=== PATIENT | female | born 1985 | race Caucasian/White ===

== ENCOUNTER 2020-08-21 06:43 | Emergency (ER) | payer OTHER, SELFPAY ==
--- NOTE | 2020-08-21 07:02 | ED_ITS ---
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 Mode of arrival: ambulatory Limitations: no limitations History of Present Illness MD elicited complaint: sore throat and other (ear pain, nausea) Onset (ago): day(s) (2) Consistency: constant Description of mucous: clear Able to tolerate fluids by mouth: Yes Exacerbating factors: swallowing Relieving factors: nothing Associated symptoms: chills, headache, sore throat, nausea and ear pain Treatments prior to arrival: none Related Data Previous Rx's Medication Instructions Recorded ondansetron 4 mg PO Q8H PRN #20 tab 08/21/20 Allergies Allergy/AdvReac Type Severity Reaction Status Date / Time shellfish derived Allergy Severe HIVES Unverified 07/25/20 18:33 [SHELLFISH DERIVED] morphine [MORPHINE] Allergy Intermediate RASH, Unverified 07/25/20 18:33 rash, itching sodium ferric gluconate Allergy Mild itching Unverified 07/25/20 18:33 complex [From FERRLECIT] sucrose [From FERRLECIT] Allergy Mild itching Unverified 07/25/20 18:33 SEAFOOD Allergy Severe SWELLING,RA Uncoded 07/25/20 18:33 SH seafood Allergy Unknown rash, Uncoded 09/19/19 00:00 itching Review of Systems Review of Systems: Constitutional : no Fever, positive Chills, positive fatigue, positive Malaise ENT/Mouth : positive sore throat, positive runny nose Eyes: No Discharge Cardiovascular : No Chest Pain, No SOB Respiratory : No Cough, No Sputum Gastrointestinal : pos Nausea, No Vomiting, No Diarrhea Genitourinary : No Dysuria, No Urinary Frequency Musculoskeletal : positive Myalgia Skin : No rash Neuro : No Headache PMFSH Past Medical History Medical History Migraines Social History Social History Alcohol intake: unknown Smoking Status: Unknown if ever smoked Advance Directives: No Advance Directives Information Provided: Yes Physical Exam Vital Signs: Vital Signs: Vital Signs Temp Pulse Resp BP Pulse Ox 08/21/20 07:09 99.1 F 74 18 120/66 100 Body Mass Index 32.0 Appearance: Alert. Oriented X3. No acute distress. Eyes: Pupils equal, round and reactive to light. ENT: Pharynx normal. Ears normal Neck: Normal inspection. Neck supple. CVS: Normal heart rate and rhythm. Pulses normal. Respiratory: No respiratory distress. Breath sounds normal. Abdomen: Soft and nontender. Skin: Skin warm and dry. Normal skin color. Normal skin turgor. Extremities: No lower extremity edema. No calf ttp Neuro: Oriented X 3. No motor deficit. No sensory deficit. MDM - URI/Sore Throat MDM Narrative Medical decision making narrative: 35 yo female with viral symptoms not toxic, no hypoxia, will need COVID swab, lungs are CTAB, ENT exam normal Discharge Plan Discharge Clinical Impression: Viral infection Patient Disposition: Home, Self-Care Instructions: Viral Syndrome (ED), COVID-19 (Coronavirus Disease 2019) (ED) Additional Instructions: you were tested for COVID we will call you with results in 2 to 4 days, wear a mask, socially distance Prescriptions: New ondansetron 4 mg tablet,disintegrating 4 mg PO Q8H PRN (Reason: nausea and vomiting) Qty: 20 RF: 0 Referrals: Physician,Unknown [Primary Care Provider] - 2 days (PCP if not known) Stand Alone Forms: Work/School Release Print Language: Uzbek
[2020-08-21 07:09] VITALS: BP 120/66; PULSE 74; RESP 18; TEMP 37.3; O2SAT 100; BMI 32.0
== END 2020-08-21 07:51 | disposition home or self-care (01) ==
PROVIDERS: Emergency Provider Emergency Medicine
DX: B34.9 Viral infection, unspecified (principal); H92.03 Otalgia, bilateral; Z20.828 Contact with and (suspected) exposure to other viral communicable diseases
CPT/HCPCS: 87635; 99283

== ENCOUNTER 2020-08-28 16:44 | Emergency (ER) | payer OTHER, SELFPAY ==
[2020-08-28 17:36] VITALS: BP 99/66; PULSE 67; RESP 16; TEMP 36.3; O2SAT 99; BMI 30.7
[2020-08-28 18:12] VITALS: BP 99/77; PULSE 73; RESP 16; TEMP 37.1; O2SAT 99; BMI 32.5
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
--- NOTE | 2020-08-28 18:25 | CT_ITS ---
EXAMINATION: CT HEAD WITHOUT CONTRAST CT CERVICAL SPINE WITHOUT CONTRAST CLINICAL INFORMATION: Fall. COMPARISON: CT cervical spine from 02/08/2018. TECHNIQUE: Contiguous axial imaging was performed from the skull base to vertex without intravenous administration of contrast. Contiguous axial imaging was performed from the upper chest through the skull base without intravenous administration of contrast. Coronal and sagittal reformats were obtained at the acquisition workstation. This CT examination was performed using dose optimization techniques as appropriate, variously including the following: *Automated exposure control. *Adjustment of mA and/or kV according to patient size (this includes techniques or standardized protocols for targeted exams where dose is matched to indication/reason for exam; i.e. extremities or head). *Use of iterative reconstruction technique. DLP: 876 mGy-cm FINDINGS: Head: There is no evidence of acute intracranial hemorrhage or edematous territorial infarction. There is no abnormal attenuation within the brain parenchyma. Desai-white matter differentiation is preserved. The ventricles are normal in size and configuration. No evidence for obstructive hydrocephalus. No abnormal mass effect or midline shift. The cerebellar tonsils are normally positioned. No extra-axial fluid collections. No acute soft tissue or osseous abnormalities. The mastoid air cells and paranasal sinuses are clear. Cervical Spine: The atlantooccipital and atlantoaxial articulations remain well aligned. Straightening reversal the normal cervical lordosis centered on C5. Minimal degenerative anterolisthesis of C4 on C5. Otherwise, there is anatomic alignment of the vertebral bodies and posterior elements. No evidence of acute fracture or subluxation. The vertebral body heights and disc spaces are maintained. Mild right-sided facet joint arthropathy from C3 to C6. There is no prevertebral soft tissue swelling. The thyroid gland and remaining cervical soft tissues are normal in appearance. The lung apices demonstrate no abnormalities. Incidental azygos fissure. IMPRESSION: 1. No evidence of acute intracranial hemorrhage or edematous territorial infarction. 2. No evidence of acute fracture or traumatic subluxation of the cervical spine. 3. 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
--- NOTE | 2020-08-28 18:25 | XR_ITS ---
EXAMINATION: X-RAY HAND, LEFT CLINICAL INFORMATION: Fall COMPARISON: Radiographs of the left hand 12/13/2018 TECHNIQUE: PA, lateral, and oblique views of the left hand FINDINGS: There is normal alignment without acute fracture or dislocation. Joint spaces are preserved. Soft tissues are normal. IMPRESSION: No fracture or dislocation of the left hand.
--- NOTE | 2020-08-28 18:52 | ED_ITS ---
HPI - Fall General Chief Complaint: Fall Stated Complaint: fall Time Seen by Provider: 08/28/20 18:25 Source: patient Mode of arrival: ambulatory Limitations: no limitations History of Present Illness HPI Narrative: patient presents to the ED for fall and complaining of pain. Patient states she fell at work. Patient complains of neck pain, back pain, left hand pain, bilateral knee pain, and left ankle /foot pain. Patient denies any loss of consciousness. Patient states she out fell around 12:30pm today. Patient states since then no nausea, vomiting, dizziness, blood in stool, vomiting blood, or bloody urine. Patient denies any chest pain or shortness of breath. Related Data Previous Rx's Medication Instructions Recorded ondansetron 4 mg PO Q8H PRN #20 tab 08/21/20 naproxen 500 mg PO BID PRN #20 tab 08/28/20 Allergies Allergy/AdvReac Type Severity Reaction Status Date / Time shellfish derived Allergy Severe HIVES Unverified 07/25/20 18:33 [SHELLFISH DERIVED] morphine [MORPHINE] Allergy Intermediate RASH, Unverified 07/25/20 18:33 rash, itching sodium ferric gluconate Allergy Mild itching Unverified 07/25/20 18:33 complex [From FERRLECIT] sucrose [From FERRLECIT] Allergy Mild itching Unverified 07/25/20 18:33 SEAFOOD Allergy Severe SWELLING,RA Uncoded 07/25/20 18:33 SH seafood Allergy Unknown rash, Uncoded 09/19/19 00:00 itching Review of Systems Review of Systems: Patient denies any headache, nausea, vomiting, blood in stool, vomiting blood, blood in urine, chest pain, shortness of breath, or abdominal pain. Yes all other systems are reviewed and are negative [facility] Past Medical History Medical History Migraines Social History Social History Alcohol intake: never Smoking Status: Unknown if ever smoked Smoked in Last 30 Days: No Use of substances other than those prescribed or required for medical reasons: No Advance Directives: No Advance Directives Information Provided: Yes Physical Exam Vital Signs: Vital Signs: Vital Signs Temp Pulse Resp BP Pulse Ox 08/28/20 18:12 98.7 F 73 16 99/77 99 08/28/20 17:36 97.4 F 67 16 99/66 99 Body Mass Index 32.5 Const: General: cooperative, healthy appearing, comfortable, no acute distress, well developed, alert and awake Orientation/consciousness: oriented to person, oriented to place, oriented to time and patient oriented x3 HENMT: Head: Yes normal to inspection, No No palpable skull fracture present, No Fields's sign, No hematoma, No laceration, No palpable skull fracture, No raccoon eyes and No Temporal artery tenderness present Eyes: General: appearance normal, both eyes and all related structures Neck: Neck: Yes normal visual inspection, Yes full ROM, Yes no lymphadenopathy, Yes no meningeal signs, No lymphadenopathy and Yes tender ( Left lateral neck pain) Chest: Chest palpation & inspection: normal inspection of the chest, normal palpation of entire chest wall and no localized rib tenderness Resp: Effort & Inspection: normal respiratory effort, able to speak in complete sentences, no audible wheezes and no cough Auscultation: clear to auscultation bilaterally, no crackles, no rales, no rhonchi and no wheezes Cardio: Jugular venous distension: no JVD Heart sounds: S1 normal heart sound present and S2 normal heart sound present GI: Inspection: Yes normal to inspection and No abdominal wall ecchymosis Palpation (GI): Soft to palpation, not firm, nontender, no guarding and not rigid : General: No CVA tenderness and Yes no CVA tenderness Back/Spine/Pelvis: Back: no CVA tenderness, No CVA tenderness and back tenderness ( positive thoracic lumbar tenderness) Skin: General skin exam: no rashes or lesions noted Trauma: no lacerations or abrasions Neuro: General: oriented to person, oriented to place, oriented to time, patient oriented x3, gait normal, no meningeal signs and CN's II-XI intact bilaterally Cranial nerves: Yes CN's II-XII intact bilaterally Extrem: Other: positive for ecchymosis and tenderness of left hand, bilateral knees, and left foot. Vascular exam of all extremities intact Course Course Course Narrative: patient will be sent for imaging to rule out fracture or brain bleeds. For now patient given Tylenol Reevaluation(s) Reevaluation #1: patient head CT, C-spine, and x-rays came back negative for fractures or brain bleed. Patient is safe for discharge. Diagnosis contusion. Time: 20:07 MDM - Fall MDM Narrative Medical decision making narrative: contusion diagnosis. Discharge Plan Discharge Clinical Impression: Contusion Patient Disposition: Home, Self-Care Instructions: Contusion in Adults (ED) Additional Instructions: return to the ED for any headache, dizziness, nausea, vomiting, chest pain, shortness of breath, blood in stool, blood in vomit, blood in urine, or any other concerning symptoms. Please follow-up with your PCP. Prescriptions: New naproxen 500 mg tablet 500 mg PO BID PRN (Reason: pain) Qty: 20 RF: 0 No Action ondansetron 4 mg tablet,disintegrating 4 mg PO Q8H PRN (Reason: nausea and vomiting) Qty: 20 RF: 0 Referrals: [facility] [Provider Group] - 2 days ( fell at work) Stand Alone Forms: Work/School Release Interventions: ED Discharge Assessment Last Done: 08/28/20 20:19 Discharge Date/Time: 08/28/20 20:29 Print Language: Belizean
[2020-08-28] MEDS: Acetaminophen 325 MG TABLET 650 MG PO (19:22)
== END 2020-08-28 20:29 | disposition home or self-care (01) ==
PROVIDERS: Emergency Provider Emergency Medicine
DX: S60.222A Contusion of left hand, initial encounter (principal); S80.02XA Contusion of left knee, initial encounter; S80.01XA Contusion of right knee, initial encounter; S90.32XA Contusion of left foot, initial encounter; W01.0XXA Fall on same level from slipping, tripping and stumbling without subsequent striking against object, initial encounter; Y93.9 Activity, unspecified; Y92.239 Unspecified place in hospital as the place of occurrence of the external cause; Y99.0 Civilian activity done for income or pay
CPT/HCPCS: 70450; 72100; 72125; 73110; 73130; 73564; 73610; 73630; 99284

== ENCOUNTER 2020-09-10 11:10 | Emergency (ER) | payer OTHER, SELFPAY ==
[2020-09-10 11:32] VITALS: BP 132/83; PULSE 84; RESP 16; TEMP 36.9; O2SAT 100; BMI 31.4
--- NOTE | 2020-09-10 11:40 | ECG_ITS ---
Test Reason : DIZZINESS Blood Pressure : / mmHG Vent. Rate : 080 BPM Atrial Rate : 080 BPM P-R Int : 142 ms QRS Dur : 088 ms QT Int : 402 ms P-R-T Axes : 062 053 058 degrees QTc Int : 463 ms Normal sinus rhythm Normal ECG When compared with ECG of 04-JUL-2019 15:42, No significant change was found Heart rate has increased Referred By: Juliana Gerardo Electronically Signed By:VIVIENNE EDWARDS MD
--- NOTE | 2020-09-10 11:40 | ED.DIZZY ---
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 Mode of arrival: ambulatory Limitations: no limitations History of Present Illness MD elicited complaint: dizziness and vertigo Onset (ago): day(s) (yesterday ) Timing: gradual onset Severity: moderate Description: room spinning and lightheadedness Context: change in body position History of similar symptoms: No Exacerbating factors: movement/ambulation and change in body position Relieving factors: remaining still Associated symptoms: nausea and vomiting Associated neuro symptoms: other (DENIES) Related Data Previous Rx's Medication Instructions Recorded ondansetron 4 mg PO Q8H PRN #20 tab 08/21/20 naproxen 500 mg PO BID PRN #20 tab 08/28/20 meclizine 25 mg PO TID PRN #30 tab 09/10/20 ondansetron 4 mg PO Q8H PRN #20 tab 09/10/20 Allergies Allergy/AdvReac Type Severity Reaction Status Date / Time shellfish derived Allergy Severe HIVES Unverified 07/25/20 18:33 [SHELLFISH DERIVED] morphine [MORPHINE] Allergy Intermediate RASH, Unverified 07/25/20 18:33 rash, itching sodium ferric gluconate Allergy Mild itching Unverified 07/25/20 18:33 complex [From FERRLECIT] sucrose [From FERRLECIT] Allergy Mild itching Unverified 07/25/20 18:33 SEAFOOD Allergy Severe SWELLING,RA Uncoded 07/25/20 18:33 SH seafood Allergy Unknown rash, Uncoded 09/19/19 00:00 itching Review of Systems Review of Systems: Constitutional : No Fever, No Chills, No Fatigue ENT/Mouth : No sore throat, No Rhinorrhea Eyes: No Eye Pain, No Swelling, No Redness Cardiovascular : No Chest Pain, No SOB, No Dyspnea on Exertion Respiratory : No Cough, No Sputum Gastrointestinal :pos Nausea, pos Vomiting, No Diarrhea, No abdominal Pain Genitourinary : No Dysuria, No Urinary Frequency, No Hematuria, Musculoskeletal : No joint pain, No Myalgias, No Joint Swelling Skin : No Skin Lesions, No rash Neuro : No Weakness, No Numbness, pos Dizziness, positive Headache Psych : No Anxiety/Panic, No Depression Heme/Lymph: No Bruising, No Bleeding,No Lymphadenopathy Endocrine : No Polyuria, No Polydipsia All other systems reviewed and are negative [facility] Past Medical History Attestation statement: The following information was validated with the patient. Medical History Migraines Social History Social History Alcohol intake: never Smoking Status: Unknown if ever smoked Smoked in Last 30 Days: No Use of substances other than those prescribed or required for medical reasons: No Advance Directives: No Advance Directives Information Provided: No Physical Exam Vital Signs: Vital Signs: Vital Signs Temp Pulse Resp BP Pulse Ox 09/10/20 13:39 79 16 114/77 98 09/10/20 11:32 98.4 F 84 16 132/83 100 Body Mass Index 31.4 Appearance: Alert. Oriented X3. No acute distress. Eyes: Pupils equal, round and reactive to light. some brief horizontal nystagmus when turning head to left ENT: Pharynx normal. Neck: Normal inspection. Neck supple. CVS: Normal heart rate and rhythm. Pulses normal. Respiratory: No respiratory distress. Breath sounds normal. Abdomen: Soft and nontender. Skin: Skin warm and dry. Normal skin color. Normal skin turgor. Extremities: No lower extremity edema. No calf ttp Neuro: Oriented X 3. No motor deficit. No sensory deficit. no drift, rapid alternating movements intact, can do heel to arnett without issue Course Course Course Narrative: feels better, up and walking steady gait, anticipate DC home MDM - Dizziness MDM Narrative Medical decision making narrative: 35 yo female with hx of headaches comes with 24 hours of room spinning, n/v and has no focal deficits to suggest posterior stroke, her symptoms worsen when turning to the left, no injury, no AC therapy - exam and history concerning for vertigo - labs, IVF, EKG, supportive medications, denies recent sinus issue, dispo per results and findings ECG Data Attestation: I personally reviewed and interpreted this ECG as follows: ECG interpretation date: 09/10/20 ECG interpretation time: 14:11 Interpretation: Rate:80 Rhythm: NSR [place]: normal Normal P waves. Normal MIGUEL. Normal QRS complex. ST T wave : normal qTC: normal prior studies: no acute ischemia The study has been interpreted contemporaneously by me. . Discharge Plan Discharge Clinical Impression: Benign paroxysmal positional vertigo Patient Disposition: Home, Self-Care Instructions: Vertigo (ED) Additional Instructions: return to ED for any worsening symptoms or concerns Prescriptions: New meclizine 25 mg tablet 25 mg PO TID PRN (Reason: dizziness) Qty: 30 RF: 0 ondansetron 4 mg tablet,disintegrating 4 mg PO Q8H PRN (Reason: nausea and vomiting) Qty: 20 RF: 0 No Action naproxen 500 mg tablet 500 mg PO BID PRN (Reason: pain) Qty: 20 RF: 0 ondansetron 4 mg tablet,disintegrating 4 mg PO Q8H PRN (Reason: nausea and vomiting) Qty: 20 RF: 0 Referrals: Physician,Unknown [Primary Care Provider] - 2 days (if not better) Stand Alone Forms: Work/School Release
[2020-09-10] MEDS: Meclizine HCl 25 MG TABLET PO (12:23)
[2020-09-10] MEDS: LORazepam 2 MG/ML VIAL 1 MG IVPUSH (13:31)
[2020-09-10] MEDS: ondansetron HCL 4 MG/2 ML VIAL IVPUSH (13:31)
[2020-09-10] MEDS: 0.9 % Sodium Chloride 1,000 ML 999 ML IVCONT (13:31)
--- NOTE | 2020-09-10 13:34 | PC.NURSE ---
pt very difficult iv insertion. 24 g placed in left hand area. unable to get lab off line, will call phlebotomy for draw. pt reports improvement in dizziness after mediated with po antivert. IV meds to be administered. pt ambulated to bathroom with steady gait.
[2020-09-10 13:39] VITALS: BP 114/77; PULSE 79; RESP 16; O2SAT 98
[2020-09-10 15:03] LABS: MANUAL DIFF FLAG NO
[2020-09-10 15:07] LABS: Basophils Absolute Auto 0.1 X10*3/uL (0.0-0.2); Basophils Percent Auto 0.9 % (0-2); Eosinophils Absolute Auto 0.4 X10*3/uL (0.0-0.4); Eosinophils Percent Auto 5.2 % (0-4); Hematocrit 40.7 % (37-47); Hemoglobin 12.8 g/dl (12.0-16.0); Imm Gran Abs Auto 0.02 X10*3/uL (0.00-0.03); Imm Gran Pct Auto 0.3 % (0.0-0.4); Lymphocytes Absolute Auto 2.6 X10*3/uL (1.2-4.9); Lymphocytes Percent Auto 33.6 % (20-40); Mean Corpuscular HGB Conc 31.4 g/dl (31.0-35.0); Mean Corpuscular Hemoglobin 27.7 pg (27.0-33.0); Mean Corpuscular Volume 88.1 fL (80-98); Mean Platelet Volume 9.8 fL (9.4-12.3); Monocytes Absolute Auto 0.5 X10*3/uL (0.1-1.2); Monocytes Percent Auto 6.1 % (2-11); Neutrophils Absolute Auto 4.2 X10*3/uL (2.0-8.3); Neutrophils Percent Auto 53.9 % (45-73); Platelet Count 358 X10*3/uL (160-400); Red Blood Count 4.62 X10*6/uL (4.20-5.50); Red Cell Distribution Width 13.7 % (11.0-16.0); White Blood Count 7.8 X10*3/uL (4.8-10.8)
[2020-09-10 15:49] LABS: Anion Gap 15 (12-20); Blood Urea Nitrogen 10 mg/dL (9-16); Calcium 8.6 mg/dL (8.4-10.2); Carbon Dioxide 22 mmol/L (22-29); Chloride 108 mmol/L (96-108); Creatinine Clr Calc Pharmacy 124.1; Estimated Glomerular Filt Rate > 60; Glucose Random 78 mg/dL (60-115); Potassium 3.8 mmol/l (3.3-5.1); Sodium 141 mmol/L (135-145)
== END 2020-09-10 16:31 | disposition home or self-care (01) ==
PROVIDERS: Emergency Provider Emergency Medicine
DX: H81.13 Benign paroxysmal vertigo, bilateral (principal); Z79.899 Other long term (current) drug therapy
CPT/HCPCS: 36415; 80048; 85025; 93005; 96361; 96374; 96375; 99284; J2060; J2405

== ENCOUNTER 2020-09-12 09:36 | Emergency (ER) | payer OTHER, SELFPAY ==
[2020-09-12 09:54] VITALS: BP 116/69; PULSE 86; RESP 20; TEMP 36.1; O2SAT 100; BMI 33.3
--- NOTE | 2020-09-12 10:43 | PC.NURSE ---
PROVIDER AT BEDSIDE W INTERPRETTER FOR EVAL
--- NOTE | 2020-09-12 10:45 | ED_ITS ---
HPI - Dizziness General Chief Complaint: Dizziness Stated Complaint: dizzy Time Seen by Provider: 09/12/20 10:25 Source: patient Mode of arrival: ambulatory Limitations: language barrier History of Present Illness HPI Narrative: 35 y/o female with hx insomnia, headaches presenting with dizziness x3 days, anxiety and depression. She was seen here on 09/10 for dizziness and diagnosed with BPPV - prescribed meclizine but she has not been taking it because she never picked it up from the pharmacy. Cannot given an explaination for this. She describes it as room spinning with head movement which is unchanged. She denies new symptoms since last evaluated here in the ER 2 days ago. MD elicited complaint: dizziness Pertinent past history: BPPV Onset (ago): day(s) (3) Timing: sudden onset and intermittent Severity: moderate Description: room spinning Context: anxiety Exacerbating factors: movement/ambulation and change in body position Relieving factors: remaining still, rest and lying down Associated symptoms: denies other symptoms Related Data Previous Rx's Medication Instructions Recorded ondansetron 4 mg PO Q8H PRN #20 tab 08/21/20 naproxen 500 mg PO BID PRN #20 tab 08/28/20 meclizine 25 mg PO TID PRN #30 tab 09/10/20 ondansetron 4 mg PO Q8H PRN #20 tab 09/10/20 Allergies Allergy/AdvReac Type Severity Reaction Status Date / Time shellfish derived Allergy Severe HIVES Unverified 07/25/20 18:33 [SHELLFISH DERIVED] morphine [MORPHINE] Allergy Intermediate RASH, Unverified 07/25/20 18:33 rash, itching sodium ferric gluconate Allergy Mild itching Unverified 07/25/20 18:33 complex [From FERRLECIT] sucrose [From FERRLECIT] Allergy Mild itching Unverified 07/25/20 18:33 SEAFOOD Allergy Severe SWELLING,RA Uncoded 07/25/20 18:33 SH seafood Allergy Unknown rash, Uncoded 09/19/19 00:00 itching Review of Systems Review of Systems: Constitutional: No Fever, No Chills ENT/Mouth: No sore throat, No Rhinorrhea, No Swallowing Difficulty Eyes: No Eye Pain, No Swelling, No Redness Cardiovascular: No Chest Pain, No SOB, No Orthopnea, No Edema Respiratory: No Cough, No Sputum, No Wheezing, No dyspnea Gastrointestinal: + Nausea, No Vomiting, No Diarrhea, No abdominal Pain, No Hematochezia, No Melena Genitourinary: No Dysuria, No Urinary Frequency, No Hematuria Musculoskeletal: No joint pain, No Myalgias Skin: No Skin Lesions, No rash Neuro: No Weakness, No Numbness, + Dizziness, + Headache Psych: +Anxiety/Panic, +Depression Heme/Lymph: No Bruising, No Lymphadenopathy Endocrine: No Polyuria, No Polydipsia [facility] Past Medical History Attestation statement: The following information was validated with the patient. Medical History Anxiety Asthma Bipolar disorder Depression Hypertension Migraines Social History Social History Alcohol intake: never Smoking Status: Unknown if ever smoked Advance Directives: No Advance Directives Information Provided: No Physical Exam Vital Signs: Vital Signs: Vital Signs Temp Pulse Resp BP Pulse Ox 09/12/20 09:54 96.9 F 86 20 116/69 100 Body Mass Index 33.3 Appearance: Alert. Oriented X3. No acute distress. Eyes: Pupils equal, round and reactive to light. ENT: Pharynx normal. TM's normal. Neck: Normal inspection. Neck supple. CVS: Normal heart rate and rhythm. Pulses normal. Respiratory: No respiratory distress. Breath sounds normal. Abdomen: Soft and nontender. +BS x4 Skin: Skin warm and dry. Normal skin color. Normal skin turgor. No rashes. Extremities: No lower extremity edema. Neuro: Oriented X 3. No motor deficit. No sensory deficit. No nystagmus. PERRLA. Non-focal. Course Course Course Narrative: 35 y/o presents back with continued dizziness. Not taking prescribed Meclizine. Increased anxiety and depression reporting making symptoms worse. She reports mild headache which is chronic. No neck pain. She has non- focal neuro exam, low suspicion for CVA. Will give trial of meclizine and low dose ativan and reassess. Reevaluation(s) Reevaluation #1: Significant improvement after meds. We discussed the importance of picking up the prescribed medication at the pharmacy and how it will help her dizziness. She agrees to pick it up and take as needed at home. She is stable for discharge. 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 You were given that same Meclizine medication in the ER with improvement in your symptoms. If your dizziness worsens or changes, or if you develop difficulty walking, difficulty speaking, weakness or numbness, call 911 or come back to the ER for further evaluation. Follow up with your PCP this week. Prescriptions: No Action naproxen 500 mg tablet 500 mg PO BID PRN (Reason: pain) Qty: 20 RF: 0 meclizine 25 mg tablet 25 mg PO TID PRN (Reason: dizziness) Qty: 30 RF: 0 ondansetron 4 mg tablet,disintegrating 4 mg PO Q8H PRN (Reason: nausea and vomiting) Qty: 20 RF: 0 ondansetron 4 mg tablet,disintegrating 4 mg PO Q8H PRN (Reason: nausea and vomiting) Qty: 20 RF: 0
[2020-09-12] MEDS: LORazepam 0.5 MG TABLET PO (10:51)
[2020-09-12] MEDS: Meclizine HCl 25 MG TABLET PO (10:51)
--- NOTE | 2020-09-12 11:34 | PC.NURSE ---
pt tolerating po without issue, given medications per order. appears comfortable, resting in stretcher att.
== END 2020-09-12 12:23 | disposition home or self-care (01) ==
PROVIDERS: Emergency Provider Emergency Medicine
DX: H81.10 Benign paroxysmal vertigo, unspecified ear (principal); F41.9 Anxiety disorder, unspecified; F43.0 Acute stress reaction; I10 Essential (primary) hypertension; Z79.899 Other long term (current) drug therapy
CPT/HCPCS: 99283

== ENCOUNTER 2020-09-29 15:39 | Emergency (ER) | payer OTHER, SELFPAY ==
[2020-09-29 16:11] VITALS: BP 120/76; PULSE 67; RESP 16; TEMP 37.1; O2SAT 100; BMI 29.2
--- NOTE | 2020-09-29 16:45 | US_ITS ---
EXAMINATION: US VENOUS ULTRASOUND WITH DOPPLER LOWER EXTREMITY, LEFT CLINICAL INFORMATION: Pain, swelling COMPARISON: None TECHNIQUE: Ultrasound of the deep veins is performed from the hip to the calf with compression sonography and color and pulse Doppler assessment. Spectral analysis with color-flow imaging is performed. FINDINGS: There is normal venous compression and respiratory variation and augmented flow. The visualized common femoral vein, superficial femoral vein, profunda femoral vein, popliteal vein, and the trifurcation region shows no evidence of deep venous thrombosis. There is no significant popliteal fossa cyst. . If the patient's symptoms persist, followup ultrasound in 5 days 7 days might be of value to exclude proximal propagation from a non-visualized calf vein. US/US venous duplex LE LT IMPRESSION: No DVT demonstrated in the left lower extremity.
--- NOTE | 2020-09-29 17:47 | ED.EXTPRO ---
HPI - Extremity Problem General Chief complaint: Extremity Injury, Lower Stated complaint: Leg Pain Time Seen by Provider: 09/29/20 16:45 Source: patient Mode of arrival: ambulatory Limitations: no limitations History of Present Illness HPI Narrative: States she fell 2 weeks ago on her right knee for which she was evaluated in the emergency room had x-rays that were negative and past couple days she has been having some pain in the posterior calf area of the left leg and shoes down to her foot area with some intermittent swelling in the left foot. Denies any other injury. No chest pain or shortness of breath. No prior history of DVT/PE. MD Complaint: extremity pain Pain Consistency: intermittent Location: left Relieving factors: immobilization Exacerbating factors: weight bearing Associated symptoms: denies other symptoms Related Data Previous Rx's Medication Instructions Recorded ondansetron 4 mg PO Q8H PRN #20 tab 08/21/20 naproxen 500 mg PO BID PRN #20 tab 08/28/20 meclizine 25 mg PO TID PRN #30 tab 09/10/20 ondansetron 4 mg PO Q8H PRN #20 tab 09/10/20 cyclobenzaprine 5 mg PO TID PRN #20 tab 09/29/20 Allergies Allergy/AdvReac Type Severity Reaction Status Date / Time shellfish derived Allergy Severe HIVES Verified 09/29/20 16:18 [SHELLFISH DERIVED] morphine [MORPHINE] Allergy Intermediate RASH, Verified 09/29/20 16:18 rash, itching sodium ferric gluconate Allergy Mild itching Verified 09/29/20 16:18 complex [From FERRLECIT] sucrose [From FERRLECIT] Allergy Mild itching Verified 09/29/20 16:18 SEAFOOD Allergy Severe SWELLING,RA Uncoded 07/25/20 18:33 SH seafood Allergy Unknown rash, Uncoded 09/19/19 00:00 itching Review of Systems Review of Systems: Constitutional: No Weight loss, No Fever, No Chills, No Night Sweats, No Fatigue, No Malaise ENT/Mouth: No Hearing loss, No Ear Pain, No Nasal Congestion, No Sinus Pain, No Hoarseness, No sore throat, No Rhinorrhea, No Swallowing Difficulty Eyes: No Eye Pain, No Swelling, No Redness, No Foreign Body, No Discharge, No Vision Changes Cardiovascular: No Chest Pain, No SOB, No Dyspnea on Exertion, No Orthopnea, No Edema, No Palpitations Respiratory: No Cough, No Sputum, No Wheezing, No Smoke Exposure, No Dyspnea Gastrointestinal: No Nausea, No Vomiting, No Diarrhea, No Constipation, No abdominal Pain, No Hematochezia, No Melena Genitourinary: no irregular bleeding, No Dysuria, No Urinary Frequency, No Hematuria, No Urinary Incontinence, No Urgency, No Flank Pain, No Urinary Flow Changes, No Hesitancy Musculoskeletal: No joint pain, No Myalgias, No Joint Swelling Skin: No Skin Lesions, No rash Neuro: No Weakness, No Numbness, No Paresthesias, No Loss of Consciousness, No Dizziness, No Headache Psych: No Social Issues Heme/Lymph: No Bruising, No Bleeding,No Lymphadenopathy Endocrine: No Polyuria, No Polydipsia, No Temperature Intolerance Yes all other systems are reviewed and are negative [facility] Past Medical History Medical History Anxiety Asthma Bipolar disorder Depression Hypertension Migraines Social History Social History Alcohol intake: never Smoking Status: Unknown if ever smoked Smoked in Last 30 Days: No Use of substances other than those prescribed or required for medical reasons: No Advance Directives: No Advance Directives Information Provided: No Physical Exam Vital Signs: Vital Signs: Last Vital Signs Temp 98.7 F 09/29/20 16:11 Pulse 67 09/29/20 16:11 Resp 16 09/29/20 16:11 BP 120/76 09/29/20 16:11 Pulse Ox 100 09/29/20 16:11 Body Mass Index 29.2 Reviewed Const: General: cooperative and healthy appearing; No acute distress or intoxicated appearing Nutritional Appearance: average body habitus Orientation/consciousness: patient oriented x3 HENMT: Head: Yes normal to inspection Ears: hearing grossly normal bilaterally Eyes: General: appearance normal, both eyes and all related structures Visual Mckenzie: normal visual mckenzie by confrontation Neck: Neck: Yes normal visual inspection, No positive Brudzinski's sign, No positive Kernig's sign and No tender Thyroid: Thyroid normal Chest: Chest palpation & inspection: normal inspection of the chest Resp: Effort & Inspection: normal respiratory effort Cardio: Jugular venous distension: no JVD GI: Inspection: Yes normal to inspection Percussion: Yes normal to percussion Auscultation: normal bowel sounds : General: Yes no CVA tenderness Back/Spine/Pelvis: Back: no CVA tenderness Skin: General skin exam: no rashes or lesions noted Neuro: General: patient oriented x3 Extrem: Other: Diffuse tenderness over the calf area. Negative Homans. No obvious erythema or swelling. General: Yes normal to inspection Course Course Course Narrative: AP consistent with strain type injury I do not suspect to see a DVT on the ultrasound of the left lower extremity this is pending. Sign-out pending results of this. Anticipated course will be discharged home with NSAIDs, rest, ice, elevate and supportive care. Discharge Plan Discharge Clinical Impression: Strain of calf muscle Patient Disposition: Home, Self-Care Prescriptions: New cyclobenzaprine 10 mg tablet 5 mg PO TID PRN (Reason: muscle spasm) Qty: 20 RF: 0 No Action naproxen 500 mg tablet 500 mg PO BID PRN (Reason: pain) Qty: 20 RF: 0 meclizine 25 mg tablet 25 mg PO TID PRN (Reason: dizziness) Qty: 30 RF: 0 ondansetron 4 mg tablet,disintegrating 4 mg PO Q8H PRN (Reason: nausea and vomiting) Qty: 20 RF: 0 ondansetron 4 mg tablet,disintegrating 4 mg PO Q8H PRN (Reason: nausea and vomiting) Qty: 20 RF: 0 Referrals: Physician,Unknown [Primary Care Provider] - 1 week
--- NOTE | 2020-09-29 19:03 | PC.NURSE ---
PT WAS NOT IN ROOM WHEN ASSESSED FOR D/C. PT BOYFRIEND WAS SEEN EARLIER HERE AND D/C I KENNVE SHE MUST OF LEFT WITH HIM.
== END 2020-09-29 19:02 | disposition home or self-care (01) ==
PROVIDERS: Emergency Provider Internal Medicine
DX: S86.911A Strain of unspecified muscle(s) and tendon(s) at lower leg level, right leg, initial encounter (principal); M25.561 Pain in right knee; M79.604 Pain in right leg; I10 Essential (primary) hypertension; R60.0 Localized edema; W18.30XA Fall on same level, unspecified, initial encounter; Y93.9 Activity, unspecified; Y92.9 Unspecified place or not applicable; Y99.9 Unspecified external cause status; Z79.899 Other long term (current) drug therapy
CPT/HCPCS: 93971; 99284

== ENCOUNTER 2020-10-14 10:28 | Outpatient (REF) | payer OTHER, SELFPAY | END 2020-10-14 10:29 | disposition home or self-care (01) | LOC: HO.LAB 10:28 | PROVIDERS: Visit Provider Internal Medicine | DX: Z20.828 Contact with and (suspected) exposure to other viral communicable diseases (principal) | CPT/HCPCS: C9803; U0003 ==

== ENCOUNTER 2020-11-10 11:25 | Emergency (ER) | payer OTHER, SELFPAY ==
[2020-11-10 12:16] VITALS: BP 134/89; PULSE 89; RESP 16; TEMP 36.8; O2SAT 100; BMI 31.1
--- NOTE | 2020-11-10 12:29 | ED.GENADULT ---
HPI - General Adult General Chief complaint: General Medical Stated complaint: itchy all over Time Seen by Provider: 11/10/20 12:29 Source: patient Mode of arrival: ambulatory Limitations: no limitations History of Present Illness HPI narrative: States she is getting itchiness around the perineum area she has been using protective barrier spray for vaginal odor and this has been irritating her skin she feels like she has a rash in the perineum and now itchiness all over. No angioedema. Rash to face or cough or respiratory symptoms. Onset (ago): day(s) (1) Severity: mild Associated symptoms: denies other symptoms Treatments prior to arrival: none Related Data Previous Rx's Medication Instructions Recorded ondansetron 4 mg PO Q8H PRN #20 tab 08/21/20 naproxen 500 mg PO BID PRN #20 tab 08/28/20 meclizine 25 mg PO TID PRN #30 tab 09/10/20 ondansetron 4 mg PO Q8H PRN #20 tab 09/10/20 cyclobenzaprine 5 mg PO TID PRN #20 tab 09/29/20 hydroxyzine HCl 25 mg PO TID PRN #14 tab 11/10/20 Allergies Allergy/AdvReac Type Severity Reaction Status Date / Time shellfish derived Allergy Severe HIVES Verified 09/29/20 16:18 [SHELLFISH DERIVED] morphine [MORPHINE] Allergy Intermediate RASH, Verified 09/29/20 16:18 rash, itching sodium ferric gluconate Allergy Mild itching Verified 09/29/20 16:18 complex [From FERRLECIT] sucrose [From FERRLECIT] Allergy Mild itching Verified 09/29/20 16:18 SEAFOOD Allergy Severe SWELLING,RA Uncoded 07/25/20 18:33 SH seafood Allergy Unknown rash, Uncoded 09/19/19 00:00 itching Review of Systems Review of Systems: Constitutional: No Weight loss, No Fever, No Chills, No Night Sweats, No Fatigue, No Malaise ENT/Mouth: No Hearing loss, No Ear Pain, No Nasal Congestion, No Sinus Pain, No Hoarseness, No sore throat, No Rhinorrhea, No Swallowing Difficulty Eyes: No Eye Pain, No Swelling, No Redness, No Foreign Body, No Discharge, No Vision Changes Cardiovascular: No Chest Pain, No SOB, No Dyspnea on Exertion, No Orthopnea, No Edema, No Palpitations Respiratory: No Cough, No Sputum, No Wheezing, No Dyspnea Gastrointestinal: No Nausea, No Vomiting, No Diarrhea, No Constipation, No abdominal Pain, No Hematochezia, No Melena Genitourinary: no irregular bleeding, No Dysuria, No Urinary Frequency, No Hematuria, No Urinary Incontinence, No Urgency, No Flank Pain Musculoskeletal: No joint pain, No Myalgias, No Joint Swelling Skin: No Skin Lesions, As noted in HPI Neuro: No Weakness, No Numbness, No Paresthesias, No Loss of Consciousness, No Dizziness, No Headache Psych: No Social Issues Heme/Lymph: No Bruising, No Bleeding,No Lymphadenopathy Endocrine: No Polyuria, No Polydipsia, No Temperature Intolerance Yes all other systems are reviewed and are negative [facility] Past Medical History Medical History Anxiety Asthma Bipolar disorder Depression Hypertension Migraines Social History Social History Alcohol intake: never Smoking Status: Unknown if ever smoked Advance Directives: No Advance Directives Information Provided: Yes Physical Exam Vital Signs: Vital Signs: Last Vital Signs Temp 98.2 F 11/10/20 12:16 Pulse 89 11/10/20 12:16 Resp 16 11/10/20 12:16 BP 134/89 11/10/20 12:16 Pulse Ox 100 11/10/20 12:16 Body Mass Index 31.1 Reviewed Const: General: cooperative and healthy appearing; No acute distress or intoxicated appearing Nutritional Appearance: average body habitus Orientation/consciousness: patient oriented x3 HENMT: Head: Yes normal to inspection Ears: hearing grossly normal bilaterally Eyes: General: appearance normal, both eyes and all related structures Visual Mckenzie: normal visual mckenzie by confrontation Neck: Neck: Yes normal visual inspection, No positive Brudzinski's sign, No positive Kernig's sign and No tender Thyroid: Thyroid normal Chest: Chest palpation & inspection: normal inspection of the chest Resp: Effort & Inspection: normal respiratory effort Cardio: Jugular venous distension: no JVD GI: Inspection: Yes normal to inspection Percussion: Yes normal to percussion Auscultation: normal bowel sounds : Other: RN present as production line mechanic as well as the educational sign language interpreter General: Yes no CVA tenderness External Female Exam: normal external appearance and normal appearance of the urethra Back/Spine/Pelvis: Back: no CVA tenderness Skin: General skin exam: no rashes or lesions noted Neuro: General: patient oriented x3 Extrem: General: Yes normal to inspection Course Course Course Narrative: No overt rash noted. Given the mail order which she seems to have at baseline UA, BV and Trichomonas obtain. Could be slight irritant dermatitis from the order new tries her that she sprays on her panty liner. Advised to stop doing this. No signs of systemic rash. Will give her short course of hydroxyzine and follow with the BV/Trichomonas swabs. She denies any concern for any STI. No abdominal pain, pelvic pain or vaginal bleeding/discharge. Medical Decision Making Lab Data Labs: Lab Results 11/10/20 Range/Units 13:36 Urine Color YELLOW Urine Appearance CLEAR Urine pH 6.0 (5.0-8.0) Ur Specific Cornish 1.025 (1.005-1.025) Urine Protein NEG (NEG-TRACE) MG/DL Urine Glucose (UA) NEG (NEG) MG/DL Urine Ketones NEG (NEG) MG/DL Urine Blood NEG (NEG) Urine Nitrite NEG (NEG) Ur Leukocyte Esterase NEG (NEG) Urine RBC 0 (0) /HPF Urine WBC 0-2 (0-4) /HPF Ur Squamous Epith Cells 1+ /LPF Urine Bacteria NONE /LPF Urine Mucus 1+ /LPF Urine Test NEGATIVE (NEGATIVE) Discharge Plan Discharge Clinical Impression: Dermatitis Patient Disposition: Home, Self-Care Instructions: Contact Dermatitis (ED) Additional Instructions: This rash/itchiness can be from the perineum protector spray that your using Though there is no rash at this time or any signs of infection the irritation can result from the aspirate Take the anti-itch medication prescribed Stop using this fraying Supportive cares discussed Return if you develop any worsening symptoms or concern Thank you Prescriptions: New hydroxyzine HCl 25 mg tablet 25 mg PO TID PRN (Reason: itching) Qty: 14 RF: 0 No Action naproxen 500 mg tablet 500 mg PO BID PRN (Reason: pain) Qty: 20 RF: 0 meclizine 25 mg tablet 25 mg PO TID PRN (Reason: dizziness) Qty: 30 RF: 0 ondansetron 4 mg tablet,disintegrating 4 mg PO Q8H PRN (Reason: nausea and vomiting) Qty: 20 RF: 0 cyclobenzaprine 10 mg tablet 5 mg PO TID PRN (Reason: muscle spasm) Qty: 20 RF: 0 ondansetron 4 mg tablet,disintegrating 4 mg PO Q8H PRN (Reason: nausea and vomiting) Qty: 20 RF: 0 Referrals: Physician,Unknown [Primary Care Provider] - 1 week Interventions: ED Discharge Assessment Last Done: 11/10/20 15:21 Discharge Date/Time: 11/10/20 15:22
[2020-11-10 13:55] LABS: Glucose Urine UA NEG (NEG); Leukocyte Esterase Urine NEG (NEG); Nitrite Urine NEG (NEG); Specific Gravity - Urine 1.025 (1.005-1.025); Urine Blood NEG (NEG); Urine Ketones NEG (NEG); Urine Protein NEG (NEG-TRACE)
[2020-11-10 13:58] LABS: Appearance Urine CLEAR; Color Urine YELLOW
[2020-11-10 14:04] LABS: Mucus Urine 1+ /LPF; RBC Urine 0 /HPF (0); Squamous Epithelial Cell Urine 1+ /LPF; WBC Urine 0-2 /HPF (0-4)
[2020-11-10 14:25] LABS: UPreg QC Valid YES; Urine Pregnancy NEGATIVE (NEGATIVE)
[2020-11-11 08:49] LABS: BV Int Neg Control Negative (Negative); BV Int Pos Control Positive (Positive)
== END 2020-11-10 15:22 | disposition home or self-care (01) ==
PROVIDERS: Nurse Practitioner Primary Care; Emergency Provider Emergency Medicine
DX: L23.9 Allergic contact dermatitis, unspecified cause (principal); N89.8 Other specified noninflammatory disorders of vagina; Z79.899 Other long term (current) drug therapy
CPT/HCPCS: 81001; 81025; 87480; 87510; 87660; 99283

== ENCOUNTER 2021-01-01 17:20 | Emergency (ER) | payer OTHER, SELFPAY ==
[2021-01-01 19:04] VITALS: BP 112/75; PULSE 70; RESP 16; TEMP 37.2; O2SAT 100; BMI 32.3
[2021-01-01 19:25] LABS: Appearance Urine CLEAR; Color Urine YELLOW; Glucose Urine UA NEG (NEG); Leukocyte Esterase Urine NEG (NEG); Nitrite Urine NEG (NEG); PH 6.5 (5.0-8.0); Urine Blood NEG (NEG); Urine Ketones NEG (NEG); Urine Protein NEG (NEG-TRACE)
[2021-01-01 19:27] LABS: UPreg QC Valid YES; Urine Pregnancy NEGATIVE (NEGATIVE)
--- NOTE | 2021-01-01 19:27 | ED.GENADULT ---
HPI - General Adult General Chief complaint: General Medical Stated complaint: ?Rash Time Seen by Provider: 01/01/21 19:09 Source: patient and seismic interpreter Mode of arrival: ambulatory Limitations: language barrier History of Present Illness HPI narrative: Patient here complaining of generalized body itching but more focal in the eulogio area. Denies vaginal discharge, urinary symptoms, abdominal pain, nausea, vomiting, diarrhea. Denies any new products, detergents, medications. Patient tells me she was seen here and November for similar and was prescribed hydroxyzine and Flagyl. Patient tells me that her symptoms continued with no improvement. She has not followed up with her primary care doctor Related Data Previous Rx's Medication Instructions Recorded ondansetron 4 mg PO Q8H PRN #20 tab 08/21/20 naproxen 500 mg PO BID PRN #20 tab 08/28/20 meclizine 25 mg PO TID PRN #30 tab 09/10/20 ondansetron 4 mg PO Q8H PRN #20 tab 09/10/20 cyclobenzaprine 5 mg PO TID PRN #20 tab 09/29/20 hydroxyzine HCl 25 mg PO TID PRN #14 tab 11/10/20 metronidazole [Flagyl] 500 mg PO BID 7 Days #14 tab 11/13/20 fluconazole [Diflucan] 150 mg PO Q3D #2 tab 01/01/21 hydroxyzine HCl 25 mg PO TID PRN #20 tab 01/01/21 prednisone 40 mg PO DAILY #10 tab 01/01/21 Allergies Allergy/AdvReac Type Severity Reaction Status Date / Time shellfish derived Allergy Severe HIVES Verified 09/29/20 16:18 [SHELLFISH DERIVED] morphine [MORPHINE] Allergy Intermediate RASH, Verified 09/29/20 16:18 rash, itching sodium ferric gluconate Allergy Mild itching Verified 09/29/20 16:18 complex [From FERRLECIT] sucrose [From FERRLECIT] Allergy Mild itching Verified 09/29/20 16:18 SEAFOOD Allergy Severe SWELLING,RA Uncoded 07/25/20 18:33 SH seafood Allergy Unknown rash, Uncoded 09/19/19 00:00 itching Review of Systems Review of Systems: Yes all other systems are reviewed and are negative Constitutional: Constitutional: Reports no additional constitutional complaints, Denies body ache(s), Denies chills, Denies fever(s), Denies headache(s) and Denies weakness Eyes: Eyes: Reports no additional eye complaints and Denies change in vision ENT: Reports system reviewed and no additional complaints, except as documented, Denies dizziness, Denies headache(s), Denies nasal congestion, Denies nasal discharge and Denies neck pain Cardiovascular: Cardiovascular: Reports no additional cardiovascular complaints, Denies chest pain, Denies leg edema and Denies dyspnea Respiratory: Respiratory: Reports no additional respiratory complaints, Denies cough and Denies dyspnea Gastrointestinal: Gastrointestinal: Reports no additional gastrointestinal complaints, Denies abdominal pain, Denies diarrhea, Denies nausea and Denies vomiting Genitourinary: Genitourinary: Reports no additional female genitourinary complaints and Denies urinary incontinence Musculoskeletal: Musculoskeletal: Reports no additional musculoskeletal complaints, Denies back pain, Denies arthralgias, Denies joint swelling, Denies neck pain, Denies numbness and Denies tingling Integumentary/Breasts: Skin/Breast: Reports system reviewed and no additional complaints, except as docu and Reports rash Neurologic: Reports system reviewed and no additional complaints, except as documented, Denies Abnormal speech present, Denies dizziness, Denies headache(s), Denies numbness, Denies tingling and Denies weakness PMFSH Past Medical History Attestation statement: The following information was validated with the patient. Source: old records reviewed and nursing notes reviewed Medical History Anxiety Asthma Bipolar disorder Depression Hypertension Migraines Social History Social History Alcohol intake: never Smoking Status: Unknown if ever smoked Advance Directives: No Advance Directives Information Provided: Yes Physical Exam Vital Signs: Vital Signs: Last Vital Signs Temp 99 F 01/01/21 19:04 Pulse 70 01/01/21 19:04 Resp 16 01/01/21 19:04 BP 112/75 01/01/21 19:04 Pulse Ox 100 01/01/21 19:04 Body Mass Index 32.3 Const: General: cooperative, healthy appearing, comfortable and no acute distress Orientation/consciousness: patient oriented x3 Limitations: no limitations HENMT: Head: Yes normal to inspection Ears: hearing grossly normal bilaterally General nose exam: Normal external nose present Face and sinus: Yes normal facial exam Mouth: Normal oral and palatal mucosa present Throat: Yes posterior oropharynx normal Eyes: General: appearance normal, both eyes and all related structures Pupils: Equal, round and reactive pupils present Neck: Neck: Yes normal visual inspection Chest: Chest palpation & inspection: normal inspection of the chest Resp: Effort & Inspection: normal respiratory effort Auscultation: clear to auscultation bilaterally Cardio: Rate: regular rate Rhythm: regular rhythm Peripheral pulses: Peripheral pulses 2+ throughout GI: Inspection: Yes normal to inspection Palpation (GI): Soft to palpation and nontender Auscultation: normal bowel sounds : Other: Bilateral labia majora with erythema, swelling, scant white vaginal discharge c/w with nayeli Back/Spine/Pelvis: Thoracic/Lumbar Spine: thoracic and lumbar spine normal to inspection Skin: Other: No appreciated rash noted anywhere on the body General skin exam: no rashes or lesions noted Neuro: General: patient oriented x3, no focal motor deficits and normal sensation to monofilament Cranial nerves: Yes Equal, round and reactive pupils present Cognition (Neuro): normal cognition Speech: No Abnormal speech present Gait exam (Neuro): Normal gait present Motor exam (neuro): 5/5 motor strength present throughout Extrem: General: Yes normal to inspection Course Course Course Narrative: 35 yo female here with generalized urticaria with no appreciated rash, also c/o vaginal itching/erythema. No rash on exam. This is patient's second visit for this and she has not followed up with her PCP. Taking atarax at home with continued itching. Vaginal exam is c/w with nayeli. Will check labs. 2215-labs are unremarkable. Will discharge patient home with symptomatic care. Reviewed worrisome signs and symptoms of when to return to the emergency department. Comfortable discharge home. Medical Decision Making Medical Records Medical records reviewed: Yes I reviewed the patient's medical records. Lab Data Lab results reviewed: Yes I reviewed the patient's lab results. Result diagrams: 01/01/21 21:05 01/01/21 21:05 Labs: Lab Results 01/01/21 01/01/21 01/01/21 Range/Units 19:19 19:19 21:05 WBC 11.2 H (4.8-10.8) X10*3/uL RBC 4.47 (4.20-5.50) X10*6/uL Hgb 12.6 (12.0-16.0) g/dl Hct 38.9 (37-47) % MCV 87.0 (80-98) fL MCH 28.2 (27.0-33.0) pg MCHC 32.4 (31.0-35.0) g/dl RDW 13.0 (11.0-16.0) % Plt Count 310 (160-400) X10*3/uL MPV 10.3 (9.4-12.3) fL Immature Gran % (Auto) 0.4 (0.0-0.4) % Neut % (Auto) 62.5 (45-73) % Lymph % (Auto) 27.9 (20-40) % [place] % (Auto) 6.7 (2-11) % Eos % (Auto) 2.0 (0-4) % Baso % (Auto) 0.5 (0-2) % Lymph # (Auto) 3.1 (1.2-4.9) X10*3/uL [place] # (Auto) 0.8 (0.1-1.2) X10*3/uL Eos # (Auto) 0.2 (0.0-0.4) X10*3/uL Baso # (Auto) 0.1 (0.0-0.2) X10*3/uL Abs Immat Gran (auto) 0.04 H (0.00-0.03) X10*3/uL Absolute Neuts (auto) 7.0 (2.0-8.3) X10*3/uL Absolute Nucleated RBC 0.000 (0.0-0.012) X10*3/uL Nucleated RBC % (auto) 0.0 (0.0-0.2) /100WBC Sodium (135-145) mmol/L Potassium (3.3-5.1) mmol/L Chloride (96-108) mmol/L Carbon Dioxide (22-29) mmol/L Anion Gap (12-20) BUN (9-16) mg/dL Creatinine (0.5-1.4) mg/dL Estim Creat Clear Calc Estimated GFR Random Glucose (60-115) mg/dL Calcium (8.4-10.2) mg/dL Total Bilirubin (0.0-1.0) mg/dL Direct Bilirubin (0.0-0.5) mg/dL AST (5-31) U/L ALT (0-31) U/L Alkaline Phosphatase (39-117) U/L Total Protein (6.5-8.0) g/dL Albumin (3.5-5.0) g/dL Urine Color YELLOW Urine Appearance CLEAR Urine pH 6.5 (5.0-8.0) Ur Specific [place] 1.020 (1.005-1.025) Urine Protein NEG (NEG-TRACE) MG/DL Urine Glucose (UA) NEG (NEG) MG/DL Urine Ketones NEG (NEG) MG/DL Urine Blood NEG (NEG) Urine Nitrite NEG (NEG) Ur Leukocyte Esterase NEG (NEG) Urine Test NEGATIVE (NEGATIVE) 01/01/21 Range/Units 21:05 WBC (4.8-10.8) X10*3/uL RBC (4.20-5.50) X10*6/uL Hgb (12.0-16.0) g/dl Hct (37-47) % MCV (80-98) fL MCH (27.0-33.0) pg MCHC (31.0-35.0) g/dl RDW (11.0-16.0) % Plt Count (160-400) X10*3/uL MPV (9.4-12.3) fL Immature Gran % (Auto) (0.0-0.4) % Neut % (Auto) (45-73) % Lymph % (Auto) (20-40) % [place] % (Auto) (2-11) % Eos % (Auto) (0-4) % Baso % (Auto) (0-2) % Lymph # (Auto) (1.2-4.9) X10*3/uL [place] # (Auto) (0.1-1.2) X10*3/uL Eos # (Auto) (0.0-0.4) X10*3/uL Baso # (Auto) (0.0-0.2) X10*3/uL Abs Immat Gran (auto) (0.00-0.03) X10*3/uL Absolute Neuts (auto) (2.0-8.3) X10*3/uL Absolute Nucleated RBC (0.0-0.012) X10*3/uL Nucleated RBC % (auto) (0.0-0.2) /100WBC Sodium 138 (135-145) mmol/L Potassium 4.3 (3.3-5.1) mmol/L Chloride 105 (96-108) mmol/L Carbon Dioxide 20 L (22-29) mmol/L Anion Gap 17 (12-20) BUN 14 (9-16) mg/dL Creatinine 0.67 (0.5-1.4) mg/dL Estim Creat Clear Calc 112.8 Estimated GFR > 60 Random Glucose 82 (60-115) mg/dL Calcium 9.2 D (8.4-10.2) mg/dL Total Bilirubin 1.2 H (0.0-1.0) mg/dL Direct Bilirubin 0.5 (0.0-0.5) mg/dL AST 14 (5-31) U/L ALT 15 (0-31) U/L Alkaline Phosphatase 81 (39-117) U/L Total Protein 7.6 (6.5-8.0) g/dL Albumin 4.4 (3.5-5.0) g/dL Urine Color Urine Appearance Urine pH (5.0-8.0) Ur Specific [place] (1.005-1.025) Urine Protein (NEG-TRACE) MG/DL Urine Glucose (UA) (NEG) MG/DL Urine Ketones (NEG) MG/DL Urine Blood (NEG) Urine Nitrite (NEG) Ur Leukocyte Esterase (NEG) Urine Test (NEGATIVE) Discharge Plan Discharge Clinical Impression: Nayeli infection, Chronic pruritus Patient Disposition: Home, Self-Care Instructions: Dermatitis (ED) Additional Instructions: follow-up with your pcp Prescriptions: New fluconazole [Diflucan] 150 mg tablet 150 mg PO Q3D Qty: 2 RF: 0 hydroxyzine HCl 25 mg tablet 25 mg PO TID PRN (Reason: itching) Qty: 20 RF: 0 prednisone 20 mg tablet 40 mg PO DAILY Qty: 10 RF: 0 No Action naproxen 500 mg tablet 500 mg PO BID PRN (Reason: pain) Qty: 20 RF: 0 meclizine 25 mg tablet 25 mg PO TID PRN (Reason: dizziness) Qty: 30 RF: 0 ondansetron 4 mg tablet,disintegrating 4 mg PO Q8H PRN (Reason: nausea and vomiting) Qty: 20 RF: 0 cyclobenzaprine 10 mg tablet 5 mg PO TID PRN (Reason: muscle spasm) Qty: 20 RF: 0 hydroxyzine HCl 25 mg tablet 25 mg PO TID PRN (Reason: itching) Qty: 14 RF: 0 metronidazole [Flagyl] 500 mg tablet 500 mg PO BID 7 Days Qty: 14 RF: 0 ondansetron 4 mg tablet,disintegrating 4 mg PO Q8H PRN (Reason: nausea and vomiting) Qty: 20 RF: 0 Referrals: Physician,Unknown [Primary Care Provider] - 2 days Interventions: ED Discharge Assessment Last Done: 01/01/21 22:27 Discharge Date/Time: 01/01/21 22:29 Print Language: Khmer
[2021-01-01 21:10] LABS: MANUAL DIFF FLAG NO
[2021-01-01 21:17] LABS: Basophils Absolute Auto 0.1 X10*3/uL (0.0-0.2); Basophils Percent Auto 0.5 % (0-2); Eosinophils Absolute Auto 0.2 X10*3/uL (0.0-0.4); Hematocrit 38.9 % (37-47); Hemoglobin 12.6 g/dl (12.0-16.0); Imm Gran Abs Auto 0.04 X10*3/uL (0.00-0.03); Imm Gran Pct Auto 0.4 % (0.0-0.4); Lymphocytes Absolute Auto 3.1 X10*3/uL (1.2-4.9); Lymphocytes Percent Auto 27.9 % (20-40); Mean Corpuscular HGB Conc 32.4 g/dl (31.0-35.0); Mean Corpuscular Hemoglobin 28.2 pg (27.0-33.0); Mean Platelet Volume 10.3 fL (9.4-12.3); Monocytes Absolute Auto 0.8 X10*3/uL (0.1-1.2); Monocytes Percent Auto 6.7 % (2-11); Neutrophils Percent Auto 62.5 % (45-73); Platelet Count 310 X10*3/uL (160-400); Red Blood Count 4.47 X10*6/uL (4.20-5.50); White Blood Count 11.2 X10*3/uL (4.8-10.8)
[2021-01-01 21:46] LABS: Alanine Aminotransferase 15 U/L (0-31); Albumin Level 4.4 g/dL (3.5-5.0); Alkaline Phosphatase 81 U/L (39-117); Aspartate Amino Transferase 14 U/L (5-31); Bilirubin Direct 0.5 mg/dL (0.0-0.5); Bilirubin Total 1.2 mg/dL (0.0-1.0); Total Protein 7.6 g/dL (6.5-8.0)
[2021-01-01 22:07] LABS: Anion Gap 17 (12-20); Blood Urea Nitrogen 14 mg/dL (9-16); Calcium 9.2 mg/dL (8.4-10.2); Carbon Dioxide 20 mmol/L (22-29); Chloride 105 mmol/L (96-108); Creatinine Clr Calc Pharmacy 112.8; Estimated Glomerular Filt Rate > 60; Glucose Random 82 mg/dL (60-115); Potassium 4.3 mmol/L (3.3-5.1); Sodium 138 mmol/L (135-145)
--- NOTE | 2021-01-01 22:29 | PC.NURSE ---
PELVIC EXAM PERFORMED BY LIDIA CHOE WITH RN WITNESS.
== END 2021-01-01 22:29 | disposition home or self-care (01) ==
PROVIDERS: Nurse Practitioner Family; Emergency Provider Emergency Medicine
DX: B37.3 Candidiasis of vulva and vagina (principal); L29.2 Pruritus vulvae; Z79.899 Other long term (current) drug therapy
CPT/HCPCS: 36415; 80048; 80076; 81003; 81025; 85025; 99283

== ENCOUNTER 2021-01-14 08:59 | Emergency (ER) | payer OTHER, SELFPAY ==
--- NOTE | ~2021-01-14 | XR_ITS ---
EXAMINATION: XR CHEST CLINICAL INFORMATION: Cough. COMPARISON: 07/08/2019 chest radiographs. TECHNIQUE: Frontal view of the chest was obtained. FINDINGS: No significant abnormality is noted involving the heart, lungs, mediastinum, bony thorax or soft tissues. XR/XR chest 1V IMPRESSION: No acute cardiopulmonary process.
[2021-01-14 10:15] VITALS: BP 124/72; PULSE 67; RESP 16; TEMP 36.9; O2SAT 100; BMI 31.1
--- NOTE | 2021-01-14 11:21 | ED_ITS ---
HPI - General Adult General Chief complaint: General Medical Stated complaint: cough, migraine, chest wall pain Time Seen by Provider: 01/14/21 11:02 History of Present Illness HPI narrative: Patient complains of cough with sputum, pain in chest wall when she coughs but only when she coughs, runny nose, as well as a flare up of her migraine which is similar in pattern and same as many prior migraines, no fever no chills no shortness of breath, there is mild photophobia there is no nausea, headache was gradual in onset Related Data Previous Rx's Medication Instructions Recorded ondansetron 4 mg PO Q8H PRN #20 tab 08/21/20 naproxen 500 mg PO BID PRN #20 tab 08/28/20 meclizine 25 mg PO TID PRN #30 tab 09/10/20 ondansetron 4 mg PO Q8H PRN #20 tab 09/10/20 cyclobenzaprine 5 mg PO TID PRN #20 tab 09/29/20 hydroxyzine HCl 25 mg PO TID PRN #14 tab 11/10/20 metronidazole [Flagyl] 500 mg PO BID 7 Days #14 tab 11/13/20 fluconazole [Diflucan] 150 mg PO Q3D #2 tab 01/01/21 hydroxyzine HCl 25 mg PO TID PRN #20 tab 01/01/21 prednisone 40 mg PO DAILY #10 tab 01/01/21 etoncbiakf-wtvyujledxmpe-oior 1 cap PO Q8H PRN #10 cap 01/14/21 [Fioricet] doxycycline hyclate 100 mg PO BID 7 Days #14 cap 01/14/21 ibuprofen 600 mg PO Q6H PRN #14 tab 01/14/21 Allergies Allergy/AdvReac Type Severity Reaction Status Date / Time shellfish derived Allergy Severe HIVES Verified 09/29/20 16:18 [SHELLFISH DERIVED] morphine [MORPHINE] Allergy Intermediate RASH, Verified 09/29/20 16:18 rash, itching sodium ferric gluconate Allergy Mild itching Verified 09/29/20 16:18 complex [From FERRLECIT] sucrose [From FERRLECIT] Allergy Mild itching Verified 09/29/20 16:18 SEAFOOD Allergy Severe SWELLING,RA Uncoded 07/25/20 18:33 SH seafood Allergy Unknown rash, Uncoded 09/19/19 00:00 itching Review of Systems Review of Systems: Positive for headache cough runny nose Negatives are no dizziness no weakness no fever no chills no confusion no vision changes no neck pain no sore throat no chest pain no shortness of breath no abdominal pain no nausea vomiting or diarrhea no calf pain or swelling, no leg swelling no rash no numbness or weakness Yes all other systems are reviewed and are negative [facility] Past Medical History Source: nursing notes reviewed Medical History Anxiety Asthma Bipolar disorder Depression Hypertension Migraines Social History Social History Alcohol intake: never Smoking Status: Unknown if ever smoked Advance Directives: No Advance Directives Information Provided: No Physical Exam Vital Signs: Vital Signs: Last Vital Signs Temp 98.4 F 01/14/21 10:15 Pulse 67 01/14/21 10:15 Resp 16 01/14/21 10:15 BP 124/72 01/14/21 10:15 Pulse Ox 100 01/14/21 10:15 Body Mass Index 31.1 General appearance no acute distress comfortable relaxed cooperative The head is normocephalic atraumatic the P procedure are reactive to light the extraocular motions are intact the pharynx is clear and well hydrated the neck is supple chest is clear with full symmetric equal breath sounds the heart rate and rhythm regular no murmur the abdomen soft nontender the extremities full range of motion x4, no edema no calf tenderness The skin no rashes Neuro cranial nerves 2-12 intact as tested, comprehension and speech are normal, gait and balance are normal, no motor or sensory deficit Course Course Course Narrative: Chest x-ray and COVID test were normal, patient remains comfortable throughout visit and is discharged Medical Decision Making Lab Data Labs: Lab Results 01/14/21 Range/Units 12:01 COVID-19 ([facility]) Negative (Negative) COVID-19 Clin Com See Note Discharge Plan Discharge Clinical Impression: Bronchitis Migraine Qualifiers: Migraine type: unspecified Status migrainosus presence: without status migrainosus Intractability: not intractable Qualified Code(s): G43.909 - Migraine, unspecified, not intractable, without status migrainosus Patient Disposition: Home, Self-Care Additional Instructions: Chest x-ray was normal, COVID test was negative We are treating with antibiotic for bronchitis For migraine Motrin and or Fioricet Follow with your doctor Return any concerns Prescriptions: New doxycycline hyclate 100 mg capsule 100 mg PO BID 7 Days Qty: 14 RF: 0 ikvuyljxkq-yqshigqulejmk-cmbn [Fioricet] 50-300-40 mg capsule 1 cap PO Q8H PRN (Reason: pain) Qty: 10 RF: 0 ibuprofen 600 mg tablet 600 mg PO Q6H PRN (Reason: pain) Qty: 14 RF: 0 No Action naproxen 500 mg tablet 500 mg PO BID PRN (Reason: pain) Qty: 20 RF: 0 meclizine 25 mg tablet 25 mg PO TID PRN (Reason: dizziness) Qty: 30 RF: 0 ondansetron 4 mg tablet,disintegrating 4 mg PO Q8H PRN (Reason: nausea and vomiting) Qty: 20 RF: 0 cyclobenzaprine 10 mg tablet 5 mg PO TID PRN (Reason: muscle spasm) Qty: 20 RF: 0 hydroxyzine HCl 25 mg tablet 25 mg PO TID PRN (Reason: itching) Qty: 14 RF: 0 metronidazole [Flagyl] 500 mg tablet 500 mg PO BID 7 Days Qty: 14 RF: 0 ondansetron 4 mg tablet,disintegrating 4 mg PO Q8H PRN (Reason: nausea and vomiting) Qty: 20 RF: 0 fluconazole [Diflucan] 150 mg tablet 150 mg PO Q3D Qty: 2 RF: 0 hydroxyzine HCl 25 mg tablet 25 mg PO TID PRN (Reason: itching) Qty: 20 RF: 0 prednisone 20 mg tablet 40 mg PO DAILY Qty: 10 RF: 0 Interventions: ED Discharge Assessment Last Done: 01/14/21 13:25 Discharge Date/Time: 01/14/21 13:26
[2021-01-14 12:40] LABS: COVID-19 Test Negative (Negative)
== END 2021-01-14 13:26 | disposition home or self-care (01) ==
PROVIDERS: Physician Assistant Medical; Emergency Provider Emergency Medicine Emergency Medical Services
DX: J40 Bronchitis, not specified as acute or chronic (principal); G43.909 Migraine, unspecified, not intractable, without status migrainosus; I10 Essential (primary) hypertension; F41.9 Anxiety disorder, unspecified; J45.909 Unspecified asthma, uncomplicated
CPT/HCPCS: 36415; 71045; 87635; 99283

== ENCOUNTER 2021-02-11 11:53 | Outpatient (REF) | payer OTHER, SELFPAY ==
[2021-02-11 12:25] LABS: COVID-19 Test Negative (Negative); IDNOW Serial# 55D5AD1C
== END 2021-02-11 11:54 | disposition home or self-care (01) ==
LOC: HO.LAB 11:53
PROVIDERS: Visit Provider Internal Medicine
DX: Z20.822 Contact with and (suspected) exposure to COVID-19 (principal)
CPT/HCPCS: 36415; 87635; C9803

== ENCOUNTER 2021-03-15 18:08 | Emergency (ER) | payer OTHER, SELFPAY ==
[2021-03-15 18:10] VITALS: BP 123/57; PULSE 74; RESP 16; TEMP 36.5; O2SAT 100; BMI 32.5
[2021-03-15 18:50] VITALS: BP 117/71; PULSE 62; RESP 16; TEMP 37.1; O2SAT 99
[2021-03-15] MEDS: 0.9 % Sodium Chloride 1,000 ML 999 ML IV (19:25)
[2021-03-15 19:27] LABS: Basophils Absolute Auto 0.1 X10*3/uL (0.0-0.2); Basophils Percent Auto 0.6 % (0-2); Eosinophils Absolute Auto 0.2 X10*3/uL (0.0-0.4); Eosinophils Percent Auto 2.2 % (0-4); Hemoglobin 12.3 g/dl (12.0-16.0); Imm Gran Abs Auto 0.02 X10*3/uL (0.00-0.03); Imm Gran Pct Auto 0.2 % (0.0-0.4); Lymphocytes Absolute Auto 3.1 X10*3/uL (1.2-4.9); Lymphocytes Percent Auto 29.3 % (20-40); MANUAL DIFF FLAG NO; Mean Corpuscular HGB Conc 31.5 g/dl (31.0-35.0); Mean Corpuscular Hemoglobin 27.7 pg (27.0-33.0); Mean Corpuscular Volume 87.8 fL (80-98); Mean Platelet Volume 10.1 fL (9.4-12.3); Monocytes Absolute Auto 0.7 X10*3/uL (0.1-1.2); Monocytes Percent Auto 6.3 % (2-11); Neutrophils Absolute Auto 6.6 X10*3/uL (2.0-8.3); Neutrophils Percent Auto 61.4 % (45-73); Platelet Count 285 X10*3/uL (160-400); Red Blood Count 4.44 X10*6/uL (4.20-5.50); Red Cell Distribution Width 12.9 % (11.0-16.0); White Blood Count 10.7 X10*3/uL (4.8-10.8)
[2021-03-15 19:50] LABS: Alanine Aminotransferase 15 U/L (0-31); Albumin Level 4.2 g/dL (3.5-5.0); Alkaline Phosphatase 90 U/L (39-117); Anion Gap 14 (12-20); Aspartate Amino Transferase 14 U/L (5-31); Bilirubin Total 0.8 mg/dL (0.0-1.0); Blood Urea Nitrogen 11 mg/dL (9-16); Calcium 8.5 mg/dL (8.4-10.2); Carbon Dioxide 22 mmol/L (22-29); Chloride 107 mmol/L (96-108); Creatinine Clr Calc Pharmacy 109.8; Estimated Glomerular Filt Rate > 60; Glucose Random 80 mg/dL (60-115); Potassium 3.8 mmol/L (3.3-5.1); Sodium 139 mmol/L (135-145); Total Protein 7.2 g/dL (6.5-8.0)
[2021-03-15 20:14] LABS: UPreg QC Valid YES; Urine Pregnancy NEGATIVE (NEGATIVE)
--- NOTE | 2021-03-15 20:20 | ED.HA ---
HPI - Headache General Chief Complaint: Headache Stated Complaint: Migraine Time Seen by Provider: 03/15/21 19:50 Source: patient Mode of arrival: ambulatory History of Present Illness HPI Narrative: 35-year-old female with a past medical history of anxiety, asthma, bipolar, depression, hypertension, migraines, presenting to the ED complaining of migraine headache x3 weeks. Reports associated blurry vision, lightheadedness, fatigue, chest pain, nausea, and photophobia. Admits has been taking Tylenol, Motrin, and ferrous at home without relief. Headache not maximal at onset. Admits headache is similar to prior just not going away with medications. Denies head injury/trauma, weakness, numbness, tingling, vomiting, SOB, abdominal pain, fever, cough. Does not take anticoagulation MD elicited complaint: migraine Related Data Previous Rx's Medication Instructions Recorded ondansetron 4 mg PO Q8H PRN #20 tab 08/21/20 naproxen 500 mg PO BID PRN #20 tab 08/28/20 meclizine 25 mg PO TID PRN #30 tab 09/10/20 ondansetron 4 mg PO Q8H PRN #20 tab 09/10/20 cyclobenzaprine 5 mg PO TID PRN #20 tab 09/29/20 hydroxyzine HCl 25 mg PO TID PRN #14 tab 11/10/20 metronidazole [Flagyl] 500 mg PO BID 7 Days #14 tab 11/13/20 fluconazole [Diflucan] 150 mg PO Q3D #2 tab 01/01/21 hydroxyzine HCl 25 mg PO TID PRN #20 tab 01/01/21 prednisone 40 mg PO DAILY #10 tab 01/01/21 oaofexobjd-drhregpyuzuif-ssbz 1 cap PO Q8H PRN #10 cap 01/14/21 [Fioricet] doxycycline hyclate 100 mg PO BID 7 Days #14 cap 01/14/21 ibuprofen 600 mg PO Q6H PRN #14 tab 01/14/21 magnesium oxide 400 mg PO DAILY #14 tab 03/16/21 metoclopramide HCl [Reglan] 10 mg PO Q6H PRN #10 tab 03/16/21 Allergies Allergy/AdvReac Type Severity Reaction Status Date / Time shellfish derived Allergy Severe HIVES Verified 09/29/20 16:18 [SHELLFISH DERIVED] morphine [MORPHINE] Allergy Intermediate RASH, Verified 09/29/20 16:18 rash, itching sodium ferric gluconate Allergy Mild itching Verified 09/29/20 16:18 complex [From FERRLECIT] sucrose [From FERRLECIT] Allergy Mild itching Verified 09/29/20 16:18 SEAFOOD Allergy Severe SWELLING,RA Uncoded 07/25/20 18:33 SH seafood Allergy Unknown rash, Uncoded 09/19/19 00:00 itching Review of Systems Review of Systems: Constitutional: No Fever, No Chills, No Night Sweats, No Fatigue, No Malaise ENT/Mouth: No Hearing loss, No Ear Pain, No sore throat, No Rhinorrhea, No Swallowing Difficulty Eyes: No Eye Pain, No Swelling, No Redness, + Vision Changes Cardiovascular: + Chest Pain, No SOB, No Edema, No Palpitations Respiratory: No Cough, No Dyspnea Gastrointestinal: + Nausea, No Vomiting, No Diarrhea, No Abdominal pain Genitourinary: No Dysuria, No Urinary Frequency, No Hematuria Musculoskeletal: No joint pain, No Myalgias, No Joint Swelling Skin: No Skin Lesions, No rash Neuro: No Weakness, No Numbness, No Paresthesias, No Loss of Consciousness, +Lightheadedness, + Headache Yes all other systems are reviewed and are negative Eyes: Eyes: Reports photophobia Neurologic: Denies Abnormal speech present and Denies Sensory deficit (Neuro) [facility] Past Medical History Attestation statement: The following information was validated with the patient. Medical History Anxiety Asthma Bipolar disorder Depression Hypertension Migraines Social History Social History Alcohol intake: never Smoking Status: Never smoker Use of substances other than those prescribed or required for medical reasons: No Advance Directives: No Advance Directives Information Provided: Yes Patient : No Physical Exam Vital Signs: Vital Signs: Last Vital Signs Temp 98.7 F 03/15/21 18:50 Pulse 84 03/15/21 21:44 Resp 16 03/15/21 21:44 BP 122/80 03/15/21 21:44 Pulse Ox 96 03/15/21 21:44 Body Mass Index 32.5 Const: General: cooperative, healthy appearing, comfortable and no acute distress Orientation/consciousness: patient oriented x3 Limitations: no limitations HENMT: Head: Yes normal to inspection and Yes atraumatic Ears: hearing grossly normal bilaterally General nose exam: Normal external nose present Face and sinus: Yes normal facial exam Eyes: General: appearance normal, both eyes and all related structures Pupils: Equal, round and reactive pupils present EOM: EOMs intact bilaterally Direct Ophthalmoscopy: photophobia Neck: Neck: Yes normal visual inspection and Yes no meningeal signs Resp: Effort & Inspection: normal respiratory effort Auscultation: clear to auscultation bilaterally, no rhonchi and no wheezes Cardio: Rate: regular rate Heart sounds: S1 normal heart sound present and S2 normal heart sound present GI: Inspection: Yes normal to inspection Palpation (GI): Soft to palpation, nontender and no guarding Skin: Rashes: no rashes Wounds: no wounds Neuro: General: patient oriented x3, gait normal, tone normal, moves all extremities, no meningeal signs and no focal motor deficits Cranial nerves: Yes Equal, round and reactive pupils present Cognition (Neuro): normal cognition Speech: No Abnormal speech present Gait exam (Neuro): Normal gait present Sensory Exam: No Sensory deficit (Neuro) Coordination: sjougw-ch-dbdr test normal and Romberg test negative Extrem: General: Yes normal to inspection and Yes no pedal edema Course Course Course Narrative: -UA and negative. Labs otherwise unremarkable including troponin -orthostatic vital signs negative 2200--on re-evaluation patient reports slight symptomatic improvement after initial round of medications. Will try Tylenol, dexamethasone, and Solu-Medrol and reassess -0031--on re-evaluation patient reports symptomatic improvement. Worrisome signs and symptoms and strict return precautions discussed. She verbalized understanding feel safe for discharge home MDM - Headache MDM Narrative Medical decision making narrative: 35-year-old female with a past medical history of anxiety, asthma, bipolar, depression, hypertension, migraines, presenting to the ED complaining of migraine headache x3 weeks. Reports associated blurry vision, lightheadedness, fatigue, chest pain, nausea, and photophobia. On exam VSS, NAD/well-appearing, no focal neuro deficits, ambulating with steady gait. Likely complicated migraine headache. Low concern for ICH/CVT or meningitis/encephalitis. R/o ACS/metabolic abnormalities. Plan: EKG, labs, Toradol/Reglan/Benadryl/IVF, reassess Medical Records Attestation: I reviewed the patient's medical records. Lab Data Attestation: I reviewed the patient's lab results. Result diagrams: 03/15/21 19:23 03/15/21 19:23 Labs: Lab Results 03/15/21 03/15/21 03/15/21 Range/Units 19:23 19:23 19:23 WBC 10.7 (4.8-10.8) X10*3/uL RBC 4.44 (4.20-5.50) X10*6/uL Hgb 12.3 (12.0-16.0) g/dl Hct 39.0 (37-47) % MCV 87.8 (80-98) fL MCH 27.7 (27.0-33.0) pg MCHC 31.5 (31.0-35.0) g/dl RDW 12.9 (11.0-16.0) % Plt Count 285 (160-400) X10*3/uL MPV 10.1 (9.4-12.3) fL Immature Gran % (Auto) 0.2 (0.0-0.4) % Neut % (Auto) 61.4 (45-73) % Lymph % (Auto) 29.3 (20-40) % Marshall % (Auto) 6.3 (2-11) % Eos % (Auto) 2.2 (0-4) % Baso % (Auto) 0.6 (0-2) % Lymph # (Auto) 3.1 (1.2-4.9) X10*3/uL Marshall # (Auto) 0.7 (0.1-1.2) X10*3/uL Eos # (Auto) 0.2 (0.0-0.4) X10*3/uL Baso # (Auto) 0.1 (0.0-0.2) X10*3/uL Abs Immat Gran (auto) 0.02 (0.00-0.03) X10*3/uL Absolute Neuts (auto) 6.6 (2.0-8.3) X10*3/uL Absolute Nucleated RBC 0.000 (0.0-0.012) X10*3/uL Nucleated RBC % (auto) 0.0 (0.0-0.2) /100WBC Sodium 139 (135-145) mmol/L Potassium 3.8 (3.3-5.1) mmol/L Chloride 107 (96-108) mmol/L Carbon Dioxide 22 (22-29) mmol/L Anion Gap 14 (12-20) BUN 11 (9-16) mg/dL Creatinine 0.69 (0.5-1.4) mg/dL Estim Creat Clear Calc 109.8 Estimated GFR > 60 Random Glucose 80 (60-115) mg/dL Calcium 8.5 D (8.4-10.2) mg/dL Magnesium 2.1 (1.6-2.6) mg/dL Total Bilirubin 0.8 (0.0-1.0) mg/dL AST 14 (5-31) U/L ALT 15 (0-31) U/L Alkaline Phosphatase 90 (39-117) U/L Troponin I High Sens < 3.5 (<3.5-17.0) ng/L Total Protein 7.2 (6.5-8.0) g/dL Albumin 4.2 (3.5-5.0) g/dL Urine Test (NEGATIVE) 03/15/21 Range/Units 20:03 WBC (4.8-10.8) X10*3/uL RBC (4.20-5.50) X10*6/uL Hgb (12.0-16.0) g/dl Hct (37-47) % MCV (80-98) fL MCH (27.0-33.0) pg MCHC (31.0-35.0) g/dl RDW (11.0-16.0) % Plt Count (160-400) X10*3/uL MPV (9.4-12.3) fL Immature Gran % (Auto) (0.0-0.4) % Neut % (Auto) (45-73) % Lymph % (Auto) (20-40) % Marshall % (Auto) (2-11) % Eos % (Auto) (0-4) % Baso % (Auto) (0-2) % Lymph # (Auto) (1.2-4.9) X10*3/uL Marshall # (Auto) (0.1-1.2) X10*3/uL Eos # (Auto) (0.0-0.4) X10*3/uL Baso # (Auto) (0.0-0.2) X10*3/uL Abs Immat Gran (auto) (0.00-0.03) X10*3/uL Absolute Neuts (auto) (2.0-8.3) X10*3/uL Absolute Nucleated RBC (0.0-0.012) X10*3/uL Nucleated RBC % (auto) (0.0-0.2) /100WBC Sodium (135-145) mmol/L Potassium (3.3-5.1) mmol/L Chloride (96-108) mmol/L Carbon Dioxide (22-29) mmol/L Anion Gap (12-20) BUN (9-16) mg/dL Creatinine (0.5-1.4) mg/dL Estim Creat Clear Calc Estimated GFR Random Glucose (60-115) mg/dL Calcium (8.4-10.2) mg/dL Magnesium (1.6-2.6) mg/dL Total Bilirubin (0.0-1.0) mg/dL AST (5-31) U/L ALT (0-31) U/L Alkaline Phosphatase (39-117) U/L Troponin I High Sens (<3.5-17.0) ng/L Total Protein (6.5-8.0) g/dL Albumin (3.5-5.0) g/dL Urine Test NEGATIVE (NEGATIVE) Discharge Plan Discharge Clinical Impression: Migraine Patient Disposition: Home, Self-Care Instructions: Migraine Headache (ED) Additional Instructions: Your blood work was reassuring today in the ED. Reglan is antinausea medication, take as needed. Continue taking her Fioricet at home. In addition magnesium oxide can be used daily as a supplement to help with migraines. If her headache persists or worsens, becomes unbearable, persistent nausea or vomiting please return to the ED. Follow-up with Neurology and her PCP Ambriz an?lisis de renee fue reconfortante hoy en el servicio de urgencias. Reglan es un medicamento contra las n?useas, t?kilpatrick seg?n sea necesario. Contin?e llev?ndose ambriz Fioricet a casa. Adem?s, el ?xido de magnesio se puede utilizar a diario maría suplemento para ayudar con las migra?as. Si ambriz dolor de marilyn persiste o empeora, se vuelve insoportable, tiene n?useas o v?mitos persistentes, regrese al servicio de urgencias. Seguimiento con Neurolog?a y ambriz PCP Prescriptions: New metoclopramide HCl [Reglan] 10 mg tablet 10 mg PO Q6H PRN (Reason: nausea and vomiting) Qty: 10 RF: 0 magnesium oxide 400 mg magnesium tablet 400 mg PO DAILY Qty: 14 RF: 0 No Action naproxen 500 mg tablet 500 mg PO BID PRN (Reason: pain) Qty: 20 RF: 0 meclizine 25 mg tablet 25 mg PO TID PRN (Reason: dizziness) Qty: 30 RF: 0 ondansetron 4 mg tablet,disintegrating 4 mg PO Q8H PRN (Reason: nausea and vomiting) Qty: 20 RF: 0 cyclobenzaprine 10 mg tablet 5 mg PO TID PRN (Reason: muscle spasm) Qty: 20 RF: 0 hydroxyzine HCl 25 mg tablet 25 mg PO TID PRN (Reason: itching) Qty: 14 RF: 0 metronidazole [Flagyl] 500 mg tablet 500 mg PO BID 7 Days Qty: 14 RF: 0 ondansetron 4 mg tablet,disintegrating 4 mg PO Q8H PRN (Reason: nausea and vomiting) Qty: 20 RF: 0 fluconazole [Diflucan] 150 mg tablet 150 mg PO Q3D Qty: 2 RF: 0 hydroxyzine HCl 25 mg tablet 25 mg PO TID PRN (Reason: itching) Qty: 20 RF: 0 prednisone 20 mg tablet 40 mg PO DAILY Qty: 10 RF: 0 doxycycline hyclate 100 mg capsule 100 mg PO BID 7 Days Qty: 14 RF: 0 sergtpubcx-rnzwubpbkxptn-qcdk [Fioricet] 50-300-40 mg capsule 1 cap PO Q8H PRN (Reason: pain) Qty: 10 RF: 0 ibuprofen 600 mg tablet 600 mg PO Q6H PRN (Reason: pain) Qty: 14 RF: 0 Referrals: Jinny Baker MD [Physician] - 3 days Print Language: Cambodian
--- NOTE | 2021-03-15 20:23 | ECG_ITS ---
Test Reason : HEADACHE Blood Pressure : / mmHG Vent. Rate : 085 BPM Atrial Rate : 085 BPM P-R Int : 156 ms QRS Dur : 084 ms QT Int : 396 ms P-R-T Axes : 073 064 065 degrees QTc Int : 471 ms Normal sinus rhythm Normal ECG When compared with ECG of 10-SEP-2020 13:40, No significant change was found Referred By: Silvana Bucio Electronically Signed By:HERB CONNELLY
[2021-03-15 20:47] LABS: Magnesium 2.1 mg/dL (1.6-2.6)
[2021-03-15 20:53] VITALS: BP 131/77; PULSE 82
[2021-03-15 20:54] VITALS: BP 130/79; PULSE 80
[2021-03-15 20:55] VITALS: BP 122/80; PULSE 79
[2021-03-15] MEDS: diphenhydrAMINE HCL 50 MG/ML VIAL 25 MG IVPUSH (21:03)
[2021-03-15] MEDS: Ketorolac Tromethamine 15 MG/ML VIAL IVPUSH ×2 (21:04→23:19)
[2021-03-15] MEDS: Metoclopramide HCl 10 MG/2 ML VIAL IVPUSH (21:04)
[2021-03-15 21:11] LABS: Troponin-I High Sensitivity < 3.5 ng/L (<3.5-17.0)
[2021-03-15 21:44] VITALS: BP 122/80; PULSE 84; RESP 16; O2SAT 96
--- NOTE | 2021-03-15 21:45 | PC.NURSE ---
pt resting quietly, has not fallen asleep following medication administration. pt reports her headache is 5/10 pain. pt ambulatory to bathroom x 2-3 times with steady gait. no vomiting.
[2021-03-15] MEDS: Acetaminophen 325 MG TABLET 650 MG PO (23:19)
[2021-03-15] MEDS: Magnesium Sulfate/D5W 1 GM/100 ML PIGGYBACK IV (23:19)
== END 2021-03-16 01:08 | disposition home or self-care (01) ==
PROVIDERS: Physician Assistant; Emergency Provider Emergency Medicine
DX: G43.909 Migraine, unspecified, not intractable, without status migrainosus (principal); I10 Essential (primary) hypertension
CPT/HCPCS: 36415; 80053; 81025; 83735; 84484; 85025; 93005; 96361; 96374; 96375; 96376; 99284; 99285; J1100; J1200; J1885; J2765; J3475

== ENCOUNTER 2021-05-21 23:42 | Emergency (ER) | payer OTHER, SELFPAY ==
--- NOTE | 2021-05-21 | ECG_ITS ---
Test Reason : ABD PAIN Blood Pressure : / mmHG Vent. Rate : 080 BPM Atrial Rate : 080 BPM P-R Int : 152 ms QRS Dur : 088 ms QT Int : 390 ms P-R-T Axes : 060 049 047 degrees QTc Int : 449 ms Normal sinus rhythm Normal ECG When compared with ECG of 15-MAR-2021 20:40, No significant change was found Referred By: Generic ED Physician Electronically Signed By:Gus Arce
[2021-05-21 23:51] VITALS: BP 130/78; PULSE 95; RESP 18; TEMP 36.6; O2SAT 98; BMI 32.9
--- NOTE | 2021-05-22 01:11 | ED_ITS ---
HPI - General Adult General Chief complaint: General Medical Stated complaint: 2nd COVID shot, nauseous, dizzy, back pain Time Seen by Provider: 05/22/21 00:19 Source: patient Mode of arrival: ambulatory Limitations: language barrier (Call Center Manager used as patient is Kinyarwanda-speaking) History of Present Illness HPI narrative: Patient is a 35-year-old female with a past medical history of asthma, migraines, hypertension and bipolar disorder who presents complaining of a headache, nausea and body aches and a subjective fever status post her 2nd COVID vaccination yesterday. Patient states she received the maternal vaccination. She states after her 1st vaccination she did have a little bit of diarrhea but it self resolved within a day or 2. Today, she states she has had her symptoms for 1 day, was unable to eat but is able to tolerate liquids and did have some water today. She denies any vomiting or diarrhea. Patient did take some Fioricet for her headache with no relief. Related Data Previous Rx's Medication Instructions Recorded ondansetron 4 mg PO Q8H PRN #20 tab 08/21/20 naproxen 500 mg PO BID PRN #20 tab 08/28/20 meclizine 25 mg PO TID PRN #30 tab 09/10/20 ondansetron 4 mg PO Q8H PRN #20 tab 09/10/20 cyclobenzaprine 5 mg PO TID PRN #20 tab 09/29/20 hydroxyzine HCl 25 mg PO TID PRN #14 tab 11/10/20 metronidazole [Flagyl] 500 mg PO BID 7 Days #14 tab 11/13/20 fluconazole [Diflucan] 150 mg PO Q3D #2 tab 01/01/21 hydroxyzine HCl 25 mg PO TID PRN #20 tab 01/01/21 prednisone 40 mg PO DAILY #10 tab 01/01/21 gebpzqnhoo-llpjnfzywvzpw-wlye 1 cap PO Q8H PRN #10 cap 01/14/21 [Fioricet] doxycycline hyclate 100 mg PO BID 7 Days #14 cap 01/14/21 ibuprofen 600 mg PO Q6H PRN #14 tab 01/14/21 magnesium oxide 400 mg PO DAILY #14 tab 03/16/21 metoclopramide HCl [Reglan] 10 mg PO Q6H PRN #10 tab 03/16/21 Allergies Allergy/AdvReac Type Severity Reaction Status Date / Time shellfish derived Allergy Severe HIVES Verified 09/29/20 16:18 [SHELLFISH DERIVED] morphine [MORPHINE] Allergy Intermediate RASH, Verified 09/29/20 16:18 rash, itching sodium ferric gluconate Allergy Mild itching Verified 09/29/20 16:18 complex [From FERRLECIT] sucrose [From FERRLECIT] Allergy Mild itching Verified 09/29/20 16:18 SEAFOOD Allergy Severe SWELLING,RA Uncoded 07/25/20 18:33 SH seafood Allergy Unknown rash, Uncoded 09/19/19 00:00 itching Review of Systems Review of Systems: Yes all other systems are reviewed and are negative [facility] Past Medical History Medical History Anxiety Asthma Bipolar disorder Depression Hypertension Migraines Social History Social History Alcohol intake: never Advance Directives: No Advance Directives Information Provided: No Patient : No Physical Exam Vital Signs: Vital Signs: Last Vital Signs Temp 97.8 F 05/21/21 23:51 Pulse 95 05/21/21 23:51 Resp 18 05/21/21 23:51 BP 130/78 05/21/21 23:51 Pulse Ox 98 05/21/21 23:51 Body Mass Index 32.9 Const: General: cooperative, healthy appearing, comfortable, no acute distress and well developed Orientation/consciousness: patient oriented x3 Limitations: no limitations HENMT: Head: Yes normal to inspection Eyes: General: appearance normal, both eyes and all related structures Neck: Neck: Yes normal visual inspection and Yes full ROM Resp: Effort & Inspection: normal respiratory effort and able to speak in complete sentences Auscultation: clear to auscultation bilaterally Cardio: Rate: regular rate Rhythm: regular rhythm Heart sounds: normal S1 and S2 GI: Inspection: Yes normal to inspection Palpation (GI): Soft to palpation and nontender Skin: General skin exam: no rashes or lesions noted Neuro: General: patient oriented x3 Extrem: General: Yes normal to inspection Course Course Course Narrative: Patient is a 35-year-old female with a past medical history of asthma, migraines, hypertension and bipolar disorder who presents complaining of a headache, nausea and body aches and a subjective fever status post her 2nd COVID vaccination yesterday. Vital signs are stable and patient is well- appearing, will give IV Zofran, 1L of fluids, Toradol and discharge. Reevaluation(s) Reevaluation #1: Transferred care to Dr. Butt. Time: 01:51 Medical Decision Making ECG Data Attestation: I personally reviewed and interpreted this ECG as follows: Interpretation: Eighty BPM, normal sinus rhythm, no QTC prolongation, no ST or T-wave changes. Sign by Dr. Kruse Discharge Plan Discharge Clinical Impression: Adverse reaction to COVID-19 vaccine Patient Disposition: Home, Self-Care Additional Instructions: As discussed, it is important to stay hydrated. You can manage your body aches, headache and fever with epei-ixj-itduqzn ibuprofen, 600 mg every 6 hours. You can add in acetaminophen 650 every 4-6 hours as needed but please note your Julia has acetaminophen in it so please do not duplicate this medication. You should feel better within the next 24-48 hours. The symptoms your having are normal reaction to the COVID vaccination. If your symptoms persist, follow- up with your primary care doctor. If he develops shortness of breath or chest pain, please return to the emergency department. Prescriptions: No Action naproxen 500 mg tablet 500 mg PO BID PRN (Reason: pain) Qty: 20 RF: 0 meclizine 25 mg tablet 25 mg PO TID PRN (Reason: dizziness) Qty: 30 RF: 0 ondansetron 4 mg tablet,disintegrating 4 mg PO Q8H PRN (Reason: nausea and vomiting) Qty: 20 RF: 0 cyclobenzaprine 10 mg tablet 5 mg PO TID PRN (Reason: muscle spasm) Qty: 20 RF: 0 hydroxyzine HCl 25 mg tablet 25 mg PO TID PRN (Reason: itching) Qty: 14 RF: 0 metronidazole [Flagyl] 500 mg tablet 500 mg PO BID 7 Days Qty: 14 RF: 0 metoclopramide HCl [Reglan] 10 mg tablet 10 mg PO Q6H PRN (Reason: nausea and vomiting) Qty: 10 RF: 0 magnesium oxide 400 mg magnesium tablet 400 mg PO DAILY Qty: 14 RF: 0 ondansetron 4 mg tablet,disintegrating 4 mg PO Q8H PRN (Reason: nausea and vomiting) Qty: 20 RF: 0 fluconazole [Diflucan] 150 mg tablet 150 mg PO Q3D Qty: 2 RF: 0 hydroxyzine HCl 25 mg tablet 25 mg PO TID PRN (Reason: itching) Qty: 20 RF: 0 prednisone 20 mg tablet 40 mg PO DAILY Qty: 10 RF: 0 doxycycline hyclate 100 mg capsule 100 mg PO BID 7 Days Qty: 14 RF: 0 mdmqyfduzr-pdtyoqznyblzm-hhxk [Fioricet] 50-300-40 mg capsule 1 cap PO Q8H PRN (Reason: pain) Qty: 10 RF: 0 ibuprofen 600 mg tablet 600 mg PO Q6H PRN (Reason: pain) Qty: 14 RF: 0
[2021-05-22] MEDS: Lactated Ringers 1,000 ML 999 ML IV (01:52)
[2021-05-22] MEDS: ondansetron HCL 4 MG/2 ML VIAL IVPUSH (01:52)
[2021-05-22] MEDS: Ketorolac Tromethamine 30 MG/ML VIAL IVPUSH (01:59)
[2021-05-22 02:35] VITALS: BP 123/83; PULSE 80; RESP 18; O2SAT 98
== END 2021-05-22 04:16 | disposition home or self-care (01) ==
PROVIDERS: Emergency Provider Student in an Organized Health Care Education/Training Program
DX: R51.9 Headache, unspecified (principal); R50.83 Postvaccination fever; T50.B95A Adverse effect of other viral vaccines, initial encounter; Y92.9 Unspecified place or not applicable; I10 Essential (primary) hypertension; J45.909 Unspecified asthma, uncomplicated; Z79.899 Other long term (current) drug therapy
CPT/HCPCS: 93005; 96361; 96374; 96375; 99284; J1885; J2405

== ENCOUNTER 2021-05-30 15:04 | Outpatient (REF) | payer OTHER, SELFPAY | END 2021-05-30 15:05 | disposition home or self-care (01) | LOC: HO.LAB 15:04 | PROVIDERS: Visit Provider Internal Medicine | DX: T78.1XXA Other adverse food reactions, not elsewhere classified, initial encounter (principal) | CPT/HCPCS: 36415; 86003 ==

== ENCOUNTER 2021-06-03 14:23 | Outpatient (REF) | payer OTHER, SELFPAY | END 2021-06-03 14:24 | disposition home or self-care (01) | LOC: HO.LAB 14:23 | PROVIDERS: Visit Provider Internal Medicine | DX: Z20.822 Contact with and (suspected) exposure to COVID-19 (principal) | CPT/HCPCS: C9803; U0003; U0005 ==

== ENCOUNTER → 2021-07-08 10:26 | Outpatient (BNVA) | payer OTHER, SELFPAY | PROVIDERS: Visit Provider Surgery | DX: N63.10 Unspecified lump in the right breast, unspecified quadrant (principal); N63.20 Unspecified lump in the left breast, unspecified quadrant | CPT/HCPCS: 99202 ==

== ENCOUNTER → 2021-07-17 13:02 | Outpatient (BNVA) | payer OTHER, SELFPAY | PROVIDERS: Visit Provider Surgery ==

== ENCOUNTER 2021-07-23 13:25 | Outpatient (REF) | payer OTHER, SELFPAY ==
--- NOTE | ~2021-07-23 | US_ITS ---
EXAMINATION: US DIAGNOSTIC ULTRASOUND BREAST, RIGHT CLINICAL INFORMATION: BILATERAL lumps. COMPARISON: Mammography of same day and studies dating back to December 31, 2016. TECHNIQUE: Ultrasound of the breast is performed with real-time mcleod scale imaging and color Doppler. FINDINGS: There is no focal suspicious finding. There is no solid mass, architectural abnormality, duct ectasia, or edema in the soft tissue planes. Results are discussed with the patient at time of visit. US/US breast RT limited IMPRESSION: No specific findings to suggest malignancy. ASSESSMENT: BI-RADS 1: Negative RECOMMENDATION: Routine screening mammography at age 38 This patient's information was entered into a reminder system with a target due date for their next mammogram.
--- NOTE | ~2021-07-23 | MM_ITS ---
EXAMINATION: MM DIAGNOSTIC DIGITAL BREAST TOMOSYNTHESIS, BILATERAL US BREAST LIMITED, BILATERAL CLINICAL INFORMATION: Bilateral breast lumps. The lifetime risk of breast cancer based on the Tyrer-Cuzick Model is 6.5%. COMPARISON: Mammography: 12/31/2016 TECHNIQUE: Digital breast tomosynthesis is performed in both the craniocaudal and mediolateral oblique views along with computer-aided detection (CAD). Synthesized 2-D images are generated from the tomosynthesis. Bilateral targeted breast ultrasound. FINDINGS: The breasts are extremely dense, which lowers the sensitivity of mammography (ACR BI-RADS breast composition Category d). There are no significant masses, abnormal calcifications, or other abnormalities. Bilateral targeted breast ultrasound was performed. No abnormal cystic or solid masses identified. No region of abnormal distal sound shadowing. Results are provided to the patient at time of visit by the technologist. MM/MM tomosynthesis diagnostic BI IMPRESSION: There are no significant changes from prior study. ASSESSMENT: BI-RADS 1: Negative. RECOMMENDATION: Patient should be managed based on the clinical impression. Decision to proceed with biopsy should be based on clinical grounds and degree of clinical concern. Routine annual screening mammography at age 38.
--- NOTE | ~2021-07-23 | US_ITS ---
EXAMINATION: US DIAGNOSTIC ULTRASOUND BREAST, LEFT CLINICAL INFORMATION: Bilateral lumps. COMPARISON: Mammography of same day and December 31, 2016. TECHNIQUE: Ultrasound of the breast is performed with real-time mcleod scale imaging and color Doppler. FINDINGS: There is no focal suspicious finding. There is no solid mass, architectural abnormality, duct ectasia, or edema in the soft tissue planes. Results are discussed with the patient at time of visit. US/US breast LT limited IMPRESSION: No specific findings to suggest malignancy of the left breast. ASSESSMENT: BI-RADS 1: Negative RECOMMENDATION: Routine mammography at age 38 This patient's information was entered into a reminder system with a target due date for their next mammogram.
== END 2021-07-23 13:26 | disposition home or self-care (01) ==
LOC: HO.MAMMO 13:25
PROVIDERS: Visit Provider Surgery
DX: N63.14 Unspecified lump in the right breast, lower inner quadrant (principal); N63.20 Unspecified lump in the left breast, unspecified quadrant
CPT/HCPCS: 76642; 77062; 77066

== ENCOUNTER → 2021-07-31 15:22 | Outpatient (BNVA) | payer OTHER, SELFPAY | PROVIDERS: Visit Provider Surgery | DX: N63.10 Unspecified lump in the right breast, unspecified quadrant (principal); N63.20 Unspecified lump in the left breast, unspecified quadrant | CPT/HCPCS: 99212 ==

== ENCOUNTER 2021-08-15 07:44 | Emergency (ER) | payer OTHER, SELFPAY ==
[2021-08-15 07:57] VITALS: BP 133/87; PULSE 83; RESP 18; TEMP 36.8; O2SAT 99
[2021-08-15 08:12] VITALS: BMI 31.1
--- NOTE | 2021-08-15 08:12 | ED_ITS ---
HPI - Allergic Reaction General Chief complaint: Allergic Reaction Stated complaint: rash Time Seen by Provider: 08/15/21 08:09 History of Present Illness HPI narrative: Patient is a 35-year-old female presents today with having itches and burning to her abdomen after using a fat burning cream. Patient symptoms started approximately 2-3 days ago. After using the cream for few days. There is no other part of her body that has the issue. She developed a red rash. That is extremely itchy and burning. Patient denies any chest pain shortness of breath. No vomiting. No diaphoresis no systemic complaints. Patient from home. Related Data Home Medications Medication Instructions Recorded Confirmed aripiprazole 15 mg tablet 15 mg PO QAM 07/08/21 07/17/21 Previous Rx's Medication Instructions Recorded naproxen 500 mg tablet 500 mg PO BID PRN #20 tab 08/28/20 meclizine 25 mg tablet 25 mg PO TID PRN #30 tab 09/10/20 cyclobenzaprine 10 mg tablet 5 mg PO TID PRN #20 tab 09/29/20 hydroxyzine HCl 25 mg tablet 25 mg PO TID PRN #14 tab 11/10/20 metronidazole 500 mg tablet 500 mg PO BID 7 Days #14 tab 11/13/20 (Flagyl) hydroxyzine HCl 25 mg tablet 25 mg PO TID PRN #20 tab 01/01/21 fbolbuvutc-pbunadhjyvkri-xolclmei 1 cap PO Q8H PRN #10 cap 01/14/21 50 mg-300 mg-40 mg capsule (Fioricet) ibuprofen 600 mg tablet 600 mg PO Q6H PRN #14 tab 01/14/21 magnesium oxide 400 mg PO DAILY #14 tab 03/16/21 metoclopramide HCl 10 mg tablet 10 mg PO Q6H PRN #10 tab 03/16/21 (Reglan) famotidine 20 mg tablet (Pepcid) 20 mg PO BID 5 Days #10 tab 08/15/21 prednisone 20 mg tablet 40 mg PO DAILY #10 tab 08/15/21 Allergies Allergy/AdvReac Type Severity Reaction Status Date / Time shellfish derived Allergy Severe HIVES Verified 07/31/21 15:31 [SHELLFISH DERIVED] morphine [MORPHINE] Allergy Intermediate RASH, Verified 07/31/21 15:31 rash, itching sodium ferric gluconate Allergy Mild itching Verified 07/31/21 15:31 complex [From FERRLECIT] sucrose [From FERRLECIT] Allergy Mild itching Verified 07/31/21 15:31 SEAFOOD Allergy Severe SWELLING,RA Uncoded 07/31/21 15:31 SH Review of Systems Review of Systems: Positive rash to the abdomen No chest pain or shortness of breath No diaphoresis Yes all other systems are reviewed and are negative [facility] Past Medical History Attestation statement: The following information was validated with the patient. Medical History Anxiety Asthma Bipolar disorder Depression Hypertension Migraines Surgical History H/O hemorrhoidectomy History of cholecystectomy History of endoscopy History of tubal ligation S/P colonoscopy S/P excision of lipoma Family History Family History Mother Cancer of unknown origin Maternal Uncle Colon cancer Maternal Uncle Throat cancer Social History Social History Alcohol intake: unknown Patient Tobacco Use Status: Never used Tobacco Use of substances other than those prescribed or required for medical reasons: No Advance Directives: No Patient : No Physical Exam Vital Signs: Vital Signs: Last Vital Signs Temp 98.3 F 08/15/21 07:57 Pulse 83 08/15/21 07:57 Resp 18 08/15/21 07:57 BP 133/87 08/15/21 07:57 Pulse Ox 99 08/15/21 07:57 Appearance: Alert. Oriented X3. No acute distress. Eyes: Pupils equal, round and reactive to light. ENT: Pharynx normal. Neck: Normal inspection. Neck supple. No lymph nodes noted. No crepitus CVS: Normal heart rate and rhythm. Pulses normal. Normal S1 and S2 Respiratory: No respiratory distress. Breath sounds normal. No Wheezing. No rales Abdomen: Soft and nontender. No rigidity. No distention. good BS x4 Skin: Positive erythematous uticaric rash over the abdomen. Blanching. Extremities: No lower extremity edema. Neurovascular intact to all extremities. No Lacerations. No Rash Neuro: Oriented X 3. No motor deficit. No sensory deficit. Moving all extermities. No slurred speech MDM - Allergic Reaction MDM Narrative Medical decision making narrative: Symptoms consistent with allergic reaction. We will go ahead and start patient on steroid and Pepcid. Patient already on Benadryl. Will have patient closely follow up on an outpatient basis. Will ask patient to stop using the fat burning cream. In stable condition. Differential Diagnosis Differential diagnosis: Likely anaphylaxis, allergic reaction, contact dermatitis, adverse reaction to drug, viral enanthem and urticaria Medical Records Attestation: I reviewed the patient's medical records. Lab Data Attestation: I reviewed the patient's lab results. ABG Data Attestation: I personally reviewed and interpreted this ABG as follows: Discharge Plan Discharge Clinical Impression: Urticaria Patient Disposition: Home, Self-Care Instructions: Urticaria (ED) Prescriptions: New prednisone 20 mg tablet 40 mg PO DAILY Qty: 10 RF: 0 famotidine [Pepcid] 20 mg tablet 20 mg PO BID 5 Days Qty: 10 RF: 0 No Action naproxen 500 mg tablet 500 mg PO BID PRN (Reason: pain) Qty: 20 RF: 0 meclizine 25 mg tablet 25 mg PO TID PRN (Reason: dizziness) Qty: 30 RF: 0 cyclobenzaprine 10 mg tablet 5 mg PO TID PRN (Reason: muscle spasm) Qty: 20 RF: 0 hydroxyzine HCl 25 mg tablet 25 mg PO TID PRN (Reason: itching) Qty: 14 RF: 0 metronidazole [Flagyl] 500 mg tablet 500 mg PO BID 7 Days Qty: 14 RF: 0 metoclopramide HCl [Reglan] 10 mg tablet 10 mg PO Q6H PRN (Reason: nausea and vomiting) Qty: 10 RF: 0 magnesium oxide 400 mg magnesium tablet 400 mg PO DAILY Qty: 14 RF: 0 hydroxyzine HCl 25 mg tablet 25 mg PO TID PRN (Reason: itching) Qty: 20 RF: 0 iopwyxvsws-gqamyebhildez-gghg [Fioricet] 50-300-40 mg capsule 1 cap PO Q8H PRN (Reason: pain) Qty: 10 RF: 0 ibuprofen 600 mg tablet 600 mg PO Q6H PRN (Reason: pain) Qty: 14 RF: 0 aripiprazole 15 mg tablet 15 mg PO QAM RF: 0 Referrals: Physician,Unknown J [Primary Care Provider] - 2 days Print Language: Trinidadian
[2021-08-15] MEDS: Famotidine 20 MG TABLET PO (08:21)
[2021-08-15] MEDS: predniSONE 20 MG TABLET 40 MG PO (08:21)
== END 2021-08-15 08:26 | disposition home or self-care (01) ==
PROVIDERS: Emergency Provider Emergency Medicine Emergency Medical Services
DX: L50.9 Urticaria, unspecified (principal); I10 Essential (primary) hypertension; J45.909 Unspecified asthma, uncomplicated
CPT/HCPCS: 99283; 99284

== ENCOUNTER → 2021-08-19 15:30 | Outpatient (BNVA) | payer OTHER, SELFPAY | PROVIDERS: Visit Provider Physician Assistant Medical | DX: Z02.1 Encounter for pre-employment examination (principal) | CPT/HCPCS: 36415; 86706 ==

== ENCOUNTER 2021-08-21 10:58 | Emergency (ER) | payer OTHER, SELFPAY ==
[2021-08-21 11:06] VITALS: BP 142/95; PULSE 77; RESP 18; TEMP 36.9; O2SAT 100; BMI 38.4
--- NOTE | 2021-08-21 11:43 | ED_ITS ---
HPI - Headache General Chief Complaint: Headache Stated Complaint: headache Time Seen by Provider: 08/21/21 11:42 History of Present Illness HPI Narrative: 28-year-old female with a history of migraine headaches in the past. Presents today with having headache mainly over the right side. With positive photophobia positive nausea similar to previous bouts of migraine headache. Patient tried some Motrin to no avail. Has a previous history of similar headaches in the past. Patient denies any fever chills. Patient from home. No focal weakness. No sudden in the family. No trauma. Patient from home. Related Data Home Medications Medication Instructions Recorded Confirmed aripiprazole 15 mg tablet 15 mg PO QAM 07/08/21 07/17/21 Previous Rx's Medication Instructions Recorded naproxen 500 mg tablet 500 mg PO BID PRN #20 tab 08/28/20 meclizine 25 mg tablet 25 mg PO TID PRN #30 tab 09/10/20 cyclobenzaprine 10 mg tablet 5 mg PO TID PRN #20 tab 09/29/20 hydroxyzine HCl 25 mg tablet 25 mg PO TID PRN #14 tab 11/10/20 metronidazole 500 mg tablet 500 mg PO BID 7 Days #14 tab 11/13/20 (Flagyl) hydroxyzine HCl 25 mg tablet 25 mg PO TID PRN #20 tab 01/01/21 kewswvgtgi-waapxqpddwvdw-yqjmoekq 1 cap PO Q8H PRN #10 cap 01/14/21 50 mg-300 mg-40 mg capsule (Fioricet) ibuprofen 600 mg tablet 600 mg PO Q6H PRN #14 tab 01/14/21 magnesium oxide 400 mg PO DAILY #14 tab 03/16/21 metoclopramide HCl 10 mg tablet 10 mg PO Q6H PRN #10 tab 03/16/21 (Reglan) famotidine 20 mg tablet (Pepcid) 20 mg PO BID 5 Days #10 tab 08/15/21 prednisone 20 mg tablet 40 mg PO DAILY #10 tab 08/15/21 ibuprofen 400 mg tablet 400 mg PO Q6H PRN #20 tab 08/21/21 ondansetron HCl 4 mg tablet 4 mg PO Q8H PRN #10 tab 08/21/21 (Zofran) Allergies Allergy/AdvReac Type Severity Reaction Status Date / Time shellfish derived Allergy Severe HIVES Verified 07/31/21 15:31 [SHELLFISH DERIVED] morphine [MORPHINE] Allergy Intermediate RASH, Verified 07/31/21 15:31 rash, itching sodium ferric gluconate Allergy Mild itching Verified 07/31/21 15:31 complex [From FERRLECIT] sucrose [From FERRLECIT] Allergy Mild itching Verified 07/31/21 15:31 SEAFOOD Allergy Severe SWELLING,RA Uncoded 07/31/21 15:31 Review of Systems Review of Systems: No fever no chills No cough no congestion or upper respiratory symptoms No diaphoresis No focal weakness All systems reviewed otherwise negative [facility] Past Medical History Attestation statement: The following information was validated with the patient. Medical History Anxiety Asthma Bipolar disorder Depression Hypertension Migraines Surgical History H/O hemorrhoidectomy History of cholecystectomy History of endoscopy History of tubal ligation S/P colonoscopy S/P excision of lipoma Family History Family History Mother Cancer of unknown origin Maternal Uncle Colon cancer Maternal Uncle Throat cancer Social History Social History Alcohol intake: unknown Patient Tobacco Use Status: Never used Tobacco Use of substances other than those prescribed or required for medical reasons: No Advance Directives: No Physical Exam Vital Signs: Vital Signs: Last Vital Signs Temp 98.6 F 08/21/21 13:17 Pulse 72 08/21/21 13:17 Resp 16 08/21/21 13:17 BP 146/97 H 08/21/21 13:17 Pulse Ox 97 08/21/21 13:17 Body Mass Index 38.4 Appearance: Alert. Oriented X3. No acute distress. Eyes: Pupils equal, round and reactive to light. ENT: Pharynx normal. Neck: Normal inspection. Neck supple. No lymph nodes noted. No crepitus CVS: Normal heart rate and rhythm. Pulses normal. Normal S1 and S2 Respiratory: No respiratory distress. Breath sounds normal. No Wheezing. No rales Abdomen: Soft and nontender. No rigidity. No distention. good BS x4 Skin: Skin warm and dry. Normal skin color. Normal skin turgor. Extremities: No lower extremity edema. Neurovascular intact to all extremities. No Lacerations. No Rash Neuro: Oriented X 3. No motor deficit. No sensory deficit. Moving all extermities. No slurred speech MDM - Headache MDM Narrative Medical decision making narrative: History of migraine. No fever no chills. No nuchal rigidity to suggest patient has meningitis. Pain similar to previous bouts of migraine. Given migraine treatment including Benadryl, Reglan, Toradol symptom improved dramatically. Will discharge patient home. Currently in stable condition. Neurologically intact. In stable condition. No evidence of bleed. Differential Diagnosis Differential diagnosis: Likely migraine, tension headache, subarachnoid hemorrhage, headache, meningitis and sinusitis Medical Records Attestation: I reviewed the patient's medical records. Lab Data Attestation: I reviewed the patient's lab results. Result diagrams: 08/21/21 12:31 08/21/21 12:31 Labs: Lab Results 08/21/21 08/21/21 Range/Units 12:31 12:31 WBC 8.3 (4.8-10.8) X10*3/uL RBC 4.73 (4.20-5.50) X10*6/uL Hgb 12.5 (12.0-16.0) g/dl Hct 38.7 (37-47) % MCV 81.8 (80-98) fL MCH 26.4 L (27.0-33.0) pg MCHC 32.3 (31.0-35.0) g/dl RDW 13.2 (11.0-16.0) % Plt Count 397 D (160-400) X10*3/uL MPV 9.7 (9.4-12.3) fL Immature Gran % (Auto) 0.4 (0.0-0.4) % Neut % (Auto) 67.6 (45-73) % Lymph % (Auto) 24.7 (20-40) % [place] % (Auto) 5.3 (2-11) % Eos % (Auto) 1.5 (0-4) % Baso % (Auto) 0.5 (0-2) % Lymph # (Auto) 2.0 (1.2-4.9) X10*3/uL [place] # (Auto) 0.4 (0.1-1.2) X10*3/uL Eos # (Auto) 0.1 (0.0-0.4) X10*3/uL Baso # (Auto) 0.0 (0.0-0.2) X10*3/uL Abs Immat Gran (auto) 0.03 (0.00-0.03) X10*3/uL Absolute Neuts (auto) 5.6 (2.0-8.3) X10*3/uL Absolute Nucleated RBC 0.000 (0.0-0.012) X10*3/uL Nucleated RBC % (auto) 0.0 (0.0-0.2) /100WBC Sodium 140 (135-145) mmol/L Potassium 4.0 (3.3-5.1) mmol/L Chloride 107 (96-108) mmol/L Carbon Dioxide 22 (22-29) mmol/L Anion Gap 15 (12-20) BUN 7 L (9-16) mg/dL Creatinine 0.78 (0.5-1.4) mg/dL Estim Creat Clear Calc 105.1 Estimated GFR > 60 Random Glucose 101 (60-115) mg/dL Calcium 9.8 D (8.4-10.2) mg/dL Discharge Plan Discharge Clinical Impression: Migraine Patient Disposition: Home, Self-Care Instructions: Migraine Headache (ED) Prescriptions: New ondansetron HCl [Zofran] 4 mg tablet 4 mg PO Q8H PRN (Reason: nausea and vomiting) Qty: 10 RF: 0 ibuprofen 400 mg tablet 400 mg PO Q6H PRN (Reason: pain) Qty: 20 RF: 0 No Action naproxen 500 mg tablet 500 mg PO BID PRN (Reason: pain) Qty: 20 RF: 0 meclizine 25 mg tablet 25 mg PO TID PRN (Reason: dizziness) Qty: 30 RF: 0 cyclobenzaprine 10 mg tablet 5 mg PO TID PRN (Reason: muscle spasm) Qty: 20 RF: 0 hydroxyzine HCl 25 mg tablet 25 mg PO TID PRN (Reason: itching) Qty: 14 RF: 0 metronidazole [Flagyl] 500 mg tablet 500 mg PO BID 7 Days Qty: 14 RF: 0 metoclopramide HCl [Reglan] 10 mg tablet 10 mg PO Q6H PRN (Reason: nausea and vomiting) Qty: 10 RF: 0 magnesium oxide 400 mg magnesium tablet 400 mg PO DAILY Qty: 14 RF: 0 hydroxyzine HCl 25 mg tablet 25 mg PO TID PRN (Reason: itching) Qty: 20 RF: 0 unxcoahlln-hugimfraiemdi-zkcv [Fioricet] 50-300-40 mg capsule 1 cap PO Q8H PRN (Reason: pain) Qty: 10 RF: 0 ibuprofen 600 mg tablet 600 mg PO Q6H PRN (Reason: pain) Qty: 14 RF: 0 prednisone 20 mg tablet 40 mg PO DAILY Qty: 10 RF: 0 famotidine [Pepcid] 20 mg tablet 20 mg PO BID 5 Days Qty: 10 RF: 0 aripiprazole 15 mg tablet 15 mg PO QAM RF: 0 Referrals: Physician,Unknown J [Primary Care Provider] - 2 days
[2021-08-21 12:36] LABS: MANUAL DIFF FLAG NO
[2021-08-21 12:41] LABS: Basophils Percent Auto 0.5 % (0-2); Eosinophils Absolute Auto 0.1 X10*3/uL (0.0-0.4); Eosinophils Percent Auto 1.5 % (0-4); Hematocrit 38.7 % (37-47); Hemoglobin 12.5 g/dl (12.0-16.0); Imm Gran Abs Auto 0.03 X10*3/uL (0.00-0.03); Imm Gran Pct Auto 0.4 % (0.0-0.4); Lymphocytes Percent Auto 24.7 % (20-40); Mean Corpuscular HGB Conc 32.3 g/dl (31.0-35.0); Mean Corpuscular Hemoglobin 26.4 pg (27.0-33.0); Mean Corpuscular Volume 81.8 fL (80-98); Mean Platelet Volume 9.7 fL (9.4-12.3); Monocytes Absolute Auto 0.4 X10*3/uL (0.1-1.2); Monocytes Percent Auto 5.3 % (2-11); Neutrophils Absolute Auto 5.6 X10*3/uL (2.0-8.3); Neutrophils Percent Auto 67.6 % (45-73); Platelet Count 397 X10*3/uL (160-400); Red Blood Count 4.73 X10*6/uL (4.20-5.50); Red Cell Distribution Width 13.2 % (11.0-16.0); White Blood Count 8.3 X10*3/uL (4.8-10.8)
[2021-08-21 12:52] LABS: Anion Gap 15 (12-20); Blood Urea Nitrogen 7 mg/dL (9-16); Calcium 9.8 mg/dL (8.4-10.2); Carbon Dioxide 22 mmol/L (22-29); Chloride 107 mmol/L (96-108); Creatinine Clr Calc Pharmacy 105.1; Estimated Glomerular Filt Rate > 60; Glucose Random 101 mg/dL (60-115); Sodium 140 mmol/L (135-145)
[2021-08-21] MEDS: Ketorolac Tromethamine 30 MG/ML VIAL IVPUSH (13:09)
[2021-08-21] MEDS: diphenhydrAMINE HCL 50 MG/ML VIAL 25 MG IVPUSH (13:09)
[2021-08-21] MEDS: Metoclopramide HCl 10 MG/2 ML VIAL IVPUSH (13:10)
[2021-08-21 13:17] VITALS: BP 146/97; PULSE 72; RESP 16; TEMP 37; O2SAT 97
== END 2021-08-21 15:14 | disposition home or self-care (01) ==
PROVIDERS: Emergency Provider Emergency Medicine Emergency Medical Services
DX: G43.009 Migraine without aura, not intractable, without status migrainosus (principal); I10 Essential (primary) hypertension
CPT/HCPCS: 36415; 80048; 85025; 96374; 96375; 99284; J1200; J1885; J2765

== ENCOUNTER 2021-09-29 07:51 | Emergency (ER) | payer OTHER, SELFPAY ==
--- NOTE | ~2021-09-29 | XR_ITS ---
EXAMINATION: XR FEMUR, RIGHT CLINICAL INFORMATION: Pain after fall COMPARISON: None TECHNIQUE: AP and lateral views of the right femur were obtained. FINDINGS: The bones and soft tissues are normal. No fracture. No osseous lesions. XR/XR femur RT 2V IMPRESSION: Normal right femur.
--- NOTE | ~2021-09-29 | XR_ITS ---
EXAMINATION: LEFT HAND X-RAY CLINICAL INFORMATION: Fall COMPARISON: Previous x-ray August 2020 TECHNIQUE: 4 views of the left hand and wrist FINDINGS: Bone alignment is normal. No fracture or dislocation is seen. Joint spaces are normal. Soft tissues are normal. XR/XR hand wrist LT IMPRESSION: Unremarkable exam.
[2021-09-29 08:51] VITALS: BP 122/89; PULSE 64; RESP 18; TEMP 37; O2SAT 100; BMI 27.4
--- NOTE | 2021-09-29 10:00 | ED_ITS ---
HPI - Extremity Problem General Chief complaint: Extremity Injury, Upper Stated complaint: wrist pain/leg pain Time Seen by Provider: 09/29/21 09:16 Source: patient Mode of arrival: ambulatory Limitations: no limitations History of Present Illness HPI Narrative: 36 year female with no past significant history presents to the for left hand/wrist pain and right femur pain after falling this past Wednesday. Patient states she was out and she slipped and fell. while falling she put her left hand wrist solid trying to break her fall and also she turned her right thigh awkwardly while trying to break her fall on ever since then she has had pain. Patient states buttocks fall to the floor but no torso head or neck. Patient denies any head injury. Patient states since incident this past she has not had any headache, nausea, vomiting, chest pain, shortness of breath, abdominal pain, rectal bleeding, or blood in urine. Patient states no fever or chills. Patient denies any right lower extremity swelling, calf pain, chest pain, shortness of breath. Patient is not on any oral control pills. Patient has no family history of blood clots. Patient has no blood disorders as per patient. Patient denies any recent long travel, recent surgery, or any estrogen hormonal/ control use. MD Complaint: extremity pain Related Data Home Medications Medication Instructions Recorded Confirmed aripiprazole 15 mg tablet 15 mg PO QAM 07/08/21 07/17/21 Previous Rx's Medication Instructions Recorded naproxen 500 mg tablet 500 mg PO BID PRN #20 tab 08/28/20 meclizine 25 mg tablet 25 mg PO TID PRN #30 tab 09/10/20 cyclobenzaprine 10 mg tablet 5 mg PO TID PRN #20 tab 09/29/20 hydroxyzine HCl 25 mg tablet 25 mg PO TID PRN #14 tab 11/10/20 metronidazole 500 mg tablet 500 mg PO BID 7 Days #14 tab 11/13/20 (Flagyl) hydroxyzine HCl 25 mg tablet 25 mg PO TID PRN #20 tab 01/01/21 yrmcbmejdc-rqyjthflvyuut-lefoekey 1 cap PO Q8H PRN #10 cap 01/14/21 50 mg-300 mg-40 mg capsule (Fioricet) ibuprofen 600 mg tablet 600 mg PO Q6H PRN #14 tab 03/09/21 magnesium oxide 400 mg PO DAILY #14 tab 03/16/21 metoclopramide HCl 10 mg tablet 10 mg PO Q6H PRN #10 tab 03/16/21 (Reglan) famotidine 20 mg tablet (Pepcid) 20 mg PO BID 5 Days #10 tab 08/15/21 prednisone 20 mg tablet 40 mg PO DAILY #10 tab 08/15/21 ibuprofen 400 mg tablet 400 mg PO Q6H PRN #20 tab 08/21/21 ondansetron HCl 4 mg tablet 4 mg PO Q8H PRN #10 tab 08/21/21 (Zofran) cyclobenzaprine 10 mg tablet 10 mg PO TID PRN #21 tab 09/29/21 naproxen 500 mg tablet 500 mg PO BID PRN 10 Days #20 tab 09/29/21 Allergies Allergy/AdvReac Type Severity Reaction Status Date / Time shellfish derived Allergy Severe HIVES Verified 09/29/21 08:53 [SHELLFISH DERIVED] morphine [MORPHINE] Allergy Intermediate RASH, Verified 09/29/21 08:53 rash, itching sodium ferric gluconate Allergy Mild itching Verified 09/29/21 08:53 complex [From FERRLECIT] sucrose [From FERRLECIT] Allergy Mild itching Verified 09/29/21 08:53 SEAFOOD Allergy Severe SWELLING,RA Uncoded 07/31/21 15:31 Review of Systems Review of Systems: Yes all other systems are reviewed and are negative Constitutional: Constitutional: Reports as per HPI and Reports no additional constitutional complaints Eyes: Eyes: Reports as per HPI and Reports no additional eye complaints ENT: Reports system reviewed and no additional complaints, except as documented and Reports as per HPI Cardiovascular: Cardiovascular: Reports as per HPI and Reports no additional cardiovascular complaints Respiratory: Respiratory: Reports as per HPI and Reports no additional respiratory complaints Gastrointestinal: Gastrointestinal: Reports as per HPI and Reports no additional gastrointestinal complaints Genitourinary: Genitourinary: Reports no additional female genitourinary complaints and Reports as per HPI Musculoskeletal: Musculoskeletal: Reports no additional musculoskeletal complaints, Reports as per HPI and Reports arthralgias (Left wrist) Comments: Right thigh pain that is worse on movement/ambulation. Integumentary/Breasts: Skin/Breast: Reports system reviewed and no additional complaints, except as docu and Reports as per HPI Neurologic: Reports system reviewed and no additional complaints, except as documented and Reports as per HPI Psychiatric: Psychiatric: Reports no additional psychiatric complaints and Reports as per HPI [facility] Past Medical History Medical History Anxiety Asthma Bipolar disorder Depression Hypertension Migraines Surgical History H/O hemorrhoidectomy History of cholecystectomy History of endoscopy History of tubal ligation S/P colonoscopy S/P excision of lipoma Family History Family History Mother Cancer of unknown origin Maternal Uncle Colon cancer Maternal Uncle Throat cancer Social History Social History Alcohol intake: unknown Patient Tobacco Use Status: Never used Tobacco Advance Directives: No Advance Directives Information Provided: Yes Patient : No Physical Exam Vital Signs: Vital Signs: Last Vital Signs Temp 98.6 F 09/29/21 08:51 Pulse 64 09/29/21 08:51 Resp 18 09/29/21 08:51 BP 122/89 09/29/21 08:51 Pulse Ox 100 09/29/21 08:51 Body Mass Index 27.4 Const: General: cooperative, healthy appearing, comfortable, no acute distres s, well developed, alert, awake and Physically active Orientation/consciousness: patient oriented x3 HENMT: Head: Yes normal to inspection, Yes No palpable skull fracture present, Yes normocephalic, Yes atraumatic and No abrasion Eyes: General: appearance normal, both eyes and all related structures Neck: Neck: Yes normal visual inspection, Yes full ROM, Yes no lymphadenopathy, Yes no meningeal signs, Yes trachea midline, Yes supple, No anterior neck swelling and No tender Chest: Chest palpation & inspection: normal inspection of the chest and normal palpation of entire chest wall Resp: Effort & Inspection: normal respiratory effort and able to speak in complete sentences Auscultation: clear to auscultation bilaterally Cardio: Jugular venous distension: no JVD Heart sounds: S1 normal heart sound present and S2 normal heart sound present GI: Inspection: Yes normal to inspection and No abdominal wall ecchymosis Palpation (GI): Soft to palpation, not firm, nontender, no guarding and not rigid : General: No CVA tenderness and Yes no CVA tenderness Back/Spine/Pelvis: Back: no CVA tenderness, No CVA tenderness and No back tenderness Skin: General skin exam: no rashes or lesions noted and elasticity normal Neuro: General: patient oriented x3, gait normal, tone normal, moves all extr emities, no meningeal signs and deep tendon reflexes 2+ bilaterally Cranial nerves: Yes CN's II-XII intact bilaterally Extrem: General: Yes normal to inspection and Yes full ROM Hand/finger images: 1. Tenderness on palpation. Negative for any deformity or ecchymosis. Negative for crepitus. Negative erythema. Radius/ulna pulses intact. Capillary refills intact of all fingers. Patient able to flex and extend wrist and full motion. Complete range of motion of fingers. Motor/neuro/vascular exam intact. Upper/lower leg/hip images: 1. Slight tenderness on palpation. Negative for palpable cord, erythema, ecchymosis, crepitus, deep, obvious deformity. Leg negative for swelling, redness, calf pain. Pedal pulses popliteal and femoral pulses intact. Motor/neuro/vascular exam is intact. Patient states pain is worse if she moves around her right femur. Psych: Appearance: grossly normal, well kempt and not disheveled Course Course Course Narrative: Patient sent for x-rays to rule out fracture. Not suspecting any DVT in right lower extremity. Patient does not have any erythema, swelling, calf tenderness, palpable cord,or warmth. Patient not on any control or any risk factors for DVT. Patient states pain occurred right soon after trauma that occurred on Wednesday. Patient has no chest pain or shortness of breath. Reevaluation(s) Reevaluation #1: Patient had images were negative for fracture. Patient will be discharged with pain meds. patient given shereen bandage for wrists. Time: 10:25 MDM - Extremity (Nontraumatic) MDM Narrative Medical decision making narrative: Wrist sprain. Femur sprain/contusion. Discharge Plan Discharge Clinical Impression: Left wrist sprain, Contusion Patient Disposition: Home, Self-Care Instructions: Contusion in Adults (ED), Wrist Sprain (ED) Additional Instructions: Tus im?genes salieron negativas por fractura. Muy probablemente de esguince de mu?eca y contusi?n / distensi?n muscular del muslo derecho. Se le bishop? de renita con analg?sicos y relajantes musculares. Recomiende compresas tibias en ?reas para alivio y tambi?n descanso y elevaci?n. Regrese al servicio de urgencias si tiene alguna hinchaz?n, enrojecimiento, dolor en la pantorrilla, fiebre, escalofr?os, dolor en el pecho, dificultad para respirar, decoloraci?n jah azulado de las extremidades, entumecimiento / hormigueo, frialdad o cualquier otro s?ntoma que le preocupe. Ruth un seguimiento con el proveedor de atenci?n primaria. Prescriptions: New naproxen 500 mg tablet 500 mg PO BID PRN (Reason: pain) 10 Days Qty: 20 RF: 0 cyclobenzaprine 10 mg tablet 10 mg PO TID PRN (Reason: muscle spasm) Qty: 21 RF: 0 No Action naproxen 500 mg tablet 500 mg PO BID PRN (Reason: pain) Qty: 20 RF: 0 meclizine 25 mg tablet 25 mg PO TID PRN (Reason: dizziness) Qty: 30 RF: 0 cyclobenzaprine 10 mg tablet 5 mg PO TID PRN (Reason: muscle spasm) Qty: 20 RF: 0 hydroxyzine HCl 25 mg tablet 25 mg PO TID PRN (Reason: itching) Qty: 14 RF: 0 metronidazole [Flagyl] 500 mg tablet 500 mg PO BID 7 Days Qty: 14 RF: 0 metoclopramide HCl [Reglan] 10 mg tablet 10 mg PO Q6H PRN (Reason: nausea and vomiting) Qty: 10 RF: 0 magnesium oxide 400 mg magnesium tablet 400 mg PO DAILY Qty: 14 RF: 0 hydroxyzine HCl 25 mg tablet 25 mg PO TID PRN (Reason: itching) Qty: 20 RF: 0 sxqwdpdguu-hnthzbivdzgwr-ngcd [Fioricet] 50-300-40 mg capsule 1 cap PO Q8H PRN (Reason: pain) Qty: 10 RF: 0 ibuprofen 600 mg tablet 600 mg PO Q6H PRN (Reason: pain) Qty: 14 RF: 0 prednisone 20 mg tablet 40 mg PO DAILY Qty: 10 RF: 0 famotidine [Pepcid] 20 mg tablet 20 mg PO BID 5 Days Qty: 10 RF: 0 ondansetron HCl [Zofran] 4 mg tablet 4 mg PO Q8H PRN (Reason: nausea and vomiting) Qty: 10 RF: 0 ibuprofen 400 mg tablet 400 mg PO Q6H PRN (Reason: pain) Qty: 20 RF: 0 aripiprazole 15 mg tablet 15 mg PO QAM RF: 0 Stand Alone Forms: Work/School Release Interventions: ED Discharge Assessment Last Done: 09/29/21 10:42 Discharge Date/Time: 09/29/21 10:50 Print Language: Occitan
== END 2021-09-29 10:50 | disposition home or self-care (01) ==
PROVIDERS: Emergency Provider Emergency Medicine
DX: S63.502A Unspecified sprain of left wrist, initial encounter (principal); S70.11XA Contusion of right thigh, initial encounter; W19.XXXA Unspecified fall, initial encounter; Y93.9 Activity, unspecified; Y92.9 Unspecified place or not applicable; Y99.9 Unspecified external cause status
CPT/HCPCS: 73110; 73130; 73552; 99283

== ENCOUNTER → 2021-11-10 10:52 | Outpatient (BNVA) | payer OTHER, SELFPAY | PROVIDERS: Visit Provider Internal Medicine Gastroenterology | DX: R10.2 Pelvic and perineal pain (principal) | CPT/HCPCS: 99212 ==

== ENCOUNTER 2021-11-11 19:54 | Emergency (ER) | payer OTHER, SELFPAY ==
[2021-11-11 21:29] VITALS: BP 145/86; PULSE 57; RESP 16; TEMP 36.8; O2SAT 100; BMI 30.7
--- NOTE | 2021-11-11 21:34 | ECG_ITS ---
Test Reason : chest pain/upper respitory Blood Pressure : / mmHG Vent. Rate : 058 BPM Atrial Rate : 058 BPM P-R Int : 128 ms QRS Dur : 078 ms QT Int : 434 ms P-R-T Axes : 063 049 058 degrees QTc Int : 426 ms Sinus bradycardia Otherwise normal ECG When compared with ECG of 22-MAY-2021 01:21, No significant change was found Referred By: Generic ED Physician Electronically Signed By:JYOTI ROJAS MD
[2021-11-11 22:08] LABS: COVID-19 Test Negative (Negative)
--- NOTE | 2021-11-11 22:57 | ED_ITS ---
HPI - URI/Sore Throat General Chief Complaint: Upper Respiratory Symptoms Stated Complaint: ? covid chest discomfort Time Seen by Provider: 11/11/21 22:57 Source: patient and family Mode of arrival: ambulatory Limitations: no limitations History of Present Illness HPI Narrative: 36-year-old female presents to the ER with her 14-year-old son who is COVID positive in the patient reports feeling short of breath, inte rmittent dry cough, headaches, body aches that started today. She is concerned about going back to work tomorrow. She reports 18 of her coworkers also have COVID. She is fully vaccinated. She denies any chest pain or dyspnea on exertion. She has not had any fevers at home but she reports some chills. She is eating and drinking normally. MD elicited complaint: cough and other (Body aches and shortness of breath) Onset (ago): hour(s) Consistency: intermittent Severity: mild Able to tolerate fluids by mouth: Yes Exacerbating factors: nothing Relieving factors: nothing Context: sick contacts Associated symptoms: chills, headache, nasal congestion, cough and shortness of breath Treatments prior to arrival: none Related Data Home Medications Medication Instructions Recorded Confirmed aripiprazole 15 mg tablet 15 mg PO QAM 07/08/21 07/17/21 levothyroxine 75 mcg tablet 75 mcg PO DAILY 11/10/21 lisinopril 20 mg tablet 20 mg PO DAILY 11/10/21 zolpidem 10 mg tablet 10 mg PO BEDTIME PRN 11/10/21 Previous Rx's Medication Instructions Recorded naproxen 500 mg tablet 500 mg PO BID PRN #20 tab 08/28/20 meclizine 25 mg tablet 25 mg PO TID PRN #30 tab 09/10/20 cyclobenzaprine 10 mg tablet 5 mg PO TID PRN #20 tab 09/29/20 hydroxyzine HCl 25 mg tablet 25 mg PO TID PRN #14 tab 11/10/20 metronidazole 500 mg tablet 500 mg PO BID 7 Days #14 tab 11/13/20 (Flagyl) hydroxyzine HCl 25 mg tablet 25 mg PO TID PRN #20 tab 01/01/21 armocxbjmt-aluekzmqiueme-gmklkizl 1 cap PO Q8H PRN #10 cap 01/14/21 50 mg-300 mg-40 mg capsule (Fioricet) ibuprofen 600 mg tablet 600 mg PO Q6H PRN #14 tab 01/14/21 magnesium oxide 400 mg PO DAILY #14 tab 03/16/21 metoclopramide HCl 10 mg tablet 10 mg PO Q6H PRN #10 tab 03/16/21 (Reglan) famotidine 20 mg tablet (Pepcid) 20 mg PO BID 5 Days #10 tab 08/15/21 prednisone 20 mg tablet 40 mg PO DAILY #10 tab 08/15/21 ibuprofen 400 mg tablet 400 mg PO Q6H PRN #20 tab 08/21/21 ondansetron HCl 4 mg tablet 4 mg PO Q8H PRN #10 tab 08/21/21 (Zofran) cyclobenzaprine 10 mg tablet 10 mg PO TID PRN #21 tab 09/29/21 naproxen 500 mg tablet 500 mg PO BID PRN 10 Days #20 tab 09/29/21 Allergies Allergy/AdvReac Type Severity Reaction Status Date / Time shellfish derived Allergy Severe HIVES Verified 11/10/21 11:05 [SHELLFISH DERIVED] morphine [MORPHINE] Allergy Intermediate RASH, Verified 11/10/21 11:05 rash, itching sodium ferric gluconate Allergy Mild itching Verified 11/10/21 11:05 complex [From FERRLECIT] sucrose [From FERRLECIT] Allergy Mild itching Verified 11/10/21 11:05 SEAFOOD Allergy Severe SWELLING,RA Uncoded 11/10/21 11:05 SH Review of Systems Review of Systems: Constitutional: No Fever, + Chills ENT/Mouth: + sore throat, No Rhinorrhea, No Swallowing Difficulty Cardiovascular: No Chest Pain, + SOB, No Orthopnea, No Edema Respiratory: + Cough, No Sputum, No Wheezing, No dyspnea Gastrointestinal: No Nausea, No Vomiting, No Diarrhea, No abdominal Pain Musculoskeletal: No joint pain, No Myalgias Skin: No Skin Lesions, No rash Neuro: No Weakness,No Dizziness, + Headache Psych:+ Anxiety/Panic Heme/Lymph: No Lymphadenopathy a PMFSH Past Medical History Medical History Anxiety Asthma Bipolar disorder Depression Hypertension Migraines Surgical History H/O hemorrhoidectomy History of cholecystectomy History of endoscopy History of tubal ligation S/P colonoscopy S/P excision of lipoma Family History Family History Mother Cancer of unknown origin Maternal Uncle Colon cancer Maternal Uncle Throat cancer Social History Social History Alcohol intake: unknown Patient Tobacco Use Status: Never used Tobacco Advance Directives: No Physical Exam Vital Signs: Vital Signs: Last Vital Signs Temp 98.2 F 11/11/21 21:29 Pulse 57 11/11/21 21:29 Resp 16 11/11/21 21:29 BP 145/86 H 11/11/21 21:29 Pulse Ox 100 11/11/21 21:29 BMI result Body Mass Index 30.7 Appearance: Alert. Oriented X3. No acute distress. Eyes: Pupils equal, round and reactive to light. ENT: Pharynx normal. Moist mucous membranes. No tonsillar swelling or exudate. Neck: Normal inspection. Neck supple. CVS: Normal heart rate and rhythm. Pulses normal. Respiratory: No respiratory distress. Breath sounds normal. Skin: Skin warm and dry. Normal skin color. Normal skin turgor. No rashes. Extremities: Normal inspection, normal range of motion Neuro: Oriented X 3. Grossly normal, nonfocal Course Course Course Narrative: 36-year-old female presenting to the ER with shortness of b reath, cough, headache, body aches, chest tightness that started today. Her son is COVID positive. She is fully vaccinated. She denies any fevers. Her vital signs are normal on arrival and her exam is benign. SpO2 100% on room air. No fever. Her COVID rapid antigen test is negative. Given her known exposure and current symptoms she is advised not to go to work ago in public while she is fe eling ill. She has at home COVID test that she will take tomorrow. Work note provided per request. Stable for discharge home with supportive care and self- monitoring of her symptoms at home. MDM - URI/Sore Throat Medical Records Attestation: I reviewed the patient's medical records. Lab Data Attestation: I reviewed the patient's lab results. Labs: Lab Results 11/11/21 Range/Units 21:45 COVID-19 ([facility]) Negative (Negative) COVID-19 Clin Com See Note ECG Data Attestation: I personally reviewed and interpreted this ECG as follows: ECG interpretation date: 11/11/21 ECG interpretation time: 23:31 Prior ECG tracings: available for review Interpretation: sinus bradycardia heart rate 58 beats per minute, normal TN interval, normal QTC, no change compared to prior from May. No ST segment elevations or depressions Discharge Plan Discharge Clinical Impression: Close exposure to 2019-nCoV Patient Disposition: Home, Self-Care Instructions: Covid-19 Viral Syndrome and Novel Coronavirus (ED) Hey/Ath Additional Instructions: BECAUSE YOU ARE HAVING SYMPTOMS IT IS RECOMMENDED YOU DO NOT GO TO WORK Recommend repeating a test at home in the next 48 hours. If You Were Exposed to Someone with COVID-19 (Quarantine) If you: Have been boosted OR Completed the primary series of Pfizer or Moderna vaccine within the last 6 months OR Completed the primary series of J&J vaccine within the last 2 months ? Wear a mask around others for 10 days. ? Test on day 5, if possible. If you develop symptoms get a test and stay home. If you: Completed the primary series of Pfizer or Moderna vaccine over 6?months ago and are not boosted OR Completed the primary series of J&J over 2 months ago and are not boosted OR Are unvaccinated ? Stay home for 5 days. After that continue to wear a mask around others for 5 additional days. ? If you can?t quarantine you must wear a mask for 10 days. ? Test on day 5 if possible. If you develop symptoms get a test and stay home Prescriptions: No Action naproxen 500 mg tablet 500 mg PO BID PRN (Reason: pain) Qty: 20 RF: 0 meclizine 25 mg tablet 25 mg PO TID PRN (Reason: dizziness) Qty: 30 RF: 0 cyclobenzaprine 10 mg tablet 5 mg PO TID PRN (Reason: muscle spasm) Qty: 20 RF: 0 hydroxyzine HCl 25 mg tablet 25 mg PO TID PRN (Reason: itching) Qty: 14 RF: 0 metronidazole [Flagyl] 500 mg tablet 500 mg PO BID 7 Days Qty: 14 RF: 0 metoclopramide HCl [Reglan] 10 mg tablet 10 mg PO Q6H PRN (Reason: nausea and vomiting) Qty: 10 RF: 0 magnesium oxide 400 mg magnesium tablet 400 mg PO DAILY Qty: 14 RF: 0 hydroxyzine HCl 25 mg tablet 25 mg PO TID PRN (Reason: itching) Qty: 20 RF: 0 skekjymkzh-wjobhfqrdqxfe-zlqy [Fioricet] 50-300-40 mg capsule 1 cap PO Q8H PRN (Reason: pain) Qty: 10 RF: 0 ibuprofen 600 mg tablet 600 mg PO Q6H PRN (Reason: pain) Qty: 14 RF: 0 prednisone 20 mg tablet 40 mg PO DAILY Qty: 10 RF: 0 famotidine [Pepcid] 20 mg tablet 20 mg PO BID 5 Days Qty: 10 RF: 0 ondansetron HCl [Zofran] 4 mg tablet 4 mg PO Q8H PRN (Reason: nausea and vomiting) Qty: 10 RF: 0 ibuprofen 400 mg tablet 400 mg PO Q6H PRN (Reason: pain) Qty: 20 RF: 0 naproxen 500 mg tablet 500 mg PO BID PRN (Reason: pain) 10 Days Qty: 20 RF: 0 cyclobenzaprine 10 mg tablet 10 mg PO TID PRN (Reason: muscle spasm) Qty: 21 RF: 0 aripiprazole 15 mg tablet 15 mg PO QAM RF: 0 levothyroxine 75 mcg tablet 75 mcg PO DAILY RF: 0 lisinopril 20 mg tablet 20 mg PO DAILY RF: 0 zolpidem 10 mg tablet 10 mg PO BEDTIME PRNRF: 0 Stand Alone Forms: Work/School Release Print Language: Martiniquais
== END 2021-11-11 23:51 | disposition home or self-care (01) ==
PROVIDERS: Emergency Provider Emergency Medicine Emergency Medical Services
DX: R51.9 Headache, unspecified (principal); Z20.822 Contact with and (suspected) exposure to COVID-19; I10 Essential (primary) hypertension
CPT/HCPCS: 87635; 93005; 99283

== ENCOUNTER 2021-11-28 15:10 | Outpatient (REF) | payer OTHER, SELFPAY ==
[2021-11-28 15:53] LABS: Appearance Urine CLEAR; Color Urine YELLOW; Glucose Urine UA NEG (NEG); Leukocyte Esterase Urine NEG (NEG); Nitrite Urine NEG (NEG); PH 7.5 (5.0-8.0); Urine Blood NEG (NEG); Urine Ketones NEG (NEG); Urine Protein NEG (NEG-TRACE)
== END 2021-11-28 15:11 | disposition home or self-care (01) ==
LOC: HO.LAB 15:10
PROVIDERS: Visit Provider Internal Medicine Gastroenterology
DX: R30.0 Dysuria (principal)
CPT/HCPCS: 81003

== ENCOUNTER 2022-02-12 07:20 | Emergency (ER) | payer OTHER, SELFPAY ==
[2022-02-12 07:25] VITALS: BP 141/88; PULSE 68; RESP 14; TEMP 36.7; O2SAT 100; BMI 32.2
[2022-02-12 07:35] VITALS: BP 142/88; PULSE 68; RESP 14; TEMP 36.7; O2SAT 100
--- NOTE | 2022-02-12 08:00 | ED.GENADULT ---
HPI - General Adult General Chief complaint: General Medical Stated complaint: dizzy migraine Time Seen by Provider: 02/12/22 08:00 Source: patient and crisis worker Mode of arrival: ambulatory Limitations: language barrier History of Present Illness HPI narrative: Patient is a 36 year old female presenting to the emergency department today with a migraine headache. Patient states that she has a history of this and usually gets medication and goes home. Patient states that she is somewhat nauseous as well. Patient denies any dizziness, lightheadedness, abdominal pain, vomiting, fever, chills, blurry vision, double vision, loss of vision, chest pain, difficulty breathing, shortness of breath, back pain, night sweats, pain with urination, increased urinary frequency, increased urinary urgency, blood in her urine or stool, syncope or a near syncopal episode, recent trauma or falls, bowel incontinence, bladder incontinence, bowel retention, bladder retention, or any other complaints at this time. Onset (ago): day(s) Location: head Radiation: non-radiation Severity: mild Severity scale (1-10): 4 Quality: dull Pain Consistency: constant Relieving factors: none Exacerbating factors: none Associated symptoms: nausea/vomiting Treatments prior to arrival: none Related Data Home Medications Medication Instructions Recorded Confirmed aripiprazole 15 mg tablet 15 mg PO QAM 07/08/21 07/17/21 levothyroxine 75 mcg tablet 75 mcg PO DAILY 11/10/21 lisinopril 20 mg tablet 20 mg PO DAILY 11/10/21 zolpidem 10 mg tablet 10 mg PO BEDTIME PRN 11/10/21 Previous Rx's Medication Instructions Recorded naproxen 500 mg tablet 500 mg PO BID PRN #20 tab 08/28/20 meclizine 25 mg tablet 25 mg PO TID PRN #30 tab 09/10/20 cyclobenzaprine 10 mg tablet 5 mg PO TID PRN #20 tab 09/29/20 hydroxyzine HCl 25 mg tablet 25 mg PO TID PRN #14 tab 11/10/20 metronidazole 500 mg tablet 500 mg PO BID 7 Days #14 tab 11/13/20 (Flagyl) hydroxyzine HCl 25 mg tablet 25 mg PO TID PRN #20 tab 01/01/21 ddzscxmbon-ajyuvatucfskx-yotlwzlf 1 cap PO Q8H PRN #10 cap 01/14/21 50 mg-300 mg-40 mg capsule (Fioricet) ibuprofen 600 mg tablet 600 mg PO Q6H PRN #14 tab 01/14/21 magnesium oxide 400 mg PO DAILY #14 tab 03/16/21 metoclopramide HCl 10 mg tablet 10 mg PO Q6H PRN #10 tab 03/16/21 (Reglan) famotidine 20 mg tablet (Pepcid) 20 mg PO BID 5 Days #10 tab 08/15/21 prednisone 20 mg tablet 40 mg PO DAILY #10 tab 08/15/21 ibuprofen 400 mg tablet 400 mg PO Q6H PRN #20 tab 08/21/21 ondansetron HCl 4 mg tablet 4 mg PO Q8H PRN #10 tab 08/21/21 (Zofran) cyclobenzaprine 10 mg tablet 10 mg PO TID PRN #21 tab 09/29/21 naproxen 500 mg tablet 500 mg PO BID PRN 10 Days #20 tab 09/29/21 Allergies Allergy/AdvReac Type Severity Reaction Status Date / Time shellfish derived Allergy Severe HIVES Verified 11/10/21 11:05 [SHELLFISH DERIVED] morphine [MORPHINE] Allergy Intermediate RASH, Verified 11/10/21 11:05 rash, itching sodium ferric gluconate Allergy Mild itching Verified 11/10/21 11:05 complex [From FERRLECIT] sucrose [From FERRLECIT] Allergy Mild itching Verified 11/10/21 11:05 SEAFOOD Allergy Severe SWELLING,RA Uncoded 11/10/21 11:05 SH Review of Systems Constitutional: Constitutional: Reports no additional constitutional complaints, Denies chills, Denies fever(s), Reports headache(s) and Denies night sweats Eyes: Eyes: Reports no additional eye complaints, Denies blurry vision, Denies change in vision, Denies diplopia, Denies eye discharge, Denies loss of vision and Denies eye pain ENT: Denies dizziness and Reports headache(s) Cardiovascular: Cardiovascular: Reports no additional cardiovascular complaints, Denies chest pain, Denies lightheadedness, Denies Loss of Consciousness and Denies dyspnea Respiratory: Respiratory: Reports no additional respiratory complaints and Denies dyspnea Gastrointestinal: Gastrointestinal: Reports no additional gastrointestinal complaints, Denies abdominal pain, Denies melena, Denies hematochezia, Denies change in bowel habits, Denies change in stool character and Reports nausea Genitourinary: Genitourinary: Denies hematuria, Denies urinary frequency, Denies dysuria, Denies urinary incontinence, Denies urinary hesitancy and Denies urinary urgency Musculoskeletal: Musculoskeletal: Reports no additional musculoskeletal complaints, Denies numbness and Denies tingling Neurologic: Denies dizziness, Reports headache(s), Denies loss of vision, Denies numbness and Denies tingling Psychiatric: Psychiatric: Reports no additional psychiatric complaints Endocrine: Endocrine: Reports no additional endocrine complaints Hematologic/Lymphatic: Hematologic/Lymphatic: Reports no additional hematologic/lymphatic complaints Allergic/Immunologic: Allergic/Immunologic: Reports no additional allergic/immunologic complaints [facility] Past Medical History Attestation statement: The following information was validated with the patient. Source: old records reviewed Medical History Anxiety Asthma Bipolar disorder Depression Hypertension Migraines Surgical History H/O hemorrhoidectomy History of cholecystectomy History of endoscopy History of tubal ligation S/P colonoscopy S/P excision of lipoma Family History Family History Mother Cancer of unknown origin Maternal Uncle Colon cancer Maternal Uncle Throat cancer Social History Social History Alcohol intake: current Alcohol intake frequency: does not drink Patient Tobacco Use Status: Never used Tobacco Advance Directives: No Advance Directives Information Provided: No Physical Exam ED Vital Signs: Vital Signs - 24 hr 02/12/22 07:25 02/12/22 07:35 Temperature 98.0 F 98.0 F Pulse Rate 68 68 Respiratory Rate 14 14 Blood Pressure 141/88 H 142/88 H Pulse Oximetry 100 100 BMI result Body Mass Index 32.2 Const General: cooperative, no acute distress, alert and awake Nutritional Appearance: well nourished Orientation/consciousness: patient oriented x3 Limitations: no limitations HENMT Head: Yes normal to inspection and Yes atraumatic Ears: hearing grossly normal bilaterally and external ears normal General nose exam: Normal external nose present, no nasal discharge noted and no epistaxis Face and sinus: Yes normal facial exam, No abrasion and No laceration Mouth: Normal oral and palatal mucosa present, no drooling and no muffled voice Eyes General: appearance normal, both eyes and all related structures Periorbital: periorbital findings normal Eyelids: Yes eyelids normal Conjunctivae: conjunctivae normal Pupils: Equal, round and reactive pupils present EOM: EOMs intact bilaterally Neck Neck: Yes normal visual inspection, Yes full ROM and Yes no lymphadenopathy Chest Chest palpation & inspection: normal inspection of the chest Resp Effort & Inspection: normal respiratory effort and able to speak in complete sentences Auscultation: clear to auscultation bilaterally Cardio Rate: regular rate Rhythm: regular rhythm GI Inspection: Yes normal to inspection Neuro General: patient oriented x3 and moves all extremities Cranial nerves: Yes Equal, round and reactive pupils present Cognition (Neuro): normal cognition Motor exam (neuro): 5/5 motor strength present throughout Sensory Exam: Normal double simultaneous stimulation for sensation Coordination: smywpf-oy-cnnt test normal Extrem General: Yes normal to inspection, Yes full ROM and Yes capillary refill normal Psych Appearance: grossly normal Mental Status: mental status grossly normal Affect: normal affect Attitude: cooperative Thought process: Normal thought process present Thought content: Normal thought content present Insight: Good insight present (Psych) Medical Decision Making MDM Narrative Medical decision making narrative: Patient is an 36 year old female presenting to the emergency department today with a migraine and nausea. Patient's physical exam was unremarkable including a normal neurological exam. I explained my physical exam findings to the patient. I answered all questions asked by the patient. Patient received IM Toradol, IM Benadryl, and ODT Zofran which she stated helped her symptoms significantly. I stressed the importance of the patient taking her medication as prescribed. I stressed the importance of the patient following up with her primary care provider. I stressed the importance of the patient returning to the emergency department immediately if her symptoms were to worsen or if she were to develop any dizziness, shortness of breath, difficulty breathing, chest pain, blurry vision, loss of vision, nausea, vomiting, abdominal pain, fever, chills, back pain, or any other complaints. Patient verbalized agreement and understanding with this treatment plan and discharge. Differential Diagnosis Differential Diagnosis: migraine, headache, nausea Medical Records Medical records reviewed: Yes I reviewed the patient's medical records. Discharge Plan Discharge Clinical Impression: Migraine Patient Disposition: Home, Self-Care Instructions: Migraine Headache (ED) Additional Instructions: Follow up with your primary care provider. Return to the emergency department immediately if your symptoms worsen or if you develop any dizziness, shortness of breath, difficulty breathing, chest pain, blurry vision, loss of vision, nausea, vomiting, abdominal pain, fever, chills, back pain, or any other complaints. Prescriptions: No Action naproxen 500 mg tablet 500 mg PO BID PRN (Reason: pain) Qty: 20 0RF meclizine 25 mg tablet 25 mg PO TID PRN (Reason: dizziness) Qty: 30 0RF cyclobenzaprine 10 mg tablet 5 mg PO TID PRN (Reason: muscle spasm) Qty: 20 0RF hydroxyzine HCl 25 mg tablet 25 mg PO TID PRN (Reason: itching) Qty: 14 0RF metronidazole [Flagyl] 500 mg tablet 500 mg PO BID 7 Days Qty: 14 0RF metoclopramide HCl [Reglan] 10 mg tablet 10 mg PO Q6H PRN (Reason: nausea and vomiting) Qty: 10 0RF magnesium oxide 400 mg magnesium tablet 400 mg PO DAILY Qty: 14 0RF hydroxyzine HCl 25 mg tablet 25 mg PO TID PRN (Reason: itching) Qty: 20 0RF igvjsgxrgz-drvpbtgzxeokx-xgxu [Fioricet] 50-300-40 mg capsule 1 cap PO Q8H PRN (Reason: pain) Qty: 10 0RF ibuprofen 600 mg tablet 600 mg PO Q6H PRN (Reason: pain) Qty: 14 0RF prednisone 20 mg tablet 40 mg PO DAILY Qty: 10 0RF famotidine [Pepcid] 20 mg tablet 20 mg PO BID 5 Days Qty: 10 0RF ondansetron HCl [Zofran] 4 mg tablet 4 mg PO Q8H PRN (Reason: nausea and vomiting) Qty: 10 0RF ibuprofen 400 mg tablet 400 mg PO Q6H PRN (Reason: pain) Qty: 20 0RF naproxen 500 mg tablet 500 mg PO BID PRN (Reason: pain) 10 Days Qty: 20 0RF cyclobenzaprine 10 mg tablet 10 mg PO TID PRN (Reason: muscle spasm) Qty: 21 0RF Rx Instructions: side effect is drowsiness. Do not take at work or while driving. aripiprazole 15 mg tablet 15 mg PO QAM 0RF levothyroxine 75 mcg tablet 75 mcg PO DAILY 0RF lisinopril 20 mg tablet 20 mg PO DAILY 0RF zolpidem 10 mg tablet 10 mg PO BEDTIME [id number] Referrals: Physician,Unknown J [Primary Care Provider] - (Follow up with your PCP. ) Print Language: Jordanian
[2022-02-12] MEDS: Ketorolac Tromethamine 15 MG/ML VIAL IM (08:56)
[2022-02-12] MEDS: Ondansetron ODT 4 MG TAB.RAPDIS TRANSLINGU (08:57)
[2022-02-12] MEDS: diphenhydrAMINE HCL 50 MG/ML VIAL IM (08:57)
== END 2022-02-12 10:11 | disposition home or self-care (01) ==
PROVIDERS: Emergency Provider Emergency Medicine Emergency Medical Services
DX: G43.909 Migraine, unspecified, not intractable, without status migrainosus (principal); I10 Essential (primary) hypertension; Z79.899 Other long term (current) drug therapy
CPT/HCPCS: 96372; 99284; J1200; J1885

== ENCOUNTER 2022-03-27 15:29 | Emergency (ER) | payer OTHER, SELFPAY ==
--- NOTE | ~2022-03-27 | XR_ITS ---
EXAMINATION: XR CHEST CLINICAL INFORMATION: Chest pain COMPARISON: 01/14/2021 TECHNIQUE: Frontal view of the chest was obtained. FINDINGS: No significant abnormality is noted involving the heart, lungs, mediastinum, bony thorax or soft tissues. An azygos lobe is incidentally noted. XR/XR chest 1V IMPRESSION: No acute disease.
--- NOTE | 2022-03-27 15:37 | ECG_ITS ---
Test Reason : CHEST PAIN Blood Pressure : / mmHG Vent. Rate : 064 BPM Atrial Rate : 064 BPM P-R Int : 148 ms QRS Dur : 084 ms QT Int : 420 ms P-R-T Axes : 064 048 044 degrees QTc Int : 433 ms Normal sinus rhythm Normal ECG When compared with ECG of 11-NOV-2021 21:39, No significant change was found Referred By: Generic ED Physician Electronically Signed By:HERB CONNELLY
[2022-03-27 15:40] VITALS: BP 173/107; PULSE 65; RESP 18; TEMP 36.3; O2SAT 100; BMI 31.1
[2022-03-27 16:01] LABS: MANUAL DIFF FLAG NO
[2022-03-27 16:03] LABS: Basophils Percent Auto 0.3 % (0-2); Eosinophils Absolute Auto 0.1 X10*3/uL (0.0-0.4); Eosinophils Percent Auto 1.8 % (0-4); Hematocrit 32.8 % (37.0-47.0); Hemoglobin 10.3 g/dl (12.0-16.0); Imm Gran Abs Auto 0.02 X10*3/uL (0.00-0.03); Imm Gran Pct Auto 0.3 % (0.0-0.4); Lymphocytes Absolute Auto 1.7 X10*3/uL (1.2-4.9); Lymphocytes Percent Auto 24.5 % (20-40); Mean Corpuscular HGB Conc 31.4 g/dl (31.0-35.0); Mean Corpuscular Volume 79.6 fL (80.0-98.0); Mean Platelet Volume 9.8 fL (9.4-12.3); Monocytes Absolute Auto 0.4 X10*3/uL (0.1-1.2); Monocytes Percent Auto 5.5 % (2-11); Neutrophils Absolute Auto 4.8 x10*3/uL (2.0-8.3); Neutrophils Percent Auto 67.6 % (45-73); Platelet Count 304 X10*3/uL (160-400); Red Blood Count 4.12 X10*6/uL (4.20-5.50); Red Cell Distribution Width 14.2 % (11.0-16.0); White Blood Count 7.1 X10*3/uL (4.8-10.8)
[2022-03-27 16:16] LABS: Anion Gap 9 (12-20); Blood Urea Nitrogen 12 mg/dL (9-16); Calcium 8.9 mg/dL (8.4-10.2); Carbon Dioxide 27 mmol/L (22-29); Chloride 107 mmol/L (96-108); Creatinine Clr Calc Pharmacy 106.3; Estimated Glomerular Filt Rate > 60; Glucose Random 94 mg/dL (60-115); Potassium 3.4 mmol/L (3.3-5.1); Sodium 140 mmol/L (135-145)
[2022-03-27 16:23] LABS: Troponin-I High Sensitivity < 3.5 ng/L (<3.5-17.0)
== END 2022-03-27 19:39 | disposition left against medical advice (07) ==
PROVIDERS: Emergency Provider Emergency Medicine
DX: R51.9 Headache, unspecified (principal); R07.9 Chest pain, unspecified
CPT/HCPCS: 36415; 71045; 80048; 84484; 85025; 93005; 99281; 99283

== ENCOUNTER 2022-04-01 19:28 | Emergency (ER) | payer OTHER, SELFPAY ==
[2022-04-01 19:31] VITALS: BP 177/88; PULSE 81; RESP 18; TEMP 36.7; O2SAT 100; BMI 31.1
--- NOTE | 2022-04-01 20:29 | ED.ALLEREA ---
HPI - Allergic Reaction General Chief complaint: Allergic Reaction Stated complaint: allergic reaction used epi pen x1 Time Seen by Provider: 04/01/22 20:02 Source: patient Mode of arrival: ambulatory Limitations: no limitations History of Present Illness HPI narrative: Patient comes to the emergency room complaining of an allergic reaction. Patient states that she is known to be allergic to certain seafoods. Patient states that she really likes seafood and decided to try it again. Patient became short of breath, had hives, throat itching, patient gave herself an injection with EpiPen 10 minutes prior to arrival. At this time, patient states that the hives are resolving, has no shortness of breath, no lip or tongue swelling. Patient mostly complaining of feeling jittery and palpitations after administering herself epinephrine IM Related Data Home Medications Medication Instructions Recorded Confirmed aripiprazole 15 mg tablet 15 mg PO QAM 07/08/21 07/17/21 levothyroxine 75 mcg tablet 75 mcg PO DAILY 11/10/21 lisinopril 20 mg tablet 20 mg PO DAILY 11/10/21 zolpidem 10 mg tablet 10 mg PO BEDTIME PRN 11/10/21 Previous Rx's Medication Instructions Recorded naproxen 500 mg tablet 500 mg PO BID PRN #20 tab 08/28/20 meclizine 25 mg tablet 25 mg PO TID PRN #30 tab 09/10/20 cyclobenzaprine 10 mg tablet 5 mg PO TID PRN #20 tab 09/29/20 hydroxyzine HCl 25 mg tablet 25 mg PO TID PRN #14 tab 11/10/20 metronidazole 500 mg tablet 500 mg PO BID 7 Days #14 tab 11/13/20 (Flagyl) hydroxyzine HCl 25 mg tablet 25 mg PO TID PRN #20 tab 01/01/21 hstmknktfb-gtmrshkusqduc-kuxbexsm 1 cap PO Q8H PRN #10 cap 01/14/21 50 mg-300 mg-40 mg capsule (Fioricet) ibuprofen 600 mg tablet 600 mg PO Q6H PRN #14 tab 01/14/21 magnesium oxide 400 mg PO DAILY #14 tab 03/16/21 metoclopramide HCl 10 mg tablet 10 mg PO Q6H PRN #10 tab 03/16/21 (Reglan) famotidine 20 mg tablet (Pepcid) 20 mg PO BID 5 Days #10 tab 08/15/21 prednisone 20 mg tablet 40 mg PO DAILY #10 tab 08/15/21 ibuprofen 400 mg tablet 400 mg PO Q6H PRN #20 tab 08/21/21 ondansetron HCl 4 mg tablet 4 mg PO Q8H PRN #10 tab 08/21/21 (Zofran) cyclobenzaprine 10 mg tablet 10 mg PO TID PRN #21 tab 09/29/21 naproxen 500 mg tablet 500 mg PO BID PRN 10 Days #20 tab 09/29/21 Allergies Allergy/AdvReac Type Severity Reaction Status Date / Time shellfish derived Allergy Severe HIVES Verified 04/01/22 19:31 [SHELLFISH DERIVED] morphine [MORPHINE] Allergy Intermediate RASH, Verified 04/01/22 19:31 rash, itching sodium ferric gluconate Allergy Mild itching Verified 04/01/22 19:31 complex [From FERRLECIT] sucrose [From FERRLECIT] Allergy Mild itching Verified 04/01/22 19:31 SEAFOOD Allergy Severe SWELLING,RA Uncoded 11/10/21 11:05 Review of Systems Review of Systems: Constitutional : No Weight loss, No Fever, No Chills, No Night Sweats, No Fatigue, No Malaise ENT/Mouth : No Hearing loss, No Ear Pain, No Nasal Congestion, No Sinus Pain, No Hoarseness, complaining of itchy throat Eyes: No Eye Pain, No Swelling, No Redness, No Foreign Body, No Discharge, No Vision Changes, complaining of itchy eyes Cardiovascular : No Chest Pain, No SOB, No Dyspnea on Exertion, No Orthopnea, No Edema, No Palpitations Respiratory : No Cough, No Sputum, No Wheezing, No Smoke Exposure, No Dyspnea Gastrointestinal : No Nausea, No Vomiting, No Diarrhea, No Constipation, No abdominal Pain, No Hematochezia, No Melena Genitourinary : no irregular bleeding, No Dysuria, No Urinary Frequency, No Hematuria, No Urinary Incontinence, No Urgency, No Flank Pain, No Urinary Flow Changes, No Hesitancy Musculoskeletal : No joint pain, No Myalgias, No Joint Swelling Skin : No Skin Lesions, earlier today patient had or tachycardia but is now resolved Neuro : No Weakness, No Numbness, No Paresthesias, No Loss of Consciousness, No Dizziness, No Headache Psych : No Anxiety/Panic, No Depression, No SI/HI/AH/VH, No Social Issues, Heme/Lymph: No Bruising, No Bleeding,No Lymphadenopathy Endocrine : No Polyuria, No Polydipsia, No Temperature Intolerance [facility] [place] Past Medical History Medical History Anxiety Asthma Bipolar disorder Depression Hypertension Migraines Surgical History H/O hemorrhoidectomy History of cholecystectomy History of endoscopy History of tubal ligation S/P colonoscopy S/P excision of lipoma Family History Family History Mother Cancer of unknown origin Maternal Uncle Colon cancer Maternal Uncle Throat cancer Social History Social History Alcohol intake: current Alcohol intake frequency: does not drink Patient Tobacco Use Status: Never used Tobacco Advance Directives: No Advance Directives Information Provided: No Physical Exam ED Vital Signs: Vital Signs - 24 hr 04/01/22 19:31 04/01/22 20:42 Temperature 98.1 F 98.3 F Pulse Rate 81 74 Respiratory Rate 18 16 Blood Pressure 177/88 H 170/87 H Pulse Oximetry 100 100 BMI result Body Mass Index 31.1 Const Other: Appearance: Alert. Oriented X3. No acute distress. Well appearing Eyes: Pupils equal, round and reactive to light. ENT: Pharynx normal. No angioedema, no tongue swelling, normal uvula Neck: Normal inspection. Neck supple. No lymph nodes noted. No crepitus CVS: Normal heart rate and rhythm. Pulses normal. Normal S1 and S2 Respiratory: No respiratory distress. Breath sounds normal. No Wheezing. No rales Abdomen: Soft and nontender. No rigidity. No distention. Skin: Skin warm and dry. Normal skin color. Normal skin turgor. No urticaria Extremities: No lower extremity edema. No Lacerations. No Rash Neuro: Oriented X 3. No motor deficit. No sensory deficit. Moving all extremities. No slurred speech. CN 2 through 12 grossly intact Psych: calm, cooperative, normal affect Course Course Course Narrative: Physical exam is normal. However, patient states that she has a bit of itching in her throat. Patient receiving p.o. prednisone, Pepcid and Benadryl. I was informed by the patient's nurse that the patient eloped after treatment. Discharge Plan Discharge Clinical Impression: Allergic reaction Patient Disposition: Elopement Prescriptions: No Action naproxen 500 mg tablet 500 mg PO BID PRN (Reason: pain) Qty: 20 0RF meclizine 25 mg tablet 25 mg PO TID PRN (Reason: dizziness) Qty: 30 0RF cyclobenzaprine 10 mg tablet 5 mg PO TID PRN (Reason: muscle spasm) Qty: 20 0RF hydroxyzine HCl 25 mg tablet 25 mg PO TID PRN (Reason: itching) Qty: 14 0RF metronidazole [Flagyl] 500 mg tablet 500 mg PO BID 7 Days Qty: 14 0RF metoclopramide HCl [Reglan] 10 mg tablet 10 mg PO Q6H PRN (Reason: nausea and vomiting) Qty: 10 0RF magnesium oxide 400 mg magnesium tablet 400 mg PO DAILY Qty: 14 0RF hydroxyzine HCl 25 mg tablet 25 mg PO TID PRN (Reason: itching) Qty: 20 0RF gmheolwnlt-vkidvoeljzpuj-xybx [Fioricet] 50-300-40 mg capsule 1 cap PO Q8H PRN (Reason: pain) Qty: 10 0RF ibuprofen 600 mg tablet 600 mg PO Q6H PRN (Reason: pain) Qty: 14 0RF prednisone 20 mg tablet 40 mg PO DAILY Qty: 10 0RF famotidine [Pepcid] 20 mg tablet 20 mg PO BID 5 Days Qty: 10 0RF ondansetron HCl [Zofran] 4 mg tablet 4 mg PO Q8H PRN (Reason: nausea and vomiting) Qty: 10 0RF ibuprofen 400 mg tablet 400 mg PO Q6H PRN (Reason: pain) Qty: 20 0RF naproxen 500 mg tablet 500 mg PO BID PRN (Reason: pain) 10 Days Qty: 20 0RF cyclobenzaprine 10 mg tablet 10 mg PO TID PRN (Reason: muscle spasm) Qty: 21 0RF Rx Instructions: side effect is drowsiness. Do not take at work or while driving. aripiprazole 15 mg tablet 15 mg PO QAM 0RF levothyroxine 75 mcg tablet 75 mcg PO DAILY 0RF lisinopril 20 mg tablet 20 mg PO DAILY 0RF zolpidem 10 mg tablet 10 mg PO BEDTIME PRN0RF
[2022-04-01 20:42] VITALS: BP 170/87; PULSE 74; RESP 16; TEMP 36.8; O2SAT 100
[2022-04-01] MEDS: Famotidine 20 MG TABLET PO (21:17)
[2022-04-01] MEDS: diphenhydrAMINE HCL 25 MG TABLET 50 MG PO (21:17)
[2022-04-01] MEDS: predniSONE 20 MG TABLET 60 MG PO (21:17)
--- NOTE | 2022-04-01 21:18 | PC.NURSE ---
pt a&ox3, c/o itching after eating seafood. pt has a known seafood allergy and used her epipen. vss. medicated per provider order.
--- NOTE | 2022-04-01 23:24 | PC.NURSE ---
pt walk out before discharge paper work could be given. Paper work printed out to be mailed.
== END 2022-04-02 00:15 | disposition left against medical advice (07) ==
PROVIDERS: Emergency Provider Emergency Medicine
DX: L50.0 Allergic urticaria (principal); Z79.899 Other long term (current) drug therapy
CPT/HCPCS: 99283; Q0163

== ENCOUNTER 2022-05-27 07:10 | Emergency (ER) | payer OTHER, SELFPAY ==
[2022-05-27 08:42] VITALS: BP 161/93; PULSE 57; RESP 12; TEMP 36.3; O2SAT 100; BMI 30.7
== END 2022-05-27 14:49 | disposition left against medical advice (07) ==
PROVIDERS: Emergency Provider Emergency Medicine
DX: M54.50 Low back pain, unspecified (principal)
CPT/HCPCS: 99281

== ENCOUNTER 2022-05-28 06:21 | Emergency (ER) | payer OTHER, SELFPAY ==
--- NOTE | ~2022-05-28 | CT_ITS ---
EXAMINATION: CT ABDOMEN AND PELVIS WITHOUT CONTRAST CLINICAL INFORMATION: Bilateral flank pain. Bilateral lower abdominal pain COMPARISON: None TECHNIQUE: Multidetector volumetric imaging was performed from the superior aspect of the liver through the pubic symphysis. Sagittal and coronal reformatted images were obtained on the technologist's workstation. This CT examination was performed using dose optimization techniques as appropriate, variously including the following: *Automated exposure control *Adjustment of mA and/or kV according to patient size (this includes techniques or standardized protocols for targeted exams where dose is matched to indication/reason for exam; i.e. extremities or head) *Use of iterative reconstruction technique DLP: 684 mGy-cm FINDINGS: LUNG BASES: There is minimal groundglass opacity both lung base likely atelectasis. The heart size is normal. LIVER, GALLBLADDER, AND BILIARY TREE: The liver is normal in size, shape, and attenuation. No focal hepatic lesion or biliary ductal dilatation is present. There is a punctate calcification in right hepatic lobe the gallbladder has been surgically removed. PANCREAS: Unremarkable. SPLEEN: Unremarkable. ADRENAL GLANDS: Unremarkable. KIDNEYS AND URETERS: The kidneys are normal in size, shape, and attenuation. There is a 1 mm nonobstructive calculi midpole right kidney. No perinephric stranding. BLADDER: Unremarkable. GASTROINTESTINAL TRACT: There is scattered stool and gas seen throughout the colon without any significant distention. The small bowel loops are normal caliber. Appendix is normal caliber. ABDOMINAL WALL: The abdominal wall is unremarkable. No evidence of hernia. LYMPH NODES: Normal. VASCULAR: Unremarkable. PELVIC VISCERA: The uterus is anteverted and appears unremarkable. There is no adnexal mass. There is no free air or free fluid. OSSEOUS STRUCTURES: Unremarkable. CT/CT abdomen pelvis wo con IMPRESSION: No acute intra-abdominal process seen. 1 mm nonobstructive calculi midpole right kidney. No caliectasis or hydronephrosis in either kidney. Cholecystectomy with mild constipation. Normal appendix. Fleischner guidelines were followed.
[2022-05-28 07:02] VITALS: BP 145/98; PULSE 68; RESP 16; TEMP 36.8; O2SAT 98; BMI 30.7
--- NOTE | 2022-05-28 09:08 | ED_ITS ---
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 Patient states that the pain came on gradually 3 days prior but is gotten progressively worse. She describes the pain is a sharp pain which is intermittent but is 10/10. The patient points to her bilateral lower abdominal area when asked to localize the pain. She states that she is also feeling pain bilateral in her flank area. She states that the pain does radiate to her chest is worse with breathing. She states that this is her 1st episode of this type of pain. She states she has seen a echo vasc tech, Dr. Tavarez for abdominal pain. In reviewing Dr Prajapati's office note from 11/10/2021 the patient was having lower cramping abdominal pain for 15 years associated with loose stools and blood with wiping. She had an endoscopy/colonoscopy 06/2019 which revealed mild esophag itis small internal hemorrhoid. MRCP 09/2019 which was normal with no retained biliary stones. Capsule endoscopy 2019 revealed erosion, duodenitis, gastritis- H pylori breath test was negative MD elicited complaint: abdominal pain Pertinent past history: other (Lower abdominal pain times 15 years) Onset (ago): day(s) (3) Pain Consistency: intermittent Location: LUQ, RUQ and suprapubic Severity: severe Pain scale (0-10): 10 Quality: sharp Radiation: L flank, R flank and other (Bilateral upper chest) Exacerbating factors: nothing Relieving factors: nothing Associated symptoms: other (Sore throat, shortness of breath, dyspnea on exertion) Related Data Home Medications Medication Instructions Recorded Confirmed aripiprazole 15 mg tablet 15 mg PO QAM depressive disorder 07/08/21 07/17/21 levothyroxine 75 mcg tablet 75 mcg PO DAILY 11/10/21 lisinopril 20 mg tablet 20 mg PO DAILY 11/10/21 zolpidem 10 mg tablet 10 mg PO BEDTIME PRN 11/10/21 Previous Rx's Medication Instructions Recorded naproxen 500 mg tablet 500 mg PO BID PRN pain #20 tabs 10/21/20 meclizine 25 mg tablet 25 mg PO TID PRN dizziness #30 tabs 09/10/20 cyclobenzaprine 10 mg tablet 5 mg PO TID PRN muscle spasm #20 09/29/20 tabs hydroxyzine HCl 25 mg tablet 25 mg PO TID PRN itching #14 tabs 11/10/20 metronidazole 500 mg tablet 500 mg PO BID Bacterial vaginosis 11/13/20 (Flagyl) 7 days #14 tabs hydroxyzine HCl 25 mg tablet 25 mg PO TID PRN itching #20 tabs 01/01/21 alkdrrwsyd-dkeuqpokdcysy-dhrzfymr 1 cap PO Q8H PRN pain #10 caps 01/14/21 50 mg-300 mg-40 mg capsule (Fioricet) ibuprofen 600 mg tablet 600 mg PO Q6H PRN pain #14 tabs 01/14/21 magnesium oxide 400 mg PO DAILY #14 tabs 03/16/21 metoclopramide HCl 10 mg tablet 10 mg PO Q6H PRN nausea and 03/16/21 (Reglan) vomiting #10 tabs famotidine 20 mg tablet (Pepcid) 20 mg PO BID 5 days #10 tabs 08/15/21 prednisone 20 mg tablet 40 mg PO DAILY #10 tabs 08/15/21 ibuprofen 400 mg tablet 400 mg PO Q6H PRN pain #20 tabs 08/21/21 ondansetron HCl 4 mg tablet 4 mg PO Q8H PRN nausea and 08/21/21 (Zofran) vomiting #10 tabs cyclobenzaprine 10 mg tablet 10 mg PO TID PRN muscle spasm #21 09/29/21 tabs naproxen 500 mg tablet 500 mg PO BID PRN pain 10 days #20 09/29/21 tabs oxycodone 5 mg tablet 5 mg PO Q4H PRN pain #14 tabs 05/28/22 Allergies Allergy/AdvReac Type Severity Reaction Status Date / Time shellfish derived Allergy Severe HIVES Verified 04/01/22 19:31 [SHELLFISH DERIVED] morphine [MORPHINE] Allergy Intermediate RASH, Verified 04/01/22 19:31 rash, itching sodium ferric gluconate Allergy Mild itching Verified 04/01/22 19:31 complex [From FERRLECIT] sucrose [From FERRLECIT] Allergy Mild itching Verified 04/01/22 19:31 SEAFOOD Allergy Severe SWELLING,RA Uncoded 11/10/21 11:05 Review of Systems Review of Systems Yes all other systems are reviewed and are negative [facility] Past Medical History [facility] Narrative: Social history: She denies tobacco, alcohol and drug use Medical History Anxiety Asthma Bipolar disorder Depression Hypertension Migraines Surgical History H/O hemorrhoidectomy History of cholecystectomy History of endoscopy History of tubal ligation S/P colonoscopy S/P excision of lipoma Family History Family History Mother Cancer of unknown origin Maternal Uncle Colon cancer Maternal Uncle Throat cancer Social History Social History Alcohol intake: current Alcohol intake frequency: does not drink Patient Tobacco Use Status: Never used Tobacco Advance Directives: No Advance Directives Information Provided: Yes Physical Exam ED Vital Signs: Vital Signs - 24 hr 05/28/22 07:02 05/28/22 12:52 Temperature 98.3 F 96.9 F Pulse Rate 68 57 Respiratory Rate 16 16 Blood Pressure 145/98 H 169/84 H Pulse Oximetry 98 100 Oxygen Delivery Method Room Air Room Air BMI result Body Mass Index 30.7 Const General: cooperative and no acute distress Orientation/consciousness: oriented to person and oriented to place Limitations: no limitations HENMN Head: Yes normal to inspection, Yes normocephalic and Yes atraumatic Ears: external ears normal General nose exam: Normal external nose present Face and sinus: Yes normal facial exam Mouth: Normal oral and palatal mucosa present Throat: Yes posterior oropharynx normal Eyes General: appearance normal, both eyes and all related structures Pupils: Equal, round and reactive pupils present Neck Neck: Yes normal visual inspection, Yes no lymphadenopathy, Yes trachea midline and Yes supple Chest Chest palpation & inspection: normal inspection of the chest and normal p alpation of entire chest wall Resp Effort & Inspection: normal respiratory effort and able to speak in complete sentences Auscultation: clear to auscultation bilaterally Cardio Rate: regular rate Rhythm: regular rhythm Heart sounds: S1 normal heart sound present, S2 normal heart sound present and no murmurs GI Inspection: Yes normal to inspection Palpation (GI): Soft to palpation, Tenderness to palpation present (GI) in the LLQ (Moderate), in the RLQ (Moderate) and suprapubicly (Moderate) and no guarding Auscultation: normal bowel sounds General: Yes CVA tenderness on the right (Mild) and on the left (Mild) Back/Spine/Pelvis Back: CVA tenderness Skin General skin exam: no rashes or lesions noted Neuro General: oriented to person and oriented to place Cranial nerves: Yes CN's II-XII intact bilaterally and Yes Equal, round and reactive pupils present Cognition (Neuro): normal cognition Motor exam (neuro): 5/5 motor strength present throughout Extrem General: Yes normal to inspection Psych Appearance: grossly normal Speech and movement: Normal speech and movement present Affect: normal affect Attitude: cooperative Thought process: Normal thought process present Thought content: Normal thought content present Course Course Course Narrative: 36-year-old female who presents emergency department for evaluation of gradual onset of lower abdominal pain and bilateral flank pain x3 days which is got progressively worse and is now 10/10. Patient also states that she is feeling pain in her chest whenever she breathes. She has had some shortness of breath and dyspnea on exertion. In reviewing her record she has been seen by Gastroenterology for intermittent, lower abdominal pain times 15 years with workups that revealed gastritis, duodenitis and erosion but no clear cause for her lower abdominal pain. Patient's vital signs revealed an elevated blood pressure 145/98 otherwise unremarkable. She does have lower abdominal and bilateral flank tenderness. Differential includes was not limited to inflammatory bowel disease, irritable bowel syndrome, diverticulitis, kidney stone, ovarian cyst, appendicitis. Laboratory evaluation was ordered. CT scan of the abdomen pelvis without IV contrast will be obtained. I will also obtain an EKG. The patient is PERC negative and I doubt that she has pulmonary embolism as the cause of her symptoms. 1336: Laboratory evaluation: Microcytic anemia with an H&H of 10 and 35.8 with an MCV of 76. CMP was unremarkable except for an elevated bilirubin of 1.2. Lipase was normal. COVID-19 was negative. Urinalysis was negative. Radiology evaluation: CT scan of the abdomen pelvis without contrast revealed a right renal stone otherwise no clear etiology for the patient's pain. Patient did get some improvement with the above treatment however she still complains of suprapubic pain, examination revealed mild suprapubic tenderness. At this time I do not have a clear etiology for pain. Patient was advised to take Tylenol in a COVID pain, for pain not relieved by these medications she was prescribed oxycodone. She was advised follow-up with PCP for further evaluation. MDM - Abdominal Pain Lab Data Result diagrams: 05/28/22 09:43 05/28/22 09:43 Labs: Lab Results 05/28/22 05/28/22 05/28/22 Range/Units 09:37 09:37 09:43 WBC 6.3 (4.8-10.8) X10*3/uL RBC 4.50 (4.20-5.50) X10*6/uL Hgb 10.8 L (12.0-16.0) g/dl Hct 35.8 L (37.0-47.0) % MCV 79.6 L (80.0-98.0) fL MCH 24.0 L (27.0-33.0) pg MCHC 30.2 L (31.0-35.0) g/dl RDW 14.5 (11.0-16.0) % Plt Count 413 H D (160-400) X10*3/uL MPV 10.5 (9.4-12.3) fL Immature Gran % (Auto) 0.2 (0.0-0.4) % Neut % (Auto) 62.6 (45-73) % Lymph % (Auto) 29.2 (20-40) % [place] % (Auto) 5.7 (2-11) % Eos % (Auto) 1.7 (0-4) % Baso % (Auto) 0.6 (0-2) % Lymph # (Auto) 1.9 (1.2-4.9) X10*3/uL [place] # (Auto) 0.4 (0.1-1.2) X10*3/uL Eos # (Auto) 0.1 (0.0-0.4) X10*3/uL Baso # (Auto) 0.0 (0.0-0.2) X10*3/uL Abs Immat Gran (auto) 0.01 (0.00-0.03) X10*3/uL Absolute Neuts (auto) 4.0 (2.0-8.3) x10*3/uL Absolute Nucleated RBC 0.000 (0.0-0.012) X10*3/uL Nucleated RBC % (auto) 0.0 (0.0-0.2) /100WBC Sodium (135-145) mmol/L Potassium (3.3-5.1) mmol/L Chloride (96-108) mmol/L Carbon Dioxide (22-29) mmol/L Anion Gap (12-20) BUN (9-16) mg/dL Creatinine (0.5-1.4) mg/dL Estim Creat Clear Calc Estimated GFR Random Glucose (60-115) mg/dL Calcium (8.4-10.2) mg/dL Total Bilirubin (0.0-1.0) mg/dL AST (5-31) U/L ALT (0-31) U/L Alkaline Phosphatase (39-117) U/L Total Protein (6.5-8.0) g/dL Albumin (3.5-5.0) g/dL Lipase (8-78) U/L Beta HCG, Quant mIU/mL Urine Color YELLOW Urine Appearance CLEAR Urine pH 6.5 (5.0-8.0) Ur Specific [place] 1.015 (1.005-1.025) Urine Protein NEG (NEG-TRACE) MG/DL Urine Glucose (UA) NEG (NEG) MG/DL Urine Ketones NEG (NEG) MG/DL Urine Blood NEG (NEG) Urine Nitrite NEG (NEG) Ur Leukocyte Esterase NEG (NEG) COVID-19 ([facility]) Negative (Negative) COVID-19 Clin Com See Note 05/28/22 Range/Units 09:43 WBC (4.8-10.8) X10*3/uL RBC (4.20-5.50) X10*6/uL Hgb (12.0-16.0) g/dl Hct (37.0-47.0) % MCV (80.0-98.0) fL MCH (27.0-33.0) pg MCHC (31.0-35.0) g/dl RDW (11.0-16.0) % Plt Count (160-400) X10*3/uL MPV (9.4-12.3) fL Immature Gran % (Auto) (0.0-0.4) % Neut % (Auto) (45-73) % Lymph % (Auto) (20-40) % [place] % (Auto) (2-11) % Eos % (Auto) (0-4) % Baso % (Auto) (0-2) % Lymph # (Auto) (1.2-4.9) X10*3/uL [place] # (Auto) (0.1-1.2) X10*3/uL Eos # (Auto) (0.0-0.4) X10*3/uL Baso # (Auto) (0.0-0.2) X10*3/uL Abs Immat Gran (auto) (0.00-0.03) X10*3/uL Absolute Neuts (auto) (2.0-8.3) x10*3/uL Absolute Nucleated RBC (0.0-0.012) X10*3/uL Nucleated RBC % (auto) (0.0-0.2) /100WBC Sodium 139 (135-145) mmol/L Potassium 4.4 D (3.3-5.1) mmol/L Chloride 106 (96-108) mmol/L Carbon Dioxide 24 (22-29) mmol/L Anion Gap 13 (12-20) BUN 7 L (9-16) mg/dL Creatinine 0.68 (0.5-1.4) mg/dL Estim Creat Clear Calc 107.2 Estimated GFR > 60 Random Glucose 86 (60-115) mg/dL Calcium 8.5 (8.4-10.2) mg/dL Total Bilirubin 1.2 H (0.0-1.0) mg/dL AST 20 D (5-31) U/L ALT 12 (0-31) U/L Alkaline Phosphatase 77 (39-117) U/L Total Protein 7.1 (6.5-8.0) g/dL Albumin 4.0 (3.5-5.0) g/dL Lipase 9 (8-78) U/L Beta HCG, Quant < 2 mIU/mL Urine Color Urine Appearance Urine pH (5.0-8.0) Ur Specific [place] (1.005-1.025) Urine Protein (NEG-TRACE) MG/DL Urine Glucose (UA) (NEG) MG/DL Urine Ketones (NEG) MG/DL Urine Blood (NEG) Urine Nitrite (NEG) Ur Leukocyte Esterase (NEG) COVID-19 ([facility]) (Negative) COVID-19 Clin Com Discharge Plan Discharge Clinical Impression: Abdominal pain Patient Disposition: Home, Self-Care Instructions: Abdominal Pain (ED) Additional Instructions: Your laboratory evaluation was unremarkable. The CT scan of your abdomen pelvis did reveal a small right kidney stone but this is not the cause of your pain. There is no clear cause of your pain. Take ibuprofen 200 mg pills, 3 pills every 6 hours as needed for pain. Take Tylenol (acetaminophen) 500 mg pills, 2 pills every 4-6 hours as needed for pain. For pain not relieved by ibuprofen or Tylenol take oxycodone 5 mg pills, 1 pill every 4 hours as needed for pain. Do not drive or work while taking this medication since they can cause sleepiness. Oxycodone is a narcotic medication that can be addicting. If you are concerned about addiction you can ask the pharmacist for less pills or do not get this prescription filled. Follow-up with your doctor in 2 days. Please return to the emergency department if your symptoms get worse or if you develop any symptoms that are concerning to you. Prescriptions: New oxycodone 5 mg tablet 5 mg PO Q4H PRN (Reason: pain) Qty: 14 0RF Rx Instructions: Patient may request partial fill; Partial Fill upon patient request. No Action naproxen 500 mg tablet 500 mg PO BID PRN (Reason: pain) Qty: 20 0RF meclizine 25 mg tablet 25 mg PO TID PRN (Reason: dizziness) Qty: 30 0RF cyclobenzaprine 10 mg tablet 5 mg PO TID PRN (Reason: muscle spasm) Qty: 20 0RF hydroxyzine HCl 25 mg tablet 25 mg PO TID PRN (Reason: itching) Qty: 14 0RF metronidazole [Flagyl] 500 mg tablet 500 mg PO BID 7 Days Qty: 14 0RF metoclopramide HCl [Reglan] 10 mg tablet 10 mg PO Q6H PRN (Reason: nausea and vomiting) Qty: 10 0RF magnesium oxide 400 mg magnesium tablet 400 mg PO DAILY Qty: 14 0RF hydroxyzine HCl 25 mg tablet 25 mg PO TID PRN (Reason: itching) Qty: 20 0RF hklifqdxmi-wxpzmftsllrex-xsuy [Fioricet] 50-300-40 mg capsule 1 cap PO Q8H PRN (Reason: pain) Qty: 10 0RF ibuprofen 600 mg tablet 600 mg PO Q6H PRN (Reason: pain) Qty: 14 0RF prednisone 20 mg tablet 40 mg PO DAILY Qty: 10 0RF famotidine [Pepcid] 20 mg tablet 20 mg PO BID 5 Days Qty: 10 0RF ondansetron HCl [Zofran] 4 mg tablet 4 mg PO Q8H PRN (Reason: nausea and vomiting) Qty: 10 0RF ibuprofen 400 mg tablet 400 mg PO Q6H PRN (Reason: pain) Qty: 20 0RF naproxen 500 mg tablet 500 mg PO BID PRN (Reason: pain) 10 Days Qty: 20 0RF cyclobenzaprine 10 mg tablet 10 mg PO TID PRN (Reason: muscle spasm) Qty: 21 0RF Rx Instructions: side effect is drowsiness. Do not take at work or while driving. aripiprazole 15 mg tablet 15 mg PO QAM levothyroxine 75 mcg tablet 75 mcg PO DAILY lisinopril 20 mg tablet 20 mg PO DAILY zolpidem 10 mg tablet 10 mg PO BEDTIME PRN
--- NOTE | 2022-05-28 09:12 | ECG_ITS ---
Test Reason : cp Blood Pressure : / mmHG Vent. Rate : 056 BPM Atrial Rate : 056 BPM P-R Int : 138 ms QRS Dur : 088 ms QT Int : 476 ms P-R-T Axes : 057 044 053 degrees QTc Int : 459 ms Sinus bradycardia Otherwise normal ECG When compared with ECG of 27-MAR-2022 15:41, No significant change was found Referred By: Andrea Kruse Electronically Signed By:Gus Arce
[2022-05-28 09:55] LABS: MANUAL DIFF FLAG NO
[2022-05-28 09:56] LABS: Appearance Urine CLEAR; Color Urine YELLOW; Glucose Urine UA NEG (NEG); Leukocyte Esterase Urine NEG (NEG); Nitrite Urine NEG (NEG); PH 6.5 (5.0-8.0); Specific Gravity - Urine 1.015 (1.005-1.025); Urine Blood NEG (NEG); Urine Ketones NEG (NEG); Urine Protein NEG (NEG-TRACE)
[2022-05-28 09:57] LABS: Basophils Percent Auto 0.6 % (0-2); Eosinophils Absolute Auto 0.1 X10*3/uL (0.0-0.4); Eosinophils Percent Auto 1.7 % (0-4); Hematocrit 35.8 % (37.0-47.0); Hemoglobin 10.8 g/dl (12.0-16.0); Imm Gran Abs Auto 0.01 X10*3/uL (0.00-0.03); Imm Gran Pct Auto 0.2 % (0.0-0.4); Lymphocytes Absolute Auto 1.9 X10*3/uL (1.2-4.9); Lymphocytes Percent Auto 29.2 % (20-40); Mean Corpuscular HGB Conc 30.2 g/dl (31.0-35.0); Mean Corpuscular Volume 79.6 fL (80.0-98.0); Mean Platelet Volume 10.5 fL (9.4-12.3); Monocytes Absolute Auto 0.4 X10*3/uL (0.1-1.2); Monocytes Percent Auto 5.7 % (2-11); Neutrophils Percent Auto 62.6 % (45-73); Platelet Count 413 X10*3/uL (160-400); Red Cell Distribution Width 14.5 % (11.0-16.0); White Blood Count 6.3 X10*3/uL (4.8-10.8)
[2022-05-28] MEDS: 0.9 % Sodium Chloride 1,000 ML 999 ML IV (10:02)
[2022-05-28] MEDS: ondansetron HCL 4 MG/2 ML VIAL IVPUSH (10:02)
[2022-05-28] MEDS: Ketorolac Tromethamine 15 MG/ML VIAL 30 MG IVPUSH (10:04)
[2022-05-28 10:12] LABS: COVID-19 Test Negative (Negative); IDNOW Serial# 16C4AD1C
[2022-05-28 10:15] LABS: Alanine Aminotransferase 12 U/L (0-31); Alkaline Phosphatase 77 U/L (39-117); Anion Gap 13 (12-20); Aspartate Amino Transferase 20 U/L (5-31); Bilirubin Total 1.2 mg/dL (0.0-1.0); Blood Urea Nitrogen 7 mg/dL (9-16); Calcium 8.5 mg/dL (8.4-10.2); Carbon Dioxide 24 mmol/L (22-29); Chloride 106 mmol/L (96-108); Creatinine Clr Calc Pharmacy 107.2; Estimated Glomerular Filt Rate > 60; Glucose Random 86 mg/dL (60-115); Lipase 9 U/L (8-78); Potassium 4.4 mmol/L (3.3-5.1); Sodium 139 mmol/L (135-145); Total Protein 7.1 g/dL (6.5-8.0)
[2022-05-28 10:18] LABS: HCG Quantitative < 2 mIU/mL
[2022-05-28 12:52] VITALS: BP 169/84; PULSE 57; RESP 16; TEMP 36.1; O2SAT 100
== END 2022-05-28 14:37 | disposition home or self-care (01) ==
PROVIDERS: Emergency Provider Emergency Medicine Emergency Medical Services
DX: R10.30 Lower abdominal pain, unspecified (principal); N20.0 Calculus of kidney; D50.9 Iron deficiency anemia, unspecified; I10 Essential (primary) hypertension; Z20.822 Contact with and (suspected) exposure to COVID-19
CPT/HCPCS: 74176; 80053; 81003; 83690; 84702; 85025; 87635; 93005; 96361; 96374; 96375; 99284; J1885; J2405

== ENCOUNTER 2022-05-30 05:51 | Emergency (ER) | payer OTHER, SELFPAY ==
--- NOTE | ~2022-05-30 | CT_ITS ---
EXAMINATION: CT ABDOMEN AND PELVIS WITHOUT CONTRAST CLINICAL INFORMATION: Bilateral flank and abdominal pain. COMPARISON: CT abdomen/pelvis dated 05/28/2022. TECHNIQUE: Multidetector volumetric imaging was performed from the superior aspect of the liver through the pubic symphysis. Sagittal and coronal reformatted images were obtained on the technologist's workstation. This CT examination was performed using dose optimization techniques as appropriate, variously including the following: *Automated exposure control *Adjustment of mA and/or kV according to patient size (this includes techniques or standardized protocols for targeted exams where dose is matched to indication/reason for exam; i.e. extremities or head) *Use of iterative reconstruction technique DLP: 665 mGy-cm FINDINGS: LUNG BASES: The visualized lung bases are unremarkable. LIVER, GALLBLADDER, AND BILIARY TREE: The liver is normal in size, shape, and attenuation. No focal hepatic lesion or biliary ductal dilatation is present. Status post cholecystectomy. PANCREAS: Unremarkable. SPLEEN: Unremarkable. ADRENAL GLANDS: Unremarkable. KIDNEYS AND URETERS: The kidneys are normal in size, shape, and attenuation. Stable right midpole 0.1 cm nonobstructing renal stone. No additional renal or ureteral stone. No hydronephrosis or hydroureter. No periureteral or perinephric stranding. No perinephric stranding. BLADDER: Nondistended. GASTROINTESTINAL TRACT: No bowel wall thickening or inflammatory change. No small-or large-bowel obstruction. Unremarkable appendix. PERITONEAL CAVITY: No intra-abdominal free air or free fluid. No intra-abdominal mass or organized fluid collection/abscess formation. ABDOMINAL WALL: No significant hernia is appreciated. LYMPH NODES: No significant lymphadenopathy. VASCULAR: Unremarkable. PELVIC VISCERA: The uterus and adnexa are unremarkable. OSSEOUS STRUCTURES: Unremarkable. CT/CT abdomen pelvis wo con IMPRESSION: No acute intra-abdominal or intrapelvic findings to explain the patient's pain. Fleischner guidelines were followed.
--- NOTE | ~2022-05-30 | US_ITS ---
EXAMINATION: US PELVIS CLINICAL INFORMATION: Cervical motion tenderness. Left adnexal tenderness. COMPARISON: Selected images of the abdomen and pelvic CT of 05/30/2022. TECHNIQUE: Ultrasound of the pelvis is performed using both transabdominal and transvaginal transducers along with Doppler. Transvaginal imaging is performed due to inadequate visualization transabdominally. FINDINGS: Uterus: The uterus is anteverted and measures 8.8 x 4.6 x 5.5 cm. The double wall endometrial thickness is 1.5 cm. There is trilaminar appearance of the endometrial stripe suggesting periovulatory/late proliferative phase of menstrual cycle. The uterus is smooth in contour and has normal myometrial echogenicity. No visible fibroid. Small nabothian cysts in the cervix. Adnexa: Both ovaries are visualized. There is normal color flow to the adnexa. There is no ovarian torsion. There is no pelvic ascites or fluid collection. No adnexal mass. Right ovary measures 3.6 x 2.0 x 2.8 cm. A 2.2 x 1.6 x 2.3 cm right ovarian cyst represents a physiologic/functional cyst. Left ovary measures 2.2 x 1.3 x 2.0 cm. The left ovary is unremarkable in appearance. US/US pelvic and transvaginal IMPRESSION: Essentially unremarkable pelvic ultrasound examination. Specifically, there is no evidence of active ovarian torsion at this time. Unremarkable sonographic appearance of the ovaries.
--- NOTE | ~2022-05-30 | US_ITS ---
EXAMINATION: US PELVIS CLINICAL INFORMATION: Cervical motion tenderness. Left adnexal tenderness. COMPARISON: Selected images of the abdomen and pelvic CT of 05/30/2022. TECHNIQUE: Ultrasound of the pelvis is performed using both transabdominal and transvaginal transducers along with Doppler. Transvaginal imaging is performed due to inadequate visualization transabdominally. FINDINGS: Uterus: The uterus is anteverted and measures 8.8 x 4.6 x 5.5 cm. The double wall endometrial thickness is 1.5 cm. There is trilaminar appearance of the endometrial stripe suggesting periovulatory/late proliferative phase of menstrual cycle. The uterus is smooth in contour and has normal myometrial echogenicity. No visible fibroid. Small nabothian cysts in the cervix. Adnexa: Both ovaries are visualized. There is normal color flow to the adnexa. There is no ovarian torsion. There is no pelvic ascites or fluid collection. No adnexal mass. Right ovary measures 3.6 x 2.0 x 2.8 cm. A 2.2 x 1.6 x 2.3 cm right ovarian cyst represents a physiologic/functional cyst. Left ovary measures 2.2 x 1.3 x 2.0 cm. The left ovary is unremarkable in appearance. US/US pelvic ovarian doppler IMPRESSION: Essentially unremarkable pelvic ultrasound examination. Specifically, there is no evidence of active ovarian torsion at this time. Unremarkable sonographic appearance of the ovaries.
[2022-05-30 07:27] VITALS: BP 137/82; PULSE 62; RESP 16; TEMP 36.3; O2SAT 100; BMI 30.7
--- NOTE | 2022-05-30 10:18 | ED.GENADULT ---
HPI - General Adult General Chief complaint: Back Pain/Injury Stated complaint: Back pain Time Seen by Provider: 05/30/22 07:50 Source: patient Mode of arrival: ambulatory Limitations: language barrier History of Present Illness HPI narrative: 36-year-old female who is seen 2 days ago here in the emergency room for lower abdominal pain and bilateral flank pain and who was worked up with a negative CT and a negative workup, presents for ongoing symptoms. Patient states after her last emergency room visit she went home and felt a little better, but she still had pain. She was scheduled to see her PCP yesterday, but she was late for the appointment so could not get in to see her PCP. States she has bilateral back pain that radiates to her lower abdomen. Endorses urinary frequency and urgency, denies dysuria, fevers, vomiting, nausea, diarrhea, incontinence of bowel or bladder, saddle paresthesias, leg weakness, fevers. Denies concerns for STDs. States she had a normal bowel movement yesterday that was not bloody, tarry, or dark. No periods. vaginal discharge, abnormal uterine bleeding, last menstrual period was May 07. Does endorse having heavy periods. States for 4 months she has had pain with eating and chills and then she has diarrhea 15 minutes later. 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 Per Dr Kruse's note 05/28/22: She states she has seen a wafer fab technician, Dr. Tavarez for abdominal pain.? In reviewing Dr Prajapati's office note from 11/10/2021 the patient was having lower cramping abdominal pain for 15 years associated with loose stools and blood with wiping.? She had an endoscopy/colonoscopy 06/2019 which revealed mild esophagitis small internal hemorrhoid.? MRCP 09/2019 which was normal with no retained biliary stones.? Capsule endoscopy 2019 revealed erosion, duodenitis, gastritis-H pylori breath test was negative Related Data Home Medications Medication Instructions Recorded Confirmed aripiprazole 15 mg tablet 15 mg PO QAM depressive disorder 07/08/21 07/17/21 levothyroxine 75 mcg tablet 75 mcg PO DAILY 11/10/21 lisinopril 20 mg tablet 20 mg PO DAILY 11/10/21 zolpidem 10 mg tablet 10 mg PO BEDTIME PRN 11/10/21 Previous Rx's Medication Instructions Recorded naproxen 500 mg tablet 500 mg PO BID PRN pain #20 tabs 08/28/20 meclizine 25 mg tablet 25 mg PO TID PRN dizziness #30 tabs 09/10/20 cyclobenzaprine 10 mg tablet 5 mg PO TID PRN muscle spasm #20 09/29/20 tabs hydroxyzine HCl 25 mg tablet 25 mg PO TID PRN itching #14 tabs 11/10/20 metronidazole 500 mg tablet 500 mg PO BID Bacterial vaginosis 11/13/20 (Flagyl) 7 days #14 tabs hydroxyzine HCl 25 mg tablet 25 mg PO TID PRN itching #20 tabs 01/01/21 exkuwtahgy-cnvmfsnyjdrmm-cvybwlwx 1 cap PO Q8H PRN pain #10 caps 01/14/21 50 mg-300 mg-40 mg capsule (Fioricet) ibuprofen 600 mg tablet 600 mg PO Q6H PRN pain #14 tabs 01/14/21 magnesium oxide 400 mg PO DAILY #14 tabs 03/16/21 metoclopramide HCl 10 mg tablet 10 mg PO Q6H PRN nausea and 03/16/21 (Reglan) vomiting #10 tabs famotidine 20 mg tablet (Pepcid) 20 mg PO BID 5 days #10 tabs 08/15/21 prednisone 20 mg tablet 40 mg PO DAILY #10 tabs 08/15/21 ibuprofen 400 mg tablet 400 mg PO Q6H PRN pain #20 tabs 08/21/21 ondansetron HCl 4 mg tablet 4 mg PO Q8H PRN nausea and 08/21/21 (Zofran) vomiting #10 tabs cyclobenzaprine 10 mg tablet 10 mg PO TID PRN muscle spasm #21 09/29/21 tabs naproxen 500 mg tablet 500 mg PO BID PRN pain 10 days #20 09/29/21 tabs oxycodone 5 mg tablet 5 mg PO Q4H PRN pain #14 tabs 05/28/22 doxycycline hyclate 100 mg capsule 100 mg PO BID 10 days #20 caps 05/30/22 Allergies Allergy/AdvReac Type Severity Reaction Status Date / Time shellfish derived Allergy Severe HIVES Verified 05/30/22 07:29 [SHELLFISH DERIVED] morphine [MORPHINE] Allergy Intermediate RASH, Verified 05/30/22 07:29 rash, itching sodium ferric gluconate Allergy Mild itching Verified 05/30/22 07:29 complex [From FERRLECIT] sucrose [From FERRLECIT] Allergy Mild itching Verified 05/30/22 07:29 SEAFOOD Allergy Severe SWELLING,RA Uncoded 05/30/22 07:29 SH Review of Systems Constitutional: Constitutional: Denies body ache(s), Denies chills, Denies fatigue, Denies fever(s), Denies malaise and Denies weakness Eyes: Eyes: Denies diplopia Cardiovascular: Cardiovascular: Denies chest pain, Denies syncope, Denies leg edema, Denies lightheadedness, Denies Loss of Consciousness, Denies palpitations and Denies dyspnea Respiratory: Respiratory: Denies chest congestion, Denies cough and Denies dyspnea Gastrointestinal: Gastrointestinal: Reports abdominal pain, Denies hematochezia, Denies constipation, Reports diarrhea, Denies nausea and Denies vomiting Genitourinary: Genitourinary: Denies abnormal vaginal bleeding, Reports menorrhagia, Denies dysuria, Denies pelvic pain, Reports flank pain, Denies urinary incontinence, Reports urinary urgency, Denies vaginal discharge and Denies vaginal odor Musculoskeletal: Musculoskeletal: Reports no additional musculoskeletal complaints Neurologic: Denies confusion, Denies syncope and Denies weakness Psychiatric: Psychiatric: Denies anxiety, Denies confusion and Denies depression Endocrine: Endocrine: Denies fatigue and Denies palpitations PMFSH Past Medical History Medical History Anxiety Asthma Bipolar disorder Depression Hypertension Migraines Surgical History H/O hemorrhoidectomy History of cholecystectomy History of endoscopy History of tubal ligation S/P colonoscopy S/P excision of lipoma Family History Family History Mother Cancer of unknown origin Maternal Uncle Colon cancer Maternal Uncle Throat cancer Social History Social History Alcohol intake: current Alcohol intake frequency: does not drink Patient Tobacco Use Status: Never used Tobacco Advance Directives: No Advance Directives Information Provided: Yes Physical Exam ED Vital Signs: Vital Signs - 24 hr 05/30/22 07:27 05/30/22 13:59 Temperature 97.3 F 97 F Pulse Rate 62 60 Respiratory Rate 16 16 Blood Pressure 137/82 164/91 H Pulse Oximetry 100 100 Oxygen Delivery Method Room Air Room Air BMI result Body Mass Index 30.7 Const General: No confusion Nutritional Appearance: well nourished Orientation/consciousness: No confusion Limitations: no limitations Eyes Conjunctivae: conjunctivae normal Pupils: Equal, round and reactive pupils present EOM: EOMs intact bilaterally Neck Neck: Yes full ROM, Yes no lymphadenopathy and Yes supple Resp Effort & Inspection: normal respiratory effort and able to speak in complete sentences Auscultation: clear to auscultation bilaterally, no crackles, no rales, no rhonchi and no wheezes Cardio Rate: regular rate Rhythm: regular rhythm Heart sounds: S1 normal heart sound present and S2 normal heart sound present GI Inspection: Yes obesity Palpation (GI): Soft to palpation, Tenderness to palpation present (GI) in the LLQ and in the RLQ, Guarding due to palpation present (GI) in the LLQ and in the RLQ and not rigid Percussion: Yes normal to percussion Auscultation: normal bowel sounds General: Yes CVA tenderness bilateral External Female Exam: normal external appearance and normal appearance of the urethra Speculum Exam - Vagina: normal palpation Speculum Exam - Cervix: normal appearance of the cervix and Cervical tenderness present Bimanual exam- vagina & uterus: normal palpation and Cervical tenderness present Bimanual Exam- Adnexa, other: tender on the left and bilaterally Back/Spine/Pelvis Back: CVA tenderness Skin General skin exam: no rashes or lesions noted Neuro General: No confusion Cranial nerves: Yes Equal, round and reactive pupils present Extrem General: Yes normal to inspection and Yes full ROM Psych Appearance: grossly normal Affect: normal affect Attitude: cooperative Thought process: Normal thought process present Course Course Course Narrative: 36-year-old female presents for 6 days of low back pain and abdominal pain. Patient was seen in the ER 2 days ago for the same symptoms with a negative workup. Per gastroenterolrogist Victorina's note, patient has had abdominal pain for 15 years. On exam, patient is resting comfortably, endorsing worsening pain, vital signs are stable. 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 Will get urine, abdominal pelvic CT, labs, BV, CT NG, and pelvic ultrasound. Reevaluation(s) Reevaluation #1: Labs are completely unremarkable, patient has a normal urine, CT abdomen pelvis is unremarkable. Not Will await results of ultrasound, did treat patient for gonorrhea and chlamydia, her BV terst will not return until tomorrow; the patient did not clinically have BV or vaginal candidiasis on exam; normal vaginal discharge. CT/CT abdomen pelvis wo con IMPRESSION: No acute intra-abdominal or intrapelvic findings to explain the patient's pain.? US/US pelvic and transvaginal IMPRESSION: Essentially unremarkable pelvic ultrasound examination. Specifically, there is no evidence of active ovarian torsion at this time. Unremarkable sonographic appearance of the ovaries. Ultrasound is unremarkable. Patient did have cervical motion tenderness, will treat with doxycycline, will have patient follow-up with gastroenterology. I will prescribe ketorolac for pain, I do not see an indication to prescribe oxycodone. Gave return precautions, follow-up with gastroenterology spanish medical interpreter was used for all interactions with patient Medical Decision Making Lab Data Result diagrams: 05/30/22 11:44 05/30/22 11:44 Labs: Lab Results 05/30/22 05/30/22 05/30/22 Range/Units 11:44 11:44 11:44 WBC 7.9 (4.8-10.8) X10*3/uL RBC 4.48 (4.20-5.50) X10*6/uL Hgb 10.8 L (12.0-16.0) g/dl Hct 35.9 L (37.0-47.0) % MCV 80.1 (80.0-98.0) fL MCH 24.1 L (27.0-33.0) pg MCHC 30.1 L (31.0-35.0) g/dl RDW 14.6 (11.0-16.0) % Plt Count 394 (160-400) X10*3/uL MPV 10.4 (9.4-12.3) fL Immature Gran % (Auto) 0.3 (0.0-0.4) % Neut % (Auto) 61.3 (45-73) % Lymph % (Auto) 29.4 (20-40) % [place] % (Auto) 6.5 (2-11) % Eos % (Auto) 1.9 (0-4) % Baso % (Auto) 0.6 (0-2) % Lymph # (Auto) 2.3 (1.2-4.9) X10*3/uL [place] # (Auto) 0.5 (0.1-1.2) X10*3/uL Eos # (Auto) 0.2 (0.0-0.4) X10*3/uL Baso # (Auto) 0.1 (0.0-0.2) X10*3/uL Abs Immat Gran (auto) 0.02 (0.00-0.03) X10*3/uL Absolute Neuts (auto) 4.9 (2.0-8.3) x10*3/uL Absolute Nucleated RBC 0.000 (0.0-0.012) X10*3/uL Nucleated RBC % (auto) 0.0 (0.0-0.2) /100WBC Sodium 137 (135-145) mmol/L Potassium 4.5 (3.3-5.1) mmol/L Chloride 108 (96-108) mmol/L Carbon Dioxide 20 L (22-29) mmol/L Anion Gap 14 (12-20) BUN 9 (9-16) mg/dL Creatinine 0.65 (0.5-1.4) mg/dL Estim Creat Clear Calc 112.1 Estimated GFR > 60 Random Glucose 102 (60-115) mg/dL Calcium 8.4 (8.4-10.2) mg/dL Total Bilirubin 0.7 (0.0-1.0) mg/dL AST 18 (5-31) U/L ALT 13 (0-31) U/L Alkaline Phosphatase 82 (39-117) U/L Total Protein 7.6 (6.5-8.0) g/dL Albumin 4.2 (3.5-5.0) g/dL Lipase 17 (8-78) U/L Urine Color Urine Appearance Urine pH (5.0-8.0) Ur Specific [place] (1.005-1.025) Urine Protein (NEG-TRACE) MG/DL Urine Glucose (UA) (NEG) MG/DL Urine Ketones (NEG) MG/DL Urine Blood (NEG) Urine Nitrite (NEG) Ur Leukocyte Esterase (NEG) Urine Test (NEGATIVE) Chlam trachomat DNA PCR NOT DETECTED (Not Detect.) N.gonorrhoeae DNA (PCR) NOT DETECTED (Not Detect.) 05/30/22 05/30/22 Range/Units 11:44 11:44 WBC (4.8-10.8) X10*3/uL RBC (4.20-5.50) X10*6/uL Hgb (12.0-16.0) g/dl Hct (37.0-47.0) % MCV (80.0-98.0) fL MCH (27.0-33.0) pg MCHC (31.0-35.0) g/dl RDW (11.0-16.0) % Plt Count (160-400) X10*3/uL MPV (9.4-12.3) fL Immature Gran % (Auto) (0.0-0.4) % Neut % (Auto) (45-73) % Lymph % (Auto) (20-40) % [place] % (Auto) (2-11) % Eos % (Auto) (0-4) % Baso % (Auto) (0-2) % Lymph # (Auto) (1.2-4.9) X10*3/uL [place] # (Auto) (0.1-1.2) X10*3/uL Eos # (Auto) (0.0-0.4) X10*3/uL Baso # (Auto) (0.0-0.2) X10*3/uL Abs Immat Gran (auto) (0.00-0.03) X10*3/uL Absolute Neuts (auto) (2.0-8.3) x10*3/uL Absolute Nucleated RBC (0.0-0.012) X10*3/uL Nucleated RBC % (auto) (0.0-0.2) /100WBC Sodium (135-145) mmol/L Potassium (3.3-5.1) mmol/L Chloride (96-108) mmol/L Carbon Dioxide (22-29) mmol/L Anion Gap (12-20) BUN (9-16) mg/dL Creatinine (0.5-1.4) mg/dL Estim Creat Clear Calc Estimated GFR Random Glucose (60-115) mg/dL Calcium (8.4-10.2) mg/dL Total Bilirubin (0.0-1.0) mg/dL AST (5-31) U/L ALT (0-31) U/L Alkaline Phosphatase (39-117) U/L Total Protein (6.5-8.0) g/dL Albumin (3.5-5.0) g/dL Lipase (8-78) U/L Urine Color YELLOW Urine Appearance CLEAR Urine pH 6.0 (5.0-8.0) Ur Specific [place] 1.025 (1.005-1.025) Urine Protein NEG (NEG-TRACE) MG/DL Urine Glucose (UA) NEG (NEG) MG/DL Urine Ketones 5 (NEG) MG/DL Urine Blood NEG (NEG) Urine Nitrite NEG (NEG) Ur Leukocyte Esterase NEG (NEG) Urine Test NEGATIVE (NEGATIVE) Chlam trachomat DNA PCR (Not Detect.) N.gonorrhoeae DNA (PCR) (Not Detect.) Discharge Plan Discharge Clinical Impression: Abdominal pain, Potential exposure to STD Patient Disposition: Home, Self-Care Instructions: Abdominal Pain (ED) Additional Instructions: all of your labs, your urine, your CT scan, and your ultrasound were negative today. We have tested you for gonorrhea and chlamydia, and I have prescribed antibiotics to your pharmacy. Please take these antibiotics until you hear from us. We will call you if your lab results are positive for STDs. Please follow-up with Gastroenterology, if you do not hear from them by Wednesday, please call them if the following number [phone] Prescriptions: New doxycycline hyclate 100 mg capsule 100 mg PO BID 10 Days Qty: 20 0RF No Action naproxen 500 mg tablet 500 mg PO BID PRN (Reason: pain) Qty: 20 0RF meclizine 25 mg tablet 25 mg PO TID PRN (Reason: dizziness) Qty: 30 0RF cyclobenzaprine 10 mg tablet 5 mg PO TID PRN (Reason: muscle spasm) Qty: 20 0RF hydroxyzine HCl 25 mg tablet 25 mg PO TID PRN (Reason: itching) Qty: 14 0RF metronidazole [Flagyl] 500 mg tablet 500 mg PO BID 7 Days Qty: 14 0RF metoclopramide HCl [Reglan] 10 mg tablet 10 mg PO Q6H PRN (Reason: nausea and vomiting) Qty: 10 0RF magnesium oxide 400 mg magnesium tablet 400 mg PO DAILY Qty: 14 0RF hydroxyzine HCl 25 mg tablet 25 mg PO TID PRN (Reason: itching) Qty: 20 0RF pzfflffelo-bwkbuofqnjppo-qtci [Fioricet] 50-300-40 mg capsule 1 cap PO Q8H PRN (Reason: pain) Qty: 10 0RF ibuprofen 600 mg tablet 600 mg PO Q6H PRN (Reason: pain) Qty: 14 0RF prednisone 20 mg tablet 40 mg PO DAILY Qty: 10 0RF famotidine [Pepcid] 20 mg tablet 20 mg PO BID 5 Days Qty: 10 0RF ondansetron HCl [Zofran] 4 mg tablet 4 mg PO Q8H PRN (Reason: nausea and vomiting) Qty: 10 0RF ibuprofen 400 mg tablet 400 mg PO Q6H PRN (Reason: pain) Qty: 20 0RF naproxen 500 mg tablet 500 mg PO BID PRN (Reason: pain) 10 Days Qty: 20 0RF cyclobenzaprine 10 mg tablet 10 mg PO TID PRN (Reason: muscle spasm) Qty: 21 0RF Rx Instructions: side effect is drowsiness. Do not take at work or while driving. oxycodone 5 mg tablet 5 mg PO Q4H PRN (Reason: pain) Qty: 14 0RF Rx Instructions: Patient may request partial fill; Partial Fill upon patient request. aripiprazole 15 mg tablet 15 mg PO QAM levothyroxine 75 mcg tablet 75 mcg PO DAILY lisinopril 20 mg tablet 20 mg PO DAILY zolpidem 10 mg tablet 10 mg PO BEDTIME PRN Referrals: Phoenix Cardozo MD [Physician] - Print Language: Czech
[2022-05-30 11:49] LABS: MANUAL DIFF FLAG NO
[2022-05-30 12:01] LABS: Basophils Absolute Auto 0.1 X10*3/uL (0.0-0.2); Basophils Percent Auto 0.6 % (0-2); Eosinophils Absolute Auto 0.2 X10*3/uL (0.0-0.4); Eosinophils Percent Auto 1.9 % (0-4); Hematocrit 35.9 % (37.0-47.0); Hemoglobin 10.8 g/dl (12.0-16.0); Imm Gran Abs Auto 0.02 X10*3/uL (0.00-0.03); Imm Gran Pct Auto 0.3 % (0.0-0.4); Lymphocytes Absolute Auto 2.3 X10*3/uL (1.2-4.9); Lymphocytes Percent Auto 29.4 % (20-40); Mean Corpuscular HGB Conc 30.1 g/dl (31.0-35.0); Mean Corpuscular Hemoglobin 24.1 pg (27.0-33.0); Mean Corpuscular Volume 80.1 fL (80.0-98.0); Mean Platelet Volume 10.4 fL (9.4-12.3); Monocytes Absolute Auto 0.5 X10*3/uL (0.1-1.2); Monocytes Percent Auto 6.5 % (2-11); Neutrophils Absolute Auto 4.9 x10*3/uL (2.0-8.3); Neutrophils Percent Auto 61.3 % (45-73); Platelet Count 394 X10*3/uL (160-400); Red Blood Count 4.48 X10*6/uL (4.20-5.50); Red Cell Distribution Width 14.6 % (11.0-16.0); White Blood Count 7.9 X10*3/uL (4.8-10.8)
[2022-05-30 12:05] LABS: Appearance Urine CLEAR; Color Urine YELLOW; Glucose Urine UA NEG (NEG); Leukocyte Esterase Urine NEG (NEG); Nitrite Urine NEG (NEG); Specific Gravity - Urine 1.025 (1.005-1.025); Urine Blood NEG (NEG); Urine Ketones 5 MG/DL (NEG); Urine Protein NEG (NEG-TRACE)
[2022-05-30 12:09] LABS: Alanine Aminotransferase 13 U/L (0-31); Albumin Level 4.2 g/dL (3.5-5.0); Alkaline Phosphatase 82 U/L (39-117); Anion Gap 14 (12-20); Aspartate Amino Transferase 18 U/L (5-31); Bilirubin Total 0.7 mg/dL (0.0-1.0); Blood Urea Nitrogen 9 mg/dL (9-16); Calcium 8.4 mg/dL (8.4-10.2); Carbon Dioxide 20 mmol/L (22-29); Chloride 108 mmol/L (96-108); Creatinine Clr Calc Pharmacy 112.1; Estimated Glomerular Filt Rate > 60; Glucose Random 102 mg/dL (60-115); Lipase 17 U/L (8-78); Potassium 4.5 mmol/L (3.3-5.1); Sodium 137 mmol/L (135-145); Total Protein 7.6 g/dL (6.5-8.0)
[2022-05-30 12:10] LABS: UPreg QC Valid YES; Urine Pregnancy NEGATIVE (NEGATIVE)
[2022-05-30] MEDS: cefTRIAXone sodium 500 MG, Lidocaine HCl 1 % MPF 1 ML IM (13:25)
[2022-05-30 13:40] LABS: CT PCR NOT DETECTED (Not Detect.); NG PCR NOT DETECTED (Not Detect.)
[2022-05-30 13:59] VITALS: BP 164/91; PULSE 60; RESP 16; TEMP 36.1; O2SAT 100
[2022-05-30] MEDS: oxyCODONE HCl Immed Release 5 MG TABLET PO (14:49)
[2022-05-30] MEDS: Ketorolac Tromethamine 30 MG/ML VIAL IM (14:51)
[2022-05-31 11:50] LABS: BV Int Neg Control Negative (Negative); BV Int Pos Control Positive (Positive)
== END 2022-05-30 15:06 | disposition home or self-care (01) ==
PROVIDERS: Physician Assistant; Emergency Provider Student in an Organized Health Care Education/Training Program
DX: R10.9 Unspecified abdominal pain (principal); Z20.2 Contact with and (suspected) exposure to infections with a predominantly sexual mode of transmission
CPT/HCPCS: 36415; 74176; 76830; 76856; 80053; 81003; 81025; 83690; 85025; 87480; 87491; 87510; 87591; 87660; 93975; 96372; 99283; 99284; J0696; J1885

== ENCOUNTER 2022-06-04 13:24 | Outpatient (REF) | payer OTHER, SELFPAY | END 2022-06-04 13:25 | disposition home or self-care (01) | LOC: HO.MDS 13:24 | PROVIDERS: Visit Provider Internal Medicine Gastroenterology | DX: D50.9 Iron deficiency anemia, unspecified (principal) | CPT/HCPCS: 96365; 96375; J1200; J2916 ==

== ENCOUNTER 2022-06-08 13:59 | Outpatient (REF) | payer MEDICARE, MEDICAID, SELFPAY | END 2022-06-08 14:00 | disposition home or self-care (01) | LOC: HO.MDS 13:59 | PROVIDERS: Visit Provider Internal Medicine Gastroenterology | DX: D50.9 Iron deficiency anemia, unspecified (principal); R19.7 Diarrhea, unspecified; R10.9 Unspecified abdominal pain; N20.0 Calculus of kidney; I10 Essential (primary) hypertension; Z90.49 Acquired absence of other specified parts of digestive tract | CPT/HCPCS: 96365; 99212; J2916 ==

== ENCOUNTER 2022-06-15 13:46 | Outpatient (REF) | payer MEDICARE, MEDICAID, SELFPAY | END 2022-06-15 13:47 | disposition home or self-care (01) | LOC: HO.MDS 13:46 | PROVIDERS: Visit Provider Internal Medicine Gastroenterology | DX: D50.9 Iron deficiency anemia, unspecified (principal) | CPT/HCPCS: 96365; J2916; Q0163 ==

== ENCOUNTER 2022-07-21 06:40 | Emergency (ER) | payer MEDICARE, MEDICAID, SELFPAY ==
--- NOTE | ~2022-07-21 | XR_ITS ---
EXAMINATION: XR KNEE, RIGHT CLINICAL INFORMATION: Right knee pain status post fall. COMPARISON: None TECHNIQUE: Four views of the right knee. FINDINGS: Bones and soft tissues are normal. No fracture or joint effusion. Alignment is anatomic. Joint spaces are well maintained. No abnormal soft tissue calcification. XR/XR knee RT 4V IMPRESSION: Unremarkable right knee.
--- NOTE | ~2022-07-21 | XR_ITS ---
EXAMINATION: XR HAND, RIGHT CLINICAL INFORMATION: Right hand pain status post fall. COMPARISON: None TECHNIQUE: PA, lateral, and oblique views of the right hand. FINDINGS: Mild to moderate distal interphalangeal degenerative joint changes are seen in the fourth digit with joint space narrowing, periarticular sclerosis and subcortical cystic changes. Minimal degenerative changes are seen in the remainder of the distal interphalangeal joint spaces. There is no acute fracture or dislocation. The carpal bones are normally aligned. The distal radius and ulna are intact. XR/XR hand RT min 3V IMPRESSION: Mild to moderate fourth digit interphalangeal degenerative joint changes most consistent with osteoarthritis. No definitive acute abnormality. These findings are advanced for a patient of this age and correlation with patient history and physical exam is recommended.
--- NOTE | ~2022-07-21 | XR_ITS ---
EXAMINATION: XR LUMBOSACRAL SPINE CLINICAL INFORMATION: Back pain status post fall. COMPARISON: 08/28/2020 lumbar spine radiographs. TECHNIQUE: Three views of the lumbosacral spine. FINDINGS: The vertebral bodies and posterior elements are normal. The disc spaces are preserved and the vertebral alignment is normal. The paraspinal soft tissues are normal as well. Surgical clips overlie the right upper quadrant. XR/XR lumbar spine 2-3V IMPRESSION: Unremarkable lumbar spine.
[2022-07-21 07:04] VITALS: BP 124/76; PULSE 105; RESP 18; TEMP 36.7; O2SAT 100; BMI 31.1
--- NOTE | 2022-07-21 07:33 | ED_ITS ---
HPI - Back Pain/Injury General Chief Complaint: Back Pain/Injury Stated Complaint: lower back pain Time Seen by Provider: 07/21/22 07:30 Source: patient, old records reviewed and certified court interpreter Mode of arrival: ambulatory Limitations: no limitations History of Present Illness HPI Narrative: 36 yo female with hx of depression, migraines, hypothyroidism reports a mechanical fall 1 week ago at home. She injured her R knee, R hand (mostly small finger), low back. She reports pain and cramps in R leg. She denies b/b incontinence, saddle anesthesia. She is not on blood thinners. She notes the small finger on her R hand is deformed now. MD elicited complaint: back pain, back injury and fall Pertinent past history: prior back pain Onset (ago): week(s) (1) Timing: constant Severity: moderate Quality: dull and aching Location: lumbar spine (R little finger - hand, R knee) Radiation: right upper leg Exacerbating factors: movement Relieving factors: none Context: fall Associated symptoms: denies other symptoms Treatments prior to arrival: heat therapy Work related injury: No Related Data Home Medications Medication Instructions Recorded Confirmed aripiprazole 15 mg tablet 15 mg PO QAM depressive disorder 07/08/21 07/17/21 levothyroxine 75 mcg tablet 75 mcg PO DAILY 11/10/21 lisinopril 20 mg tablet 20 mg PO DAILY 11/10/21 zolpidem 10 mg tablet 10 mg PO BEDTIME PRN 11/10/21 cetirizine 10 mg tablet 10 mg PO DAILY 06/08/22 clonazepam 0.5 mg tablet 0.5 mg PO DAILY PRN anxiety attack 06/08/22 cyclobenzaprine 5 mg tablet 5 mg PO TID 06/08/22 divalproex 500 mg tablet,delayed 500 mg PO BID 06/08/22 release ketorolac 10 mg tablet 10 mg PO TID PRN 06/08/22 paroxetine HCl 30 mg tablet 30 mg PO QAM 06/08/22 Previous Rx's Medication Instructions Recorded meclizine 25 mg tablet 25 mg PO TID PRN dizziness #30 tabs 09/10/20 metronidazole 500 mg tablet 500 mg PO BID Bacterial vaginosis 11/13/20 (Flagyl) 7 days #14 tabs bbxwodcjpz-jidbmdddqefdm-peiyhsor 1 cap PO Q8H PRN pain #10 caps 01/14/21 50 mg-300 mg-40 mg capsule (Fioricet) ibuprofen 600 mg tablet 600 mg PO Q6H PRN pain #14 tabs 01/14/21 magnesium oxide 400 mg PO DAILY #14 tabs 03/16/21 metoclopramide HCl 10 mg tablet 10 mg PO Q6H PRN nausea and 03/16/21 (Reglan) vomiting #10 tabs prednisone 20 mg tablet 40 mg PO DAILY #10 tabs 08/15/21 ibuprofen 400 mg tablet 400 mg PO Q6H PRN pain #20 tabs 08/21/21 ondansetron HCl 4 mg tablet 4 mg PO Q8H PRN nausea and 08/21/21 (Zofran) vomiting #10 tabs naproxen 500 mg tablet 500 mg PO BID PRN pain 10 days #20 09/29/21 tabs oxycodone 5 mg tablet 5 mg PO Q4H PRN pain #14 tabs 05/28/22 doxycycline hyclate 100 mg capsule 100 mg PO BID 10 days #20 caps 05/30/22 ketorolac 10 mg tablet 10 mg PO TID 5 days #15 tabs 05/30/22 hydroxyzine HCl 25 mg tablet 25 mg PO TID PRN itching #20 tabs 06/08/22 psyllium husk 3.4 gram/5.4 gram 1 tbsp PO DAILY #660 grams 06/08/22 oral powder (Metamucil) diclofenac sodium 1 % topical gel 2 g topical QID #100 grams 07/21/22 (Voltaren Arthritis Pain) lidocaine 5 % topical patch 1 patch topical DAILY PRN pain #30 07/21/22 ea Allergies Allergy/AdvReac Type Severity Reaction Status Date / Time shellfish derived Allergy Severe HIVES Verified 06/08/22 08:39 [SHELLFISH DERIVED] morphine [MORPHINE] Allergy Intermediate RASH, Verified 06/08/22 08:39 rash, itching sodium ferric gluconate Allergy Mild itching Verified 06/08/22 08:39 complex [From FERRLECIT] sucrose [From FERRLECIT] Allergy Mild itching Verified 06/08/22 08:39 SEAFOOD Allergy Severe SWELLING,RA Uncoded 06/08/22 08:39 Review of Systems Review of Systems: Constitutional : No Weight loss, No Fever, No Chills, ENT/Mouth : No Hearing loss, No Ear Pain, No Nasal Congestion, No Sinus Pain, No Hoarseness, No sore throat, No Rhinorrhea, No Swallowing Difficulty Cardiovascular : No Chest Pain, No SOB Respiratory : No Cough, No Dyspnea Gastrointestinal : No Nausea, No Vomiting, No Diarrhea, No abdominal Pain, No Hematochezia, No Melena Genitourinary : No Dysuria, No Urinary Frequency, No Hematuria, No Urinary Incontinence, Musculoskeletal : positive back pain, pos joint pain Skin : No Skin Lesions, No rash Neuro : No Weakness, No Numbness, No Paresthesias, no loss of bowel or bladder incontinence, no saddle anesthesia All other systems reviewed and are negative [facility] Past Medical History Medical History Anxiety Asthma Bipolar disorder Depression Hypertension Migraines Surgical History H/O hemorrhoidectomy History of cholecystectomy History of endoscopy History of tubal ligation S/P colonoscopy S/P excision of lipoma Family History Family History Mother Cancer of unknown origin Maternal Uncle Colon cancer Maternal Uncle Throat cancer Social History Social History Alcohol intake: current Alcohol intake frequency: does not drink Patient Tobacco Use Status: Never used Tobacco Advance Directives: No Physical Exam Vital Signs: Vital Signs: Last Vital Signs Temp 98.1 F 07/21/22 07:04 Pulse 105 H 07/21/22 07:04 Resp 18 07/21/22 07:04 BP 124/76 07/21/22 07:04 Pulse Ox 100 07/21/22 07:04 O2 Del Method 07/21/22 07:04 BMI result Body Mass Index 31.1 Appearance: Alert. Oriented X3. No acute distress. Eyes: Pupils equal, round and reactive to light. ENT: Pharynx normal. Neck: Normal inspection. Neck supple. CVS: Normal heart rate and rhythm. Pulses normal. Respiratory: No respiratory distress. Breath sounds normal. Abdomen: Soft and nontender. Back: mild lower lumbar paraspinal ttp no midline step offs Skin: Skin warm and dry. Normal skin color. Normal skin turgor. Extremities: No lower extremity edema. No calf ttp R knee ttp along patella has small contusion, R hand small finger somewhat of a mallet deformity noted at distal phalanx - she is NV intact Neuro: Oriented X 3. No motor deficit. No sensory deficit. SILT inner thigh - grossly sensation, motor and pulses intact 2+ DTR patella and achilles bilaterally MDM - Back Pain/Injury MDM Narrative Medical decision making narrative: 36 yo female with hx of migraines and hypothyroidism presents with fall 1 week ago c/o pain in back no b/b incontinence no saddle anesthesia or CE symptoms. R hand pain likely ligament injury to finger, R knee pain - PO pain medications and xrays ordered. Dispo per results and findings. She is NV intact Procedures Orthopedic Splinting/Casting Injury #1: Side: right Upper Extremity Injury Location: finger (little) Upper Extremity Immobilizer: finger (other) Additional Comments: NV intact Discharge Plan Discharge Clinical Impression: Contusion of knee, left Qualifiers: Encounter type: initial encounter Qualified Code(s): S80.02XA - Contusion of left knee, initial encounter Back strain Qualifiers: Encounter type: initial encounter Qualified Code(s): S39.012A - Strain of muscle, fascia and tendon of lower back, initial encounter Finger sprain Qualifiers: Encounter type: initial encounter Finger: little finger Sprain of finger site: interphalangeal joint Laterality: right Qualified Code(s): S63.636A - Sprain of interphalangeal joint of right little finger, initial encounter Patient Disposition: Home, Self-Care Instructions: Low Back Strain (ED), Finger Sprain (ED) Additional Instructions: return to ED for any worsening symptoms or concerns no hay huesos rotos en la radiograf?a. artritis avanzada en la mano en la radiograf?a. por favor seguimiento con ortopedia use f?veronica adali 1 semana si no mejora, noris un seguimiento con trotter m?dico. Prescriptions: New diclofenac sodium [Voltaren Arthritis Pain] 1 % gel 2 g topical QID Qty: 100 0RF Rx Instructions: apply to single elbow, wrist or hand; for hand includes palm/fingers/back of hand lidocaine 5 % adhesive patch,medicated 1 patch topical DAILY PRN (Reason: pain) Qty: 30 0RF Rx Instructions: leave on most painful area for up to 12 hrs No Action meclizine 25 mg tablet 25 mg PO TID PRN (Reason: dizziness) Qty: 30 0RF metronidazole [Flagyl] 500 mg tablet 500 mg PO BID 7 Days Qty: 14 0RF metoclopramide HCl [Reglan] 10 mg tablet 10 mg PO Q6H PRN (Reason: nausea and vomiting) Qty: 10 0RF magnesium oxide 400 mg magnesium tablet 400 mg PO DAILY Qty: 14 0RF sbhjmclbrd-daqsbzewokaxs-lahb [Fioricet] 50-300-40 mg capsule 1 cap PO Q8H PRN (Reason: pain) Qty: 10 0RF ibuprofen 600 mg tablet 600 mg PO Q6H PRN (Reason: pain) Qty: 14 0RF prednisone 20 mg tablet 40 mg PO DAILY Qty: 10 0RF ondansetron HCl [Zofran] 4 mg tablet 4 mg PO Q8H PRN (Reason: nausea and vomiting) Qty: 10 0RF ibuprofen 400 mg tablet 400 mg PO Q6H PRN (Reason: pain) Qty: 20 0RF naproxen 500 mg tablet 500 mg PO BID PRN (Reason: pain) 10 Days Qty: 20 0RF oxycodone 5 mg tablet 5 mg PO Q4H PRN (Reason: pain) Qty: 14 0RF Rx Instructions: Patient may request partial fill; Partial Fill upon patient request. doxycycline hyclate 100 mg capsule 100 mg PO BID 10 Days Qty: 20 0RF ketorolac 10 mg tablet 10 mg PO TID 5 Days Qty: 15 0RF aripiprazole 15 mg tablet 15 mg PO QAM levothyroxine 75 mcg tablet 75 mcg PO DAILY lisinopril 20 mg tablet 20 mg PO DAILY zolpidem 10 mg tablet 10 mg PO BEDTIME PRN cyclobenzaprine 5 mg tablet 5 mg PO TID paroxetine HCl 30 mg tablet 30 mg PO QAM cetirizine 10 mg tablet 10 mg PO DAILY divalproex 500 mg tablet,delayed release (DR/EC) 500 mg PO BID clonazepam 0.5 mg tablet 0.5 mg PO DAILY PRN (Reason: anxiety attack) ketorolac 10 mg tablet 10 mg PO TID PRN Metamucil 3.4 gram/5.4 gram powder 1 tbsp PO DAILY Qty: 660 0RF Rx Instructions: mix into at least 8 oz of water or juice before administering hydroxyzine HCl 25 mg tablet 25 mg PO TID PRN (Reason: itching) Qty: 20 0RF Referrals: Physician,Unknown J [Primary Care Provider] - 1 week Stand Alone Forms: Work/School Release Print Language: Pashto
[2022-07-21] MEDS: Ondansetron ODT 4 MG TAB.RAPDIS TRANSLINGU (08:40)
[2022-07-21] MEDS: HYDROcodone Bit/Acetam 5/325 TABLET 1 TAB PO (08:40)
--- NOTE | 2022-07-21 09:43 | PC.NURSE ---
PT EVALUATED BY PROVIDER. FINGER SPLINT APPLIED BY PCT. PLAN IS FOR DC HOME WITH SCRIPTS SENT TO PHARMACY. PT AGREEABLE TO PLAN. PT AMBULATORY. GAIT STEADY. CMS INTACT. MOVING ALL EXTREMITIES FREELY.
== END 2022-07-21 09:49 | disposition home or self-care (01) ==
PROVIDERS: Emergency Provider Emergency Medicine
DX: S80.02XA Contusion of left knee, initial encounter (principal); S39.012A Strain of muscle, fascia and tendon of lower back, initial encounter; S63.636A Sprain of interphalangeal joint of right little finger, initial encounter; W19.XXXA Unspecified fall, initial encounter; Y93.9 Activity, unspecified; Y92.019 Unspecified place in single-family (private) house as the place of occurrence of the external cause; Y99.9 Unspecified external cause status
CPT/HCPCS: 29130; 72100; 73130; 73564; 99283

== ENCOUNTER 2022-09-03 15:37 | Emergency (ER) | payer MEDICARE, MEDICAID, SELFPAY ==
[2022-09-03 15:45] VITALS: BP 140/99; PULSE 68; RESP 18; TEMP 37.2; O2SAT 100; BMI 33.2
[2022-09-03 16:29] LABS: IDNOW Serial# 08D9AD1C
[2022-09-03 16:30] LABS: Influenza A Negative (Negative); Influenza B2 Negative (Negative); Strep A Nucleic Acid Negative (Negative)
[2022-09-03 16:31] LABS: COVID-19 Test Negative (Negative); IDNOW Serial# 16C4AD1C
== END 2022-09-03 20:08 | disposition left against medical advice (07) ==
LOC: HO.ED 20:08
PROVIDERS: Emergency Provider Emergency Medicine
DX: R07.0 Pain in throat (principal); R51.9 Headache, unspecified; Z20.822 Contact with and (suspected) exposure to COVID-19; Z79.899 Other long term (current) drug therapy
CPT/HCPCS: 87502; 87635; 87651; 99281; 99283

== ENCOUNTER 2022-09-05 15:34 | Emergency (ER) | payer MEDICARE, MEDICAID, SELFPAY ==
[2022-09-05 15:45] VITALS: BP 153/100; PULSE 73; RESP 18; TEMP 36.4; O2SAT 98; BMI 31.1
[2022-09-05 16:34] LABS: Influenza A PCR NEGATIVE (Negative); Influenza B PCR NEGATIVE (Negative); Resp Syncy Virus RNA Qual PCR NEGATIVE (Negative); SARS COV2 PCR INHOUSE NEGATIVE (Negative)
--- NOTE | 2022-09-05 17:17 | ED.URI ---
HPI - URI/Sore Throat General Chief Complaint: Upper Respiratory Symptoms Stated Complaint: headache,sore throat Time Seen by Provider: 09/05/22 17:07 Source: patient Mode of arrival: ambulatory Limitations: no limitations History of Present Illness HPI Narrative: 37-year-old female presents for evaluation for 4 days of congestion, bilateral ear aches, headache, sore throat, nonproductive cough, and fatigue. She has also had intermittent fevers with chills. She has taken several negative. 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 MD elicited complaint: fever, cough, sore throat, rhinorrhea and sinus pain Pertinent past history: asthma Onset (ago): day(s) (4) Consistency: constant Severity: moderate Pain scale (0-10): 6 Description of mucous: clear Able to tolerate fluids by mouth: Yes Exacerbating factors: swallowing and deep breaths Relieving factors: nothing Context: sick contacts and other(s) with similar symptoms Associated symptoms: fever, chills, myalgias, headache, rhinorrhea, nasal congestion, sore throat, cough and ear pain Treatments prior to arrival: acetaminophen and ibuprofen Related Data Home Medications Medication Instructions Recorded Confirmed aripiprazole 15 mg tablet 15 mg PO QAM depressive disorder 07/08/21 07/17/21 levothyroxine 75 mcg tablet 75 mcg PO DAILY 11/10/21 lisinopril 20 mg tablet 20 mg PO DAILY 11/10/21 zolpidem 10 mg tablet 10 mg PO BEDTIME PRN 11/10/21 cetirizine 10 mg tablet 10 mg PO DAILY 06/08/22 clonazepam 0.5 mg tablet 0.5 mg PO DAILY PRN anxiety attack 06/08/22 cyclobenzaprine 5 mg tablet 5 mg PO TID 06/08/22 divalproex 500 mg tablet,delayed 500 mg PO BID 06/08/22 release ketorolac 10 mg tablet 10 mg PO TID PRN 06/08/22 paroxetine HCl 30 mg tablet 30 mg PO QAM 06/08/22 Previous Rx's Medication Instructions Recorded meclizine 25 mg tablet 25 mg PO TID PRN dizziness #30 tabs 09/10/20 metronidazole 500 mg tablet 500 mg PO BID Bacterial vaginosis 11/13/20 (Flagyl) 7 days #14 tabs sxykrgchqz-krublapnbdmwx-piadyeas 1 cap PO Q8H PRN pain #10 caps 01/14/21 50 mg-300 mg-40 mg capsule (Fioricet) ibuprofen 600 mg tablet 600 mg PO Q6H PRN pain #14 tabs 01/14/21 magnesium oxide 400 mg PO DAILY #14 tabs 03/16/21 metoclopramide HCl 10 mg tablet 10 mg PO Q6H PRN nausea and 03/16/21 (Reglan) vomiting #10 tabs prednisone 20 mg tablet 40 mg PO DAILY #10 tabs 08/15/21 ibuprofen 400 mg tablet 400 mg PO Q6H PRN pain #20 tabs 08/21/21 ondansetron HCl 4 mg tablet 4 mg PO Q8H PRN nausea and 08/21/21 (Zofran) vomiting #10 tabs naproxen 500 mg tablet 500 mg PO BID PRN pain 10 days #20 09/29/21 tabs oxycodone 5 mg tablet 5 mg PO Q4H PRN pain #14 tabs 05/28/22 doxycycline hyclate 100 mg capsule 100 mg PO BID 10 days #20 caps 05/30/22 ketorolac 10 mg tablet 10 mg PO TID 5 days #15 tabs 05/30/22 hydroxyzine HCl 25 mg tablet 25 mg PO TID PRN itching #20 tabs 06/08/22 psyllium husk 3.4 gram/5.4 gram 1 tbsp PO DAILY #660 grams 06/08/22 oral powder (Metamucil) diclofenac sodium 1 % topical gel 2 g topical QID #100 grams 07/21/22 (Voltaren Arthritis Pain) lidocaine 5 % topical patch 1 patch topical DAILY PRN pain #30 07/21/22 ea albuterol sulfate 90 mcg/actuation 2 puff inhalation Q4-6H PRN 09/05/22 aerosol inhaler (Ventolin HFA) shortness of breath or wheezing #6.7 grams amoxicillin 875 mg-potassium 1 tab PO Q12H 10 days #20 tabs 09/05/22 clavulanate 125 mg tablet Allergies Allergy/AdvReac Type Severity Reaction Status Date / Time shellfish derived Allergy Severe HIVES Verified 06/08/22 08:39 [SHELLFISH DERIVED] morphine [MORPHINE] Allergy Intermediate RASH, Verified 06/08/22 08:39 rash, itching sodium ferric gluconate Allergy Mild itching Verified 06/08/22 08:39 complex [From FERRLECIT] sucrose [From FERRLECIT] Allergy Mild itching Verified 06/08/22 08:39 SEAFOOD Allergy Severe SWELLING,RA Uncoded 06/08/22 08:39 Review of Systems Review of Systems: Constitutional: positive Fever, positive Chills, positive fatigue, positive Malaise ENT/Mouth: positive sore throat, positive runny nose, positive bilateral earache Eyes: No Discharge Cardiovascular: No Chest Pain, No SOB Respiratory: Positive Cough, No Sputum, No Wheezing, No Smoke Exposure, No Dyspnea Gastrointestinal: No Nausea, No Vomiting, No Diarrhea Genitourinary: no irregular bleeding, No Dysuria, No Urinary Frequency, No Hematuria, No Urinary Incontinence, No Urgency, No Flank Pain, Musculoskeletal: positive Myalgia Skin: No rash Neuro: Positive Headache Yes all other systems are reviewed and are negative [facility] Past Medical History Attestation statement: The following information was validated with the patient. Source: old records reviewed Medical History Anxiety Asthma Bipolar disorder Depression Hypertension Migraines Surgical History H/O hemorrhoidectomy History of cholecystectomy History of endoscopy History of tubal ligation S/P colonoscopy S/P excision of lipoma Family History Family History Mother Cancer of unknown origin Maternal Uncle Colon cancer Maternal Uncle Throat cancer Social History Social History Alcohol intake: current Alcohol intake frequency: does not drink Patient Tobacco Use Status: Never used Tobacco Advance Directives: No Advance Directives Information Provided: No Physical Exam Vital Signs: Vital Signs: Last Vital Signs Temp 98.7 F 09/05/22 17:46 Pulse 88 09/05/22 17:46 Resp 18 09/05/22 17:46 BP 148/90 H 09/05/22 17:46 Pulse Ox 98 09/05/22 17:46 O2 Del Method 09/05/22 17:46 BMI result Body Mass Index 31.1 Appearance: Alert. Oriented X3. Mild distress. Eyes: Pupils equal, round and reactive to light. ENT: Pharynx normal. Bilateral tympanic bulging with effusions. Pharyngeal erythema with bilateral tonsillar exudates. Neck: Normal inspection. Neck supple. Cervical lymphadenopathy noted. No mastoid tenderness. No nuchal rigidity. No vertebral tenderness or step-offs. CVS: Normal heart rate and rhythm. Pulses normal. Respiratory: No respiratory distress. Breath sounds normal. Abdomen: Soft and nontender. Skin: Skin warm and dry. Normal skin color. Normal skin turgor. Extremities: No lower extremity edema. Gait well-balanced well coordinated. Neuro: No motor deficit. No sensory deficit. Cranial nerves 2-12 intact. Course Course Course Narrative: 37-year-old female presents for evaluation for 4 days symptoms. 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 Has had multiple negative COVID tests. Patient's physical exam is consistent with strep pharyngitis and bilateral otitis media. Patient has out only 4 days of symptoms, she has had recurrent upper respiratory infections and ear aches. At this time I feel it is appropriate to treat her with Augmentin versus amoxicillin. At this time, I will not be ordering strep swab, regardless of positivity I will still be treating with antibiotics based on all of her symptoms and presentation. Patient does have asthma, has some faint expiratory wheezing that clears with she does have albuterol at home and has used it several times over the past few days with good effect. Patient states that her albuterol pump is almost out. I will prescribe refills for her. Patient verbalized understanding of and agrees to plan of care discharge home. Verbalized understanding of signs and symptoms indicating need for emergent intervention MDM - URI/Sore Throat Differential Diagnosis Differential diagnosis: Likely upper respiratory infection, otitis media, sinusitis, viral infection, bronchitis, influenza and pharyngitis Medical Records Attestation: I reviewed the patient's medical records. Lab Data Attestation: I reviewed the patient's lab results. Labs: Lab Results 09/05/22 Range/Units 15:47 Influenza Type A (PCR) NEGATIVE (Negative) Influenza Type B (PCR) NEGATIVE (Negative) RSV RNA Qual (PCR) NEGATIVE (Negative) SARS-CoV-2 RNA (RT-PCR) NEGATIVE (Negative) Discharge Plan Discharge Clinical Impression: Otitis media, Upper respiratory infection, Pharyngitis Patient Disposition: Home, Self-Care Instructions: Pharyngitis (ED), Ear Infection (ED), Upper Respiratory Infection (ED), Wheezing (ED) Additional Instructions: You were evaluated for upper respiratory symptoms. I treating you with Augmentin 875 mg twice a day for the next 10 days for bilateral otitis media and pharyngitis complete the entire course of her antibiotics. Take Tylenol 650 mg every 6 hours as needed and Motrin 600 mg every 6 hours as needed for fever and aches. Please write down what time he take these medications to prevent accidental overdose. Alternate these medications so you can have some pain relief every 3 hours. For example, if you take Tylenol at 15:00, take Motrin at 18:00. Drink plenty of fluids. Thank you for choosing this emergency department for evaluation. Please follow-up with primary care physician as needed. Return to the emergency department for any new, concerning, or worsening symptoms. Prescriptions: New amoxicillin-pot clavulanate 875-125 mg tablet 1 tab PO Q12H 10 Days Qty: 20 0RF albuterol sulfate [Ventolin HFA] 90 mcg/actuation HFA aerosol inhaler 2 puff inhalation Q4-6H PRN (Reason: shortness of breath or wheezing) Qty: 6.7 0RF Rx Instructions: May dispense medication equivalent approved by insurance No Action meclizine 25 mg tablet 25 mg PO TID PRN (Reason: dizziness) Qty: 30 0RF metronidazole [Flagyl] 500 mg tablet 500 mg PO BID 7 Days Qty: 14 0RF metoclopramide HCl [Reglan] 10 mg tablet 10 mg PO Q6H PRN (Reason: nausea and vomiting) Qty: 10 0RF magnesium oxide 400 mg magnesium tablet 400 mg PO DAILY Qty: 14 0RF kgdxjbudcf-pywnotqcxmdna-fpum [Fioricet] 50-300-40 mg capsule 1 cap PO Q8H PRN (Reason: pain) Qty: 10 0RF ibuprofen 600 mg tablet 600 mg PO Q6H PRN (Reason: pain) Qty: 14 0RF prednisone 20 mg tablet 40 mg PO DAILY Qty: 10 0RF ondansetron HCl [Zofran] 4 mg tablet 4 mg PO Q8H PRN (Reason: nausea and vomiting) Qty: 10 0RF ibuprofen 400 mg tablet 400 mg PO Q6H PRN (Reason: pain) Qty: 20 0RF naproxen 500 mg tablet 500 mg PO BID PRN (Reason: pain) 10 Days Qty: 20 0RF diclofenac sodium [Voltaren Arthritis Pain] 1 % gel 2 g topical QID Qty: 100 0RF Rx Instructions: apply to single elbow, wrist or hand; for hand includes palm/fingers/back of hand lidocaine 5 % adhesive patch,medicated 1 patch topical DAILY PRN (Reason: pain) Qty: 30 0RF Rx Instructions: leave on most painful area for up to 12 hrs oxycodone 5 mg tablet 5 mg PO Q4H PRN (Reason: pain) Qty: 14 0RF Rx Instructions: Patient may request partial fill; Partial Fill upon patient request. doxycycline hyclate 100 mg capsule 100 mg PO BID 10 Days Qty: 20 0RF ketorolac 10 mg tablet 10 mg PO TID 5 Days Qty: 15 0RF aripiprazole 15 mg tablet 15 mg PO QAM levothyroxine 75 mcg tablet 75 mcg PO DAILY lisinopril 20 mg tablet 20 mg PO DAILY zolpidem 10 mg tablet 10 mg PO BEDTIME PRN cyclobenzaprine 5 mg tablet 5 mg PO TID paroxetine HCl 30 mg tablet 30 mg PO QAM cetirizine 10 mg tablet 10 mg PO DAILY divalproex 500 mg tablet,delayed release (DR/EC) 500 mg PO BID clonazepam 0.5 mg tablet 0.5 mg PO DAILY PRN (Reason: anxiety attack) ketorolac 10 mg tablet 10 mg PO TID PRN Metamucil 3.4 gram/5.4 gram powder 1 tbsp PO DAILY Qty: 660 0RF Rx Instructions: mix into at least 8 oz of water or juice before administering hydroxyzine HCl 25 mg tablet 25 mg PO TID PRN (Reason: itching) Qty: 20 0RF Stand Alone Forms: Work/School Release Interventions: ED Discharge Assessment Last Done: 09/05/22 17:51 Discharge Date/Time: 09/05/22 17:52
[2022-09-05] MEDS: Amoxicillin/Potassium Clav 875 MG TABLET PO (17:23)
[2022-09-05] MEDS: Ibuprofen 600 MG TABLET PO (17:43)
[2022-09-05 17:46] VITALS: BP 148/90; PULSE 88; RESP 18; TEMP 37.1; O2SAT 98
== END 2022-09-05 17:52 | disposition home or self-care (01) ==
PROVIDERS: Emergency Provider Emergency Medicine
DX: H66.93 Otitis media, unspecified, bilateral (principal); J06.9 Acute upper respiratory infection, unspecified; J02.9 Acute pharyngitis, unspecified; R51.9 Headache, unspecified; M79.10 Myalgia, unspecified site; R50.9 Fever, unspecified; Z20.822 Contact with and (suspected) exposure to COVID-19; Z79.899 Other long term (current) drug therapy
CPT/HCPCS: 0241U; 99283; 99284

== ENCOUNTER 2022-10-14 23:58 | Emergency (ER) | payer MEDICARE, MEDICAID, SELFPAY ==
--- NOTE | ~2022-10-14 | XR_ITS ---
EXAMINATION: XR CHEST CLINICAL INFORMATION: Chest pain. COMPARISON: Chest radiograph 03/27/2022. TECHNIQUE: Frontal view of the chest was obtained. FINDINGS: Incidental note made of an azygos lobe fissure. Normal appearance of the cardiomediastinal structures. No effusions or pneumothoraces. No focal pulmonary consolidation. Normal pattern of pulmonary vasculature. XR/XR chest 1V IMPRESSION: No acute cardiopulmonary abnormalities.
--- NOTE | 2022-10-15 | ECG_ITS ---
Test Reason : CHEST PRESSURE Blood Pressure : / mmHG Vent. Rate : 065 BPM Atrial Rate : 065 BPM P-R Int : 142 ms QRS Dur : 084 ms QT Int : 422 ms P-R-T Axes : 071 050 047 degrees QTc Int : 438 ms Normal sinus rhythm with sinus arrhythmia Minimal voltage criteria for LVH, may be normal variant ( Sokolow-Eli ) Borderline ECG When compared with ECG of 28-MAY-2022 09:27, No significant change was found Referred By: Generic ED Physician Electronically Signed By:JYOTI ROJAS MD
[2022-10-15 00:10] VITALS: BP 156/92; PULSE 74; RESP 16; TEMP 36.6; O2SAT 100; BMI 31.1
[2022-10-15 00:28] LABS: MANUAL DIFF FLAG NO
[2022-10-15 00:30] LABS: Basophils Absolute Auto 0.1 X10*3/uL (0.0-0.2); Basophils Percent Auto 0.5 % (0-2); Eosinophils Absolute Auto 0.2 X10*3/uL (0.0-0.4); Eosinophils Percent Auto 1.5 % (0-4); Hematocrit 37.4 % (37.0-47.0); Hemoglobin 11.9 g/dl (12.0-16.0); Imm Gran Abs Auto 0.03 X10*3/uL (0.00-0.03); Imm Gran Pct Auto 0.3 % (0.0-0.4); Lymphocytes Absolute Auto 2.5 X10*3/uL (1.2-4.9); Lymphocytes Percent Auto 25.4 % (20-40); Mean Corpuscular HGB Conc 31.8 g/dl (31.0-35.0); Mean Corpuscular Hemoglobin 26.2 pg (27.0-33.0); Mean Corpuscular Volume 82.4 fL (80.0-98.0); Mean Platelet Volume 9.6 fL (9.4-12.3); Monocytes Absolute Auto 0.5 X10*3/uL (0.1-1.2); Neutrophils Absolute Auto 6.6 x10*3/uL (2.0-8.3); Neutrophils Percent Auto 67.3 % (45-73); Platelet Count 360 X10*3/uL (160-400); Red Blood Count 4.54 X10*6/uL (4.20-5.50); White Blood Count 9.8 X10*3/uL (4.8-10.8)
[2022-10-15 00:49] LABS: Alanine Aminotransferase 13 U/L (0-31); Albumin Level 4.5 g/dL (3.5-5.0); Alkaline Phosphatase 80 U/L (39-117); Anion Gap 15 (12-20); Aspartate Amino Transferase 17 U/L (5-31); Blood Urea Nitrogen 13 mg/dL (9-16); Calcium 9.4 mg/dL (8.4-10.2); Carbon Dioxide 22 mmol/L (22-29); Chloride 104 mmol/L (96-108); Creatinine Clr Calc Pharmacy 108.4; Estimated Glomerular Filt Rate > 60; Glucose Random 92 mg/dL (60-115); Potassium 3.6 mmol/L (3.3-5.1); Sodium 137 mmol/L (135-145); Total Protein 7.7 g/dL (6.5-8.0)
[2022-10-15 00:51] LABS: Troponin-I High Sensitivity < 3.5 ng/L (<3.5-17.0)
--- NOTE | 2022-10-15 01:22 | ED_ITS ---
HPI - General Adult General Chief complaint: General Medical Stated complaint: SoB, body aches, tingling in hands Time Seen by Provider: 10/15/22 00:58 Source: patient, family and interpreter deaf Mode of arrival: ambulatory Limitations: no limitations History of Present Illness HPI narrative: 37-year-old female came in for evaluation of multiple complaints. Since yesterday patient been having generalized body ache, lightheadedness, feeling dizzy, feeling nauseous, feels chest pain, no SOB. Patient has no exposure to a sick contact. No fever, no chills. No abdominal pain, no nausea, no vomiting. Related Data Home Medications Medication Instructions Recorded Confirmed aripiprazole 15 mg tablet 15 mg PO QAM depressive disorder 07/08/21 07/17/21 levothyroxine 75 mcg tablet 75 mcg PO DAILY 11/10/21 lisinopril 20 mg tablet 20 mg PO DAILY 11/10/21 zolpidem 10 mg tablet 10 mg PO BEDTIME PRN 11/10/21 cetirizine 10 mg tablet 10 mg PO DAILY 06/08/22 clonazepam 0.5 mg tablet 0.5 mg PO DAILY PRN anxiety attack 06/08/22 cyclobenzaprine 5 mg tablet 5 mg PO TID 06/08/22 divalproex 500 mg tablet,delayed 500 mg PO BID 06/08/22 release ketorolac 10 mg tablet 10 mg PO TID PRN 06/08/22 paroxetine HCl 30 mg tablet 30 mg PO QAM 06/08/22 Previous Rx's Medication Instructions Recorded meclizine 25 mg tablet 25 mg PO TID PRN dizziness #30 tabs 09/10/20 metronidazole 500 mg tablet 500 mg PO BID Bacterial vaginosis 11/13/20 (Flagyl) 7 days #14 tabs tavhzjgngh-zbbmfjiccdpzz-vfceiffc 1 cap PO Q8H PRN pain #10 caps 01/14/21 50 mg-300 mg-40 mg capsule (Fioricet) ibuprofen 600 mg tablet 600 mg PO Q6H PRN pain #14 tabs 01/14/21 magnesium oxide 400 mg PO DAILY #14 tabs 03/16/21 metoclopramide HCl 10 mg tablet 10 mg PO Q6H PRN nausea and 03/16/21 (Reglan) vomiting #10 tabs prednisone 20 mg tablet 40 mg PO DAILY #10 tabs 08/15/21 ibuprofen 400 mg tablet 400 mg PO Q6H PRN pain #20 tabs 08/21/21 ondansetron HCl 4 mg tablet 4 mg PO Q8H PRN nausea and 08/21/21 (Zofran) vomiting #10 tabs naproxen 500 mg tablet 500 mg PO BID PRN pain 10 days #20 09/29/21 tabs oxycodone 5 mg tablet 5 mg PO Q4H PRN pain #14 tabs 05/28/22 doxycycline hyclate 100 mg capsule 100 mg PO BID 10 days #20 caps 05/30/22 ketorolac 10 mg tablet 10 mg PO TID 5 days #15 tabs 05/30/22 hydroxyzine HCl 25 mg tablet 25 mg PO TID PRN itching #20 tabs 06/08/22 psyllium husk 3.4 gram/5.4 gram 1 tbsp PO DAILY #660 grams 06/08/22 oral powder (Metamucil) diclofenac sodium 1 % topical gel 2 g topical QID #100 grams 07/21/22 (Voltaren Arthritis Pain) lidocaine 5 % topical patch 1 patch topical DAILY PRN pain #30 07/21/22 ea albuterol sulfate 90 mcg/actuation 2 puff inhalation Q4-6H PRN 09/05/22 aerosol inhaler (Ventolin HFA) shortness of breath or wheezing #6.7 grams amoxicillin 875 mg-potassium 1 tab PO Q12H 10 days #20 tabs 09/05/22 clavulanate 125 mg tablet Allergies Allergy/AdvReac Type Severity Reaction Status Date / Time shellfish derived Allergy Severe HIVES Verified 06/08/22 08:39 [SHELLFISH DERIVED] morphine [MORPHINE] Allergy Intermediate RASH, Verified 06/08/22 08:39 rash, itching sodium ferric gluconate Allergy Mild itching Verified 06/08/22 08:39 complex [From FERRLECIT] sucrose [From FERRLECIT] Allergy Mild itching Verified 06/08/22 08:39 SEAFOOD Allergy Severe SWELLING,RA Uncoded 06/08/22 08:39 SH Review of Systems Review of Systems: All other systems are reviewed and are negative Constitutional: Reports as per HPI and Reports no additional constitutional complaints Eyes: Reports as per HPI and Reports no additional eye complaints Reports system reviewed and no additional complaints, except as documented Cardiovascular: Reports as per HPI and Reports no additional cardiovascular complaints Respiratory: Reports as per HPI and Reports no additional respiratory complaints Gastrointestinal: Reports as per HPI and Reports no additional gastrointestinal complaints Genitourinary: Reports no additional female genitourinary complaints Musculoskeletal: Reports no additional musculoskeletal complaints Skin/Breast: Reports system reviewed and no additional complaints, except as docu Psychiatric: Reports no additional psychiatric complaints Endocrine: Reports no additional endocrine complaints Hematologic/Lymphatic: Reports no additional hematologic/lymphatic complaints Allergic/Immunologic: Reports no additional allergic/immunologic complaints Reports system reviewed and no additional complaints, except as documented and Reports Abnormal speech present [facility] Past Medical History Medical History Anxiety Asthma Bipolar disorder Depression Hypertension Migraines Surgical History H/O hemorrhoidectomy History of cholecystectomy History of endoscopy History of tubal ligation S/P colonoscopy S/P excision of lipoma Family History Family History Mother Cancer of unknown origin Maternal Uncle Colon cancer Maternal Uncle Throat cancer Social History Social History Alcohol intake: current Alcohol intake frequency: does not drink Patient Tobacco Use Status: Never used Tobacco Advance Directives: No Physical Exam ED Vital Signs: Vital Signs - 24 hr 10/15/22 00:10 Temperature 97.8 F Pulse Rate 74 Respiratory Rate 16 Blood Pressure 156/92 H Pulse Oximetry 100 Oxygen Delivery Method Room Air BMI result Body Mass Index 31.1 Vital signs have been reviewed as appeared to be correct. Blood pressure normal. Heart rate normal. Respiration rate normal. Temperature normal. Oxygen saturation normal. Appearance: Alert. Oriented X3. No acute distress. Head: Normal external exam. Normocephalic. Atraumatic. No Fields signs noted. No raccoon eyes noted Eyes: PERRLA. EOMI. Conjunctiva and sclera normal. Eyelids normal. ENT: TM's Normal. Pharynx normal. Uvula midline. Dry mucous membranes. No trismus noted. No drooling noted. No muffled voice noted. Neck: Normal inspection. Neck supple. FROM. No adenopathy. Thyroid Normal. No meningeal signs. No neck mass noted. CVS: Normal heart rate and rhythm. Heart sound normal. No murmurs noted. Pulses normal throughout. Respiratory: No respiratory distress. Painless inspiration. Breath sounds normal. No wheezes/rales/rhonchi noted. Chest nontender. No accessory muscle usage noted or decreased air movement noted. Abdomen: Soft and nontender. Bowel sounds normal in all 4 quadrants. No distention noted. No organomegaly noted. No visible injury noted. Back: No CVA tenderness. Full range of motion noted. Skin: Skin warm and dry. Normal skin color. Normal skin turgor. No rashes/lesions/lacerations noted. Extremities: No lower extremity edema. Extremities exhibit normal range of motion. Extremities nontender. Neuro: Oriented X 3. Cranial nerve exam: II-XII are grossly intact No motor deficit. No sensory deficit. Reflexes normal. Course Course Course Narrative: Patient's symptoms improved after IV fluids/Pepcid/meclizine/Zofran. Physical exam and history suggesting mild dehydration. Patient has unremarkable labs/chest x-ray. Will reassure and discharge patient was instructed to drink plenty of fluids. Medications Administered Discontinued Medications Generic Name Dose Route Start Last Admin Trade Name Freq PRN Reason Stop Dose Admin Famotidine 20 mg 10/15/22 01:05 10/15/22 01:30 Famotidine/Pf 20 Mg/2 Ml Vial IVPUSH 10/15/22 01:06 20 mg ONCE ONE Administration Sodium Chloride 1,000 mls @ 999 mls/hr 10/15/22 01:05 10/15/22 01:27 Ns IV 10/15/22 02:05 999 mls/hr .Q1H1M ONE Administration Meclizine HCl 25 mg 10/15/22 01:09 10/15/22 01:27 Meclizine Hcl 25 Mg Tablet PO 10/15/22 01:10 25 mg ONCE ONE Administration Ondansetron HCl 4 mg 10/15/22 01:05 10/15/22 01:27 Ondansetron Hcl 4 Mg/2 Ml Vial IVPUSH 10/15/22 01:06 4 mg ONCE ONE Administration Medical Decision Making Medical Decision Making Differential Diagnoses: Differential diagnosis (Anxiety/gastritis/dehydration) Lab Attestation: I reviewed the patient's lab results. Independent interpretation of EKG, rhythm strip, radiology study: Independent interp EKG,rhythm strip, radiology study I performed an independent interpretation of the: Plain X-Ray (Chest) My interpretation is no cardiopulmonary pathology. Discharge Plan Discharge Clinical Impression: Dehydration Patient Disposition: Home, Self-Care Instructions: Dehydration (ED) Prescriptions: No Action meclizine 25 mg tablet 25 mg PO TID PRN (Reason: dizziness) Qty: 30 0RF metronidazole [Flagyl] 500 mg tablet 500 mg PO BID 7 Days Qty: 14 0RF metoclopramide HCl [Reglan] 10 mg tablet 10 mg PO Q6H PRN (Reason: nausea and vomiting) Qty: 10 0RF magnesium oxide 400 mg magnesium tablet 400 mg PO DAILY Qty: 14 0RF scknbwkzui-rnmhxiaxcfecr-ugqc [Fioricet] 50-300-40 mg capsule 1 cap PO Q8H PRN (Reason: pain) Qty: 10 0RF ibuprofen 600 mg tablet 600 mg PO Q6H PRN (Reason: pain) Qty: 14 0RF prednisone 20 mg tablet 40 mg PO DAILY Qty: 10 0RF ondansetron HCl [Zofran] 4 mg tablet 4 mg PO Q8H PRN (Reason: nausea and vomiting) Qty: 10 0RF ibuprofen 400 mg tablet 400 mg PO Q6H PRN (Reason: pain) Qty: 20 0RF naproxen 500 mg tablet 500 mg PO BID PRN (Reason: pain) 10 Days Qty: 20 0RF diclofenac sodium [Voltaren Arthritis Pain] 1 % gel 2 g topical QID Qty: 100 0RF Rx Instructions: apply to single elbow, wrist or hand; for hand includes palm/fingers/back of hand lidocaine 5 % adhesive patch,medicated 1 patch topical DAILY PRN (Reason: pain) Qty: 30 0RF Rx Instructions: leave on most painful area for up to 12 hrs oxycodone 5 mg tablet 5 mg PO Q4H PRN (Reason: pain) Qty: 14 0RF Rx Instructions: Patient may request partial fill; Partial Fill upon patient request. doxycycline hyclate 100 mg capsule 100 mg PO BID 10 Days Qty: 20 0RF ketorolac 10 mg tablet 10 mg PO TID 5 Days Qty: 15 0RF amoxicillin-pot clavulanate 875-125 mg tablet 1 tab PO Q12H 10 Days Qty: 20 0RF albuterol sulfate [Ventolin HFA] 90 mcg/actuation HFA aerosol inhaler 2 puff inhalation Q4-6H PRN (Reason: shortness of breath or wheezing) Qty: 6.7 0RF Rx Instructions: May dispense medication equivalent approved by insurance aripiprazole 15 mg tablet 15 mg PO QAM levothyroxine 75 mcg tablet 75 mcg PO DAILY lisinopril 20 mg tablet 20 mg PO DAILY zolpidem 10 mg tablet 10 mg PO BEDTIME PRN cyclobenzaprine 5 mg tablet 5 mg PO TID paroxetine HCl 30 mg tablet 30 mg PO QAM cetirizine 10 mg tablet 10 mg PO DAILY divalproex 500 mg tablet,delayed release (DR/EC) 500 mg PO BID clonazepam 0.5 mg tablet 0.5 mg PO DAILY PRN (Reason: anxiety attack) ketorolac 10 mg tablet 10 mg PO TID PRN Metamucil 3.4 gram/5.4 gram powder 1 tbsp PO DAILY Qty: 660 0RF Rx Instructions: mix into at least 8 oz of water or juice before administering hydroxyzine HCl 25 mg tablet 25 mg PO TID PRN (Reason: itching) Qty: 20 0RF Referrals: Physician,Unknown J [Primary Care Provider] -
[2022-10-15] MEDS: ondansetron HCL 4 MG/2 ML VIAL IVPUSH (01:27)
[2022-10-15] MEDS: 0.9 % Sodium Chloride 1,000 ML 999 ML IV (01:27)
[2022-10-15] MEDS: Meclizine HCl 25 MG TABLET PO (01:27)
[2022-10-15] MEDS: Famotidine/PF 20 MG/2 ML VIAL IVPUSH (01:30)
[2022-10-15 01:37] LABS: Bilirubin Total 1.5 mg/dL (0.0-1.0)
[2022-10-15 02:20] LABS: Influenza A PCR NEGATIVE (Negative); Influenza B PCR NEGATIVE (Negative); Resp Syncy Virus RNA Qual PCR NEGATIVE (Negative); SARS COV2 PCR INHOUSE NEGATIVE (Negative)
== END 2022-10-15 04:27 | disposition home or self-care (01) ==
PROVIDERS: Emergency Provider Emergency Medicine
DX: E86.0 Dehydration (principal); M79.10 Myalgia, unspecified site; R42 Dizziness and giddiness; R07.89 Other chest pain; Z20.822 Contact with and (suspected) exposure to COVID-19; Z79.899 Other long term (current) drug therapy
CPT/HCPCS: 0241U; 36415; 71045; 80053; 84484; 85025; 93005; 96374; 96375; 99283; 99284; J2405

== ENCOUNTER 2022-11-04 18:05 | Emergency (ER) | payer MEDICARE, MEDICAID, SELFPAY ==
--- NOTE | ~2022-11-04 | XR_ITS ---
EXAMINATION: XR CHEST CLINICAL INFORMATION: Chest pain COMPARISON: None TECHNIQUE: Frontal view of the chest was obtained. FINDINGS: No significant abnormality is noted involving the heart, lungs, mediastinum, bony thorax or soft tissues. Azygos fissure a normal variant. XR/XR chest 1V IMPRESSION: Normal chest x-ray.
--- NOTE | ~2022-11-04 | CT_ITS ---
EXAMINATION: CT HEAD WITHOUT CONTRAST CLINICAL INFORMATION: Severe headache COMPARISON: 08.28.2020 TECHNIQUE: Contiguous axial imaging was performed from the skull base to vertex without intravenous administration of contrast. This CT examination was performed using dose optimization techniques as appropriate, variously including the following: *Automated exposure control *Adjustment of mA and/or kV according to patient size (this includes techniques or standardized protocols for targeted exams where dose is matched to indication/reason for exam; i.e. extremities or head) *Use of iterative reconstruction technique DLP: 587 mGy-cm FINDINGS: There is no evidence of acute intracranial hemorrhage or territorial infarction. No abnormal mass effect or midline shift is seen. Desai to white matter differentiation is well preserved. No extra-axial fluid collections are identified. No hydrocephalus. No significant volume loss. There is no abnormal attenuation within the brain parenchyma. No acute osseous or soft tissue abnormality. The mastoid air cells and visualized portions of the paranasal sinuses are well aerated. CT/CT head/brain wo IV con IMPRESSION: No acute intracranial pathology.
--- NOTE | 2022-11-04 18:08 | ECG_ITS ---
Test Reason : chest and head pressure Blood Pressure : / mmHG Vent. Rate : 073 BPM Atrial Rate : 073 BPM P-R Int : 136 ms QRS Dur : 082 ms QT Int : 396 ms P-R-T Axes : 072 046 053 degrees QTc Int : 436 ms Normal sinus rhythm Minimal voltage criteria for LVH, may be normal variant ( Sokolow-Eli ) Borderline ECG When compared with ECG of 15-OCT-2022 00:13, No significant change was found Referred By: Generic ED Physician Electronically Signed By:JYOTI ROJAS MD
[2022-11-04 18:54] VITALS: BP 146/98; PULSE 74; RESP 18; TEMP 36.6; O2SAT 100; BMI 31.1
--- NOTE | 2022-11-04 18:54 | ED_ITS ---
HPI - Chest Pain General Chief Complaint: Headache <MINNIE Khanna - Last Filed: 11/04/22 18:58> Stated Complaint: chest pain tingling in right hand <MINNIE Khanna - Last Filed: 11/04/22 18:58> Time Seen by Provider: 11/04/22 21:55 <MINNIE Khanna - Last Filed: 11/04/22 18:58> Source: patient <MINNIE Lucero Last Filed: 11/05/22 00:53> Mode of arrival: ambulatory <MINNIE Lucero Last Filed: 11/05/22 00:53> Limitations: no limitations <MINNIE Lucero Last Filed: 11/05/22 00:53> History of Present Illness HPI narrative: This is a 37-year-old female history of anxiety and depression per patient presenting to the emergency department with complaints of chest pain, headache, with an episode of numbness and tingling to bilateral hands. Patient tells me this started while she was at work she started experiencing substernal chest pain non radiating stabbing, severe headache which feels like her typical however not going away ( diffuse in nature, no dizziness, vision changes or trauma), and severe anxiety and depression, she tells me she started on consult bleed crying, and she told her boss she needed to leave. She tells me she is under a lot of stress and there is a lot of things going on in her daily life that are causing her to feel this way. She tells me at this time she also experienced auditory and visual hallucinations as well as thoughts to harm herself she has no particular plan however. She has never tried to kill herself. Denies homicidal ideation. Patient tells me she is followed by psychiatrist and therapist she is prescribed medications however she tells me she is not taking them. To note patient tells me headache and chest pain almost gone now. <MINNIE Lucero Last Filed: 11/05/22 00:53> Related Data Home Medications: Home Medications Medication Instructions Recorded Confirmed aripiprazole 15 mg tablet 15 mg PO QAM depressive disorder 07/08/21 07/17/21 levothyroxine 75 mcg tablet 75 mcg PO DAILY 11/10/21 lisinopril 20 mg tablet 20 mg PO DAILY 11/10/21 zolpidem 10 mg tablet 10 mg PO BEDTIME PRN 11/10/21 cetirizine 10 mg tablet 10 mg PO DAILY 06/08/22 clonazepam 0.5 mg tablet 0.5 mg PO DAILY PRN anxiety attack 06/08/22 cyclobenzaprine 5 mg tablet 5 mg PO TID 06/08/22 divalproex 500 mg tablet,delayed 500 mg PO BID 06/08/22 release ketorolac 10 mg tablet 10 mg PO TID PRN 06/08/22 paroxetine HCl 30 mg tablet 30 mg PO QAM 06/08/22 Previous Rx's Medication Instructions Recorded meclizine 25 mg tablet 25 mg PO TID PRN dizziness #30 tabs 09/10/20 metronidazole 500 mg tablet 500 mg PO BID Bacterial vaginosis 11/13/20 (Flagyl) 7 days #14 tabs nykfzmnqze-jyaupsiizdnyp-wxuoxsxj 1 cap PO Q8H PRN pain #10 caps 01/14/21 50 mg-300 mg-40 mg capsule (Fioricet) ibuprofen 600 mg tablet 600 mg PO Q6H PRN pain #14 tabs 01/14/21 magnesium oxide 400 mg PO DAILY #14 tabs 03/16/21 metoclopramide HCl 10 mg tablet 10 mg PO Q6H PRN nausea and 03/16/21 (Reglan) vomiting #10 tabs prednisone 20 mg tablet 40 mg PO DAILY #10 tabs 08/15/21 ibuprofen 400 mg tablet 400 mg PO Q6H PRN pain #20 tabs 08/21/21 ondansetron HCl 4 mg tablet 4 mg PO Q8H PRN nausea and 08/21/21 (Zofran) vomiting #10 tabs naproxen 500 mg tablet 500 mg PO BID PRN pain 10 days #20 09/29/21 tabs oxycodone 5 mg tablet 5 mg PO Q4H PRN pain #14 tabs 05/28/22 doxycycline hyclate 100 mg capsule 100 mg PO BID 10 days #20 caps 05/30/22 ketorolac 10 mg tablet 10 mg PO TID 5 days #15 tabs 05/30/22 hydroxyzine HCl 25 mg tablet 25 mg PO TID PRN itching #20 tabs 06/08/22 psyllium husk 3.4 gram/5.4 gram 1 tbsp PO DAILY #660 grams 06/08/22 oral powder (Metamucil) diclofenac sodium 1 % topical gel 2 g topical QID #100 grams 07/21/22 (Voltaren Arthritis Pain) lidocaine 5 % topical patch 1 patch topical DAILY PRN pain #30 07/21/22 ea albuterol sulfate 90 mcg/actuation 2 puff inhalation Q4-6H PRN 09/05/22 aerosol inhaler (Ventolin HFA) shortness of breath or wheezing #6.7 grams amoxicillin 875 mg-potassium 1 tab PO Q12H 10 days #20 tabs 09/05/22 clavulanate 125 mg tablet <MINNIE Khanna - Last Filed: 11/04/22 18:58> Allergies/Adverse Reactions: Allergies Allergy/AdvReac Type Severity Reaction Status Date / Time shellfish derived Allergy Severe HIVES Verified 11/04/22 18:58 [SHELLFISH DERIVED] morphine [MORPHINE] Allergy Intermediate RASH, Verified 11/04/22 18:58 rash, itching sodium ferric gluconate Allergy Mild itching Verified 06/08/22 08:39 complex [From FERRLECIT] sucrose [From FERRLECIT] Allergy Mild itching Verified 06/08/22 08:39 SEAFOOD Allergy Severe SWELLING,RA Uncoded 06/08/22 08:39 SH <MINNIE Khanna - Last Filed: 11/04/22 18:58> PMFSH Past Medical History Medical History: Medical History Anxiety Asthma Bipolar disorder Depression Hypertension Migraines <MINNIE Khanna - Last Filed: 11/04/22 18:58> Surgical History: Surgical History H/O hemorrhoidectomy History of cholecystectomy History of endoscopy History of tubal ligation S/P colonoscopy S/P excision of lipoma <MINNIE Khanna - Last Filed: 11/04/22 18:58> Family History Family History: Family History Mother Cancer of unknown origin Maternal Uncle Colon cancer Maternal Uncle Throat cancer <MINNIE Khanna - Last Filed: 11/04/22 18:58> Social History Social History: Social History Alcohol intake: current Alcohol intake frequency: does not drink Patient Tobacco Use Status: Never used Tobacco Advance Directives: No Advance Directives Information Provided: No <MINNIE Khanna - Last Filed: 11/04/22 18:58> Physical Exam Vital Signs: Vital Signs: Last Vital Signs Temp 98.5 F 11/04/22 22:32 Pulse 63 11/04/22 22:32 Resp 16 11/04/22 22:32 BP 172/106 H 11/04/22 22:32 Pulse Ox 100 11/04/22 22:32 O2 Del Method 11/04/22 22:32 BMI result Body Mass Index 31.1 <MINNIE Khanna - Last Filed: 11/04/22 18:58> Vital Signs: Last Vital Signs Temp 98.5 F 11/04/22 22:32 Pulse 63 11/04/22 22:32 Resp 16 11/04/22 22:32 BP 172/106 H 11/04/22 22:32 Pulse Ox 100 11/04/22 22:32 O2 Del Method 11/04/22 22:32 BMI result Body Mass Index 31.1 <MINNIE Lucero - Last Filed: 11/05/22 00:53> Course Course Course Narrative: 16:55 - 37 yo female with history of anxiety/depression, migraines who presents to the ER for evaluation of acute onset of right sided chest pain that started at 17:20 [place] the [place]. It is constant, sharp and stabbing pain on the right side. It is associated with SOB, tingling in the right hand, and headache w/ photophobia. No fevers. - will check EKG, CXR, viral swabs and basic labs. <MINNIE Khanna - Last Filed: 11/04/22 18:58> Reevaluation(s) Reevaluation #1: CBC appears to be within normal limits. Chemistry with no acute electrolyte abnormalities requiring intervention. Troponin negative x2, EKG nonischemic unlikely ACS. History and physical not consistent with PE, patient PERC negative. COVID and influenza negative. Chest x-ray no acute findings. <MINNIE Lucero - Last Filed: 11/05/22 00:53> Time: 23:06 <MINNIE Lucero - Last Filed: 11/05/22 00:53> Reevaluation #2: Head CT with no acute findings. Neuro remains nonfocal. Patient ambulatory with steady gait. Cerebellar intact. Patient spoke to [facility] Care team. Denies SI however endorses anxiety, depre ssion and she states shes gets freaked out in her apt.Denies hallucinations. She has an apt with the housing authority which she is excited about. Denies HI. Would like to go home. No medical complaints at this time feeling better. Not meeting inpatient criteria, care team believes she can be discharged home, I agree with her evaluation and plan. Educated patient on diagnosis and treatment plan, answered all question, patient tells me shes feeling much better not SI no HI, no anxiety , patient verbalizes understanding. At this time patient will be discharged home, advised to return with new or worsening symptoms. Gave her information about behavioral health network. Educated on worrisome signs and symptoms and when to return. At this time I feel comfortable discharge home. <MINNIE Lucero - Last Filed: 11/05/22 00:53> Time: 00:51 <MINNIE Lucero - Last Filed: 11/05/22 00:53> Medications Administered Discontinued Medications Generic Name Dose Route Start Last Admin Trade Name Freq PRN Reason Stop Dose Admin Lorazepam 2 mg 11/04/22 22:47 11/04/22 23:14 Lorazepam 1 Mg Tablet PO 11/04/22 22:48 2 mg ONCE ONE Administration <MINNIE Khanna - Last Filed: 11/04/22 18:58> Medications Administered Discontinued Medications Generic Name Dose Route Start Last Admin Trade Name Freq PRN Reason Stop Dose Admin Lorazepam 2 mg 11/04/22 22:47 11/04/22 23:14 Lorazepam 1 Mg Tablet PO 11/04/22 22:48 2 mg ONCE ONE Administration <MINNIE Lucero Last Filed: 11/05/22 00:53> Medical Decision Making Medical Decision Making [facility] Narrative: [id number] 37-year-old female presents with chest pain, headache, anxiety, depression, suicidal thoughts x1 day. Headache and chest pain resolving. Physical exam benign. Cerebellar function intact. Neuro nonfocal. Likely symptoms secondary to anxiety. Plan medical clearance evaluation by the behavioral health team. <MINNIE Lucero - Last Filed: 11/05/22 00:53> Lab Data Result Diagrams: : 11/04/22 19:14 11/04/22 19:14 <MINNIE Khanna - Last Filed: 11/04/22 18:58> Labs: Lab Results 11/04/22 11/04/22 11/04/22 Range/Units 19:14 19:14 19:14 WBC 8.0 (4.8-10.8) X10*3/uL RBC 4.31 (4.20-5.50) X10*6/uL Hgb 11.4 L (12.0-16.0) g/dl Hct 36.1 L (37.0-47.0) % MCV 83.8 (80.0-98.0) fL MCH 26.5 L (27.0-33.0) pg MCHC 31.6 (31.0-35.0) g/dl RDW 13.2 (11.0-16.0) % Plt Count 353 (160-400) X10*3/uL MPV 9.9 (9.4-12.3) fL Immature Gran % (Auto) 0.1 (0.0-0.4) % Neut % (Auto) 64.9 (45-73) % Lymph % (Auto) 28.0 (20-40) % Graham % (Auto) 4.8 (2-11) % Eos % (Auto) 1.6 (0-4) % Baso % (Auto) 0.6 (0-2) % Lymph # (Auto) 2.2 (1.2-4.9) X10*3/uL Graham # (Auto) 0.4 (0.1-1.2) X10*3/uL Eos # (Auto) 0.1 (0.0-0.4) X10*3/uL Baso # (Auto) 0.1 (0.0-0.2) X10*3/uL Abs Immat Gran (auto) 0.01 (0.00-0.03) X10*3/uL Absolute Neuts (auto) 5.2 (2.0-8.3) x10*3/uL Absolute Nucleated RBC 0.000 (0.0-0.012) X10*3/uL Nucleated RBC % (auto) 0.0 (0.0-0.2) /100WBC Sodium 137 (135-145) mmol/L Potassium 4.2 (3.3-5.1) mmol/L Chloride 103 (96-108) mmol/L Carbon Dioxide 25 (22-29) mmol/L Anion Gap 13 (12-20) BUN 12 (9-16) mg/dL Creatinine 0.69 (0.5-1.4) mg/dL Estim Creat Clear Calc 105.2 Estimated GFR > 60 Random Glucose 85 (60-115) mg/dL Calcium 8.8 D (8.4-10.2) mg/dL Magnesium 1.8 (1.6-2.6) mg/dL Total Bilirubin 1.4 H (0.0-1.0) mg/dL Direct Bilirubin 0.4 (0.0-0.5) mg/dL AST 21 (5-31) U/L ALT 19 (0-31) U/L Alkaline Phosphatase 76 (39-117) U/L Troponin I High Sens < 3.5 (<3.5-17.0) ng/L Total Protein 7.1 (6.5-8.0) g/dL Albumin 4.2 (3.5-5.0) g/dL COVID-19 (MARKELL) (Negative) COVID-19 Clin Com Influenza Type A (GLADYS) (Negative) Influenza Type B (GLADYS) (Negative) Influenza A & B Note 11/04/22 11/04/22 11/04/22 Range/Units 19:14 19:14 22:27 WBC (4.8-10.8) X10*3/uL RBC (4.20-5.50) X10*6/uL Hgb (12.0-16.0) g/dl Hct (37.0-47.0) % MCV (80.0-98.0) fL MCH (27.0-33.0) pg MCHC (31.0-35.0) g/dl RDW (11.0-16.0) % Plt Count (160-400) X10*3/uL MPV (9.4-12.3) fL Immature Gran % (Auto) (0.0-0.4) % Neut % (Auto) (45-73) % Lymph % (Auto) (20-40) % Graham % (Auto) (2-11) % Eos % (Auto) (0-4) % Baso % (Auto) (0-2) % Lymph # (Auto) (1.2-4.9) X10*3/uL Graham # (Auto) (0.1-1.2) X10*3/uL Eos # (Auto) (0.0-0.4) X10*3/uL Baso # (Auto) (0.0-0.2) X10*3/uL Abs Immat Gran (auto) (0.00-0.03) X10*3/uL Absolute Neuts (auto) (2.0-8.3) x10*3/uL Absolute Nucleated RBC (0.0-0.012) X10*3/uL Nucleated RBC % (auto) (0.0-0.2) /100WBC Sodium (135-145) mmol/L Potassium (3.3-5.1) mmol/L Chloride (96-108) mmol/L Carbon Dioxide (22-29) mmol/L Anion Gap (12-20) BUN (9-16) mg/dL Creatinine (0.5-1.4) mg/dL Estim Creat Clear Calc Estimated GFR Random Glucose (60-115) mg/dL Calcium (8.4-10.2) mg/dL Magnesium (1.6-2.6) mg/dL Total Bilirubin (0.0-1.0) mg/dL Direct Bilirubin (0.0-0.5) mg/dL AST (5-31) U/L ALT (0-31) U/L Alkaline Phosphatase (39-117) U/L Troponin I High Sens < 3.5 (<3.5-17.0) ng/L Total Protein (6.5-8.0) g/dL Albumin (3.5-5.0) g/dL COVID-19 (MARKELL) Negative (Negative) COVID-19 Clin Com See Note Influenza Type A (GLADYS) Negative (Negative) Influenza Type B (GLADYS) Negative (Negative) Influenza A & B Note See Note <MINNIE Khanna - Last Filed: 11/04/22 18:58> Lab Results 11/04/22 11/04/22 11/04/22 Range/Units 19:14 19:14 19:14 WBC 8.0 (4.8-10.8) X10*3/uL RBC 4.31 (4.20-5.50) X10*6/uL Hgb 11.4 L (12.0-16.0) g/dl Hct 36.1 L (37.0-47.0) % MCV 83.8 (80.0-98.0) fL MCH 26.5 L (27.0-33.0) pg MCHC 31.6 (31.0-35.0) g/dl RDW 13.2 (11.0-16.0) % Plt Count 353 (160-400) X10*3/uL MPV 9.9 (9.4-12.3) fL Immature Gran % (Auto) 0.1 (0.0-0.4) % Neut % (Auto) 64.9 (45-73) % Lymph % (Auto) 28.0 (20-40) % Graham % (Auto) 4.8 (2-11) % Eos % (Auto) 1.6 (0-4) % Baso % (Auto) 0.6 (0-2) % Lymph # (Auto) 2.2 (1.2-4.9) X10*3/uL Graham # (Auto) 0.4 (0.1-1.2) X10*3/uL Eos # (Auto) 0.1 (0.0-0.4) X10*3/uL Baso # (Auto) 0.1 (0.0-0.2) X10*3/uL Abs Immat Gran (auto) 0.01 (0.00-0.03) X10*3/uL Absolute Neuts (auto) 5.2 (2.0-8.3) x10*3/uL Absolute Nucleated RBC 0.000 (0.0-0.012) X10*3/uL Nucleated RBC % (auto) 0.0 (0.0-0.2) /100WBC Sodium 137 (135-145) mmol/L Potassium 4.2 (3.3-5.1) mmol/L Chloride 103 (96-108) mmol/L Carbon Dioxide 25 (22-29) mmol/L Anion Gap 13 (12-20) BUN 12 (9-16) mg/dL Creatinine 0.69 (0.5-1.4) mg/dL Estim Creat Clear Calc 105.2 Estimated GFR > 60 Random Glucose 85 (60-115) mg/dL Calcium 8.8 D (8.4-10.2) mg/dL Magnesium 1.8 (1.6-2.6) mg/dL Total Bilirubin 1.4 H (0.0-1.0) mg/dL Direct Bilirubin 0.4 (0.0-0.5) mg/dL AST 21 (5-31) U/L ALT 19 (0-31) U/L Alkaline Phosphatase 76 (39-117) U/L Troponin I High Sens < 3.5 (<3.5-17.0) ng/L Total Protein 7.1 (6.5-8.0) g/dL Albumin 4.2 (3.5-5.0) g/dL COVID-19 (MARKELL) (Negative) COVID-19 Clin Com Influenza Type A (GLADYS) (Negative) Influenza Type B (GLADYS) (Negative) Influenza A & B Note 11/04/22 11/04/22 11/04/22 Range/Units 19:14 19:14 22:27 WBC (4.8-10.8) X10*3/uL RBC (4.20-5.50) X10*6/uL Hgb (12.0-16.0) g/dl Hct (37.0-47.0) % MCV (80.0-98.0) fL MCH (27.0-33.0) pg MCHC (31.0-35.0) g/dl RDW (11.0-16.0) % Plt Count (160-400) X10*3/uL MPV (9.4-12.3) fL Immature Gran % (Auto) (0.0-0.4) % Neut % (Auto) (45-73) % Lymph % (Auto) (20-40) % Graham % (Auto) (2-11) % Eos % (Auto) (0-4) % Baso % (Auto) (0-2) % Lymph # (Auto) (1.2-4.9) X10*3/uL Graham # (Auto) (0.1-1.2) X10*3/uL Eos # (Auto) (0.0-0.4) X10*3/uL Baso # (Auto) (0.0-0.2) X10*3/uL Abs Immat Gran (auto) (0.00-0.03) X10*3/uL Absolute Neuts (auto) (2.0-8.3) x10*3/uL Absolute Nucleated RBC (0.0-0.012) X10*3/uL Nucleated RBC % (auto) (0.0-0.2) /100WBC Sodium (135-145) mmol/L Potassium (3.3-5.1) mmol/L Chloride (96-108) mmol/L Carbon Dioxide (22-29) mmol/L Anion Gap (12-20) BUN (9-16) mg/dL Creatinine (0.5-1.4) mg/dL Estim Creat Clear Calc Estimated GFR Random Glucose (60-115) mg/dL Calcium (8.4-10.2) mg/dL Magnesium (1.6-2.6) mg/dL Total Bilirubin (0.0-1.0) mg/dL Direct Bilirubin (0.0-0.5) mg/dL AST (5-31) U/L ALT (0-31) U/L Alkaline Phosphatase (39-117) U/L Troponin I High Sens < 3.5 (<3.5-17.0) ng/L Total Protein (6.5-8.0) g/dL Albumin (3.5-5.0) g/dL COVID-19 (MARKELL) Negative (Negative) COVID-19 Clin Com See Note Influenza Type A (GLADYS) Negative (Negative) Influenza Type B (GLADYS) Negative (Negative) Influenza A & B Note See Note <MINNIE Lucreo - Last Filed: 11/05/22 00:53> Critical Care Time Critical Care Time Critical Care Time: No <MINNIE Lucero Last Filed: 11/05/22 00:53> Discharge Plan Discharge Clinical Impression: Headache, Chest pain, Anxiety, Depression <MINNIE Khanna Last Filed: 11/04/22 18:58> Patient Disposition: Home, Self-Care <MINNIE Khanna Last Filed: 11/04/22 18:58> Instructions: Chest Pain (ED), Depression (ED), Anxiety (ED), General Headache (ED) <MINNIE Khanna Last Filed: 11/04/22 18:58> Additional Instructions: Take your medications as prescribed. If you were prescribed antibiotics today, it is important that you take your medication to their entirety, do not skip any doses, do not finish them early. Follow-up with your primary care provider this week. Return to the emergency department with new or worsening symptoms. Such as fevers, chills, chest pain, shortness of breath, nausea, vomiting, dizziness, headache, vision changes, lethargy, suicidal ideation or homicidal ideation, worsening anxiety, depression, visual or auditory hallucinations In case of emergency call 911 [place] [facility] medicamentos seg?n lo prescrito. Si le recetaron antibi?ticos hoy, es importante que tome trotter medicamento en trotter totalidad, no se salte ninguna dosis, no los termine antes de tiempo. Seguimiento con trotter proveedor de atenci?n primaria esta semana. Regrese al departamento de emergencias con s?ntomas nuevos o que empeoran. Tales maría fiebre, escalofr?os, dolor de pecho, dificultad para respirar, n?useas, v?mitos, mareos, dolor de marilyn, cambios en la visi?n, letargo, ideaci?n suicida o ideaci?n homicida, empeoramiento de la ansiedad, depresi?n, alucinaciones visuales o auditivas En hanny de emergencia llama al 911 ?CT/CT head/brain wo IV con IMPRESSION: No acute intracranial pathology. <MINNIE Khanna - Last Filed: 11/04/22 18:58> Prescriptions: No Action meclizine 25 mg tablet 25 mg PO TID PRN (Reason: dizziness) Qty: 30 0RF metronidazole [Flagyl] 500 mg tablet 500 mg PO BID 7 Days Qty: 14 0RF metoclopramide HCl [Reglan] 10 mg tablet 10 mg PO Q6H PRN (Reason: nausea and vomiting) Qty: 10 0RF magnesium oxide 400 mg magnesium tablet 400 mg PO DAILY Qty: 14 0RF jwfhgamsku-ywruiyisdlwwk-rwcp [Fioricet] 50-300-40 mg capsule 1 cap PO Q8H PRN (Reason: pain) Qty: 10 0RF ibuprofen 600 mg tablet 600 mg PO Q6H PRN (Reason: pain) Qty: 14 0RF prednisone 20 mg tablet 40 mg PO DAILY Qty: 10 0RF ondansetron HCl [Zofran] 4 mg tablet 4 mg PO Q8H PRN (Reason: nausea and vomiting) Qty: 10 0RF ibuprofen 400 mg tablet 400 mg PO Q6H PRN (Reason: pain) Qty: 20 0RF naproxen 500 mg tablet 500 mg PO BID PRN (Reason: pain) 10 Days Qty: 20 0RF diclofenac sodium [Voltaren Arthritis Pain] 1 % gel 2 g topical QID Qty: 100 0RF Rx Instructions: apply to single elbow, wrist or hand; for hand includes palm/fingers/back of hand lidocaine 5 % adhesive patch,medicated 1 patch topical DAILY PRN (Reason: pain) Qty: 30 0RF Rx Instructions: leave on most painful area for up to 12 hrs oxycodone 5 mg tablet 5 mg PO Q4H PRN (Reason: pain) Qty: 14 0RF Rx Instructions: Patient may request partial fill; Partial Fill upon patient request. doxycycline hyclate 100 mg capsule 100 mg PO BID 10 Days Qty: 20 0RF ketorolac 10 mg tablet 10 mg PO TID 5 Days Qty: 15 0RF amoxicillin-pot clavulanate 875-125 mg tablet 1 tab PO Q12H 10 Days Qty: 20 0RF albuterol sulfate [Ventolin HFA] 90 mcg/actuation HFA aerosol inhaler 2 puff inhalation Q4-6H PRN (Reason: shortness of breath or wheezing) Qty: 6.7 0RF Rx Instructions: May dispense medication equivalent approved by insurance aripiprazole 15 mg tablet 15 mg PO QAM levothyroxine 75 mcg tablet 75 mcg PO DAILY lisinopril 20 mg tablet 20 mg PO DAILY zolpidem 10 mg tablet 10 mg PO BEDTIME PRN cyclobenzaprine 5 mg tablet 5 mg PO TID paroxetine HCl 30 mg tablet 30 mg PO QAM cetirizine 10 mg tablet 10 mg PO DAILY divalproex 500 mg tablet,delayed release (DR/EC) 500 mg PO BID clonazepam 0.5 mg tablet 0.5 mg PO DAILY PRN (Reason: anxiety attack) ketorolac 10 mg tablet 10 mg PO TID PRN Metamucil 3.4 gram/5.4 gram powder 1 tbsp PO DAILY Qty: 660 0RF Rx Instructions: mix into at least 8 oz of water or juice before administering hydroxyzine HCl 25 mg tablet 25 mg PO TID PRN (Reason: itching) Qty: 20 0RF <MINNIE Khanna - Last Filed: 11/04/22 18:58> [facility]errals[facility]Provider [facility] - 2 days Physician,Unknown J [Primary Care Provider] - 2 days <MINNIE Khanna - Last Filed: 11/04/22 18:58> Stand Alone Forms: Work/School Release <MINNIE Khanna - Last Filed: 11/04/22 18:58>
[2022-11-04 19:27] LABS: MANUAL DIFF FLAG NO
[2022-11-04 19:29] LABS: Basophils Absolute Auto 0.1 X10*3/uL (0.0-0.2); Basophils Percent Auto 0.6 % (0-2); Eosinophils Absolute Auto 0.1 X10*3/uL (0.0-0.4); Eosinophils Percent Auto 1.6 % (0-4); Hematocrit 36.1 % (37.0-47.0); Hemoglobin 11.4 g/dl (12.0-16.0); Imm Gran Abs Auto 0.01 X10*3/uL (0.00-0.03); Imm Gran Pct Auto 0.1 % (0.0-0.4); Lymphocytes Absolute Auto 2.2 X10*3/uL (1.2-4.9); Mean Corpuscular HGB Conc 31.6 g/dl (31.0-35.0); Mean Corpuscular Hemoglobin 26.5 pg (27.0-33.0); Mean Corpuscular Volume 83.8 fL (80.0-98.0); Mean Platelet Volume 9.9 fL (9.4-12.3); Monocytes Absolute Auto 0.4 X10*3/uL (0.1-1.2); Monocytes Percent Auto 4.8 % (2-11); Neutrophils Absolute Auto 5.2 x10*3/uL (2.0-8.3); Neutrophils Percent Auto 64.9 % (45-73); Platelet Count 353 X10*3/uL (160-400); Red Blood Count 4.31 X10*6/uL (4.20-5.50); Red Cell Distribution Width 13.2 % (11.0-16.0)
[2022-11-04 19:44] LABS: COVID-19 Test Negative (Negative); IDNOW Serial# 16C4AD1C
[2022-11-04 19:49] LABS: IDNOW Serial# 9DB6401D; Influenza A Negative (Negative); Influenza B2 Negative (Negative)
[2022-11-04 19:54] LABS: Alanine Aminotransferase 19 U/L (0-31); Albumin Level 4.2 g/dL (3.5-5.0); Alkaline Phosphatase 76 U/L (39-117); Anion Gap 13 (12-20); Aspartate Amino Transferase 21 U/L (5-31); Bilirubin Direct 0.4 mg/dL (0.0-0.5); Bilirubin Total 1.4 mg/dL (0.0-1.0); Blood Urea Nitrogen 12 mg/dL (9-16); Calcium 8.8 mg/dL (8.4-10.2); Carbon Dioxide 25 mmol/L (22-29); Chloride 103 mmol/L (96-108); Creatinine Clr Calc Pharmacy 105.2; Estimated Glomerular Filt Rate > 60; Glucose Random 85 mg/dL (60-115); Magnesium 1.8 mg/dL (1.6-2.6); Potassium 4.2 mmol/L (3.3-5.1); Sodium 137 mmol/L (135-145); Total Protein 7.1 g/dL (6.5-8.0)
[2022-11-04 20:00] LABS: Troponin-I High Sensitivity < 3.5 ng/L (<3.5-17.0)
[2022-11-04 21:57] VITALS: BP 189/112; PULSE 78; RESP 16; O2SAT 100
[2022-11-04 22:32] VITALS: BP 172/106; PULSE 63; RESP 16; TEMP 36.9; O2SAT 100
[2022-11-04 23:03] LABS: Troponin-I High Sensitivity < 3.5 ng/L (<3.5-17.0)
--- NOTE | 2022-11-04 23:09 | PC.NURSE ---
PT STATES VAGUE SI WITH NO PLAN, BECAME MORE INTOLERABLE TODAY WHILE WORKING. DENIES ANY HX OF PSYCHIATRIC HOSPITALIZATIONS. INCREASED ANXIETY AND DEPRESSION MORE RECENTLY R/T HOUSING INSTABILITY. HAS AN APPT TOMORROW TO DISCUSS ALTERNATIVE HOUSING OPPORTUNITIES, PT CONCERNED ABOUT THE IMPORTANCE OF ATTENDING THIS MEETING. PT CURRENTLY CALM, COOPERATIVE, MAKING GOOD EYE CONTACT, THOUGH TEARFUL.
[2022-11-04] MEDS: LORazepam 1 MG TABLET 2 MG PO (23:14)
--- NOTE | 2022-11-04 23:45 | PC.NURSE ---
PT a&ox4, denies any pain. PT states she is worried about getting d/c on time for housing appointment tomorrow.
--- NOTE | 2022-11-05 00:40 | PC.NURSE ---
Care team at bedside.
[2022-11-05 00:51] VITALS: BP 177/93; PULSE 75; RESP 16; O2SAT 100
--- NOTE | 2022-11-05 00:57 | MHC.CARE ---
ED provider requested CARE Team to speak to assess pt. Pt reportedly came in initially due to physical symptoms and complaints. Pt tells me that she has an important apt tomorrow regarding housing that she wishes to attend and has been anxious over because she does not like where she lives and is hoping that they can change her apt. She states when she is home, she is depressed, anxious and at times hears voices, denies commands. Pt states that she works every day and her job was worried about her today because she was anxious and experiencing physical sx's so they recommended she come to the ED. Pt states that she has no hx of IP or PHP. She has a therapist and psychiatrist, she is on psychiatric medications. She denies SI/HI and states that she has been feeling much better and just wants to return home to get rest. She lives with her two children one 15, 19. Pt states she has hx of anxiety and depression and takes klonipan. Pt feels safe to d/c. ED provider MINNIE Garcia agrees. Pt requested a work note and pt was discharged.
== END 2022-11-05 01:04 | disposition home or self-care (01) ==
PROVIDERS: Physician Assistant; Emergency Provider Emergency Medicine
DX: R07.89 Other chest pain (principal); R51.9 Headache, unspecified; F41.1 Generalized anxiety disorder; F43.0 Acute stress reaction; F33.1 Major depressive disorder, recurrent, moderate; Z20.822 Contact with and (suspected) exposure to COVID-19; Z79.899 Other long term (current) drug therapy
CPT/HCPCS: 36415; 70450; 71045; 80048; 80076; 83735; 84484; 85025; 87502; 87635; 93005; 99284

== ENCOUNTER 2022-11-26 12:46 | Emergency (ER) | payer MEDICARE, MEDICAID, SELFPAY ==
--- NOTE | ~2022-11-26 | XR_ITS ---
EXAMINATION: XR CHEST CLINICAL INFORMATION: Cough, fever and chills COMPARISON: None TECHNIQUE: 2 views of the chest were obtained. FINDINGS: The lungs are well-expanded and clear. The heart size and pulmonary vascularity is normal. No gross bony abnormality seen. XR/XR chest 2V IMPRESSION: Unremarkable chest examination.
[2022-11-26 12:51] VITALS: PULSE 91; RESP 18; TEMP 38.1; O2SAT 100; BMI 29.6
--- NOTE | 2022-11-26 12:52 | ED_ITS ---
HPI - URI/Sore Throat General Chief Complaint: General Medical Stated Complaint: flu like symptoms, CP Time Seen by Provider: 11/26/22 13:32 Related Data Home Medications Medication Instructions Recorded Confirmed aripiprazole 15 mg tablet 15 mg PO QAM depressive disorder 07/08/21 07/17/21 levothyroxine 75 mcg tablet 75 mcg PO DAILY 11/10/21 lisinopril 20 mg tablet 20 mg PO DAILY 11/10/21 zolpidem 10 mg tablet 10 mg PO BEDTIME PRN 11/10/21 cetirizine 10 mg tablet 10 mg PO DAILY 06/08/22 clonazepam 0.5 mg tablet 0.5 mg PO DAILY PRN anxiety attack 06/08/22 cyclobenzaprine 5 mg tablet 5 mg PO TID 06/08/22 divalproex 500 mg tablet,delayed 500 mg PO BID 06/08/22 release ketorolac 10 mg tablet 10 mg PO TID PRN 06/08/22 paroxetine HCl 30 mg tablet 30 mg PO QAM 06/08/22 Previous Rx's Medication Instructions Recorded meclizine 25 mg tablet 25 mg PO TID PRN dizziness #30 tabs 09/10/20 metronidazole 500 mg tablet 500 mg PO BID Bacterial vaginosis 11/13/20 (Flagyl) 7 days #14 tabs qmcugxbhxe-zxlpokwwqmdav-eywoejjx 1 cap PO Q8H PRN pain #10 caps 01/14/21 50 mg-300 mg-40 mg capsule (Fioricet) ibuprofen 600 mg tablet 600 mg PO Q6H PRN pain #14 tabs 01/14/21 magnesium oxide 400 mg PO DAILY #14 tabs 03/16/21 metoclopramide HCl 10 mg tablet 10 mg PO Q6H PRN nausea and 03/16/21 (Reglan) vomiting #10 tabs prednisone 20 mg tablet 40 mg PO DAILY #10 tabs 08/15/21 ibuprofen 400 mg tablet 400 mg PO Q6H PRN pain #20 tabs 08/21/21 ondansetron HCl 4 mg tablet 4 mg PO Q8H PRN nausea and 08/21/21 (Zofran) vomiting #10 tabs naproxen 500 mg tablet 500 mg PO BID PRN pain 10 days #20 09/29/21 tabs oxycodone 5 mg tablet 5 mg PO Q4H PRN pain #14 tabs 05/28/22 doxycycline hyclate 100 mg capsule 100 mg PO BID 10 days #20 caps 05/30/22 ketorolac 10 mg tablet 10 mg PO TID 5 days #15 tabs 05/30/22 hydroxyzine HCl 25 mg tablet 25 mg PO TID PRN itching #20 tabs 06/08/22 psyllium husk 3.4 gram/5.4 gram 1 tbsp PO DAILY #660 grams 06/08/22 oral powder (Metamucil) diclofenac sodium 1 % topical gel 2 g topical QID #100 grams 07/21/22 (Voltaren Arthritis Pain) lidocaine 5 % topical patch 1 patch topical DAILY PRN pain #30 07/21/22 ea albuterol sulfate 90 mcg/actuation 2 puff inhalation Q4-6H PRN 09/05/22 aerosol inhaler (Ventolin HFA) shortness of breath or wheezing #6.7 grams amoxicillin 875 mg-potassium 1 tab PO Q12H 10 days #20 tabs 09/05/22 clavulanate 125 mg tablet albuterol sulfate 90 mcg/actuation 2 puff inhalation QID PRN wheezing 11/26/22 aerosol inhaler (Ventolin HFA) #8.5 grams nirmatrelvir 300 mg (150 mg See Rx Instructions PO .COMPLEX 11/26/22 x2)-ritonavir 100 mg tablet,dose #30 ea pack(EUA) (Paxlovid) Allergies Allergy/AdvReac Type Severity Reaction Status Date / Time shellfish derived Allergy Severe HIVES Verified 11/04/22 18:58 [SHELLFISH DERIVED] morphine [MORPHINE] Allergy Intermediate RASH, Verified 11/04/22 18:58 rash, itching sodium ferric gluconate Allergy Mild itching Verified 06/08/22 08:39 complex [From FERRLECIT] sucrose [From FERRLECIT] Allergy Mild itching Verified 06/08/22 08:39 SEAFOOD Allergy Severe SWELLING,RA Uncoded 06/08/22 08:39 [facility] Past Medical History Medical History Anxiety Asthma Bipolar disorder Depression Hypertension Migraines Surgical History H/O hemorrhoidectomy History of cholecystectomy History of endoscopy History of tubal ligation S/P colonoscopy S/P excision of lipoma Family History Family History Mother Cancer of unknown origin Maternal Uncle Colon cancer Maternal Uncle Throat cancer Social History Social History Alcohol intake: never Patient Tobacco Use Status: Never used Tobacco Advance Directives: No Advance Directives Information Provided: No Physical Exam Vital Signs: Vital Signs: Last Vital Signs Temp 98.8 F 11/26/22 14:09 Pulse 86 11/26/22 14:09 Resp 16 11/26/22 14:09 BP 156/93 H 11/26/22 14:09 Pulse Ox 100 11/26/22 14:09 O2 Del Method 11/26/22 14:09 BMI result Body Mass Index 29.6 Course Course Course Narrative: [id number]:55PM - 37yoF presenting to the ED c c/o Medications Administered Discontinued Medications Generic Name Dose Route Start Last Admin Trade Name Freq PRN Reason Stop Dose Admin Ibuprofen 800 mg 11/26/22 12:52 11/26/22 13:06 Ibuprofen 800 Mg Tablet PO 11/26/22 12:53 800 mg ONCE ONE Administration Medical Decision Making Lab Data Labs: Lab Results 11/26/22 11/26/22 Range/Units 12:55 12:56 Influenza Type A (PCR) NEGATIVE (Negative) Influenza Type B (PCR) NEGATIVE (Negative) RSV RNA Qual (PCR) NEGATIVE (Negative) SARS-CoV-2 RNA (RT-PCR) POSITIVE A (Negative) S. pyogenes GrpA GLADYS Negative (Negative) Discharge Plan Discharge Clinical Impression: COVID-19 Patient Disposition: Home, Self-Care Instructions: COVID-19 (Coronavirus Disease 2019) (ED) Additional Instructions: You tested positive for COVID-19 self quarantine for 5 days Continue to wear your mass for 10 days Medications as directed Do not take your Fioricet while on Paxlovid Prescriptions: New albuterol sulfate [Ventolin HFA] 90 mcg/actuation HFA aerosol inhaler 2 puff inhalation QID PRN (Reason: wheezing) Qty: 8.5 0RF Paxlovid (EUA) 300 mg (150 mg x 2)-100 mg tablets,dose pack See Rx Instructions .ROUTE .COMPLEX Qty: 30 0RF Rx Instructions: take TWO 150 mg tablets of nirmatrelvir with ONE 100 mg tablet of ritonavir twice daily for 5 days No Action meclizine 25 mg tablet 25 mg PO TID PRN (Reason: dizziness) Qty: 30 0RF metronidazole [Flagyl] 500 mg tablet 500 mg PO BID 7 Days Qty: 14 0RF metoclopramide HCl [Reglan] 10 mg tablet 10 mg PO Q6H PRN (Reason: nausea and vomiting) Qty: 10 0RF magnesium oxide 400 mg magnesium tablet 400 mg PO DAILY Qty: 14 0RF klgelklhrr-wbaycyjvicshw-jbjn [Fioricet] 50-300-40 mg capsule 1 cap PO Q8H PRN (Reason: pain) Qty: 10 0RF ibuprofen 600 mg tablet 600 mg PO Q6H PRN (Reason: pain) Qty: 14 0RF prednisone 20 mg tablet 40 mg PO DAILY Qty: 10 0RF ondansetron HCl [Zofran] 4 mg tablet 4 mg PO Q8H PRN (Reason: nausea and vomiting) Qty: 10 0RF ibuprofen 400 mg tablet 400 mg PO Q6H PRN (Reason: pain) Qty: 20 0RF naproxen 500 mg tablet 500 mg PO BID PRN (Reason: pain) 10 Days Qty: 20 0RF diclofenac sodium [Voltaren Arthritis Pain] 1 % gel 2 g topical QID Qty: 100 0RF Rx Instructions: apply to single elbow, wrist or hand; for hand includes palm/fingers/back of hand lidocaine 5 % adhesive patch,medicated 1 patch topical DAILY PRN (Reason: pain) Qty: 30 0RF Rx Instructions: leave on most painful area for up to 12 hrs oxycodone 5 mg tablet 5 mg PO Q4H PRN (Reason: pain) Qty: 14 0RF Rx Instructions: Patient may request partial fill; Partial Fill upon patient request. doxycycline hyclate 100 mg capsule 100 mg PO BID 10 Days Qty: 20 0RF ketorolac 10 mg tablet 10 mg PO TID 5 Days Qty: 15 0RF amoxicillin-pot clavulanate 875-125 mg tablet 1 tab PO Q12H 10 Days Qty: 20 0RF albuterol sulfate [Ventolin HFA] 90 mcg/actuation HFA aerosol inhaler 2 puff inhalation Q4-6H PRN (Reason: shortness of breath or wheezing) Qty: 6.7 0RF Rx Instructions: May dispense medication equivalent approved by insurance aripiprazole 15 mg tablet 15 mg PO QAM levothyroxine 75 mcg tablet 75 mcg PO DAILY lisinopril 20 mg tablet 20 mg PO DAILY zolpidem 10 mg tablet 10 mg PO BEDTIME PRN cyclobenzaprine 5 mg tablet 5 mg PO TID paroxetine HCl 30 mg tablet 30 mg PO QAM cetirizine 10 mg tablet 10 mg PO DAILY divalproex 500 mg tablet,delayed release (DR/EC) 500 mg PO BID clonazepam 0.5 mg tablet 0.5 mg PO DAILY PRN (Reason: anxiety attack) ketorolac 10 mg tablet 10 mg PO TID PRN Metamucil 3.4 gram/5.4 gram powder 1 tbsp PO DAILY Qty: 660 0RF Rx Instructions: mix into at least 8 oz of water or juice before administering hydroxyzine HCl 25 mg tablet 25 mg PO TID PRN (Reason: itching) Qty: 20 0RF Stand Alone Forms: Work/School Release Interventions: ED Discharge Assessment Last Done: 11/26/22 14:25 Discharge Date/Time: 11/26/22 14:25 Print Language: Sami
[2022-11-26 13:03] VITALS: TEMP 37.6
[2022-11-26] MEDS: Ibuprofen 800 MG TABLET PO (13:06)
[2022-11-26 13:09] LABS: IDNOW Serial# 6674DD1D; Strep A Nucleic Acid Negative (Negative)
--- NOTE | 2022-11-26 13:34 | ED_ITS ---
HPI - General Adult General Chief complaint: General Medical Stated complaint: flu like symptoms, CP Time Seen by Provider: 11/26/22 13:32 Source: patient Limitations: no limitations History of Present Illness HPI narrative: 37-year-old female presented to the ER with cough sore throat congestion times 3-4 days. Symptoms mild to moderate a known sick contacts. Patient has been vaccinated for COVID-19 x3 negative tobacco history. Patient does have a history of asthma which she takes inhalers for as needed. Patient states cough is nonproductive at this time. Patient has no history of COVID-19 in the past. Patient denies nausea vomiting abdominal pain or diarrhea. Related Data Home Medications Medication Instructions Recorded Confirmed aripiprazole 15 mg tablet 15 mg PO QAM depressive disorder 07/08/21 07/17/21 levothyroxine 75 mcg tablet 75 mcg PO DAILY 11/10/21 lisinopril 20 mg tablet 20 mg PO DAILY 11/10/21 zolpidem 10 mg tablet 10 mg PO BEDTIME PRN 11/10/21 cetirizine 10 mg tablet 10 mg PO DAILY 06/08/22 clonazepam 0.5 mg tablet 0.5 mg PO DAILY PRN anxiety attack 06/08/22 cyclobenzaprine 5 mg tablet 5 mg PO TID 06/08/22 divalproex 500 mg tablet,delayed 500 mg PO BID 06/08/22 release ketorolac 10 mg tablet 10 mg PO TID PRN 06/08/22 paroxetine HCl 30 mg tablet 30 mg PO QAM 06/08/22 Previous Rx's Medication Instructions Recorded meclizine 25 mg tablet 25 mg PO TID PRN dizziness #30 tabs 09/10/20 metronidazole 500 mg tablet 500 mg PO BID Bacterial vaginosis 11/13/20 (Flagyl) 7 days #14 tabs cwkoixwqsp-xuvohvqilvdpt-igimmxax 1 cap PO Q8H PRN pain #10 caps 01/14/21 50 mg-300 mg-40 mg capsule (Fioricet) ibuprofen 600 mg tablet 600 mg PO Q6H PRN pain #14 tabs 01/14/21 magnesium oxide 400 mg PO DAILY #14 tabs 03/16/21 metoclopramide HCl 10 mg tablet 10 mg PO Q6H PRN nausea and 03/16/21 (Reglan) vomiting #10 tabs prednisone 20 mg tablet 40 mg PO DAILY #10 tabs 10/08/21 ibuprofen 400 mg tablet 400 mg PO Q6H PRN pain #20 tabs 08/21/21 ondansetron HCl 4 mg tablet 4 mg PO Q8H PRN nausea and 08/21/21 (Zofran) vomiting #10 tabs naproxen 500 mg tablet 500 mg PO BID PRN pain 10 days #20 09/29/21 tabs oxycodone 5 mg tablet 5 mg PO Q4H PRN pain #14 tabs 05/28/22 doxycycline hyclate 100 mg capsule 100 mg PO BID 10 days #20 caps 05/30/22 ketorolac 10 mg tablet 10 mg PO TID 5 days #15 tabs 05/30/22 hydroxyzine HCl 25 mg tablet 25 mg PO TID PRN itching #20 tabs 06/08/22 psyllium husk 3.4 gram/5.4 gram 1 tbsp PO DAILY #660 grams 06/08/22 oral powder (Metamucil) diclofenac sodium 1 % topical gel 2 g topical QID #100 grams 07/21/22 (Voltaren Arthritis Pain) lidocaine 5 % topical patch 1 patch topical DAILY PRN pain #30 07/21/22 ea albuterol sulfate 90 mcg/actuation 2 puff inhalation Q4-6H PRN 09/05/22 aerosol inhaler (Ventolin HFA) shortness of breath or wheezing #6.7 grams amoxicillin 875 mg-potassium 1 tab PO Q12H 10 days #20 tabs 09/05/22 clavulanate 125 mg tablet albuterol sulfate 90 mcg/actuation 2 puff inhalation QID PRN wheezing 11/26/22 aerosol inhaler (Ventolin HFA) #8.5 grams nirmatrelvir 300 mg (150 mg See Rx Instructions PO .COMPLEX 11/26/22 x2)-ritonavir 100 mg tablet,dose #30 ea pack(EUA) (Paxlovid) Allergies Allergy/AdvReac Type Severity Reaction Status Date / Time shellfish derived Allergy Severe HIVES Verified 11/04/22 18:58 [SHELLFISH DERIVED] morphine [MORPHINE] Allergy Intermediate RASH, Verified 11/04/22 18:58 rash, itching sodium ferric gluconate Allergy Mild itching Verified 06/08/22 08:39 complex [From FERRLECIT] sucrose [From FERRLECIT] Allergy Mild itching Verified 06/08/22 08:39 SEAFOOD Allergy Severe SWELLING,RA Uncoded 06/08/22 08:39 Review of Systems Constitutional: Constitutional: Denies chills, Reports fever(s), Reports headache(s), Reports malaise and Denies weakness ENT: Reports headache(s), Reports nasal congestion and Reports sore throat Cardiovascular: Cardiovascular: Reports chest pain, Denies dyspnea and Denies dyspnea on exertion Respiratory: Respiratory: Denies dyspnea and Denies dyspnea on exertion Gastrointestinal: Gastrointestinal: Denies nausea and Denies vomiting Musculoskeletal: Musculoskeletal: Denies back pain Neurologic: Reports headache(s) and Denies weakness PMF Past Medical History Attestation statement: The following information was validated with the patient. Medical History Anxiety Asthma Bipolar disorder Depression Hypertension Migraines Surgical History H/O hemorrhoidectomy History of cholecystectomy History of endoscopy History of tubal ligation S/P colonoscopy S/P excision of lipoma Family History Family History Mother Cancer of unknown origin Maternal Uncle Colon cancer Maternal Uncle Throat cancer Social History Social History Alcohol intake: never Patient Tobacco Use Status: Never used Tobacco Advance Directives: No Advance Directives Information Provided: No Physical Exam ED Vital Signs: Vital Signs - 24 hr 11/26/22 12:51 11/26/22 13:03 11/26/22 14:09 Temperature 100.6 F H 99.6 F 98.8 F Pulse Rate 91 86 Respiratory Rate 18 16 Blood Pressure 156/93 H Pulse Oximetry 100 100 Oxygen Delivery Method Room Air Room Air BMI result Body Mass Index 29.6 vital signs have been reviewed as normal and appeared to be correct. Blood pressure normal. Heart rate normal. Respiration rate normal. Temperature normal. Oxygen saturation normal. Appearance: Alert. Oriented X3. No acute distress. Head: Normal external exam. Normocephalic. Atraumatic. Eyes: PERRLA. EOMI. Conjunctiva and sclera normal. ENT: Positive erythema no exudate noted no peritonsillar abscess noted uvula is midline Neck: Soft full range of motion, no nuchal rigidity CVS: Heart regular rate and rhythm no murmurs and rubs Respiratory: Breath sounds are clear to auscultation bilaterally. No accessory muscle use noted. Back: Full range of motion noted. Skin: Skin warm and dry. Normal skin color. Normal skin turgor. No rashes/lesions/lacerations noted. Extremities: No lower extremity edema. Extremities exhibit normal range of motion. Extremities nontender. Neuro: Oriented X 3. No motor deficit. No sensory deficit. Reflexes normal. Course Course Course Narrative: Acute pharyngitis RSV Influenza COVID-19 Bronchitis Pneumonia Medications Administered Discontinued Medications Generic Name Dose Route Start Last Admin Trade Name Freq PRN Reason Stop Dose Admin Ibuprofen 800 mg 11/26/22 12:52 11/26/22 13:06 Ibuprofen 800 Mg Tablet PO 11/26/22 12:53 800 mg ONCE ONE Administration Medical Decision Making Medical Decision Making [facility] Narrative: 37-year-old female presenting with cough congestion sore throat. Throat swab is negative at this time respiratory swab Is pending for COVID-19 influenza RSV chest x-ray is also pending Clinical exam is consistent with viral URI 14:01 Patient interviewed and evaluated with sample patternmaker Patient tested positive COVID-19 O2 sats 100% on room air 14:13 Patient informed via sample patternmaker she is positive for COVID-19. Explanation of how paxlovid was given to patient will plan to discharge patient home she is on no medications of known interactions. Patient instructed to self quarantine 5 days where mass for 10 days close follow-up with PCP and return if symptoms worsen Lab Data Labs: Lab Results 11/26/22 11/26/22 Range/Units 12:55 12:56 Influenza Type A (PCR) NEGATIVE (Negative) Influenza Type B (PCR) NEGATIVE (Negative) RSV RNA Qual (PCR) NEGATIVE (Negative) SARS-CoV-2 RNA (RT-PCR) POSITIVE A (Negative) S. pyogenes GrpA GLADYS Negative (Negative) Discharge Plan Discharge Clinical Impression: COVID-19 Patient Disposition: Home, Self-Care Instructions: COVID-19 (Coronavirus Disease 2019) (ED) Additional Instructions: You tested positive for COVID-19 self quarantine for 5 days Continue to wear your mass for 10 days Medications as directed Do not take your Fioricet while on Paxlovid Prescriptions: New albuterol sulfate [Ventolin HFA] 90 mcg/actuation HFA aerosol inhaler 2 puff inhalation QID PRN (Reason: wheezing) Qty: 8.5 0RF Paxlovid (EUA) 300 mg (150 mg x 2)-100 mg tablets,dose pack See Rx Instructions .ROUTE .COMPLEX Qty: 30 0RF Rx Instructions: take TWO 150 mg tablets of nirmatrelvir with ONE 100 mg tablet of ritonavir twice daily for 5 days No Action meclizine 25 mg tablet 25 mg PO TID PRN (Reason: dizziness) Qty: 30 0RF metronidazole [Flagyl] 500 mg tablet 500 mg PO BID 7 Days Qty: 14 0RF metoclopramide HCl [Reglan] 10 mg tablet 10 mg PO Q6H PRN (Reason: nausea and vomiting) Qty: 10 0RF magnesium oxide 400 mg magnesium tablet 400 mg PO DAILY Qty: 14 0RF yxrkowigoh-ggzwnxdivjrde-vlvc [Fioricet] 50-300-40 mg capsule 1 cap PO Q8H PRN (Reason: pain) Qty: 10 0RF ibuprofen 600 mg tablet 600 mg PO Q6H PRN (Reason: pain) Qty: 14 0RF prednisone 20 mg tablet 40 mg PO DAILY Qty: 10 0RF ondansetron HCl [Zofran] 4 mg tablet 4 mg PO Q8H PRN (Reason: nausea and vomiting) Qty: 10 0RF ibuprofen 400 mg tablet 400 mg PO Q6H PRN (Reason: pain) Qty: 20 0RF naproxen 500 mg tablet 500 mg PO BID PRN (Reason: pain) 10 Days Qty: 20 0RF diclofenac sodium [Voltaren Arthritis Pain] 1 % gel 2 g topical QID Qty: 100 0RF Rx Instructions: apply to single elbow, wrist or hand; for hand includes palm/fingers/back of hand lidocaine 5 % adhesive patch,medicated 1 patch topical DAILY PRN (Reason: pain) Qty: 30 0RF Rx Instructions: leave on most painful area for up to 12 hrs oxycodone 5 mg tablet 5 mg PO Q4H PRN (Reason: pain) Qty: 14 0RF Rx Instructions: Patient may request partial fill; Partial Fill upon patient request. doxycycline hyclate 100 mg capsule 100 mg PO BID 10 Days Qty: 20 0RF ketorolac 10 mg tablet 10 mg PO TID 5 Days Qty: 15 0RF amoxicillin-pot clavulanate 875-125 mg tablet 1 tab PO Q12H 10 Days Qty: 20 0RF albuterol sulfate [Ventolin HFA] 90 mcg/actuation HFA aerosol inhaler 2 puff inhalation Q4-6H PRN (Reason: shortness of breath or wheezing) Qty: 6.7 0RF Rx Instructions: May dispense medication equivalent approved by insurance aripiprazole 15 mg tablet 15 mg PO QAM levothyroxine 75 mcg tablet 75 mcg PO DAILY lisinopril 20 mg tablet 20 mg PO DAILY zolpidem 10 mg tablet 10 mg PO BEDTIME PRN cyclobenzaprine 5 mg tablet 5 mg PO TID paroxetine HCl 30 mg tablet 30 mg PO QAM cetirizine 10 mg tablet 10 mg PO DAILY divalproex 500 mg tablet,delayed release (DR/EC) 500 mg PO BID clonazepam 0.5 mg tablet 0.5 mg PO DAILY PRN (Reason: anxiety attack) ketorolac 10 mg tablet 10 mg PO TID PRN Metamucil 3.4 gram/5.4 gram powder 1 tbsp PO DAILY Qty: 660 0RF Rx Instructions: mix into at least 8 oz of water or juice before administering hydroxyzine HCl 25 mg tablet 25 mg PO TID PRN (Reason: itching) Qty: 20 0RF Stand Alone Forms: Work/School Release Print Language: Ethiopian
--- NOTE | 2022-11-26 13:45 | PC.NURSE ---
pt c/o chills/rae/body ache that started last night. non-productive cough present, she reported fever at home. no vomiting, no diarrhea, slight loss of appetite.
[2022-11-26 13:51] LABS: Influenza A PCR NEGATIVE (Negative); Influenza B PCR NEGATIVE (Negative); Resp Syncy Virus RNA Qual PCR NEGATIVE (Negative); SARS COV2 PCR INHOUSE POSITIVE (Negative)
[2022-11-26 14:09] VITALS: BP 156/93; PULSE 86; RESP 16; TEMP 37.1; O2SAT 100
== END 2022-11-26 14:25 | disposition home or self-care (01) ==
PROVIDERS: Physician Assistant Medical; Emergency Provider Emergency Medicine Emergency Medical Services
DX: U07.1 COVID-19 (principal); R05.9 Cough, unspecified; R07.89 Other chest pain; Z79.899 Other long term (current) drug therapy
CPT/HCPCS: 0241U; 36415; 71046; 87651; 99283; 99284

== ENCOUNTER 2023-01-12 08:29 | Emergency (ER) | payer MEDICARE, MEDICAID, SELFPAY ==
--- NOTE | ~2023-01-12 | XR_ITS ---
EXAMINATION: XR CHEST CLINICAL INFORMATION: Cough COMPARISON: 11/26/2022 TECHNIQUE: Frontal view of the chest was obtained. FINDINGS: The lungs are well expanded. There is no focal consolidation, edema, or effusion. Azygos fissure noted. No pneumothorax. The cardiomediastinal silhouette is within normal limits. No acute osseous abnormality. XR/XR chest 1V IMPRESSION: No acute pulmonary disease.
[2023-01-12 08:58] VITALS: BP 153/85; PULSE 82; RESP 18; TEMP 37; O2SAT 99; BMI 29.0
--- NOTE | 2023-01-12 09:27 | ED_ITS ---
HPI - URI/Sore Throat General Chief Complaint: Upper Respiratory Symptoms Stated Complaint: Asthma/Runny nose Time Seen by Provider: 01/12/23 09:16 Source: patient Mode of arrival: ambulatory History of Present Illness HPI Narrative: 37-year-old female with past medical history anxiety, asthma, bipolar, depression, HTN, migraines, presenting to the ED complaining dry cough, rhinorrhea, SOB, chest discomfort with cough x2 days. Admits he has been using her inhaler at home without relief. Does report recent travel to [place]. Patient also reports low back/coccygeal pain s/p mechanical trip and fall 3 weeks ago. Denies numbness, tingling, weakness, incontinence/retention. Denies fever, chills, pain sore throat, pedal edema, calf pain MD elicited complaint: cough, rhinorrhea and nasal congestion Related Data Home Medications Medication Instructions Recorded Confirmed aripiprazole 15 mg tablet 15 mg PO QAM depressive disorder 07/08/21 07/17/21 levothyroxine 75 mcg tablet 75 mcg PO DAILY 11/10/21 lisinopril 20 mg tablet 20 mg PO DAILY 11/10/21 zolpidem 10 mg tablet 10 mg PO BEDTIME PRN 11/10/21 cetirizine 10 mg tablet 10 mg PO DAILY 06/08/22 clonazepam 0.5 mg tablet 0.5 mg PO DAILY PRN anxiety attack 06/08/22 cyclobenzaprine 5 mg tablet 5 mg PO TID 06/08/22 divalproex 500 mg tablet,delayed 500 mg PO BID 06/08/22 release ketorolac 10 mg tablet 10 mg PO TID PRN 06/08/22 paroxetine HCl 30 mg tablet 30 mg PO QAM 06/08/22 Previous Rx's Medication Instructions Recorded meclizine 25 mg tablet 25 mg PO TID PRN dizziness #30 tabs 09/10/20 metronidazole 500 mg tablet 500 mg PO BID Bacterial vaginosis 11/13/20 (Flagyl) 7 days #14 tabs [id number]-[id number] 1 cap PO Q8H PRN pain #10 caps 01/14/21 50 mg-300 mg-40 mg capsule (Fioricet) ibuprofen 600 mg tablet 600 mg PO Q6H PRN pain #14 tabs 01/14/21 magnesium oxide 400 mg PO DAILY #14 tabs 03/16/21 metoclopramide HCl 10 mg tablet 10 mg PO Q6H PRN nausea and 03/16/21 (Reglan) vomiting #10 tabs prednisone 20 mg tablet 40 mg PO DAILY #10 tabs 08/15/21 ibuprofen 400 mg tablet 400 mg PO Q6H PRN pain #20 tabs 08/21/21 ondansetron HCl 4 mg tablet 4 mg PO Q8H PRN nausea and 08/21/21 (Zofran) vomiting #10 tabs naproxen 500 mg tablet 500 mg PO BID PRN pain 10 days #20 09/29/21 tabs oxycodone 5 mg tablet 5 mg PO Q4H PRN pain #14 tabs 05/28/22 doxycycline hyclate 100 mg capsule 100 mg PO BID 10 days #20 caps 05/30/22 ketorolac 10 mg tablet 10 mg PO TID 5 days #15 tabs 05/30/22 hydroxyzine HCl 25 mg tablet 25 mg PO TID PRN itching #20 tabs 06/08/22 psyllium husk 3.4 gram/5.4 gram 1 tbsp PO DAILY #660 grams 06/08/22 oral powder (Metamucil) diclofenac sodium 1 % topical gel 2 g topical QID #100 grams 07/21/22 (Voltaren Arthritis Pain) lidocaine 5 % topical patch 1 patch topical DAILY PRN pain #30 07/21/22 ea albuterol sulfate 90 mcg/actuation 2 puff inhalation Q4-6H PRN 09/05/22 aerosol inhaler (Ventolin HFA) shortness of breath or wheezing #6.7 grams amoxicillin 875 mg-potassium 1 tab PO Q12H 10 days #20 tabs 09/05/22 clavulanate 125 mg tablet albuterol sulfate 90 mcg/actuation 2 puff inhalation QID PRN wheezing 11/26/22 aerosol inhaler (Ventolin HFA) #8.5 grams nirmatrelvir 300 mg (150 mg See Rx Instructions PO .COMPLEX 11/26/22 x2)-ritonavir 100 mg tablet,dose #30 ea pack(EUA) (Paxlovid) albuterol sulfate 90 mcg/actuation 2 puff inhalation Q4-6H PRN 01/12/23 aerosol inhaler shortness of breath or wheezing #6.7 grams benzonatate 100 mg capsule 100 mg PO TID PRN cough #14 caps 01/12/23 dextromethorphan-guaifenesin 10 1 tab-cap PO Q4-6H PRN cough #14 01/12/23 mg-200 mg capsule (Robitussin caps Cough-Chest Congestion DM) prednisone 20 mg tablet 40 mg PO DAILY 5 days #10 tabs 01/12/23 Allergies Allergy/AdvReac Type Severity Reaction Status Date / Time shellfish derived Allergy Severe HIVES Verified 11/04/22 18:58 [SHELLFISH DERIVED] morphine [MORPHINE] Allergy Intermediate RASH, Verified 11/04/22 18:58 rash, itching sodium ferric gluconate Allergy Mild itching Verified 06/08/22 08:39 complex [From FERRLECIT] sucrose [From FERRLECIT] Allergy Mild itching Verified 06/08/22 08:39 SEAFOOD Allergy Severe SWELLING,RA Uncoded 06/08/22 08:39 Review of Systems Review of Systems: Constitutional: No Fever, No Chills ENT/Mouth: No Ear Pain, + Nasal Congestion, No Sinus Pain, No Hoarseness, No sore throat, + Rhinorrhea, No Swallowing Difficulty Cardiovascular: + Chest Pain w/cough, + SOB Respiratory: + Cough, No Sputum, + Wheezing Gastrointestinal: No Nausea, No Vomiting, No Abdominal pain Genitourinary: No Dysuria, No Urinary Frequency, No Hematuria, No Flank Pain Musculoskeletal: No joint pain, No Myalgias, No Joint Swelling Skin: No Skin Lesions, No rash Neuro: No Weakness Yes all other systems are reviewed and are negative Constitutional: Constitutional: Reports as per [facility] Past Medical History Attestation statement: The following information was validated with the patient. Medical History Anxiety Asthma Bipolar disorder Depression Hypertension Migraines Surgical History H/O hemorrhoidectomy History of cholecystectomy History of endoscopy History of tubal ligation S/P colonoscopy S/P excision of lipoma Family History Family History Mother Cancer of unknown origin Maternal Uncle Colon cancer Maternal Uncle Throat cancer Social History Social History Alcohol intake: never Patient Tobacco Use Status: Never used Tobacco Advance Directives: No Advance Directives Information Provided: No Physical Exam Vital Signs: Vital Signs: Last Vital Signs Temp 98.6 F 01/12/23 08:58 Pulse 79 01/12/23 11:15 Resp 18 01/12/23 08:58 BP 166/100 H 01/12/23 11:15 Pulse Ox 100 01/12/23 11:15 O2 Del Method 01/12/23 08:58 BMI result Body Mass Index 29.0 Const: General: cooperative, healthy appearing and no acute distress Orientation/consciousness: patient oriented x3 Limitations: no limitations HEENT: Head: Yes normal to inspection and Yes atraumatic Ears: hearing grossly normal bilaterally, external ears normal, TM's normal bilaterally and mastoids normal General nose exam: Normal external nose present and Nasal discharge present Face and sinus: Yes normal facial exam Mouth: Normal oral and palatal mucosa present Throat: Yes posterior oropharynx normal, Yes tonsils normal, Yes uvula midline, No peritonsillar mass and No uvular edema Eyes: General: appearance normal, both eyes and all related structures EOM: EOMs intact bilaterally Neck: Neck: Yes normal visual inspection and Yes no meningeal signs Resp: Effort & Inspection: normal respiratory effort and no respiratory distress Auscultation: wheezes expiratory wheezes and throughout Cardio: Rate: regular rate Heart sounds: S1 normal heart sound present and S2 normal heart sound present GI: Inspection: Yes normal to inspection Palpation (GI): Soft to palpation, nontender, no guarding and not rigid : General: Yes no CVA tenderness Back/Spine/Pelvis: Other: No midline thoracic/lumbar spinous tenderness/step-off or deformity Back: no CVA tenderness Skin: Rashes: no rashes Wounds: no wounds Neuro: Other: Strength intact throughout. No saddle anesthesia. Sensation intact to light touch. Neurovascular intact distally General: patient oriented x3, gait normal, tone normal, moves all extremities, no meningeal signs and no focal motor deficits Gait exam (Neuro): Normal gait present Extrem: General: Yes normal to inspection Course Course Course Narrative: -COVID-19/influenza/RSV negative XR chest 1V IMPRESSION: No acute pulmonary disease. > on re-evaluation patient reports symptomatic improvement. Lungs CTA. Reports received phone call in the emergency department with some bad news, made her anxious, suspected her blood pressure was elevated, denies taking her antihypertensive this morning. BP was elevated 166/100, will give home dose of lisinopril & re-evaluate -1200--repeat BP 155/97 Medications Administered Discontinued Medications Generic Name Dose Route Start Last Admin Trade Name Daljit PRN Reason Stop Dose Admin Albuterol Sulfate 5 mg/ 0 mg 01/12/23 09:33 01/12/23 10:35 Ipratropium [place] 0.5 mg INHALE 01/12/23 09:34 2.5 each ONCE ONE Administration Cyclobenzaprine HCl 10 mg 01/12/23 09:33 01/12/23 10:21 Cyclobenzaprine Hcl 10 Mg Tablet PO 01/12/23 09:34 10 mg ONCE ONE Administration Lisinopril 20 mg 01/12/23 11:05 01/12/23 11:14 Lisinopril 20 Mg Tablet PO 01/12/23 11:06 20 mg ONCE ONE Administration Protocol Prednisone 40 mg 01/12/23 09:33 01/12/23 10:21 Prednisone 20 Mg Tablet PO 01/12/23 09:34 40 mg ONCE ONE Administration Medical Decision Making Medical Decision Making MDM Narrative: 37-year-old female with past medical history anxiety, asthma, bipolar, depression, HTN, migraines, presenting to the ED complaining dry cough, rhinorrhea, SOB, chest discomfort with cough x2 days. On exam vital signs stable, NAD, nontoxic appearing, x-ray Martin wheeze noted throughout, no midline spinous tenderness throughout, no red symptoms. Ambulating with steady gait. Concern for asthma exacerbation vs viral syndrome vs pneumonia. Lower suspicion crisis/PE for low suspicion for fracture/dislocation or cauda equina/cord compression. Plan: COVID-19/influenza/RSV testing, CXR, DuoNeb, p.o. prednisone, p.o. Flexeril Please refer to course for remaining clinical decision making, interpretation of labs/imaging results, and discussions with consultants and/or family members. Differential Diagnosis Differential Diagnoses: The differential diagnosis associated with the presentation includes as above Lab Data [facility] Lab Attestation statement: I reviewed the patient's lab results. Labs: Lab Results 01/12/23 Range/Units 09:04 Influenza Type A (PCR) NEGATIVE (Negative) Influenza Type B (PCR) NEGATIVE (Negative) RSV RNA Qual (PCR) NEGATIVE (Negative) SARS-CoV-2 RNA (RT-PCR) NEGATIVE (Negative) Radiology Impression Discussion of test interpretation with radiology: I have reviewed the radiologist's reading. Prescription Management I considered prescription management with: Pain Medication Discharge Plan Discharge Clinical Impression: Asthma exacerbation, Hypertension Patient Disposition: Home, Self-Care Instructions: Asthma (ED), Hypertension (ED) Additional Instructions: You tested negative for COVID the flu and RSV. Her x-ray is unremarkable. Tessalon Perles for cough, take as needed Robitussin as a cough syrup Use albuterol inhaler for shortness of breath/wheezing heard prednisone as a steroid please take as prescribed. Please continue to take your blood pressure medication at home, do not miss any doses If symptoms persist or worsen return to the emergency department Baldomero negativo para COVID, la gripe y el RSV. Ambriz radiograf?a es normal. Tessalon Perles para la tos, rick seg?n sea necesario Robitussin maría jarabe para la tos Use el inhalador de albuterol para la dificultad para respirar/sibilancias. Prednisona maría esteroide, t?gabriel seg?n lo prescrito. Contin?e tomando ambriz medicamento para la presi?n arterial en casa, no se salte ninguna dosis. Si los s?ntomas persisten o empeoran, regrese al servicio de urgencias. Prescriptions: New albuterol sulfate 90 mcg/actuation HFA aerosol inhaler 2 puff inhalation Q4-6H PRN (Reason: shortness of breath or wheezing) Qty: 6.7 0RF benzonatate 100 mg capsule 100 mg PO TID PRN (Reason: cough) Qty: 14 0RF prednisone 20 mg tablet 40 mg PO DAILY 5 Days Qty: 10 0RF Robitussin Cough-Chest Rigoberto DM 10-200 mg capsule 1 tab-cap PO Q4-6H PRN (Reason: cough) Qty: 14 0RF No Action meclizine 25 mg tablet 25 mg PO TID PRN (Reason: dizziness) Qty: 30 0RF metronidazole [Flagyl] 500 mg tablet 500 mg PO BID 7 Days Qty: 14 0RF metoclopramide HCl [Reglan] 10 mg tablet 10 mg PO Q6H PRN (Reason: nausea and vomiting) Qty: 10 0RF magnesium oxide 400 mg magnesium tablet 400 mg PO DAILY Qty: 14 0RF bgcnyqamge-[id number] [Fioricet] 50-300-40 mg capsule 1 cap PO Q8H PRN (Reason: pain) Qty: 10 0RF ibuprofen 600 mg tablet 600 mg PO Q6H PRN (Reason: pain) Qty: 14 0RF prednisone 20 mg tablet 40 mg PO DAILY Qty: 10 0RF ondansetron HCl [Zofran] 4 mg tablet 4 mg PO Q8H PRN (Reason: nausea and vomiting) Qty: 10 0RF ibuprofen 400 mg tablet 400 mg PO Q6H PRN (Reason: pain) Qty: 20 0RF naproxen 500 mg tablet 500 mg PO BID PRN (Reason: pain) 10 Days Qty: 20 0RF diclofenac sodium [Voltaren Arthritis Pain] 1 % gel 2 g topical QID Qty: 100 0RF Rx Instructions: apply to single elbow, wrist or hand; for hand includes palm/fingers/back of hand lidocaine 5 % adhesive patch,medicated 1 patch topical DAILY PRN (Reason: pain) Qty: 30 0RF Rx Instructions: leave on most painful area for up to 12 hrs oxycodone 5 mg tablet 5 mg PO Q4H PRN (Reason: pain) Qty: 14 0RF Rx Instructions: Patient may request partial fill; Partial Fill upon patient request. doxycycline hyclate 100 mg capsule 100 mg PO BID 10 Days Qty: 20 0RF ketorolac 10 mg tablet 10 mg PO TID 5 Days Qty: 15 0RF amoxicillin-pot clavulanate 875-125 mg tablet 1 tab PO Q12H 10 Days Qty: 20 0RF albuterol sulfate [Ventolin HFA] 90 mcg/actuation HFA aerosol inhaler 2 puff inhalation Q4-6H PRN (Reason: shortness of breath or wheezing) Qty: 6.7 0RF Rx Instructions: May dispense medication equivalent approved by insurance albuterol sulfate [Ventolin HFA] 90 mcg/actuation HFA aerosol inhaler 2 puff inhalation QID PRN (Reason: wheezing) Qty: 8.5 0RF Paxlovid (EUA) 300 mg (150 mg x 2)-100 mg tablets,dose pack See Rx Instructions .ROUTE .COMPLEX Qty: 30 0RF Rx Instructions: take TWO 150 mg tablets of nirmatrelvir with ONE 100 mg tablet of ritonavir twice daily for 5 days aripiprazole 15 mg tablet 15 mg PO QAM levothyroxine 75 mcg tablet 75 mcg PO DAILY lisinopril 20 mg tablet 20 mg PO DAILY zolpidem 10 mg tablet 10 mg PO BEDTIME PRN cyclobenzaprine 5 mg tablet 5 mg PO TID paroxetine HCl 30 mg tablet 30 mg PO QAM cetirizine 10 mg tablet 10 mg PO DAILY divalproex 500 mg tablet,delayed release (DR/EC) 500 mg PO BID clonazepam 0.5 mg tablet 0.5 mg PO DAILY PRN (Reason: anxiety attack) ketorolac 10 mg tablet 10 mg PO TID PRN Metamucil 3.4 gram/5.4 gram powder 1 tbsp PO DAILY Qty: 660 0RF Rx Instructions: mix into at least 8 oz of water or juice before administering hydroxyzine HCl 25 mg tablet 25 mg PO TID PRN (Reason: itching) Qty: 20 0RF Referrals: Physician,Unknown J [Primary Care Provider] - 3 days Stand Alone Forms: Work/School Release Print Language: Citizen Of [place]
[2023-01-12 09:48] LABS: Influenza A PCR NEGATIVE (Negative); Influenza B PCR NEGATIVE (Negative); Resp Syncy Virus RNA Qual PCR NEGATIVE (Negative); SARS COV2 PCR INHOUSE NEGATIVE (Negative)
[2023-01-12] MEDS: Cyclobenzaprine HCl 10 MG TABLET PO (10:21)
[2023-01-12] MEDS: predniSONE 20 MG TABLET 40 MG PO (10:21)
[2023-01-12 10:36] VITALS: PULSE 79; O2SAT 100
[2023-01-12] MEDS: lisinopriL 20 MG TABLET PO (11:14)
[2023-01-12 11:15] VITALS: BP 166/100; PULSE 79; O2SAT 100
[2023-01-12 12:00] VITALS: BP 155/97
== END 2023-01-12 12:11 | disposition home or self-care (01) ==
PROVIDERS: Emergency Provider Emergency Medicine
DX: J45.901 Unspecified asthma with (acute) exacerbation (principal); I10 Essential (primary) hypertension; Z20.822 Contact with and (suspected) exposure to COVID-19; Z20.828 Contact with and (suspected) exposure to other viral communicable diseases; Z79.899 Other long term (current) drug therapy
CPT/HCPCS: 0241U; 71045; 94640; 99284

== ENCOUNTER 2023-01-18 14:06 | Outpatient (REF) | payer MEDICARE, MEDICAID, SELFPAY ==
[2023-01-18 15:05] LABS: CDiff Gene PCR NEGATIVE (Negative)
[2023-01-18 16:03] LABS: Adenovirus F 40/41 Not Detected (Not Detect.); Astrovirus Not Detected (Not Detect.); Campylobacter Not Detected (Not Detect.); Cryptosporidium Not Detected (Not Detect.); Cyclospora cayetanensis Not Detected (Not Detect.); E. coli EAEC Not Detected (Not Detect.); E. coli EPEC Not Detected (Not Detect.); E. coli ETEC Not Detected (Not Detect.); E. coli STEC Not Detected (Not Detect.); Entamoeba histolytica Not Detected (Not Detect.); Giardia lamblia Not Detected (Not Detect.); Norovirus GI/GII Not Detected (Not Detect.); Plesiomonas shigelloides Not Detected (Not Detect.); Rotavirus A Not Detected (Not Detect.); Salmonella Not Detected (Not Detect.); Sapovirus Not Detected (Not Detect.); Shigella sp./EIEC Not Detected (Not Detect.); Vibrio Not Detected (Not Detect.); Vibrio Cholerae Not Detected (Not Detect.); Yersinia enterocolitica Not Detected (Not Detect.)
[2023-01-26 00:54] LABS: Pancreatic Elastase-1 >500 mcg/g
[2023-01-26 01:14] LABS: Calprotectin, Fecal 7 mcg/g
[2023-01-26 08:38] LABS: Fecal Fat Qualitative NORMAL (NORMAL)
== END 2023-01-18 14:07 | disposition home or self-care (01) ==
LOC: HO.LNP 14:06
PROVIDERS: Visit Provider Internal Medicine Gastroenterology
DX: R19.7 Diarrhea, unspecified (principal)
CPT/HCPCS: 82656; 82705; 83993; 87493; 87507

== ENCOUNTER 2023-01-25 15:24 | Emergency (ER) | payer MEDICARE, MEDICAID, SELFPAY ==
--- NOTE | ~2023-01-25 | XR_ITS ---
EXAMINATION: XR CHEST CLINICAL INFORMATION: Chest pain. COMPARISON: 01/12/2023 chest radiograph. TECHNIQUE: Frontal view of the chest was obtained. FINDINGS: No significant abnormality is noted involving the heart, lungs, mediastinum, bony thorax or soft tissues. XR/XR chest 1V IMPRESSION: No acute cardiopulmonary process.
--- NOTE | 2023-01-25 15:30 | ECG_ITS ---
Test Reason : CP Blood Pressure : / mmHG Vent. Rate : 079 BPM Atrial Rate : 079 BPM P-R Int : 144 ms QRS Dur : 078 ms QT Int : 384 ms P-R-T Axes : 065 038 050 degrees QTc Int : 440 ms Normal sinus rhythm Possible Left atrial enlargement Borderline ECG When compared with ECG of 04-NOV-2022 18:35, No significant change was found Referred By: Tiesha Engel Electronically Signed By:JYOTI ROJAS MD
--- NOTE | 2023-01-25 15:57 | ED.CHESTPAIN ---
HPI - Chest Pain General Chief Complaint: Dyspnea Stated Complaint: Chest pain Related Data Home Medications ?Medication ?Instructions ?Recorded ?Confirmed lisinopril 20 mg tablet 20 mg PO DAILY 11/10/21 zolpidem 10 mg tablet 10 mg PO BEDTIME PRN 11/10/21 cetirizine 10 mg tablet 10 mg PO DAILY 06/08/22 clonazepam 0.5 mg tablet 0.5 mg PO DAILY PRN anxiety attack 06/08/22 cyclobenzaprine 5 mg tablet 5 mg PO TID 06/08/22 divalproex 500 mg tablet,delayed 500 mg PO BID 06/08/22 release ketorolac 10 mg tablet 10 mg PO TID PRN 06/08/22 benzonatate 100 mg capsule 100 mg PO TID PRN cough 02/12/23 epinephrine 0.3 mg/0.3 mL IM 02/12/23 injection, auto-injector paroxetine HCl 40 mg tablet mg PO 02/12/23 aripiprazole 15 mg tablet mg PO 08/20/23 chlorthalidone 25 mg tablet mg PO 08/20/23 doxycycline hyclate 100 mg capsule 100 mg PO BID 08/20/23 fluticasone propionate 110 inhalation 08/20/23 mcg/actuation HFA aerosol inhaler (Flovent HFA) hydroxyzine pamoate 50 mg capsule 50 mg PO BID PRN 08/20/23 ketorolac 10 mg tablet 10 mg PO TID 08/20/23 levothyroxine 100 mcg tablet mcg PO 08/20/23 meclizine 25 mg tablet 25 mg PO TID PRN dizziness 08/20/23 montelukast 10 mg tablet 10 mg PO DAILY 08/20/23 Previous Rx's ?Medication ?Instructions ?Recorded [id number]-gjfuwxbhaoljw-vnjagqlh 1 cap PO Q8H PRN pain #10 caps 01/14/21 50 mg-300 mg-40 mg capsule (Fioricet) magnesium oxide 400 mg PO DAILY #14 tabs 03/16/21 metoclopramide HCl 10 mg tablet 10 mg PO Q6H PRN nausea and 03/16/21 (Reglan) vomiting #10 tabs prednisone 20 mg tablet 40 mg (2 x 20 mg) PO DAILY #10 tabs 08/15/21 ondansetron HCl 4 mg tablet 4 mg PO Q8H PRN nausea and 08/21/21 (Zofran) vomiting #10 tabs oxycodone 5 mg tablet 5 mg PO Q4H PRN pain #14 tabs 05/28/22 diclofenac sodium 1 % topical gel 2 g topical QID #100 grams 07/21/22 (Voltaren Arthritis Pain) lidocaine 5 % topical patch 1 patch topical DAILY PRN pain #30 07/21/22 ea albuterol sulfate 90 mcg/actuation 2 puff inhalation Q4-6H PRN 01/12/23 aerosol inhaler shortness of breath or wheezing #6.7 grams dextromethorphan-guaifenesin 10 1 tab-cap PO Q4-6H PRN cough #14 01/12/23 mg-200 mg capsule (Robitussin caps Cough-Chest Congestion DM) prednisone 20 mg tablet 40 mg (2 x 20 mg) PO DAILY 5 days 01/12/23 #10 tabs codeine 10 mg-guaifenesin 100 mg/5 10 ml PO BEDTIME PRN cough 5 days 01/28/23 mL oral liquid #50 mL prednisone 20 mg tablet 40 mg (2 x 20 mg) PO DAILY 5 days 01/28/23 #10 tabs psyllium husk 3.4 gram/5.4 gram 1 tbsp PO DAILY #660 grams 02/12/23 oral powder (Metamucil) cyclobenzaprine 10 mg tablet 10 mg PO BEDTIME PRN sprain 7 days 04/29/23 #7 tabs pantoprazole 40 mg tablet,delayed 40 mg PO DAILY #90 tabs 02/11/24 release Allergies Allergy/AdvReac Type Severity Reaction Status Date / Time shellfish derived Allergy Severe HIVES Verified 08/20/23 11:20 [SHELLFISH DERIVED] morphine [MORPHINE] Allergy Intermediate RASH, Verified 08/20/23 11:20 rash, itching sodium ferric gluconate Allergy Mild itching Verified 08/20/23 11:20 complex [From FERRLECIT] sucrose [From FERRLECIT] Allergy Mild itching Verified 08/20/23 11:20 SEAFOOD Allergy Severe SWELLING,RA Uncoded 08/20/23 11:20 [facility] Past Medical History Medical History Hypertension Asthma Bipolar disorder Depression Anxiety Migraines Surgical History H/O hemorrhoidectomy History of endoscopy S/P colonoscopy S/P excision of lipoma History of cholecystectomy History of tubal ligation Family History Family History Mother Cancer of unknown origin Maternal Uncle Colon cancer Maternal Uncle Throat cancer Eye cancer Maternal Grandmother Pancreatic cancer Social History Social History Alcohol intake: never Patient Tobacco Use Status: Never used Tobacco Physical Exam Vital Signs: Vital Signs: Last Vital Signs Temp 98.3 F 01/25/23 15:58 Pulse 84 01/25/23 15:58 Resp 17 01/25/23 15:58 BP 155/109 H 01/25/23 15:58 Pulse Ox 100 01/25/23 15:58 O2 Del Method Room Air 01/25/23 15:58 BMI result Body Mass Index 28.8 Course Course Course Narrative: This is an RME: Additional HPI, ROS, PE not included below will be deferred to primary provider. 37-year-old female presents to the emergency department complaints of substernal chest pain with associated left arm numbness, shortness of breath x3 weeks. Patient has been constantly using her nebulizing treatments and inhaler was advised to come in by her primary care provider. Denies fevers, chills, cough, nausea, vomiting or abdominal pain, headache vision changes, dizziness. Physical exam benign PERC negative Plan- labs, trop, ekg, cxr Medical Decision Making Lab Data 01/25/23 15:55 01/25/23 15:55 Labs: Lab Results 01/25/23 01/25/23 Range/Units 15:55 16:27 WBC 9.1 (4.8-10.8) X10*3/uL RBC 4.41 (4.20-5.50) X10*6/uL Hgb 10.9 L (12.0-16.0) g/dl Hct 35.5 L (37.0-47.0) % MCV 80.5 (80.0-98.0) fL MCH 24.7 L (27.0-33.0) pg MCHC 30.7 L (31.0-35.0) g/dl RDW 13.9 (11.0-16.0) % Plt Count 382 (160-400) X10*3/uL MPV 9.8 (9.4-12.3) fL Immature Gran % (Auto) 0.2 (0.0-0.4) % Neut % (Auto) 63.0 (45-73) % Lymph % (Auto) 25.3 (20-40) % [place] % (Auto) 5.5 (2-11) % Eos % (Auto) 5.2 H (0-4) % Baso % (Auto) 0.8 (0-2) % Lymph # (Auto) 2.3 (1.2-4.9) X10*3/uL [place] # (Auto) 0.5 (0.1-1.2) X10*3/uL Eos # (Auto) 0.5 H (0.0-0.4) X10*3/uL Baso # (Auto) 0.1 (0.0-0.2) X10*3/uL Abs Immat Gran (auto) 0.02 (0.00-0.03) X10*3/uL Absolute Neuts (auto) 5.7 (2.0-8.3) x10*3/uL Absolute Nucleated RBC 0.000 (0.0-0.012) X10*3/uL Nucleated RBC % (auto) 0.0 (0.0-0.2) /100WBC Sodium 141 (135-145) mmol/L Potassium 3.7 (3.3-5.1) mmol/L Chloride 106 (96-108) mmol/L Carbon Dioxide 23 (22-29) mmol/L Anion Gap 16 (12-20) BUN 10 (9-16) mg/dL Creatinine 0.77 (0.5-1.4) mg/dL Estim Creat Clear Calc 90.7 Estimated GFR > 60 Random Glucose 83 (60-115) mg/dL Calcium 8.9 (8.4-10.2) mg/dL Total Bilirubin 1.2 H (0.0-1.0) mg/dL AST 17 (5-31) U/L ALT 14 (0-31) U/L Alkaline Phosphatase 71 (39-117) U/L Troponin I High Sens < 3.5 (<3.5-17.0) ng/L B-Natriuretic Peptide 25 (<100) pg/mL Total Protein 6.6 (6.5-8.0) g/dL Albumin 3.9 (3.5-5.0) g/dL COVID-19 (MARKELL) Negative (Negative) COVID-19 Clin Com See Note Influenza Type A (GLADYS) Negative (Negative) Influenza Type B (GLADYS) Negative (Negative) Influenza A & B Note See Note Discharge Plan Discharge Clinical Impression: Eloped from emergency department Patient Disposition: Elopement Prescriptions: No Action pantoprazole 40 mg tablet,delayed release (DR/EC) 40 mg PO DAILY Qty: 90 2RF metoclopramide HCl [Reglan] 10 mg tablet 10 mg PO Q6H PRN (Reason: nausea and vomiting) Qty: 10 0RF magnesium oxide 400 mg magnesium tablet 400 mg PO DAILY Qty: 14 0RF [id number]-[id number] [Fioricet] 50-300-40 mg capsule 1 cap PO Q8H PRN (Reason: pain) Qty: 10 0RF prednisone 20 mg tablet 40 mg PO DAILY Qty: 10 0RF ondansetron HCl [Zofran] 4 mg tablet 4 mg PO Q8H PRN (Reason: nausea and vomiting) Qty: 10 0RF diclofenac sodium [Voltaren Arthritis Pain] 1 % gel 2 g topical QID Qty: 100 0RF Rx Instructions: apply to single elbow, wrist or hand; for hand includes palm/fingers/back of hand lidocaine 5 % adhesive patch,medicated 1 patch topical DAILY PRN (Reason: pain) Qty: 30 0RF Rx Instructions: leave on most painful area for up to 12 hrs albuterol sulfate 90 mcg/actuation HFA aerosol inhaler 2 puff inhalation Q4-6H PRN (Reason: shortness of breath or wheezing) Qty: 6.7 0RF prednisone 20 mg tablet 40 mg PO DAILY 5 Days Qty: 10 0RF Robitussin Cough-Chest Rigoberto DM 10-200 mg capsule 1 tab-cap PO Q4-6H PRN (Reason: cough) Qty: 14 0RF oxycodone 5 mg tablet 5 mg PO Q4H PRN (Reason: pain) Qty: 14 0RF Rx Instructions: Patient may request partial fill; Partial Fill upon patient request. codeine-guaifenesin 10-100 mg/5 mL liquid 10 ml PO BEDTIME PRN (Reason: cough) 5 Days Qty: 50 0RF prednisone 20 mg tablet 40 mg PO DAILY 5 Days Qty: 10 0RF cyclobenzaprine 10 mg tablet 10 mg PO BEDTIME PRN (Reason: sprain) 7 Days Qty: 7 0RF Rx Instructions: side effect is drowsiness. lisinopril 20 mg tablet 20 mg PO DAILY zolpidem 10 mg tablet 10 mg PO BEDTIME PRN epinephrine 0.3 mg/0.3 mL auto-injector IM benzonatate 100 mg capsule 100 mg PO TID PRN (Reason: cough) paroxetine HCl 40 mg tablet PO Metamucil 3.4 gram/5.4 gram powder 1 tbsp PO DAILY Qty: 660 0RF Rx Instructions: mix into at least 8 oz of water or juice before administering cyclobenzaprine 5 mg tablet 5 mg PO TID cetirizine 10 mg tablet 10 mg PO DAILY divalproex 500 mg tablet,delayed release (DR/EC) 500 mg PO BID clonazepam 0.5 mg tablet 0.5 mg PO DAILY PRN (Reason: anxiety attack) ketorolac 10 mg tablet 10 mg PO TID PRN hydroxyzine pamoate 50 mg capsule 50 mg PO BID PRN aripiprazole 15 mg tablet PO montelukast 10 mg tablet 10 mg PO DAILY fluticasone propionate [Flovent HFA] 110 mcg/actuation HFA aerosol inhaler inhalation chlorthalidone 25 mg tablet PO levothyroxine 100 mcg tablet PO doxycycline hyclate 100 mg capsule 100 mg PO BID ketorolac 10 mg tablet 10 mg PO TID meclizine 25 mg tablet 25 mg PO TID PRN (Reason: dizziness) Discharge Date/Time: 01/25/23 19:27 Print Language: Vietnamese
[2023-01-25 15:58] VITALS: BP 155/109; PULSE 84; RESP 17; TEMP 36.8; O2SAT 100; BMI 28.8
[2023-01-25 16:00] LABS: MANUAL DIFF FLAG NO
[2023-01-25 16:01] LABS: Basophils Absolute Auto 0.1 X10*3/uL (0.0-0.2); Basophils Percent Auto 0.8 % (0-2); Eosinophils Absolute Auto 0.5 X10*3/uL (0.0-0.4); Eosinophils Percent Auto 5.2 % (0-4); Hematocrit 35.5 % (37.0-47.0); Hemoglobin 10.9 g/dl (12.0-16.0); Imm Gran Abs Auto 0.02 X10*3/uL (0.00-0.03); Imm Gran Pct Auto 0.2 % (0.0-0.4); Lymphocytes Absolute Auto 2.3 X10*3/uL (1.2-4.9); Lymphocytes Percent Auto 25.3 % (20-40); Mean Corpuscular HGB Conc 30.7 g/dl (31.0-35.0); Mean Corpuscular Hemoglobin 24.7 pg (27.0-33.0); Mean Corpuscular Volume 80.5 fL (80.0-98.0); Mean Platelet Volume 9.8 fL (9.4-12.3); Monocytes Absolute Auto 0.5 X10*3/uL (0.1-1.2); Monocytes Percent Auto 5.5 % (2-11); Neutrophils Absolute Auto 5.7 x10*3/uL (2.0-8.3); Platelet Count 382 X10*3/uL (160-400); Red Blood Count 4.41 X10*6/uL (4.20-5.50); Red Cell Distribution Width 13.9 % (11.0-16.0); White Blood Count 9.1 X10*3/uL (4.8-10.8)
[2023-01-25 16:15] LABS: COVID-19 Test Negative (Negative); IDNOW Serial# 08D9AD1C
[2023-01-25 16:20] LABS: Alanine Aminotransferase 14 U/L (0-31); Albumin Level 3.9 g/dL (3.5-5.0); Alkaline Phosphatase 71 U/L (39-117); Anion Gap 16 (12-20); Aspartate Amino Transferase 17 U/L (5-31); Bilirubin Total 1.2 mg/dL (0.0-1.0); Blood Urea Nitrogen 10 mg/dL (9-16); Calcium 8.9 mg/dL (8.4-10.2); Carbon Dioxide 23 mmol/L (22-29); Chloride 106 mmol/L (96-108); Creatinine Clr Calc Pharmacy 90.7; Estimated Glomerular Filt Rate > 60; Glucose Random 83 mg/dL (60-115); Potassium 3.7 mmol/L (3.3-5.1); Sodium 141 mmol/L (135-145); Total Protein 6.6 g/dL (6.5-8.0)
[2023-01-25 16:26] LABS: B Type Natriuretic Peptide 25 pg/mL (<100)
[2023-01-25 16:31] LABS: Troponin-I High Sensitivity < 3.5 ng/L (<3.5-17.0)
[2023-01-25 16:52] LABS: IDNOW Serial# 08D9AD1C; Influenza A Negative (Negative); Influenza B2 Negative (Negative)
--- NOTE | 2023-01-25 19:26 | PC.NURSE ---
patient called into [facility] x 3 w/ no answer
== END 2023-01-25 19:27 | disposition left against medical advice (07) ==
PROVIDERS: Physician Assistant; Emergency Provider Emergency Medicine
DX: R07.9 Chest pain, unspecified (principal); R20.0 Anesthesia of skin; R06.02 Shortness of breath; Z20.822 Contact with and (suspected) exposure to COVID-19
CPT/HCPCS: 36415; 71045; 80053; 83880; 84484; 85025; 87502; 87635; 93005; 99283

== ENCOUNTER 2023-01-28 18:16 | Emergency (ER) | payer MEDICARE, MEDICAID, SELFPAY ==
--- NOTE | ~2023-01-28 | XR_ITS ---
EXAMINATION: XR CHEST CLINICAL INFORMATION: Pain COMPARISON: 01/25/2023 07/08/2019 TECHNIQUE: 2 views of the chest were obtained. FINDINGS: No acute finding. Lung mckenzie are felt to be grossly clear. No infiltrate. No effusion. The cardiac silhouette is within normal limits. The hilar regions do not appear pathologically enlarged. XR/XR chest 2V IMPRESSION: No acute finding.
[2023-01-28 18:23] VITALS: BP 156/100; PULSE 93; RESP 16; TEMP 37.5; O2SAT 100; BMI 30.2
--- NOTE | 2023-01-28 18:25 | ED.GENADULT ---
HPI - General Adult General Chief complaint: Dyspnea <Smi Viera - Last Filed: 01/28/23 18:26> Stated complaint: pneumonia? <Sim Viera - Last Filed: 01/28/23 18:26> Time Seen by Provider: 01/28/23 19:27 <Sim Viera - Last Filed: 01/28/23 18:26> Source: patient <Kelly Bergman NP - Last Filed: 01/29/23 02:31> Mode of arrival: ambulatory <Kelly Bergman NP - Last Filed: 01/29/23 02:31> Limitations: no limitations and language barrier <Kelly Bergman NP - Last Filed: 01/29/23 02:31> History of Present Illness HPI narrative: 37-year-old female presents with worsening upper respiratory symptoms, cough, difficulty breathing and chest pain. <Kelly Bergman NP - Last Filed: 01/29/23 02:31> Onset (ago): week(s) (3) <Kelly Bergman NP - Last Filed: 01/29/23 02:31> Location: head and chest <Kelly Bergman NP - Last Filed: 01/29/23 02:31> Radiation: non-radiation <Kelly Bergman NP - Last Filed: 01/29/23 02:31> Severity: moderate <Kelly Bergman NP - Last Filed: 01/29/23 02:31> Severity scale (1-10): 6 <Kelly Bergman NP - Last Filed: 01/29/23 02:31> Quality: burning and aching <Kelly Bergman NP - Last Filed: 01/29/23 02:31> Pain Consistency: constant <Kelly Bergman NP - Last Filed: 01/29/23 02:31> Relieving factors: none <Kelly Bergman NP - Last Filed: 01/29/23 02:31> Exacerbating factors: other (Coughing) <Kelly Bergman NP - Last Filed: 01/29/23 02:31> Associated symptoms: chest pain, cough, fever/chills, headaches, malaise and shortness of breath <Kelly Bergman NP - Last Filed: 01/29/23 02:31> Treatments prior to arrival: none <Kelly Bergman NP - Last Filed: 01/29/23 02:31> Related Data Home medications: Home Medications Medication Instructions Recorded Confirmed aripiprazole 15 mg tablet 15 mg PO QAM depressive disorder 07/08/21 07/17/21 levothyroxine 75 mcg tablet 75 mcg PO DAILY 11/10/21 lisinopril 20 mg tablet 20 mg PO DAILY 11/10/21 zolpidem 10 mg tablet 10 mg PO BEDTIME PRN 11/10/21 cetirizine 10 mg tablet 10 mg PO DAILY 06/08/22 clonazepam 0.5 mg tablet 0.5 mg PO DAILY PRN anxiety attack 06/08/22 cyclobenzaprine 5 mg tablet 5 mg PO TID 06/08/22 divalproex 500 mg tablet,delayed 500 mg PO BID 06/08/22 release ketorolac 10 mg tablet 10 mg PO TID PRN 06/08/22 paroxetine HCl 30 mg tablet 30 mg PO QAM 06/08/22 Previous Rx's Medication Instructions Recorded meclizine 25 mg tablet 25 mg PO TID PRN dizziness #30 tabs 09/10/20 metronidazole 500 mg tablet 500 mg PO BID Bacterial vaginosis 11/13/20 (Flagyl) 7 days #14 tabs [id number]-[id number]-[id number] 1 cap PO Q8H PRN pain #10 caps 01/14/21 50 mg-300 mg-40 mg capsule (Fioricet) ibuprofen 600 mg tablet 600 mg PO Q6H PRN pain #14 tabs 01/14/21 magnesium oxide 400 mg PO DAILY #14 tabs 03/16/21 metoclopramide HCl 10 mg tablet 10 mg PO Q6H PRN nausea and 03/16/21 (Reglan) vomiting #10 tabs prednisone 20 mg tablet 40 mg PO DAILY #10 tabs 08/15/21 ibuprofen 400 mg tablet 400 mg PO Q6H PRN pain #20 tabs 08/21/21 ondansetron HCl 4 mg tablet 4 mg PO Q8H PRN nausea and 08/21/21 (Zofran) vomiting #10 tabs naproxen 500 mg tablet 500 mg PO BID PRN pain 10 days #20 09/29/21 tabs oxycodone 5 mg tablet 5 mg PO Q4H PRN pain #14 tabs 05/28/22 doxycycline hyclate 100 mg capsule 100 mg PO BID 10 days #20 caps 05/30/22 ketorolac 10 mg tablet 10 mg PO TID 5 days #15 tabs 05/30/22 hydroxyzine HCl 25 mg tablet 25 mg PO TID PRN itching #20 tabs 06/08/22 psyllium husk 3.4 gram/5.4 gram 1 tbsp PO DAILY #660 grams 06/08/22 oral powder (Metamucil) diclofenac sodium 1 % topical gel 2 g topical QID #100 grams 07/21/22 (Voltaren Arthritis Pain) lidocaine 5 % topical patch 1 patch topical DAILY PRN pain #30 07/21/22 ea albuterol sulfate 90 mcg/actuation 2 puff inhalation Q4-6H PRN 09/05/22 aerosol inhaler (Ventolin HFA) shortness of breath or wheezing #6.7 grams amoxicillin 875 mg-potassium 1 tab PO Q12H 10 days #20 tabs 09/05/22 clavulanate 125 mg tablet albuterol sulfate 90 mcg/actuation 2 puff inhalation QID PRN wheezing 11/26/22 aerosol inhaler (Ventolin HFA) #8.5 grams nirmatrelvir 300 mg (150 mg See Rx Instructions PO .COMPLEX 11/26/22 x2)-ritonavir 100 mg tablet,dose #30 ea pack(EUA) (Paxlovid) albuterol sulfate 90 mcg/actuation 2 puff inhalation Q4-6H PRN 01/12/23 aerosol inhaler shortness of breath or wheezing #6.7 grams benzonatate 100 mg capsule 100 mg PO TID PRN cough #14 caps 01/12/23 dextromethorphan-guaifenesin 10 1 tab-cap PO Q4-6H PRN cough #14 01/12/23 mg-200 mg capsule (Robitussin caps Cough-Chest Congestion DM) prednisone 20 mg tablet 40 mg PO DAILY 5 days #10 tabs 01/12/23 azithromycin 250 mg tablet 250 mg PO DAILY 4 days #4 tabs 01/28/23 benzonatate 100 mg capsule 100 mg PO TID PRN cough #20 caps 01/28/23 codeine 10 mg-guaifenesin 100 mg/5 10 ml PO BEDTIME PRN cough 5 days 01/28/23 mL oral liquid #50 mL prednisone 20 mg tablet 40 mg PO DAILY 5 days #10 tabs 01/28/23 <Sim Viera - Last Filed: 01/28/23 18:26> Allergies/adverse reactions: Allergies Allergy/AdvReac Type Severity Reaction Status Date / Time shellfish derived Allergy Severe HIVES Verified 01/28/23 18:26 [SHELLFISH DERIVED] morphine [MORPHINE] Allergy Intermediate RASH, Verified 01/28/23 18:26 rash, itching sodium ferric gluconate Allergy Mild itching Verified 01/28/23 18:26 complex [From FERRLECIT] sucrose [From FERRLECIT] Allergy Mild itching Verified 01/28/23 18:26 SEAFOOD Allergy Severe SWELLING,RA Uncoded 01/28/23 18:26 SH <Sim Viera - Last Filed: 01/28/23 18:26> Review of Systems Review of Systems: Constitutional: positive Fever, positive Chills, positive fatigue, positive Malaise ENT/Mouth: positive sore throat, positive runny nose Eyes: No Discharge Cardiovascular: No Chest Pain, No SOB Respiratory: Positive Cough, No Sputum, positive Wheezing, No Dyspnea Gastrointestinal: No Nausea, No Vomiting, No Diarrhea Musculoskeletal: positive Myalgia Skin: No rash Neuro: No Headache <Kelly Bergman NP - Last Filed: 01/29/23 02:31> Yes all other systems are reviewed and are negative <Kelly Bergman NP - Last Filed: 01/29/23 02:31> ON LICENSE OF [facility] Past Medical History Attestation statement: The following information was validated with the patient. <Kelly Bergman NP - Last Filed: 01/29/23 02:31> Source: old records reviewed <Kelly Bergman NP - Last Filed: 01/29/23 02:31> Medical History: Medical History Anxiety Asthma Bipolar disorder Depression Hypertension Migraines <Sim Viera - Last Filed: 01/28/23 18:26> Surgical History: Surgical History H/O hemorrhoidectomy History of cholecystectomy History of endoscopy History of tubal ligation S/P colonoscopy S/P excision of lipoma <Sim Viera - Last Filed: 01/28/23 18:26> Family History Family History: Family History Mother Cancer of unknown origin Maternal Uncle Colon cancer Maternal Uncle Throat cancer <Sim Viera - Last Filed: 01/28/23 18:26> Social History Social History: Social History Alcohol intake: never Patient Tobacco Use Status: Never used Tobacco Advance Directives: No Advance Directives Information Provided: Yes <Sim Viera - Last Filed: 01/28/23 18:26> Physical Exam ED Vital Signs: Vital Signs - 24 hr 01/28/23 18:23 Temperature 99.5 F Pulse Rate 93 Respiratory Rate 16 Blood Pressure 156/100 H Pulse Oximetry 100 Oxygen Delivery Method Room Air BMI result Body Mass Index 30.2 <Sim Viera - Last Filed: 01/28/23 18:26> Vital Signs - 24 hr 01/28/23 18:23 Temperature 99.5 F Pulse Rate 93 Respiratory Rate 16 Blood Pressure 156/100 H Pulse Oximetry 100 Oxygen Delivery Method Room Air BMI result Body Mass Index 30.2 <Kelly Bergman NP - Last Filed: 01/29/23 02:31> Appearance: Alert. Oriented X3. Mild distress. Eyes: Pupils equal, round and reactive to light. ENT: Pharynx normal. Rhinorrhea. Nasal congestion. Sinus tenderness to palpation. Neck: No vertebral tenderness step-offs. No nuchal rigidity. No mastoid tenderness. No meningeal signs. CVS: Normal heart rate and rhythm. Pulses normal. Respiratory: No respiratory distress. Breath sounds normal. Cough. Skin: Skin warm and dry. Normal skin color. Normal skin turgor. Extremities: No lower extremity edema. Gait balance and coordinated Neuro: No motor deficit. No sensory deficit. Cranial nerves 2-12 intact. <Kelly Bergman NP - Last Filed: 01/29/23 02:31> Course Course Course Narrative: 37-year-old female presents for evaluation of cough, back pain, shortness of breath. Symptoms started Wednesday, the patient was seen here on the same day on 01/25/2025 she had a negative viral swab and negative chest x-ray. Patient's doctor palatal the patient come back for another x-ray as her pain is worsening. <Sim Viera - Last Filed: 01/28/23 18:26> 37-year-old female presents for evaluation of cough, back pain, shortness of breath. Symptoms started Wednesday, the patient was seen here on the same day on 01/25/2025 she had a negative viral swab and negative chest x-ray. Patient's doctor palatal the patient come back for another x-ray as her pain is worsening. 37-year-old female presents for evaluation for 3 weeks of upper respiratory symptoms that have worsened and have not resolved [id number] medications. Patient does have a history of asthma, states that her chest has a burning pain every time she coughs and breathes. Patient does appear fatigued. Chest x-ray is negative for acute findings requiring emergent intervention. Physical exam consistent with sinusitis and possible bronchitis. Plan of care is to treat with azithromycin, Tessalon Perles, Robitussin A-C only at night, and prednisone. Patient is afebrile, appears nontoxic. Even unlabored respirations, O2 sat at 100% on room air I have referred patient to Dr. Shelton for poorly-controlled asthma per patient discussion during HPI. Patient verbalized understanding of and agreed. Verbalized understanding of signs symptoms indicating need for emergent intervention. <Kelly Bergman NP - Last Filed: 01/29/23 02:31> Medications Administered Discontinued Medications Generic Name Dose Route Start Last Admin Trade Name Daljit PRN Reason Stop Dose Admin Azithromycin 500 mg 01/28/23 20:13 01/28/23 20:24 Azithromycin 500 Mg Tablet PO 01/28/23 20:14 500 mg ONCE ONE Administration Benzonatate 100 mg 01/28/23 20:13 01/28/23 20:24 Benzonatate 100 Mg Capsule PO 01/28/23 20:14 100 mg ONCE ONE Administration Prednisone 40 mg 01/28/23 20:19 01/28/23 20:26 Prednisone 20 Mg Tablet PO 01/28/23 20:20 40 mg ONCE ONE Administration <Sim Viera - Last Filed: 01/28/23 18:26> Medications Administered Discontinued Medications Generic Name Dose Route Start Last Admin Trade Name Daljit PRN Reason Stop Dose Admin Azithromycin 500 mg 01/28/23 20:13 01/28/23 20:24 Azithromycin 500 Mg Tablet PO 01/28/23 20:14 500 mg ONCE ONE Administration Benzonatate 100 mg 01/28/23 20:13 01/28/23 20:24 Benzonatate 100 Mg Capsule PO 01/28/23 20:14 100 mg ONCE ONE Administration Prednisone 40 mg 01/28/23 20:19 01/28/23 20:26 Prednisone 20 Mg Tablet PO 01/28/23 20:20 40 mg ONCE ONE Administration <Kelly Bergman NP - Last Filed: 01/29/23 02:31> Medical Decision Making Differential Diagnosis Differential Diagnoses: The differential diagnosis associated with the presentation includes <Kelly Bergman NP - Last Filed: 01/29/23 02:31> Influenza, RSV, pneumonia, URI <Kelly Bergman NP - Last Filed: 01/29/23 02:31> Independent Interpretation I performed an independent interpretation of an: Plain X-Ray <Kelly Bergman NP - Last Filed: 01/29/23 02:31> Radiology Impression Discussion of test interpretation with radiology: I have reviewed the radiologist's reading. <Kelly Bergman NP - Last Filed: 01/29/23 02:31> Radiologist Impression: EXAMINATION: XR CHEST CLINICAL INFORMATION: Pain COMPARISON: 01/25/2023 07/08/2019 TECHNIQUE: 2 views of the chest were obtained. FINDINGS: No acute finding. Lung mckenzie are felt to be grossly clear. No infiltrate. No effusion. The cardiac silhouette is within normal limits. The hilar regions do not appear pathologically enlarged. XR/XR chest 2V IMPRESSION: No acute finding. <Kelly Bergman NP - Last Filed: 01/29/23 02:31> External Record Review External record reviewed: Outpatient record, Prior outpatient labs and Prior outpatient radiology <Kelly Bergman NP - Last Filed: 01/29/23 02:31> Prescription Management I considered prescription management with: Antibiotic and Other (Prednisone) <Kelly Bergman NP - Last Filed: 01/29/23 02:31> Chronic Conditions Patient?s care impacted by: Other (Asthma) <Kelly Bergman NP - Last Filed: 01/29/23 02:31> Discharge Plan Discharge Clinical Impression: Bronchitis, Sinusitis <Sim Aylin - Last Filed: 01/28/23 18:26> Patient Disposition: Home, Self-Care <Sim Aylin - Last Filed: 01/28/23 18:26> Instructions: Sinusitis (ED), Acute Bronchitis (ED) <Sim Viera - Last Filed: 01/28/23 18:26> Additional Instructions: You were evaluated for upper respiratory symptoms. Please use azithromycin 500 mg every day for the next 4 days. We gave you your 1st dose in the emergency department. Start this medication on 01/29/2023. Take Tessalon Perles 100 mg every 8 hours as needed for cough. Drink plenty of fluids. For bedtime, take Robitussin AC. This is a cough medication with codeine. This medication is a narcotic and has high risk for addiction and abuse. Do not drive or operate machinery while taking this medication. This medication can delay reaction time, increased risk falls, and cause drowsiness. This medication can also cause constipation. Please make sure you keep this medication in a locked secure place. Take prednisone 40 mg for the next 5 days. Use your albuterol as needed. Alternate Tylenol 650 mg every 6 hours and Motrin 600 mg every 6 hours as needed for pain and fever management. Consider taking these medications 3 hours apart so you have pain and fever management every 3 hours. Write down what time you take these medications to prevent accidental overdose. Motrin is the same medication as Advil and ibuprofen. Tylenol is the same medication as acetaminophen. You may consider following up with pulmonology for poorly controlled asthma. I referred you to Dr. Shelton. You may need to contact her primary care physician for this referral. Thank you for choosing this emergency department for evaluation. Please follow-up with primary care physician as needed. Return to the emergency department for any new, concerning, or worsening symptoms. <Sim Viera - Last Filed: 01/28/23 18:26> Prescriptions: New azithromycin 250 mg tablet 250 mg PO DAILY 4 Days Qty: 4 0RF Rx Instructions: Started on 01/29/2023. First dose of azithromycin 500 mg given at 20:30 on 01/28/2023 in the emergency department benzonatate 100 mg capsule 100 mg PO TID PRN (Reason: cough) Qty: 20 0RF codeine-guaifenesin 10-100 mg/5 mL liquid 10 ml PO BEDTIME PRN (Reason: cough) 5 Days Qty: 50 0RF prednisone 20 mg tablet 40 mg PO DAILY 5 Days Qty: 10 0RF No Action meclizine 25 mg tablet 25 mg PO TID PRN (Reason: dizziness) Qty: 30 0RF metronidazole [Flagyl] 500 mg tablet 500 mg PO BID 7 Days Qty: 14 0RF metoclopramide HCl [Reglan] 10 mg tablet 10 mg PO Q6H PRN (Reason: nausea and vomiting) Qty: 10 0RF magnesium oxide 400 mg magnesium tablet 400 mg PO DAILY Qty: 14 0RF pqwrkdztwp-[id number] [Fioricet] 50-300-40 mg capsule 1 cap PO Q8H PRN (Reason: pain) Qty: 10 0RF ibuprofen 600 mg tablet 600 mg PO Q6H PRN (Reason: pain) Qty: 14 0RF prednisone 20 mg tablet 40 mg PO DAILY Qty: 10 0RF ondansetron HCl [Zofran] 4 mg tablet 4 mg PO Q8H PRN (Reason: nausea and vomiting) Qty: 10 0RF ibuprofen 400 mg tablet 400 mg PO Q6H PRN (Reason: pain) Qty: 20 0RF naproxen 500 mg tablet 500 mg PO BID PRN (Reason: pain) 10 Days Qty: 20 0RF diclofenac sodium [Voltaren Arthritis Pain] 1 % gel 2 g topical QID Qty: 100 0RF Rx Instructions: apply to single elbow, wrist or hand; for hand includes palm/fingers/back of hand lidocaine 5 % adhesive patch,medicated 1 patch topical DAILY PRN (Reason: pain) Qty: 30 0RF Rx Instructions: leave on most painful area for up to 12 hrs albuterol sulfate 90 mcg/actuation HFA aerosol inhaler 2 puff inhalation Q4-6H PRN (Reason: shortness of breath or wheezing) Qty: 6.7 0RF benzonatate 100 mg capsule 100 mg PO TID PRN (Reason: cough) Qty: 14 0RF prednisone 20 mg tablet 40 mg PO DAILY 5 Days Qty: 10 0RF Robitussin Cough-Chest Rigoberto DM 10-200 mg capsule 1 tab-cap PO Q4-6H PRN (Reason: cough) Qty: 14 0RF oxycodone 5 mg tablet 5 mg PO Q4H PRN (Reason: pain) Qty: 14 0RF Rx Instructions: Patient may request partial fill; Partial Fill upon patient request. doxycycline hyclate 100 mg capsule 100 mg PO BID 10 Days Qty: 20 0RF ketorolac 10 mg tablet 10 mg PO TID 5 Days Qty: 15 0RF amoxicillin-pot clavulanate 875-125 mg tablet 1 tab PO Q12H 10 Days Qty: 20 0RF albuterol sulfate [Ventolin HFA] 90 mcg/actuation HFA aerosol inhaler 2 puff inhalation Q4-6H PRN (Reason: shortness of breath or wheezing) Qty: 6.7 0RF Rx Instructions: May dispense medication equivalent approved by insurance albuterol sulfate [Ventolin HFA] 90 mcg/actuation HFA aerosol inhaler 2 puff inhalation QID PRN (Reason: wheezing) Qty: 8.5 0RF Paxlovid (EUA) 300 mg (150 mg x 2)-100 mg tablets,dose pack See Rx Instructions .ROUTE .COMPLEX Qty: 30 0RF Rx Instructions: take TWO 150 mg tablets of nirmatrelvir with ONE 100 mg tablet of ritonavir twice daily for 5 days aripiprazole 15 mg tablet 15 mg PO QAM levothyroxine 75 mcg tablet 75 mcg PO DAILY lisinopril 20 mg tablet 20 mg PO DAILY zolpidem 10 mg tablet 10 mg PO BEDTIME PRN cyclobenzaprine 5 mg tablet 5 mg PO TID paroxetine HCl 30 mg tablet 30 mg PO QAM cetirizine 10 mg tablet 10 mg PO DAILY divalproex 500 mg tablet,delayed release (DR/EC) 500 mg PO BID clonazepam 0.5 mg tablet 0.5 mg PO DAILY PRN (Reason: anxiety attack) ketorolac 10 mg tablet 10 mg PO TID PRN Metamucil 3.4 gram/5.4 gram powder 1 tbsp PO DAILY Qty: 660 0RF Rx Instructions: mix into at least 8 oz of water or juice before administering hydroxyzine HCl 25 mg tablet 25 mg PO TID PRN (Reason: itching) Qty: 20 0RF <Sim Viera - Last Filed: 01/28/23 18:26> Referrals: Sukumar Shelton MD [Physician] - 2 weeks (Poorly controlled asthma) <Sim Viera - Last Filed: 01/28/23 18:26> Stand Alone Forms: Work/School Release <Sim Viera - Last Filed: 01/28/23 18:26> Interventions: ED Discharge Assessment Last Done: 01/28/23 20:34 <Sim Viera - Last Filed: 01/28/23 18:26> Discharge Date/Time: 01/28/23 20:34 <Sim Viera - Last Filed: 01/28/23 18:26>
[2023-01-28] MEDS: Azithromycin 500 MG TABLET PO (20:24)
[2023-01-28] MEDS: Benzonatate 100 MG CAPSULE PO (20:24)
[2023-01-28] MEDS: predniSONE 20 MG TABLET 40 MG PO (20:26)
== END 2023-01-28 20:34 | disposition home or self-care (01) ==
PROVIDERS: Emergency Provider Emergency Medicine
DX: J40 Bronchitis, not specified as acute or chronic (principal); J32.9 Chronic sinusitis, unspecified
CPT/HCPCS: 71046; 99282; 99283

== ENCOUNTER 2023-02-06 01:20 | Emergency (ER) | payer MEDICARE, MEDICAID, SELFPAY ==
--- NOTE | 2023-02-06 | ECG_ITS ---
Test Reason : chest pain Blood Pressure : / mmHG Vent. Rate : 068 BPM Atrial Rate : 068 BPM P-R Int : 146 ms QRS Dur : 092 ms QT Int : 444 ms P-R-T Axes : 069 040 056 degrees QTc Int : 472 ms Normal sinus rhythm Moderate voltage criteria for LVH, may be normal variant ( Sokolow-Eli , [place] product ) Borderline ECG When compared with ECG of 25-JAN-2023 15:44, No significant change was found Referred By: Generic ED Physician Electronically Signed By:HERB CONNELLY
[2023-02-06 01:38] VITALS: BP 138/82; PULSE 67; O2SAT 98
[2023-02-06 01:40] VITALS: BP 159/108; PULSE 68; RESP 16; TEMP 36.6; O2SAT 100; BMI 28.6
[2023-02-06 02:25] VITALS: BP 148/82; PULSE 67; RESP 16; TEMP 36.8; O2SAT 100
[2023-02-06 02:27] LABS: Hematocrit 34.5 % (37.0-47.0); Hemoglobin 10.7 g/dl (12.0-16.0); Mean Corpuscular Volume 80.6 fL (80.0-98.0); Mean Platelet Volume 10.3 fL (9.4-12.3); Platelet Count 366 X10*3/uL (160-400); Red Blood Count 4.28 X10*6/uL (4.20-5.50); Red Cell Distribution Width 14.4 % (11.0-16.0); White Blood Count 10.6 X10*3/uL (4.8-10.8)
--- NOTE | 2023-02-06 02:31 | PC.NURSE ---
Pt complaining of 7/10 epigastric pain. Pt reported she took some medications before going to bed, a cough medicine, robitussin, and an appetite suppressant. Pt woke up with pain in her abdomen and chest, sweats, nausea, and dizziness. Pt did report 3 episodes of vomiting, back to back, around midnight. Pt is resting at this time, A&Ox4, GCS 15. Labs and EKG were done in triage. 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 Waiting to be seen by ER provider at this time.
[2023-02-06 02:35] VITALS: PULSE 60
[2023-02-06 02:41] LABS: Alanine Aminotransferase 13 U/L (0-31); Albumin Level 3.8 g/dL (3.5-5.0); Alkaline Phosphatase 68 U/L (39-117); Anion Gap 13 (12-20); Aspartate Amino Transferase 13 U/L (5-31); Bilirubin Total 1.2 mg/dL (0.0-1.0); Blood Urea Nitrogen 15 mg/dL (9-16); Calcium 8.6 mg/dL (8.4-10.2); Carbon Dioxide 23 mmol/L (22-29); Chloride 107 mmol/L (96-108); Estimated Glomerular Filt Rate > 60; Glucose Random 96 mg/dL (60-115); Potassium 3.7 mmol/L (3.3-5.1); Sodium 139 mmol/L (135-145); Total Protein 6.4 g/dL (6.5-8.0)
[2023-02-06 02:46] LABS: Troponin-I High Sensitivity < 3.5 ng/L (<3.5-17.0)
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
== END 2023-02-06 04:13 | disposition home or self-care (01) ==
PROVIDERS: Emergency Provider Emergency Medicine
DX: F41.9 Anxiety disorder, unspecified (principal); K29.70 Gastritis, unspecified, without bleeding; I10 Essential (primary) hypertension; Z79.899 Other long term (current) drug therapy
CPT/HCPCS: 36415; 80053; 84484; 85027; 93005; 99283; 99285

== ENCOUNTER 2023-02-12 10:50 | Outpatient (REF) | payer MEDICARE, MEDICAID, SELFPAY ==
[2023-02-12 11:56] LABS: MANUAL DIFF FLAG NO
[2023-02-12 12:11] LABS: Basophils Absolute Auto 0.1 X10*3/uL (0.0-0.2); Eosinophils Absolute Auto 0.4 X10*3/uL (0.0-0.4); Eosinophils Percent Auto 5.6 % (0-4); Hematocrit 36.2 % (37.0-47.0); Hemoglobin 11.3 g/dl (12.0-16.0); Imm Gran Abs Auto 0.02 X10*3/uL (0.00-0.03); Imm Gran Pct Auto 0.3 % (0.0-0.4); Lymphocytes Absolute Auto 1.5 X10*3/uL (1.2-4.9); Lymphocytes Percent Auto 22.2 % (20-40); Mean Corpuscular HGB Conc 31.2 g/dl (31.0-35.0); Mean Corpuscular Hemoglobin 25.3 pg (27.0-33.0); Mean Corpuscular Volume 81.2 fL (80.0-98.0); Mean Platelet Volume 10.2 fL (9.4-12.3); Monocytes Absolute Auto 0.4 X10*3/uL (0.1-1.2); Monocytes Percent Auto 6.1 % (2-11); Neutrophils Absolute Auto 4.4 x10*3/uL (2.0-8.3); Neutrophils Percent Auto 64.8 % (45-73); Platelet Count 388 X10*3/uL (160-400); Red Blood Count 4.46 X10*6/uL (4.20-5.50); Red Cell Distribution Width 14.6 % (11.0-16.0); White Blood Count 6.8 X10*3/uL (4.8-10.8)
[2023-02-12 12:50] LABS: Alanine Aminotransferase 15 U/L (0-31); Alkaline Phosphatase 72 U/L (39-117); Anion Gap 11 (12-20); Aspartate Amino Transferase 17 U/L (5-31); Bilirubin Total 1.3 mg/dL (0.0-1.0); Blood Urea Nitrogen 10 mg/dL (9-16); C Reactive Protein 0.17 mg/dL (< or = 0.50); Calcium 9.1 mg/dL (8.4-10.2); Carbon Dioxide 26 mmol/L (22-29); Chloride 107 mmol/L (96-108); Estimated Glomerular Filt Rate > 60; Glucose Random 79 mg/dL (60-115); Potassium 4.1 mmol/L (3.3-5.1); Sodium 140 mmol/L (135-145); Total Protein 6.9 g/dL (6.5-8.0)
[2023-02-12 13:19] LABS: Folate 11.9 ng/mL (> or = 4.0); Vitamin B12 439 pg/mL (200-900); Vitamin D 25-OH Total 24.5 ng/mL (>30)
[2023-02-16 13:58] LABS: Transglutaminase Ab IgG <1.0 U/mL; Transglutaminase IgA <1.0 U/mL
[2023-02-17 06:22] LABS: Zinc 79 mcg/dL (60-130)
[2023-02-18 05:13] LABS: Vitamin A 54 mcg/dL (38-98)
[2023-02-18 05:29] LABS: Alpha-Tocopherol 8.5 mg/L (5.7-19.9)
[2023-02-18 19:44] LABS: Vitamin C 0.7 mg/dL (0.3-2.7)
[2023-02-18 21:43] LABS: Nicotinamide <20 ng/mL; Vit B3 - Nicotinic Acid <20 ng/mL
[2023-02-18 23:44] LABS: Vitamin B5 (Pantothenic Acid) <40 ng/mL (<275)
[2023-02-22 06:38] LABS: Vitamin B1 11 nmol/L (8-30)
[2023-02-23 09:18] LABS: Vitamin B6 13.8 ng/mL (2.1-21.7)
[2023-02-23 13:44] LABS: Vitamin K1 284 pg/mL (130-1500)
== END 2023-02-12 10:51 | disposition home or self-care (01) ==
LOC: HO.LAB 10:50
PROVIDERS: Visit Provider Internal Medicine Gastroenterology
DX: N92.6 Irregular menstruation, unspecified (principal); R10.2 Pelvic and perineal pain; R19.7 Diarrhea, unspecified; G89.29 Other chronic pain; R10.33 Periumbilical pain; K75.81 Nonalcoholic steatohepatitis (NASH)
CPT/HCPCS: 36415; 80053; 82180; 82306; 82607; 82746; 83735; 84207; 84425; 84446; 84590; 84591; 84597; 84630; 85025; 86140; 86364; 99212

== ENCOUNTER 2023-03-10 14:16 | Outpatient (REF) | payer MEDICARE, MEDICAID, SELFPAY ==
--- NOTE | ~2023-03-10 | US_ITS ---
EXAMINATION: US PELVIS CLINICAL INFORMATION: Menstrual cramping; the patient is currently having her menstrual period. COMPARISON: Pelvic ultrasound dated 05/30/2022. TECHNIQUE: Ultrasound of the pelvis is performed using both transabdominal and transvaginal transducers along with Doppler. Transvaginal imaging is performed due to inadequate visualization transabdominally. FINDINGS: Uterus: The uterus is anteverted and anteflexed. The uterus measures 9.0 x 4.0 x 5.1 cm. Nabothian cysts are seen within the cervix. The double wall endometrial thickness is 0.6 mm. The uterus is smooth in contour and has normal myometrial echogenicity. No visible fibroid. Adnexa: Both ovaries are visualized. There is normal color flow to the adnexa. There is no ovarian torsion. There is no pelvic ascites or fluid collection. Right ovary measures 3.1 x 1.8 x 2.4 cm, volume 7.0 mL. There are physiologic follicles. Left ovary measures 3.0 x 2.5 x 1.3 cm, volume 5.1 mL. There are physiologic follicles. Within the left adnexa, a hypoechoic, avascular, tubular structure is seen. This could represent a thrombosed paraovarian vein or, possibly a pyosalpinx. US/US pelvic and transvaginal IMPRESSION: 1. A tubular, a vascular structure is seen within the left adnexal region, possibly a thrombosed paraovarian vein or pyosalpinx. Please correlate clinically. If of continued clinical concern, this can be further evaluated with MRI. 2. Nabothian cysts are seen within the cervix.
== END 2023-03-10 14:17 | disposition home or self-care (01) ==
LOC: HO.US 14:16
PROVIDERS: Visit Provider Internal Medicine Gastroenterology
DX: Z13.89 Encounter for screening for other disorder (principal)
CPT/HCPCS: 76830; 76856

== ENCOUNTER 2023-03-10 15:23 | Emergency (ER) | payer MEDICARE, MEDICAID, SELFPAY ==
[2023-03-10 15:47] VITALS: BP 155/86; PULSE 63; RESP 18; TEMP 36.6; O2SAT 98; BMI 28.7
--- NOTE | 2023-03-10 15:48 | ED.ABDPAIN ---
HPI - Abdominal Pain General Chief Complaint: Abdominal Pain Stated Complaint: dizziness,upper abd pain Time Seen by Provider: 03/10/23 17:55 Related Data Home Medications ?Medication ?Instructions ?Recorded ?Confirmed lisinopril 20 mg tablet 20 mg PO DAILY 11/10/21 zolpidem 10 mg tablet 10 mg PO BEDTIME PRN 11/10/21 cetirizine 10 mg tablet 10 mg PO DAILY 06/08/22 clonazepam 0.5 mg tablet 0.5 mg PO DAILY PRN anxiety attack 06/08/22 cyclobenzaprine 5 mg tablet 5 mg PO TID 06/08/22 divalproex 500 mg tablet,delayed 500 mg PO BID 06/08/22 release ketorolac 10 mg tablet 10 mg PO TID PRN 06/08/22 benzonatate 100 mg capsule 100 mg PO TID PRN cough 02/12/23 epinephrine 0.3 mg/0.3 mL IM 02/12/23 injection, auto-injector paroxetine HCl 40 mg tablet mg PO 02/12/23 aripiprazole 15 mg tablet mg PO 08/20/23 chlorthalidone 25 mg tablet mg PO 08/20/23 doxycycline hyclate 100 mg capsule 100 mg PO BID 08/20/23 fluticasone propionate 110 inhalation 08/20/23 mcg/actuation HFA aerosol inhaler (Flovent HFA) hydroxyzine pamoate 50 mg capsule 50 mg PO BID PRN 08/20/23 ketorolac 10 mg tablet 10 mg PO TID 08/20/23 levothyroxine 100 mcg tablet mcg PO 08/20/23 meclizine 25 mg tablet 25 mg PO TID PRN dizziness 08/20/23 montelukast 10 mg tablet 10 mg PO DAILY 08/20/23 Previous Rx's ?Medication ?Instructions ?Recorded zaaprdwnbx-gnaapynxxjjbl-hzkqogyk 1 cap PO Q8H PRN pain #10 caps 01/14/21 50 mg-300 mg-40 mg capsule (Fioricet) magnesium oxide 400 mg PO DAILY #14 tabs 03/16/21 metoclopramide HCl 10 mg tablet 10 mg PO Q6H PRN nausea and 03/16/21 (Reglan) vomiting #10 tabs prednisone 20 mg tablet 40 mg (2 x 20 mg) PO DAILY #10 tabs 08/15/21 ondansetron HCl 4 mg tablet 4 mg PO Q8H PRN nausea and 08/21/21 (Zofran) vomiting #10 tabs oxycodone 5 mg tablet 5 mg PO Q4H PRN pain #14 tabs 05/28/22 diclofenac sodium 1 % topical gel 2 g topical QID #100 grams 07/21/22 (Voltaren Arthritis Pain) lidocaine 5 % topical patch 1 patch topical DAILY PRN pain #30 07/21/22 ea albuterol sulfate 90 mcg/actuation 2 puff inhalation Q4-6H PRN 01/12/23 aerosol inhaler shortness of breath or wheezing #6.7 grams dextromethorphan-guaifenesin 10 1 tab-cap PO Q4-6H PRN cough #14 01/12/23 mg-200 mg capsule (Robitussin caps Cough-Chest Congestion DM) prednisone 20 mg tablet 40 mg (2 x 20 mg) PO DAILY 5 days 01/12/23 #10 tabs codeine 10 mg-guaifenesin 100 mg/5 10 ml PO BEDTIME PRN cough 5 days 01/28/23 mL oral liquid #50 mL prednisone 20 mg tablet 40 mg (2 x 20 mg) PO DAILY 5 days 01/28/23 #10 tabs psyllium husk 3.4 gram/5.4 gram 1 tbsp PO DAILY #660 grams 02/12/23 oral powder (Metamucil) cyclobenzaprine 10 mg tablet 10 mg PO BEDTIME PRN sprain 7 days 04/29/23 #7 tabs pantoprazole 40 mg tablet,delayed 40 mg PO DAILY #90 tabs 02/11/24 release Allergies Allergy/AdvReac Type Severity Reaction Status Date / Time shellfish derived Allergy Severe HIVES Verified 08/20/23 11:20 [SHELLFISH DERIVED] morphine [MORPHINE] Allergy Intermediate RASH, Verified 08/20/23 11:20 rash, itching sodium ferric gluconate Allergy Mild itching Verified 08/20/23 11:20 complex [From FERRLECIT] sucrose [From FERRLECIT] Allergy Mild itching Verified 08/20/23 11:20 SEAFOOD Allergy Severe SWELLING,RA Uncoded 08/20/23 11:20 PMFSH Past Medical History Medical History Hypertension Asthma Bipolar disorder Depression Anxiety Migraines Surgical History H/O hemorrhoidectomy History of endoscopy S/P colonoscopy S/P excision of lipoma History of cholecystectomy History of tubal ligation Family History Family History Mother Cancer of unknown origin Maternal Uncle Colon cancer Maternal Uncle Throat cancer Eye cancer Maternal Grandmother Pancreatic cancer Social History Social History Alcohol intake: never Patient Tobacco Use Status: Never used Tobacco Physical Exam ED Vital Signs: BMI result Body Mass Index 28.7 Course Course Course Narrative: This is an RME: Additional HPI, ROS, PE not included below will be deferred to primary provider. 37-year-old female presents with epigastric pain, nausea, vomiting the past few days worsening, her port severe epigastric pain without radiation. Also reports that when she vomits at time she feels lightheaded. Sometimes symptoms are worse after eating but not always. Patient does not have her gallbladder however still has her appendix. Physical exam epigastric tenderness plan labs, urine, imaging Discharge Plan Discharge Clinical Impression: Eloped from emergency department Patient Disposition: Elopement Prescriptions: No Action pantoprazole 40 mg tablet,delayed release (DR/EC) 40 mg PO DAILY Qty: 90 2RF metoclopramide HCl [Reglan] 10 mg tablet 10 mg PO Q6H PRN (Reason: nausea and vomiting) Qty: 10 0RF magnesium oxide 400 mg magnesium tablet 400 mg PO DAILY Qty: 14 0RF pauaihaxrh-erkkcajuawqdc-ucpo [Fioricet] 50-300-40 mg capsule 1 cap PO Q8H PRN (Reason: pain) Qty: 10 0RF prednisone 20 mg tablet 40 mg PO DAILY Qty: 10 0RF ondansetron HCl [Zofran] 4 mg tablet 4 mg PO Q8H PRN (Reason: nausea and vomiting) Qty: 10 0RF diclofenac sodium [Voltaren Arthritis Pain] 1 % gel 2 g topical QID Qty: 100 0RF Rx Instructions: apply to single elbow, wrist or hand; for hand includes palm/fingers/back of hand lidocaine 5 % adhesive patch,medicated 1 patch topical DAILY PRN (Reason: pain) Qty: 30 0RF Rx Instructions: leave on most painful area for up to 12 hrs albuterol sulfate 90 mcg/actuation HFA aerosol inhaler 2 puff inhalation Q4-6H PRN (Reason: shortness of breath or wheezing) Qty: 6.7 0RF prednisone 20 mg tablet 40 mg PO DAILY 5 Days Qty: 10 0RF Robitussin Cough-Chest Rigoberto DM 10-200 mg capsule 1 tab-cap PO Q4-6H PRN (Reason: cough) Qty: 14 0RF oxycodone 5 mg tablet 5 mg PO Q4H PRN (Reason: pain) Qty: 14 0RF Rx Instructions: Patient may request partial fill; Partial Fill upon patient request. codeine-guaifenesin 10-100 mg/5 mL liquid 10 ml PO BEDTIME PRN (Reason: cough) 5 Days Qty: 50 0RF prednisone 20 mg tablet 40 mg PO DAILY 5 Days Qty: 10 0RF cyclobenzaprine 10 mg tablet 10 mg PO BEDTIME PRN (Reason: sprain) 7 Days Qty: 7 0RF Rx Instructions: side effect is drowsiness. lisinopril 20 mg tablet 20 mg PO DAILY zolpidem 10 mg tablet 10 mg PO BEDTIME PRN epinephrine 0.3 mg/0.3 mL auto-injector IM benzonatate 100 mg capsule 100 mg PO TID PRN (Reason: cough) paroxetine HCl 40 mg tablet PO Metamucil 3.4 gram/5.4 gram powder 1 tbsp PO DAILY Qty: 660 0RF Rx Instructions: mix into at least 8 oz of water or juice before administering cyclobenzaprine 5 mg tablet 5 mg PO TID cetirizine 10 mg tablet 10 mg PO DAILY divalproex 500 mg tablet,delayed release (DR/EC) 500 mg PO BID clonazepam 0.5 mg tablet 0.5 mg PO DAILY PRN (Reason: anxiety attack) ketorolac 10 mg tablet 10 mg PO TID PRN hydroxyzine pamoate 50 mg capsule 50 mg PO BID PRN aripiprazole 15 mg tablet PO montelukast 10 mg tablet 10 mg PO DAILY fluticasone propionate [Flovent HFA] 110 mcg/actuation HFA aerosol inhaler inhalation chlorthalidone 25 mg tablet PO levothyroxine 100 mcg tablet PO doxycycline hyclate 100 mg capsule 100 mg PO BID ketorolac 10 mg tablet 10 mg PO TID meclizine 25 mg tablet 25 mg PO TID PRN (Reason: dizziness) Interventions: ED Discharge Assessment Last Done: 03/10/23 20:46 Discharge Date/Time: 03/10/23 20:47 Print Language: Lithuanian
== END 2023-03-10 20:47 | disposition left against medical advice (07) ==
PROVIDERS: Emergency Provider Emergency Medicine
DX: R10.13 Epigastric pain (principal); R11.2 Nausea with vomiting, unspecified; R42 Dizziness and giddiness
CPT/HCPCS: 76830; 76856; 99282; 99284

== ENCOUNTER 2023-04-29 08:19 | Emergency (ER) | payer OTHER, MEDICARE, MEDICAID, SELFPAY ==
--- NOTE | ~2023-04-29 | XR_ITS ---
EXAMINATION: XR SHOULDER, RIGHT XR HAND AND WRIST, RIGHT CLINICAL INFORMATION: An object fell on the patient's hand and wrist with pain with question of humeral fracture COMPARISON: Right hand 07/21/2022, chest radiograph 01/28/2023 TECHNIQUE: 4 views of the right hand and wrist AP external rotation, Grashey, scapular Y, and axillary views of the right shoulder. FINDINGS: Hand and wrist: There are marked degenerative changes present at the DIP joint of the fourth digit similar to 07/21/2022. Some mild deformity of the distal end of the middle phalanx of the fourth digit may be due to a remote fracture. Some milder degenerative changes are present at the other DIP joints. There is no evidence of an acute injury. The exam is otherwise unremarkable. Shoulder: No bone, joint or soft tissue abnormality is seen. XR/XR shoulder RT min 2V IMPRESSION: No evidence of an acute injury. Degenerative changes present at the DIP joint of the fourth digit. No acute finding in the shoulder.
--- NOTE | ~2023-04-29 | XR_ITS ---
EXAMINATION: XR SHOULDER, RIGHT XR HAND AND WRIST, RIGHT CLINICAL INFORMATION: An object fell on the patient's hand and wrist with pain with question of humeral fracture COMPARISON: Right hand 07/21/2022, chest radiograph 01/28/2023 TECHNIQUE: 4 views of the right hand and wrist AP external rotation, Grashey, scapular Y, and axillary views of the right shoulder. FINDINGS: Hand and wrist: There are marked degenerative changes present at the DIP joint of the fourth digit similar to 07/21/2022. Some mild deformity of the distal end of the middle phalanx of the fourth digit may be due to a remote fracture. Some milder degenerative changes are present at the other DIP joints. There is no evidence of an acute injury. The exam is otherwise unremarkable. Shoulder: No bone, joint or soft tissue abnormality is seen. XR/XR hand wrist RT IMPRESSION: No evidence of an acute injury. Degenerative changes present at the DIP joint of the fourth digit. No acute finding in the shoulder.
[2023-04-29 08:33] VITALS: BP 131/93; PULSE 80; RESP 16; TEMP 36.9; O2SAT 98; BMI 28.4
--- NOTE | 2023-04-29 08:46 | ED_ITS ---
HPI - Extremity Problem General Chief complaint: Extremity Injury, Upper Stated complaint: Right Arm injury Time Seen by Provider: 04/29/23 08:27 Source: patient Mode of arrival: ambulatory Limitations: no limitations History of Present Illness HPI Narrative: 37 yold female presents to the ED for right humerus pain after metal object from a machine fell on her right arm. patient denies any head injury or any other trauma to the rest of the body. Patient states she was not trained and using machine Related Data Home Medications Medication Instructions Recorded Confirmed levothyroxine 75 mcg tablet 75 mcg PO DAILY 11/10/21 lisinopril 20 mg tablet 20 mg PO DAILY 11/10/21 zolpidem 10 mg tablet 10 mg PO BEDTIME PRN 11/10/21 cetirizine 10 mg tablet 10 mg PO DAILY 06/08/22 clonazepam 0.5 mg tablet 0.5 mg PO DAILY PRN anxiety attack 06/08/22 cyclobenzaprine 5 mg tablet 5 mg PO TID 06/08/22 divalproex 500 mg tablet,delayed 500 mg PO BID 06/08/22 release ketorolac 10 mg tablet 10 mg PO TID PRN 06/08/22 benzonatate 100 mg capsule 100 mg PO TID PRN cough 02/12/23 epinephrine 0.3 mg/0.3 mL IM 02/12/23 injection, auto-injector paroxetine HCl 40 mg tablet mg PO 02/12/23 Previous Rx's Medication Instructions Recorded meclizine 25 mg tablet 25 mg PO TID PRN dizziness #30 tabs 09/10/20 metronidazole 500 mg tablet 500 mg PO BID Bacterial vaginosis 11/13/20 (Flagyl) 7 days #14 tabs wrvmrezrqt-swjogmnobuolu-koioduyb 1 cap PO Q8H PRN pain #10 caps 01/14/21 50 mg-300 mg-40 mg capsule (Fioricet) ibuprofen 600 mg tablet 600 mg PO Q6H PRN pain #14 tabs 01/14/21 magnesium oxide 400 mg PO DAILY #14 tabs 03/16/21 metoclopramide HCl 10 mg tablet 10 mg PO Q6H PRN nausea and 03/16/21 (Reglan) vomiting #10 tabs prednisone 20 mg tablet 40 mg PO DAILY #10 tabs 08/15/21 ibuprofen 400 mg tablet 400 mg PO Q6H PRN pain #20 tabs 08/21/21 ondansetron HCl 4 mg tablet 4 mg PO Q8H PRN nausea and 08/21/21 (Zofran) vomiting #10 tabs naproxen 500 mg tablet 500 mg PO BID PRN pain 10 days #20 09/29/21 tabs oxycodone 5 mg tablet 5 mg PO Q4H PRN pain #14 tabs 05/28/22 doxycycline hyclate 100 mg capsule 100 mg PO BID 10 days #20 caps 05/30/22 ketorolac 10 mg tablet 10 mg PO TID 5 days #15 tabs 05/30/22 hydroxyzine HCl 25 mg tablet 25 mg PO TID PRN itching #20 tabs 06/08/22 diclofenac sodium 1 % topical gel 2 g topical QID #100 grams 07/21/22 (Voltaren Arthritis Pain) lidocaine 5 % topical patch 1 patch topical DAILY PRN pain #30 07/21/22 ea nirmatrelvir 300 mg (150 mg See Rx Instructions PO .COMPLEX 11/26/22 x2)-ritonavir 100 mg tablet,dose #30 ea pack (Paxlovid) albuterol sulfate 90 mcg/actuation 2 puff inhalation Q4-6H PRN 01/12/23 aerosol inhaler shortness of breath or wheezing #6.7 grams dextromethorphan-guaifenesin 10 1 tab-cap PO Q4-6H PRN cough #14 01/12/23 mg-200 mg capsule (Robitussin caps Cough-Chest Congestion DM) prednisone 20 mg tablet 40 mg PO DAILY 5 days #10 tabs 01/12/23 benzonatate 100 mg capsule 100 mg PO TID PRN cough #20 caps 01/28/23 codeine 10 mg-guaifenesin 100 mg/5 10 ml PO BEDTIME PRN cough 5 days 01/28/23 mL oral liquid #50 mL prednisone 20 mg tablet 40 mg PO DAILY 5 days #10 tabs 01/28/23 psyllium husk 3.4 gram/5.4 gram 1 tbsp PO DAILY #660 grams 02/12/23 oral powder (Metamucil) cyclobenzaprine 10 mg tablet 10 mg PO BEDTIME PRN sprain 7 days 04/29/23 #7 tabs naproxen 500 mg tablet 500 mg PO BID PRN pain 7 days #14 04/29/23 tabs Allergies Allergy/AdvReac Type Severity Reaction Status Date / Time shellfish derived Allergy Severe HIVES Verified 02/12/23 11:01 [SHELLFISH DERIVED] morphine [MORPHINE] Allergy Intermediate RASH, Verified 02/12/23 11:01 rash, itching sodium ferric gluconate Allergy Mild itching Verified 02/12/23 11:01 complex [From FERRLECIT] sucrose [From FERRLECIT] Allergy Mild itching Verified 02/12/23 11:01 SEAFOOD Allergy Severe SWELLING,RA Uncoded 02/12/23 11:01 Review of Systems Review of Systems: Right humerus pain Yes all other systems are reviewed and are negative [facility] Past Medical History Medical History Anxiety Asthma Bipolar disorder Depression Hypertension Migraines Surgical History H/O hemorrhoidectomy History of cholecystectomy History of endoscopy History of tubal ligation S/P colonoscopy S/P excision of lipoma Family History Family History (Updated 02/12/23 @ 11:06 by CHANDRAKANT Schneider) Mother Cancer of unknown origin Maternal Uncle Colon cancer Maternal Uncle Throat cancer Eye cancer Maternal Grandmother Pancreatic cancer Social History Social History Alcohol intake: never Patient Tobacco Use Status: Never used Tobacco Smoked in Last 30 Days: No Use of substances other than those prescribed or required for medical reasons: No Advance Directives: No Advance Directives Information Provided: No Physical Exam Vital Signs: Vital Signs: Last Vital Signs Temp 97.9 F 04/29/23 10:00 Pulse 57 04/29/23 10:00 Resp 16 04/29/23 10:00 BP 145/95 H 04/29/23 10:00 Pulse Ox 99 04/29/23 10:00 O2 Del Method Room Air 04/29/23 10:00 BMI result Body Mass Index 28.4 Const: General: cooperative, healthy appearing, comfortable, no acute distress, well developed, alert, awake and Physically active Orientation/consciousness: oriented to person, oriented to place, oriented to time and patient oriented x3 HEENT: Head: Yes normal to inspection, Yes No palpable skull fracture present, Yes normocephalic, Yes atraumatic and No abrasion Ears: hearing grossly normal bilaterally, external ears normal, TM's normal bilaterally, EAC's normal, mastoids normal and no periauricular adenopathy General nose exam: Normal external nose present and Normal nares present Mouth: Normal oral and palatal mucosa present and lip normal Throat: Yes posterior oropharynx normal and Yes tonsils normal Eyes: General: appearance normal, both eyes and all related structures Neck: Neck: Yes normal visual inspection, Yes full ROM, Yes no lymphadenopathy, Yes no meningeal signs, Yes trachea midline, Yes supple, No anterior neck swelling and No tender Chest: Chest palpation & inspection: normal inspection of the chest and normal palpation of entire chest wall Resp: Effort & Inspection: normal respiratory effort and able to speak in complete sentences Auscultation: clear to auscultation bilaterally Cardio: Jugular venous distension: no JVD Heart sounds: S1 normal heart sound present and S2 normal heart sound present GI: Inspection: Yes normal to inspection and No abdominal wall ecchymosis Palpation (GI): Soft to palpation, not firm, nontender, no guarding and not rigid : General: No CVA tenderness and Yes no CVA tenderness Back/Spine/Pelvis: Back: no CVA tenderness, No CVA tenderness and No back tenderness Skin: General skin exam: no rashes or lesions noted and elasticity normal Neuro: General: oriented to person, oriented to place, oriented to time, patient oriented x3, gait normal, tone normal, moves all extremities, Normal light touch and pain sensation, no meningeal signs, no focal motor deficits, CN's II-XI intact bilaterally and normal sensation to monofilament Extrem: General: Yes normal to inspection and Yes full ROM Shoulder/upper arm images: 1. Positive for ecchymosis on palpation. Negative for crepitus, deformity, or signs of vascular/neural injury. Right upper extremity motor/neuro/vascular exam intact. Psych: Appearance: grossly normal and well kempt Course Course Course Narrative: X-ray orders. Reevaluation(s) Reevaluation #1: Patient x-ray normal negative for fractures. Patient is safe for discharge. Patient informed to follow up with work and connection. Patient will be discharged with muscle relaxer. Patient states awkward ?movement of right shoulder while trying to avoid being hit by object while moving fork Lift. Whole-body evaluated negative for signs of trauma. Time: 10:08 Medical Decision Making Medical Decision Making MDM Narrative: 37-year-old female presents to the ED for right shoulder PE Ms. Pain while moving a fork lift. Patient states object ( stick) from [employer] came off and she moved for live around to prevent blunt trauma stick. Patient moved shoulder in awkward direction. Stick only hit upper part of shoulder and no where else on the body. Patient alert oriented x3. X-ray normal. Differential Diagnosis Differential Diagnoses: The differential diagnosis associated with the presentation includes (Shoulder sprain. SHoulder fracture/dislocation. humerus fracture. hand/wrist fracture) Independent Interpretation I performed an independent interpretation of an: Plain X-Ray Radiology Impression Discussion of test interpretation with radiology: I have reviewed the radi ologist's reading. Prescription Management I considered prescription management with: Pain Medication Discharge Plan Discharge Clinical Impression: Sprain of right shoulder, Contusion Patient Disposition: Home, Self-Care Instructions: Contusion in Adults (ED), Shoulder Sprain (ED) Additional Instructions: Tus radiograf?as resultaron negativas para fracturas. Por favor, noris un seguimiento con trotter proveedor de atenci?n primaria. Regrese al servicio de urge ncias si tiene enrojecimiento, decoloraci?n jah azulada, calor, frialdad, hinchaz?n, vetas moon, calor, frialdad, fiebre, escalofr?os, dolor en el pecho, dificultad para respirar, entumecimiento/hormigueo o cualquier otro s?ntoma preocupante. Por favor, noris un seguimiento con la conexi?n de trabajo Prescriptions: New naproxen 500 mg tablet 500 mg PO BID PRN (Reason: pain) 7 Days Qty: 14 0RF cyclobenzaprine 10 mg tablet 10 mg PO BEDTIME PRN (Reason: sprain) 7 Days Qty: 7 0RF Rx Instructions: side effect is drowsiness. No Action meclizine 25 mg tablet 25 mg PO TID PRN (Reason: dizziness) Qty: 30 0RF metronidazole [Flagyl] 500 mg tablet 500 mg PO BID 7 Days Qty: 14 0RF metoclopramide HCl [Reglan] 10 mg tablet 10 mg PO Q6H PRN (Reason: nausea and vomiting) Qty: 10 0RF magnesium oxide 400 mg magnesium tablet 400 mg PO DAILY Qty: 14 0RF fodgprtici-zcfqxttsybpvp-zufr [Fioricet] 50-300-40 mg capsule 1 cap PO Q8H PRN (Reason: pain) Qty: 10 0RF ibuprofen 600 mg tablet 600 mg PO Q6H PRN (Reason: pain) Qty: 14 0RF prednisone 20 mg tablet 40 mg PO DAILY Qty: 10 0RF ondansetron HCl [Zofran] 4 mg tablet 4 mg PO Q8H PRN (Reason: nausea and vomiting) Qty: 10 0RF ibuprofen 400 mg tablet 400 mg PO Q6H PRN (Reason: pain) Qty: 20 0RF naproxen 500 mg tablet 500 mg PO BID PRN (Reason: pain) 10 Days Qty: 20 0RF diclofenac sodium [Voltaren Arthritis Pain] 1 % gel 2 g topical QID Qty: 100 0RF Rx Instructions: apply to single elbow, wrist or hand; for hand includes palm/fingers/back of hand lidocaine 5 % adhesive patch,medicated 1 patch topical DAILY PRN (Reason: pain) Qty: 30 0RF Rx Instructions: leave on most painful area for up to 12 hrs albuterol sulfate 90 mcg/actuation HFA aerosol inhaler 2 puff inhalation Q4-6H PRN (Reason: shortness of breath or wheezing) Qty: 6.7 0RF prednisone 20 mg tablet 40 mg PO DAILY 5 Days Qty: 10 0RF Robitussin Cough-Chest Rigoberto DM 10-200 mg capsule 1 tab-cap PO Q4-6H PRN (Reason: cough) Qty: 14 0RF oxycodone 5 mg tablet 5 mg PO Q4H PRN (Reason: pain) Qty: 14 0RF Rx Instructions: Patient may request partial fill; Partial Fill upon patient request. doxycycline hyclate 100 mg capsule 100 mg PO BID 10 Days Qty: 20 0RF ketorolac 10 mg tablet 10 mg PO TID 5 Days Qty: 15 0RF Paxlovid 300 mg (150 mg x 2)-100 mg tablets,dose pack See Rx Instructions .ROUTE .COMPLEX Qty: 30 0RF Rx Instructions: take TWO 150 mg tablets of nirmatrelvir with ONE 100 mg tablet of ritonavir twice daily for 5 days benzonatate 100 mg capsule 100 mg PO TID PRN (Reason: cough) Qty: 20 0RF codeine-guaifenesin 10-100 mg/5 mL liquid 10 ml PO BEDTIME PRN (Reason: cough) 5 Days Qty: 50 0RF prednisone 20 mg tablet 40 mg PO DAILY 5 Days Qty: 10 0RF levothyroxine 75 mcg tablet 75 mcg PO DAILY lisinopril 20 mg tablet 20 mg PO DAILY zolpidem 10 mg tablet 10 mg PO BEDTIME PRN epinephrine 0.3 mg/0.3 mL auto-injector IM benzonatate 100 mg capsule 100 mg PO TID PRN (Reason: cough) paroxetine HCl 40 mg tablet PO Metamucil 3.4 gram/5.4 gram powder 1 tbsp PO DAILY Qty: 660 0RF Rx Instructions: mix into at least 8 oz of water or juice before administering cyclobenzaprine 5 mg tablet 5 mg PO TID cetirizine 10 mg tablet 10 mg PO DAILY divalproex 500 mg tablet,delayed release (DR/EC) 500 mg PO BID clonazepam 0.5 mg tablet 0.5 mg PO DAILY PRN (Reason: anxiety attack) ketorolac 10 mg tablet 10 mg PO TID PRN hydroxyzine HCl 25 mg tablet 25 mg PO TID PRN (Reason: itching) Qty: 20 0RF Referrals: [facility] [Provider Group] (work injury) Stand Alone Forms: Work/School Release Interventions: ED Discharge Assessment Last Done: 04/29/23 10:52 Discharge Date/Time: 04/29/23 10:53 Print Language: Luxembourgish
[2023-04-29 10:00] VITALS: BP 145/95; PULSE 57; RESP 16; TEMP 36.6; O2SAT 99
== END 2023-04-29 10:53 | disposition home or self-care (01) ==
PROVIDERS: Emergency Provider Student in an Organized Health Care Education/Training Program
DX: S43.401A Unspecified sprain of right shoulder joint, initial encounter (principal); S40.011A Contusion of right shoulder, initial encounter; W20.8XXA Other cause of strike by thrown, projected or falling object, initial encounter; I10 Essential (primary) hypertension; Y93.89 Activity, other specified; Y92.63 Factory as the place of occurrence of the external cause; Y99.0 Civilian activity done for income or pay
CPT/HCPCS: 73030; 73110; 73130; 99283; 99284

== ENCOUNTER 2023-08-20 11:13 | Outpatient (AMB) | payer MEDICARE, MEDICAID, SELFPAY ==
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
[2023-08-20 11:18] VITALS: BP 133/72; PULSE 80; BMI 27.4
== END 2023-08-20 11:53 | disposition home or self-care (01) ==
PROVIDERS: Visit Provider Internal Medicine Gastroenterology
DX: N92.6 Irregular menstruation, unspecified (principal); R10.32 Left lower quadrant pain
CPT/HCPCS: 99214

== ENCOUNTER → 2023-08-20 11:13 | Outpatient (BNVA) | payer MEDICARE, MEDICAID, SELFPAY | PROVIDERS: Visit Provider Internal Medicine Gastroenterology | DX: N92.6 Irregular menstruation, unspecified (principal); R10.32 Left lower quadrant pain | CPT/HCPCS: 99212 ==

== ENCOUNTER 2023-09-29 12:18 | Outpatient (REF) | payer MEDICARE, MEDICAID, SELFPAY | END 2023-09-29 12:19 | disposition home or self-care (01) | LOC: HO.US 12:18 | PROVIDERS: Visit Provider Internal Medicine Gastroenterology | DX: Z13.89 Encounter for screening for other disorder (principal) ==

== ENCOUNTER 2023-10-04 15:35 | Outpatient (REF) | payer MEDICARE, MEDICAID, SELFPAY ==
--- NOTE | ~2023-10-04 | MR_ITS ---
EXAMINATION: MR PELVIS WITHOUT AND WITH CONTRAST CLINICAL INFORMATION: Abnormality seen on pelvic ultrasound COMPARISON: 03/10/2023 pelvic ultrasound TECHNIQUE: Multiple routine MRI sequences through the pelvis were obtained on a high-field 1.5 Elaine MRI. Pre and postcontrast images were evaluated utilizing 6 mL of gadolinium based intravenous contrast FINDINGS: Uterus is anteroverted measuring 8.8 x 4.6 x 6.5 cm in size. Endometrial cavity and junctional zone are grossly unremarkable for age. Physiologic changes are seen in the bilateral adnexa with tiny follicles noted. The right ovary measures 2.6 x 2.3 x 2.7 cm in size. The left ovary measures 3.1 x 1.8 x 2.4 cm in size. I do not appreciate any suspicious tubular structure in the left adnexal region currently. There are small paraovarian veins seen but I do not appreciate any that appear to be acutely thrombosed. Trace amount of likely physiologic free fluid in the dependent pelvis. Bladder is decompressed and unremarkable. Urethra and periurethral tissues are grossly unremarkable. Symmetric muscle signal. No acute bony abnormality. MR/MR pelvis wo/w con IMPRESSION: Physiologic changes as described. I do not appreciate any suspicious tubular structure in the left adnexal region at this time.
[2023-10-04] MEDS: gadobutroL 7.5 ML VIAL IVPUSH (17:00)
== END 2023-10-04 15:36 | disposition home or self-care (01) ==
LOC: HO.MRI 15:35
PROVIDERS: Visit Provider Internal Medicine Gastroenterology
DX: I82.890 Acute embolism and thrombosis of other specified veins (principal)
CPT/HCPCS: 72197; A9585

== ENCOUNTER 2023-12-02 08:30 | Outpatient (REF) | payer OTHER, SELFPAY ==
--- NOTE | ~2023-12-02 | US_ITS ---
EXAMINATION: US PELVIS COMPLETE CLINICAL INFORMATION: Additional Notes/Special Instructions LLQ pain, : COMPARISON: Pelvic ultrasound 03/10/2023 TECHNIQUE: Transabdominal and transvaginal imaging was performed. FINDINGS: The uterus is of normal size and echogenicity measuring 9.0 x 4.4 x 5.4 cm. A regular homogeneous endometrium is identified measuring 1.1 cm. Nabothian cysts in the cervix, some containing debris. Both ovaries are of normal size and echogenicity. The right measures 3.1 x 2.2 x 2.4 cm for a volume of 8.6 mL. The left measures 2.8 x 1.7 x 2.6 cm for a volume of 6.5 mL. Involuting physiologic right ovarian corpus luteum. There is no pelvic free fluid. US/US pelvic and transvaginal IMPRESSION: Involuting physiologic right ovarian corpus luteum. Otherwise unremarkable pelvic ultrasound.
== END 2023-12-02 08:31 | disposition home or self-care (01) ==
LOC: HO.US 08:30
PROVIDERS: Visit Provider Internal Medicine Gastroenterology
DX: R10.32 Left lower quadrant pain (principal); R10.2 Pelvic and perineal pain; N92.6 Irregular menstruation, unspecified
CPT/HCPCS: 76830; 76856

== ENCOUNTER 2024-06-09 12:11 | Outpatient (AMB) | payer OTHER, SELFPAY ==
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
[2024-06-09 12:20] VITALS: BP 133/73; PULSE 68
== END 2024-06-09 13:31 | disposition home or self-care (01) ==
PROVIDERS: Visit Provider Internal Medicine Gastroenterology
DX: R10.32 Left lower quadrant pain (principal)
CPT/HCPCS: 99213

== ENCOUNTER → 2024-06-09 12:11 | Outpatient (BNVA) | payer OTHER, SELFPAY | PROVIDERS: Visit Provider Internal Medicine Gastroenterology | DX: R10.32 Left lower quadrant pain (principal); R19.7 Diarrhea, unspecified; Z90.49 Acquired absence of other specified parts of digestive tract | CPT/HCPCS: 99212 ==

== ENCOUNTER 2024-10-10 08:09 | Day surgery (SDC) | payer OTHER, SELFPAY ==
[2024-10-04 14:41] VITALS: BMI 27.4
--- NOTE | 2024-10-09 09:42 | HO.ANESPROP2 ---
Documented by User: Nuzhat Roach NP 10/09/24 09:42 HPI - Anesthesia Eval Consult details Narrative: 39yo F for Upper Endoscopy and Colonoscopy PMFSH Active Problems Active Problems: All Active Problems LLQ abdominal pain (Acute) Thrombosis of ovarian vein (Acute) Abnormal menstrual periods (Acute) COVID-19 (Acute) Diarrhea (Acute) Close exposure to 2019-nCoV (Acute) Suprapubic abdominal pain (Acute) Masses of both breasts (Acute) Adverse reaction to COVID-19 vaccine (Acute) Past Medical History Medical History Hypertension Asthma Bipolar disorder Depression Anxiety Migraines Family History Family History Mother Cancer of unknown origin Maternal Uncle Colon cancer Maternal Uncle Throat cancer Eye cancer Maternal Grandmother Pancreatic cancer Surgical History Surgical History H/O hemorrhoidectomy History of endoscopy S/P colonoscopy S/P excision of lipoma History of cholecystectomy History of tubal ligation Social History Social History Alcohol intake: never Patient Tobacco Use Status: Never used Tobacco Have you been hit, kicked, punched, or otherwise hurt by someone within the past year? If so, by whom?: No Are you DNR?: No Advance Directives: No Advance Directives Information Provided: Yes Meds Allergies Allergy/AdvReac Type Severity Reaction Status Date / Time seafood Allergy Severe swelling/ra Verified 10/04/24 14:19 sh shellfish derived Allergy Severe HIVES Verified 06/09/24 12:23 [SHELLFISH DERIVED] morphine [MORPHINE] Allergy Intermediate RASH, Verified 06/09/24 12:23 rash, itching sodium ferric gluconate Allergy Mild itching Verified 06/09/24 12:23 complex [From FERRLECIT] sucrose [From FERRLECIT] Allergy Mild itching Verified 06/09/24 12:23 Home Medications ?Medication ?Instructions ?Recorded ?Confirmed ?Last Taken ?Type lisinopril 20 mg tablet 20 mg PO DAILY 11/10/21 10/04/24 Unknown History zolpidem 10 mg tablet 10 mg PO BEDTIME PRN Insomnia 11/10/21 10/04/24 Unknown History cetirizine 10 mg tablet 10 mg PO DAILY 06/08/22 10/04/24 Unknown History clonazepam 0.5 mg tablet 0.5 mg PO DAILY PRN anxiety attack 06/08/22 10/04/24 Unknown History divalproex 500 mg tablet,delayed 500 mg PO BID 06/08/22 10/04/24 Unknown History release paroxetine HCl 40 mg tablet 40 mg PO DAILY 02/12/23 10/04/24 Unknown History aripiprazole 15 mg tablet 15 mg PO DAILY 08/20/23 10/04/24 Unknown History chlorthalidone 25 mg tablet 25 mg PO DAILY 08/20/23 10/04/24 Unknown History levothyroxine 100 mcg tablet 100 mcg PO DAILY 08/20/23 10/04/24 Unknown History montelukast 10 mg tablet 10 mg PO DAILY 08/20/23 10/04/24 Unknown History pantoprazole 20 mg tablet,delayed 20 mg PO DAILY 06/09/24 10/04/24 Unknown History release fluticasone 250 mcg-salmeterol 50 1 inh inhalation BID 10/04/24 10/04/24 Unknown History mcg/dose blistr powdr for inhalation (Wixela Inhub) zonisamide 25 mg capsule 50 mg PO BEDTIME 10/04/24 10/04/24 Unknown History Exam Height,Weight and Vital Signs: Height 5 ft 2.2 in Weight 68.4 kg Assessment and Plan Assessment Anesthesia Assessment: Chart Reviewed Documented by User: Jennifer Haney MD 10/10/24 09:55 PMFSH Past Medical History Medical History Hypertension Asthma Bipolar disorder Depression Anxiety Migraines Family History Family History Mother Cancer of unknown origin Maternal Uncle Colon cancer Maternal Uncle Throat cancer Eye cancer Maternal Grandmother Pancreatic cancer Family history of problems with anesthesia: No Surgical History Surgical History H/O hemorrhoidectomy History of endoscopy S/P colonoscopy S/P excision of lipoma History of cholecystectomy History of tubal ligation History of Problems with Anesthesia: No Social History Social History Alcohol intake: never Patient Tobacco Use Status: Never used Tobacco Have you been hit, kicked, punched, or otherwise hurt by someone within the past year? If so, by whom?: No Are you DNR?: No Advance Directives: No Advance Directives Information Provided: Yes Meds Allergies Allergy/AdvReac Type Severity Reaction Status Date / Time seafood Allergy Severe swelling/ra Verified 10/04/24 14:19 sh shellfish derived Allergy Severe HIVES Verified 06/09/24 12:23 [SHELLFISH DERIVED] morphine [MORPHINE] Allergy Intermediate RASH, Verified 06/09/24 12:23 rash, itching sodium ferric gluconate Allergy Mild itching Verified 06/09/24 12:23 complex [From FERRLECIT] sucrose [From FERRLECIT] Allergy Mild itching Verified 06/09/24 12:23 Home Medications ?Medication ?Instructions ?Recorded ?Confirmed ?Last Taken ?Type lisinopril 20 mg tablet 20 mg PO DAILY 11/10/21 10/04/24 Unknown History zolpidem 10 mg tablet 10 mg PO BEDTIME PRN Insomnia 11/10/21 10/04/24 Unknown History cetirizine 10 mg tablet 10 mg PO DAILY 06/08/22 10/04/24 Unknown History clonazepam 0.5 mg tablet 0.5 mg PO DAILY PRN anxiety attack 06/08/22 10/04/24 Unknown History divalproex 500 mg tablet,delayed 500 mg PO BID 06/08/22 10/04/24 Unknown History release paroxetine HCl 40 mg tablet 40 mg PO DAILY 02/12/23 10/04/24 Unknown History aripiprazole 15 mg tablet 15 mg PO DAILY 08/20/23 10/04/24 Unknown History chlorthalidone 25 mg tablet 25 mg PO DAILY 08/20/23 10/04/24 Unknown History levothyroxine 100 mcg tablet 100 mcg PO DAILY 08/20/23 10/04/24 Unknown History montelukast 10 mg tablet 10 mg PO DAILY 08/20/23 10/04/24 Unknown History pantoprazole 20 mg tablet,delayed 20 mg PO DAILY 06/09/24 10/04/24 Unknown History release fluticasone 250 mcg-salmeterol 50 1 inh inhalation BID 10/04/24 10/04/24 Unknown History mcg/dose blistr powdr for inhalation (Wixela Inhub) zonisamide 25 mg capsule 50 mg PO BEDTIME 10/04/24 10/04/24 Unknown History Exam Airway Mallampati Class: II TM Dist: >3cm Neck ROM: Full Heart: rrr Lungs: cta Assessment and Plan Assessment Anesthesia Assessment: Anesthesia Plan Discussed Final Anesthetic Review Family History of Problems with Anesthesia: No History of Problems with Anesthesia: No NPO: Yes ASA Class: III Final Preanesthetic Review: No Changes in Pt Med Stat, Meds/Allgs Chart Reviewed, Consent Obtained/Reviewed and Anes Risks/Benef Reviewed Patient Risk: Intermediate Procedure Risk: Low Anesthetic Plan Anesthetic Plan: MAC: Disposition: Standard PACU
[2024-10-10 09:00] VITALS: BP 136/77; PULSE 63; RESP 19; TEMP 36.4; O2SAT 97; BMI 27.9
[2024-10-10] MEDS: Lactated Ringers 1,000 ML 100 ML IVCONT (09:18)
--- NOTE | 2024-10-10 09:53 | MHC.SHP ---
Pre-Procedural Eval Section A - 24 Hr Update-Section A only Date of Service: 10/10/24 Section B - Complete if H&P > 30 days Chief Complaint: Left lower quadrant pain Relevant Family History (Specify if Yes): No Relevant Social History: None Present Medications: see Short Stay Collaborative assessment Medical History: Significant History (ypertension Asthma Bipolar disorder Depression Anxiety Migraines) History of Previous Operations: Relevant previous surgery/procedure and date(s) (H/O hemorrhoidectomy History of endoscopy S/P colonoscopy S/P excision of lipoma History of cholecystectomy History of tubal ligation) Allergies: Allergies Allergy/AdvReac Type Severity Reaction Status Date / Time seafood Allergy Severe swelling/ra Verified 10/04/24 14:19 sh shellfish derived Allergy Severe HIVES Verified 06/09/24 12:23 [SHELLFISH DERIVED] morphine [MORPHINE] Allergy Intermediate RASH, Verified 06/09/24 12:23 rash, itching sodium ferric gluconate Allergy Mild itching Verified 06/09/24 12:23 complex [From FERRLECIT] sucrose [From FERRLECIT] Allergy Mild itching Verified 06/09/24 12:23 Review of Systems Sugical H&P ROS: Negative: Constitution, Cardiovascular, Respiratory, Neurological, Psychiatric, Hem-Onc, Allergic/Immunologic, Gastrointestinal, Genitourinary, Musculoskeletal, Integumentary, Endocrine and Eyes/Ears/Nose/Throat Exam Surgical H&P Exam: Normal: HEENT, Normal: Heart, Normal: Lungs, Normal: Extremities, Normal: Abdomen, Normal: Skin and Normal: Neurological Plan Diagnosis/Plan: Unchanged I have reviewed the history and physical and performed a pertinent physical examination on my patient. No changes have occurred unless specified. Time Spent With Patient Time: Total time managing care of this patient today ____ minutes.
--- NOTE | 2024-10-10 10:32 | HO.OPN-COLON ---
Colonoscopy Operative Note Operative Note Date of Service: 10/10/24 Narrative: Operative Information Procedure Description: EGD, Colonoscopy Indication: abdominal pain Anesthesia: MAC FLEXIBLE TRANSORAL UPPER GASTROINTESTINAL ENDOSCOPY AND COLONOSCOPY PROCEDURE NOTE UPPER ENDOSCOPY Consent: Indications for the procedure and potential complications of bleeding, perforation, reaction to medications and missed diagnosis were discussed with the patient and informed consent was obtained. Instrument: Olympus GIF H 190 J mid size upper endoscope Monitoring: Vital signs and clinical assessment, continuous EKG monitoring, Pulse oximetry, Carbon Dioxide monitoring and blood pressure monitoring were done throughout the procedure. Procedure: The patient was placed in the left lateral decubitis position and pre-procedure medications were administered and a bite block was placed. The endoscope was inserted into the mouth and advanced under direct vision to the third part of duodenum. A careful inspection was made as the upper endoscope was withdrawn including a retroflexed examination of the proximal stomach; Findings and interventions are described below. Findings: Larynx:normal Esophagus: GE junction at 36 cm, diaphragm hiatus at 36 cm, mild esophagitis and schatzki ring noted Stomach: Patchy erythema. Biopsies were obtained. Grade 2 flap valve on retroflexed examination of the cardia. there was an ulcer in the distal stomach posterior wall measuring about 10 mm, bx taken Duodenum: Normal bulb and descending duodenum, bx taken Intervention: Biopsies as noted above, COLONOSCOPY Instrument: Olympus variable stiffness pediatric scope 190L Colonoscopy Monitoring: Vital signs and clinical assessment, continuous EKG monitoring, Pulse oximetry, Carbon Dioxide monitoring and blood pressure monitoring were done throughout the procedure. Colon withdrawal time was 5 minutes. Procedure: The patient was placed in the left lateral decubitis position and pre-procedure medications were administered. After a digital rectal examination of the ano-rectum, the video colonoscope was inserted into the rectum and advanced through the colon to the cecum/TI. The colonoscope was slowly withdrawn in a retrograde panoramic fashion and the colon mucosa was carefully examined including a retroflexed view of the rectum. Findings and interventions are described below. Procedure Difficulty:moderate Findings: Terminal Ileum-not seen Cecum: not seen Ascending Colon: normal Transverse Colon -normal Descending Colon:normal Sigmoid Colon: normal Rectum: Retroflexion with small internal hemorrhoids, grade I Random colon bx taken Anorectum - normal Colon preparation: [place] Bowel Preparation Scale Right colon; 1 Transverse colon: 2 Left colon; 1-2 (0 = Unprepared colon segment with mucosa not seen due to solid stool that cannot be cleared. 1 = Portion of mucosa of the colon segment seen, but other areas of the colon segment not well seen due to staining, residual stool and/or opaque liquid. 2 = Minor amount of residual staining, small fragments of stool and/or opaque liquid, but mucosa of colon segment seen well. 3 = Entire mucosa of colon segment seen well with no residual staining, small fragments of stool or opaque liquid) Impression and Post Procedure Diagnosis: Endoscopy Findings: gastric ulcer esophagitis schatzki ring Colonoscopy Findings: internal hemorrhoids Plan: Await Pathology results Repeat Colonoscopy in 6 -12 month or earlier if clinically indicated and follow instructions High fiber diet leaflet avoid straining at stool, epsom salts and sitz bath, anusol supps or cream repeat EGD same time to ensure ulcer has healed, check NSAId hx and PPI compliance Above findings were reviewed with the patient and relevant handouts were provided if indicated.
[2024-10-10 10:40] VITALS: BP 99/72; PULSE 98; RESP 16; TEMP 36.5; O2SAT 98
[2024-10-10 10:54] VITALS: BP 121/91; PULSE 96; RESP 16; TEMP 36.3; O2SAT 98
== END 2024-10-10 11:34 | disposition home or self-care (01) ==
PROVIDERS: PCP Nurse Practitioner Family; Visit Provider Internal Medicine Gastroenterology
PROC: (CPT 45380; principal; 2024-10-10 10:50)
DX: R10.32 Left lower quadrant pain (principal); K64.0 First degree hemorrhoids; K25.9 Gastric ulcer, unspecified as acute or chronic, without hemorrhage or perforation; K20.80 Other esophagitis without bleeding; K22.2 Esophageal obstruction; I10 Essential (primary) hypertension; G43.909 Migraine, unspecified, not intractable, without status migrainosus; J45.909 Unspecified asthma, uncomplicated; F31.9 Bipolar disorder, unspecified; F41.9 Anxiety disorder, unspecified; Z98.890 Other specified postprocedural states; Z88.5 Allergy status to narcotic agent; Z88.8 Allergy status to other drugs, medicaments and biological substances
CPT/HCPCS: 45380; 43239; 88305; 88313; 88342; J1100; J1200; J1596; J2003; J2704

== ENCOUNTER → 2024-10-10 08:09 | Outpatient (BNV) | payer OTHER, SELFPAY | PROVIDERS: PCP Nurse Practitioner Family; Visit Provider Internal Medicine Gastroenterology | DX: R10.32 Left lower quadrant pain (principal); K22.2 Esophageal obstruction; K20.90 Esophagitis, unspecified without bleeding; K25.9 Gastric ulcer, unspecified as acute or chronic, without hemorrhage or perforation; K64.0 First degree hemorrhoids | CPT/HCPCS: 43239; 45380 ==

== ENCOUNTER → 2024-10-23 09:56 | Outpatient (BNVA) | payer OTHER, SELFPAY | PROVIDERS: Visit Provider Internal Medicine Gastroenterology | DX: K25.9 Gastric ulcer, unspecified as acute or chronic, without hemorrhage or perforation (principal) | CPT/HCPCS: 99212 ==

== ENCOUNTER 2025-01-10 08:13 | Outpatient (REF) | payer OTHER, SELFPAY ==
[2025-01-10 08:34] LABS: MANUAL DIFF FLAG NO
--- OUTSIDE RECORDS SUMMARY | 2025-01-10 08:36 | XMS_ITS | Clinical Summary ---
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 3 Active lisinopril 20 MG tablet Take 20 mg by mouth in the morning. 3 Active montelukast (Singulair) 10 MG tablet Take 10 mg by mouth. 3 Active montelukast (Singulair) 10 MG tablet Take 10 mg by mouth in the morning. 3 Active Paxlovid, 300/100, 20 x 150 MG & 10 x 100MG tablet therapy pack TAKE 2 TABLETS (NIRMATRELVIR) AND TAKE 1 TABLET (RITONAVIR) BY MOUTH TWICE A DAY FOR 5 DAYS 3 Active predniSONE (Deltasone) 20 MG tablet Take 40 mg by mouth in the morning. 3 Active zolpidem (Ambien) 10 MG tablet 3 Active Blood Pressure Monitoring (Blood Pressure Monitor 3) device See Instructions, # 1 each, Maintenance, to check blood pressure daily Dx I10, 02/13/20 14:09:00 EDT, Compound 0 Active albuterol 108 (90 Base) MCG/ACT inhaler INHALE 2 PUFFS BY MOUTH 4 TIMES A DAY NEEDED FOR WHEEZING/SHORTNES S OF BREATH 4 Active albuterol (2.5 MG/3ML) 0.083% nebulizer solution INHALE CONTENTS OF 1 VIAL EVERY 4 HOURS NEEDED FOR WHEEZING/SHORTNES S OF BREATH Active Albuterol Sulfate (ProAir RespiClick) 108 (90 Base) MCG/ACT aerosol powder Inhale 2 puffs every 4 (four) hours. Active ARIPiprazole (Abilify) 15 MG tablet TAKE 1 TABLET BY MOUTH EVERY MORNING MOOD 4 Active EPINEPHrine (Epipen) 0.3 MG/0.3ML injection syringe INJECT 0.3 MG INTRAMUSCULAR ONCE PLEASE PROVIDE INSTRUCTIONS IN [facility] GENERIC Active fluticasone-sa lmeterol (Advair) 230-21 MCG/ACT inhaler Inhale 2 puffs 2 times daily. Active Wixela Inhub 250-50 MCG/ACT aerosol powder 4 Active ibuprofen 600 MG tabletIndicati ons:TMJ (temporomandib ular joint disorder) Take 1 tablet (600 mg) by mouth every 6 (six) hours if needed for mild pain for up to 20 doses. 20 tablet 4 Active Active Problems Problem Noted Date Diagnosed Date Dental caries 11/10/2024 Missing teeth, acquired 11/10/2024 Localized gingival recession 11/10/2024 Encounters Date Type Department Care Team Description 11/10/2024 2:00 PM EST Office Visit [facility] [address] [place] [address] Yulisa Obando Dental caries (Primary Dx); Missing teeth, acquired; Localized gingival recession from Last 3 Months Social History Tobacco Use Types Packs/Day Years Used Date Smoking Tobacco: Never Smokeless Tobacco: Never Tobacco Cessation:Counseling Given: Not Answered Alcohol Use Standard Drinks/Week Comments Never 0 (1 standard drink = 0.6 oz pur e alcohol) Comments Unknown Sex and Gender Information Value Date Recorded Sex Assigned at Female 09/07/2022 10:30 AM EDT Legal Sex Female 10:30 AM EDT Gender Identity Female 09/07/2022 10:30 AM EDT Sexual Orientation Straight 09/07/2022 10 :30 AM EDT Last Filed Vital Signs Vital Sign Reading Time Taken Comments Blood Pressure 128/74 11/10/2024 2:07 PM EST Pulse 83 10/06/2023 3:10 PM EST Temperature - - Respiratory Rate - - Oxygen Saturation - - Inhaled Oxygen Concentration - - Weight - - Height - - Body Mass Index - - Plan of Treatment Upcoming Encounters Date Type Department Care Team (Late st Contact Info) Description 05/16/2025 3:00 PM EDT Office Visit [facility] [address] [place] [address] Topher, Yulisa [address] [place] [address] Health Maintenance Due Date Last Done Comments Depression Screening 1983 HIV Screening 1983 Lipid Panel 1983 SDOH Screening 1983 Alcohol/Substance Use Screening 1995 Family Planning (PISQ) 1998 Hepatitis C Screening 2001 Hepatitis B Vaccines (1 of 3 - 19+ 3-dose series) 2002 Pap Smear 2004 Cervical Cancer Screening 2013 HPV/Cotest 2013 Mammogram 2023 COVID-19 Vaccine ( season) 2024 03/24/2021 Influenza Vaccine (#1) 2024 , 09/29/2017, 10/01/2015 Dental Oral Exam 05/11/2025 11/10/2024, 12/2022, 09/14/2016 Dental Prophylaxis 05/11/2025 11/10/2024, 10/06/2023 Tobacco Screening 11/10/2025 11/10/2024 Dental X-Ray: Bitewings 11/11/2025 11/10/19 25, 09/09/2023, 09/13/2018, Additional history exists Dental X-Ray: Full Mouth 09/10/2026 09/09/2023, 05/2016 Zoster Vaccines (1 of 2) 2033 DTaP/Tdap/Td Vaccines (3 - Td or Tdap) 04/20/2034 04/20/2024, 11/30/2012 RSV Patients and Patients Aged 60 years or older (1 - 1-dose 75+ series) 2058 HIB Vaccines Aged Out No longer eligi ble based on patient's age to complete this topic HPV Vaccines Aged Out No longer eligi ble based on patient's age to complete this topic Hepatitis A Vaccines Aged Out No long er eligible based on patient's age to complete this topic IPV Vaccines Aged Out No longer eligi ble based on patient's age to complete this topic Meningococcal Vaccine Aged Out No flaca antoni eligible based on patient's age to complete this topic Pneumococcal Vaccine: Pediatrics (0 to 5 Years) and At-Risk Patients (6 to 49) Years) Aged Out No longer eligible based on patient's age to complete this topic RSV under 20 months Aged Out No longe r eligible based on patient's age to complete this topic Rotavirus Vaccines Aged Out No longer eligible based on patient's age to complete this topic Procedures Procedure Name Priority Date/Time Associated Diagnosis Comments PERIODIC ORAL EVALUATION - ESTABLISHED PATIENT Routine 11/10/2024 2:00 PM EST CASE PRESENTATION, DETAILED AND EXTENSIVE TREATMENT PLANNING Routine 11/10/2024 2:00 PM EST Dental caries Missing teeth, acquired INTRAORAL - PERIAPICAL EACH ADDITIONAL RADIOGRAPHIC IMAGE Routine 11/10/2024 2:00 PM EST Dental caries Missing teeth, acquired INTRAORAL - PERIAPICAL EACH ADDITIONAL RADIOGRAPHIC IMAGE Routine 11/10/2024 2:00 PM EST Dental caries Missing teeth, acquired INTRAORAL - PERIAPICAL FIRST RADIOGRAPHIC IMAGE Routine 11/10/2024 2:00 PM EST Dental caries Missing teeth, acquired ORAL HYGIENE INSTRUCTIONS Routine 11/10/2024 2:00 PM EST Dental caries Missing teeth, acquired BITEWINGS - 4 RADIOGRAPHIC IMAGES Routine 11/10/2024 2:00 PM EST Dental caries Missing teeth, acquired Full PROPHYLAXIS - ADULT Routine 025 2:00 PM EST Dental caries INTRAORAL - COMPLETE SERIES OF RADIOGRAPHIC IMAGES Routine 09/09/2023 3:00 PM EDT from Last 3 Months or Most Recently Relevant to Health Maintenance Insurance [facility] [facility]
[2025-01-10 09:00] LABS: Basophils Percent Auto 0.8 % (0-2); Eosinophils Absolute Auto 0.2 X10*3/uL (0.0-0.4); Eosinophils Percent Auto 3.2 % (0-4); Hematocrit 30.5 % (37.0-47.0); Hemoglobin 9.2 g/dl (12.0-16.0); Imm Gran Abs Auto 0.02 X10*3/uL (0.00-0.03); Imm Gran Pct Auto 0.4 % (0.0-0.4); Lymphocytes Absolute Auto 1.3 X10*3/uL (1.2-4.9); Lymphocytes Percent Auto 25.2 % (20-40); Mean Corpuscular HGB Conc 30.2 g/dl (31.0-35.0); Mean Corpuscular Hemoglobin 22.3 pg (27.0-33.0); Monocytes Absolute Auto 0.3 X10*3/uL (0.1-1.2); Monocytes Percent Auto 6.4 % (2-11); Neutrophils Absolute Auto 3.2 x10*3/uL (2.0-8.3); Platelet Count 364 X10*3/uL (160-400); Red Blood Count 4.12 X10*6/uL (4.20-5.50); Red Cell Distribution Width 15.8 % (11.0-16.0)
[2025-01-10 09:21] LABS: Appearance Urine Hazy; Color Urine Yellow; Glucose Urine UA Negative (Negative); Leukocyte Esterase Urine Negative (Negative); Nitrite Urine Negative (Negative); PH 7.5 (5.0-9.0); Specific Gravity - Urine 1.015 (1.005-1.025); Urine Blood Negative (Negative); Urine Ketones Negative (Negative); Urine Protein Negative (Neg-Trace)
[2025-01-10 09:35] LABS: Alanine Aminotransferase 16 U/L (0-31); Albumin Level 3.9 g/dL (3.5-5.0); Alkaline Phosphatase 63 U/L (39-117); Anion Gap 10 (12-20); Aspartate Amino Transferase 19 U/L (5-31); Bilirubin Total 1.3 mg/dL (0.0-1.0); Blood Urea Nitrogen 10 mg/dL (9-16); Calcium 8.9 mg/dL (8.4-10.2); Carbon Dioxide 26 mmol/L (22-29); Chloride 108 mmol/L (96-108); Estimated Glomerular Filt Rate > 60; Glucose Random 86 mg/dL (60-115); Potassium 3.8 mmol/L (3.3-5.1); Sodium 140 mmol/L (135-145); Total Protein 7.2 g/dL (6.5-8.0)
[2025-01-10 09:49] LABS: Ferritin 3 ng/mL (10-250)
[2025-01-10 10:01] LABS: Folate 14.3 ng/mL (> or = 4.0); Vitamin B12 427 pg/mL (200-900)
== END 2025-01-10 08:14 | disposition home or self-care (01) ==
LOC: HO.LAB 08:13
PROVIDERS: PCP Nurse Practitioner Family; Visit Provider Internal Medicine Gastroenterology
DX: R10.32 Left lower quadrant pain (principal); R30.0 Dysuria; K75.81 Nonalcoholic steatohepatitis (NASH)
CPT/HCPCS: 36415; 80053; 81003; 82607; 82728; 82746; 85025

== ENCOUNTER 2025-02-22 08:19 | Emergency (ER) | payer OTHER, SELFPAY ==
[2025-02-22 08:26] VITALS: BP 153/78; PULSE 66; RESP 16; TEMP 36.9; O2SAT 100; BMI 30.2
--- NOTE | 2025-02-22 09:00 | ED.SKABFB ---
HPI - Skin/Abscess/Foreign Bdy General Chief complaint: Skin/Abscess/Foreign Body Stated complaint: lump in back of neck Time Seen by Provider: 02/22/25 08:48 Source: patient Mode of arrival: ambulatory Limitations: no limitations History of Present Illness ED Provider: Rodrick Solomon PA-C HPI narrative: 39 yo female presents to the ER for evaluation of small bump located on the back of her neck. It started yesterday. She reports the area sometimes feels hot. she has not been ill recently. she has been under a great deal of stress. she denies any other lumps, bumps or lesions. no headaches. no fevers. MD complaint: lesion Onset (ago): day(s) (1) Location: neck Severity: moderate Quality: aching Pain Consistency: intermittent Relieving factors: rest Exacerbating factors: palpation and movement Context: none Associated symptoms: denies other symptoms Treatments prior to arrival: none Related Data Home Medications ?Medication ?Instructions ?Recorded ?Confirmed lisinopril 20 mg tablet 20 mg PO DAILY 11/10/21 10/04/24 zolpidem 10 mg tablet 10 mg PO BEDTIME PRN Insomnia 11/10/21 10/04/24 cetirizine 10 mg tablet 10 mg PO DAILY 06/08/22 10/04/24 clonazepam 0.5 mg tablet 0.5 mg PO DAILY PRN anxiety attack 06/08/22 10/04/24 divalproex 500 mg tablet,delayed 500 mg PO BID 06/08/22 10/04/24 release paroxetine HCl 40 mg tablet 40 mg PO DAILY 02/12/23 10/04/24 aripiprazole 15 mg tablet 15 mg PO DAILY 08/20/23 10/04/24 chlorthalidone 25 mg tablet 25 mg PO DAILY 08/20/23 10/04/24 levothyroxine 100 mcg tablet 100 mcg PO DAILY 08/20/23 10/04/24 montelukast 10 mg tablet 10 mg PO DAILY 08/20/23 10/04/24 fluticasone 250 mcg-salmeterol 50 1 inh inhalation BID 10/04/24 10/04/24 mcg/dose blistr powdr for inhalation (Wixela Inhub) zonisamide 25 mg capsule 50 mg PO BEDTIME 10/04/24 10/04/24 Previous Rx's ?Medication ?Instructions ?Recorded magnesium oxide 400 mg PO DAILY #14 tabs 03/16/21 albuterol sulfate 90 mcg/actuation 2 puff inhalation Q4-6H PRN 01/12/23 aerosol inhaler shortness of breath or wheezing #6.7 grams bisacodyl 5 mg tablet,delayed 20 mg (4 x 5 mg) PO ONCE 1 day #4 10/23/24 release (Dulcolax (bisacodyl)) tabs esomeprazole magnesium 20 mg 20 mg PO DAILY #90 caps 10/23/24 capsule,delayed release polyethylene glycol 3350 17 238 g PO ONCE #238 grams 10/23/24 gram/dose oral powder (Miralax) sucralfate 100 mg/mL oral 10 ml PO BID #840 mL 10/30/24 suspension diclofenac sodium 1 % topical gel 2 g topical QID PRN pain #100 grams 02/22/25 (Arthritis Pain (diclofenac)) Allergies Allergy/AdvReac Type Severity Reaction Status Date / Time seafood Allergy Severe swelling/ra Verified 02/22/25 08:28 sh shellfish derived Allergy Severe HIVES Verified 02/22/25 08:28 [SHELLFISH DERIVED] morphine [MORPHINE] Allergy Intermediate RASH, Verified 02/22/25 08:28 rash, itching sodium ferric gluconate Allergy Mild itching Verified 02/22/25 08:28 complex [From FERRLECIT] sucrose [From FERRLECIT] Allergy Mild itching Verified 02/22/25 08:28 Review of Systems Review of Systems: Yes all other systems are reviewed and are negative PMFSH Past Medical History Medical History Hypertension Asthma Bipolar disorder Depression Anxiety Migraines Surgical History H/O hemorrhoidectomy History of endoscopy S/P colonoscopy S/P excision of lipoma History of cholecystectomy History of tubal ligation Family History Family History Mother Cancer of unknown origin Maternal Uncle Colon cancer Maternal Uncle Throat cancer Eye cancer Maternal Grandmother Pancreatic cancer Social History Social History Alcohol intake: never Patient Tobacco Use Status: Never used Tobacco Advance Directives: No Advance Directives Information Provided: No Physical Exam Vital Signs: Vital Signs: Last Vital Signs Temp 98.4 F 02/22/25 08:26 Pulse 66 02/22/25 08:26 Resp 16 02/22/25 08:26 BP 153/78 H 02/22/25 08:26 Pulse Ox 100 02/22/25 08:26 O2 Del Method Room Air 02/22/25 08:26 BMI result Body Mass Index 30.2 Appearance: Alert. Oriented X3. No acute distress. Head: normocephalic, atraumatic. Eyes: Pupils equal, round and reactive to light. ENT: Pharynx normal. No tonsillar swelling or exudate. Neck: Normal inspection. Neck supple. there is a 1cm mobile, tender LN in the left posterior occipital chain. no other LAD. no nuchal rigidity. CVS: Normal heart rate and rhythm. Pulses normal. Respiratory: No respiratory distress. Breath sounds normal. Skin: Skin warm and dry. Normal skin color. Normal skin turgor. No rashes. Extremities: No lower extremity edema. No joint swelling. Neuro/psych: Oriented X 3. grossly normal, nonfocal. Normal speech and cognition. Medical Decision Making Medical Decision Making MDM Narrative: 39 yo female presents to the ER for evaluation of a tender lump on the back of her neck on the left side that started yesterday. no other notable symptoms. exam is a c/w a 1cm tender lymph node in this area. no evidence of cellulitis or abscess. most likely a benign enlargement of a single lymph node. 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 stable for d/c home Differential Diagnosis Differential Diagnoses: The differential diagnosis associated with the presentation includes lymphadenitis, lymphadenopathy, URI, abscess, cellulitis, lymphoma Tests considered The following testing was considered but not selected: considered ultrasound of the soft tissue Prescription Management I considered prescription management with: Pain Medication and Antibiotic Critical Care Time Critical Care Time Critical Care Time: No Discharge Plan Discharge Clinical Impression: Enlarged lymph node in neck Patient Disposition: Home, Self-Care Instructions: Lymphadenopathy (ED) Additional Instructions: you have a small lymph node that is enlarged on the back of your neck this should resolve on its own with time apply warm compresses to the area and use the needed for pain and swelling if swelling persists or worsens after 2 weeks, you should see your primary care doctor for further evaluation If you develop new or worsening symptoms call 911 or come back to the ER for further evaluation. Prescriptions: New diclofenac sodium [Arthritis Pain (diclofenac)] 1 % gel 2 g topical QID PRN (Reason: pain) Qty: 100 0RF Rx Instructions: apply to single elbow, wrist or hand; for hand includes palm/fingers/back of hand No Action sucralfate 100 mg/mL suspension 10 ml PO BID Qty: 840 1RF magnesium oxide 400 mg magnesium tablet 400 mg PO DAILY Qty: 14 0RF albuterol sulfate 90 mcg/actuation HFA aerosol inhaler 2 puff inhalation Q4-6H PRN (Reason: shortness of breath or wheezing) Qty: 6.7 0RF fluticasone propion-salmeterol [Wixela Inhub] 250-50 mcg/dose Blister With Device 1 inh INHALATION BID zonisamide 25 mg Capsule 50 mg PO BEDTIME lisinopril 20 mg tablet 20 mg PO DAILY zolpidem 10 mg tablet 10 mg PO BEDTIME PRN (Reason: Insomnia) paroxetine HCl 40 mg tablet 40 mg PO DAILY cetirizine 10 mg tablet 10 mg PO DAILY divalproex 500 mg tablet,delayed release (DR/EC) 500 mg PO BID clonazepam 0.5 mg tablet 0.5 mg PO DAILY PRN (Reason: anxiety attack) aripiprazole 15 mg tablet 15 mg PO DAILY montelukast 10 mg tablet 10 mg PO DAILY chlorthalidone 25 mg tablet 25 mg PO DAILY levothyroxine 100 mcg tablet 100 mcg PO DAILY esomeprazole magnesium 20 mg capsule,delayed release(DR/EC) 20 mg PO DAILY Qty: 90 1RF bisacodyl [Dulcolax (bisacodyl)] 5 mg tablet,delayed release (DR/EC) 20 mg PO ONCE 1 Days Qty: 4 0RF Rx Instructions: take at 6 pm day before colonoscopy polyethylene glycol 3350 [Miralax] 17 gram/dose powder 238 g PO ONCE Qty: 238 0RF Rx Instructions: mix the full container with 64 ounces of gatorade for colonoscopy prep the evening before the test and drink Interventions: ED Discharge Assessment Last Done: 02/22/25 09:22 Print Language: Malawian
[2025-02-22 09:22] VITALS: BP 153/78; PULSE 66; RESP 16; TEMP 36.9; O2SAT 100
--- OUTSIDE RECORDS SUMMARY | 2025-02-22 09:31 | XMS_ITS | Clinical Summary ---
Author Organization [employer] Address [address] [place] [address] Care Team Providers Care Sap Specialist Name Role Phone Unavailable Primary Care Provider [...] MG INTRAMUSCULAR ONCE PLEASE PROVIDE INSTRUCTIONS IN STATELESS MAY SUBSTITUTE GENERIC Active fluticasone-sa lmeterol (Advair) [...] teeth, acquired 11/10/2024 Localized gingival recession 11/10/2024 Social History Tobacco Use Types Packs/Day Years [...] Care Team (Late st Contact Info) Description 03/09/2025 2:30 PM EDT Office Visit [facility] [address] [place] [address] Milton Lebron DDS [address] [place] [address] 05/16/2025 3:00 PM EDT Office Visit [facility] [address] [place] [address] Yulisa Obando [address] [place] [address] Health Maintenance Due Date Last Done Comments [...] Screening 11/10/2025 11/10/2024 Dental X-Ray: Bitewings 11/11/2025 11/10/19, 09/09/2023, 09/13/2018, Additional history exists Dental X-Ray: [...] Procedure Name Priority Date/Time Associated Diagnosis Comments Full PROPHYLAXIS - ADULT Routine 025 2:00 PM EST Dental caries BITEWINGS - 4 RADIOGRAPHIC IMAGES Routine 11/10/2024 2:00 PM EST Dental caries Missing teeth, acquired PERIODIC ORAL EVALUATION - ESTABLISHED PATIENT Routine 11/10/2024 2:00 PM EST INTRAORAL - COMPLETE SERIES OF RADIOGRAPHIC IMAGES Routine 09/09/2023 3:00 PM EDT from Last 3 Months or Most Recently Relevant to Health Maintenance Insurance [facility] [employer] [place] [facility] - [facility]
== END 2025-02-22 09:35 | disposition home or self-care (01) ==
PROVIDERS: Emergency Provider Emergency Medicine; PCP Nurse Practitioner Family
DX: R59.9 Enlarged lymph nodes, unspecified (principal)
CPT/HCPCS: 99282; 99283

== ENCOUNTER 2025-04-03 09:00 | Outpatient (RCR) | payer OTHER, SELFPAY ==
[2025-02-28 08:22] VITALS: BP 137/87; PULSE 73; RESP 16; TEMP 37.3; O2SAT 99
[2025-02-28] MEDS: diphenhydrAMINE HCL 50 MG/ML VIAL 25 MG IVPUSH (08:40)
[2025-02-28] MEDS: Iron Sucrose Complex 200 MG in 0.9 % Sodium Chloride 100 ML 440 MG IV (08:42)
--- NOTE | 2025-02-28 08:44 | HO.INF ---
pt requested and was premedicated with ordered 25mg iv benadryl d/t hx of itchiness with iron infusions
[2025-03-06 09:31] VITALS: BP 121/73; PULSE 86; RESP 18; TEMP 36.6
[2025-03-06] MEDS: Iron Sucrose Complex 200 MG in 0.9 % Sodium Chloride 100 ML 440 MG IV (09:43)
[2025-03-06] MEDS: diphenhydrAMINE HCL 50 MG/ML VIAL 25 MG IVPUSH (09:53)
[2025-03-13] MEDS: diphenhydrAMINE HCL 50 MG/ML VIAL 25 MG IVPUSH (10:54)
[2025-03-13] MEDS: Iron Sucrose Complex 200 MG in 0.9 % Sodium Chloride 100 ML 440 MG IV (10:57)
[2025-03-20 09:18] VITALS: BP 123/81; PULSE 72; RESP 16; TEMP 36.6; O2SAT 98
[2025-03-20] MEDS: diphenhydrAMINE HCL 50 MG/ML VIAL 25 MG IVPUSH (09:26)
[2025-03-20] MEDS: Iron Sucrose Complex 200 MG in 0.9 % Sodium Chloride 100 ML 440 MG IV (09:29)
[2025-03-27 09:06] VITALS: BP 146/88; PULSE 66; RESP 20; TEMP 36.7; O2SAT 99
[2025-03-27] MEDS: diphenhydrAMINE HCL 50 MG/ML VIAL 25 MG IVPUSH (09:15)
[2025-03-27] MEDS: Iron Sucrose Complex 200 MG in 0.9 % Sodium Chloride 100 ML 440 MG IV (09:18)
[2025-04-03 08:52] VITALS: BP 126/82; PULSE 63; RESP 16; TEMP 36.7; O2SAT 99
[2025-04-03] MEDS: diphenhydrAMINE HCL 50 MG/ML VIAL 25 MG IVPUSH (08:58)
[2025-04-03] MEDS: Iron Sucrose Complex 200 MG in 0.9 % Sodium Chloride 100 ML 440 MG IV (09:01)
== END 2025-04-03 09:20 | disposition home or self-care (01) ==
LOC: HO.INF 09:00
PROVIDERS: Visit Provider Internal Medicine Gastroenterology
DX: N92.6 Irregular menstruation, unspecified (principal)
CPT/HCPCS: 96365; 96375; J1200; J1756